=== PATIENT | female | born 1960 | race Hispanic/Latino ===

== ENCOUNTER 2018-05-29 09:21 | Emergency (ER) | payer SELFPAY ==
[2018-05-29] MEDS ORDERED: HYDROCODONE/APAP 7.5/325 MG TAB ONE (09:55)
--- NOTE | 2018-05-29 10:38 | ER ---
Nurse's Notes [facility] Name: Ellen Winston Age: 57 yrs Sex: Female : 1960 Arrival Date: 05/29/2018 Time: 09:22 Bed 16 Private MD: None, None Diagnosis: Sciatica, left side Presentation: 05/29 09:36 Presenting complaint: Patient states: Reports L lower back pain that radiates to L hip ph and L thigh and nausea, denies fever V/D, reports hx of sciatica. Transition of care: patient was not received from another setting of care. Onset of symptoms was May 29, 2018. Risk Assessment: Do you want to hurt yourself or someone else? Patient reports no desire to harm self or others. Initial Sepsis Screen: Does the patient meet any 2 criteria? No. Patient's initial sepsis screen is negative. Does the patient have a suspected source of infection? No. Patient's initial sepsis screen is negative. Care prior to arrival: None. 09:36 Method Of Arrival: Ambulatory ph 09:36 Acuity: TYRONE 4 ph Historical: - Allergies: 09:40 No Known Allergies; ph - Home Meds: 09:40 amlodipine oral once daily [Active]; lisinopril 20 mg Oral tab 1 tab once daily ph [Active]; metformin 1,000 mg Oral tab 1 tab 1 daily [Active]; - PMHx: 09:40 Diabetes - NIDDM; Hyperlipidemia; Hypertension; UTI; ph - PSHx: 09:40 Hysterectomy; Tonsillectomy; ph - Immunization history:: Adult Immunizations unknown. - Social history:: Smoking status: Patient uses tobacco products, smokes one-half pack cigarettes per day. - Ebola Screening: : No symptoms or risks identified at this time. Screenin:41 Abuse screen: Denies threats or abuse. Denies injuries from another. Nutritional ph screening: No deficits noted. Tuberculosis screening: No symptoms or risk factors identified. Fall Risk None identified. Assessment: 09:41 General: Appears in no apparent distress. uncomfortable, Behavior is calm, cooperative, ph appropriate for age, Denies fever, feeling ill. Pain: Complains of pain in left low back Pain radiates to left hip. Neuro: Level of Consciousness is awake, alert, obeys commands, Oriented to person, place, time, situation, Moves all extremities. Full function Gait is steady. Cardiovascular: Capillary refill < 3 seconds in bilateral fingers Patient's skin is warm and dry. Respiratory: Airway is patent Respiratory effort is even, unlabored. Derm: Skin is intact, is healthy with good turgor, Skin is pink, warm \T\ dry. Musculoskeletal: Circulation, motion, and sensation intact. Range of motion: intact in all extremities. Vital Signs: 09:38 BP 163 / 54; Pulse 68; Resp 16; Temp 97.6; Pulse Ox 97% on R/A; Weight 53.98 kg; Height ph 4 ft. 11 in. (149.86 cm); 09:38 Body Mass Index 24.03 (53.98 kg, 149.86 cm) ph ED Course: 09:22 Patient arrived in ED. sb2 09:22 None, None is Private Physician. sb2 09:23 Racheal Sanabria F[facility]-C is [facility]. kb 09:23 Daniel Rashid MD is Attending Physician. kb 09:36 Jeny Watson RN is Primary Nurse. ph 09:38 Triage completed. ph 09:40 Arm band placed on. ph 09:41 Patient has correct armband on for positive identification. Bed in low position. Call ph light in reach. Side rails up X 1. Warm blanket given. 09:52 Urine collected: clean catch specimen, abril colored. dh3 10:45 No provider procedures requiring assistance completed. Patient did not have IV access ph during this emergency room visit. Administered Medications: 09:54 Drug: [place] (7.5 mg-325 mg) 1 tabs Route: PO; ph 10:45 Follow up: Response: No adverse reaction; Pain is decreased ph Outcome: 10:38 Discharge ordered by . kb 10:53 Patient left the ED. ph 10:53 Discharged to home ambulatory, with significant other. ph 10:53 Condition: good 10:53 Discharge instructions given to patient, Instructed on discharge instructions, follow up and referral plans. medication usage, Demonstrated understanding of instructions, follow-up care, medications, Prescriptions given X 2. Signatures: Rachael Sanabria FNP-C FNP-Ckb Hall, Patricia, RN RN Eli Duran 3 Marcela Shukla sb2
--- NOTE | 2018-05-29 10:38 | EDPHYS ---
Physician Documentation [facility] Name: Ellen Winston Age: 57 yrs Sex: Female : 1960 Arrival Date: 05/29/2018 Time: 09:22 Bed 16 Private MD: None, None ED Physician Daniel Rashid HPI: 05/29 10:36 This 57 yrs old Female presents to ER via Ambulatory with complaints of Flank kb Pain. 10:36 The patient presents with pain that is acute, with no known mechanism of injury. The kb symptoms are located in the left low back. The pain radiates to the left leg. The problem was sustained from unknown cause. Onset: The symptoms/episode began/occurred yesterday. Modifying factors: The patient symptoms are alleviated by nothing, the patient symptoms are aggravated by supine position. Associated signs and symptoms: Pertinent positives: none. Severity of symptoms: At their worst the symptoms were moderate, in the emergency department the symptoms are unchanged. The patient has experienced a previous episode. The patient has not recently seen a physician. Historical: - Allergies: 09:40 No Known Allergies; ph - Home Meds: 09:40 amlodipine oral once daily [Active]; lisinopril 20 mg Oral tab 1 tab once daily ph [Active]; metformin 1,000 mg Oral tab 1 tab 1 daily [Active]; - PMHx: 09:40 Diabetes - NIDDM; Hyperlipidemia; Hypertension; UTI; ph - PSHx: 09:40 Hysterectomy; Tonsillectomy; ph - Immunization history:: Adult Immunizations unknown. - Social history:: Smoking status: Patient uses tobacco products, smokes one-half pack cigarettes per day. - Ebola Screening: : No symptoms or risks identified at this time. ROS: 10:36 Constitutional: Negative for fever, chills, and weight loss, Cardiovascular: Negative kb for chest pain, palpitations, and edema, Respiratory: Negative for shortness of breath, cough, wheezing, and pleuritic chest pain, Abdomen/GI: Negative for abdominal pain, nausea, vomiting, diarrhea, and constipation, : Negative for injury, bleeding, discharge, and swelling, MS/Extremity: Negative for injury and deformity, Skin: Negative for injury, rash, and discoloration, Neuro: Negative for headache, weakness, numbness, tingling, and seizure. 10:36 Back: Positive for pain at rest, radiated pain, of the left low back. Exam: 10:36 Constitutional: This is a well developed, well nourished patient who is awake, alert, kb and in no acute distress. Head/Face: Normocephalic, atraumatic. Chest/axilla: Normal chest wall appearance and motion. Nontender with no deformity. No lesions are appreciated. Cardiovascular: Regular rate and rhythm with a normal S1 and S2. No gallops, murmurs, or rubs. Normal PMI, no JVD. No pulse deficits. Respiratory: Lungs have equal breath sounds bilaterally, clear to auscultation and percussion. No rales, rhonchi or wheezes noted. No increased work of breathing, no retractions or nasal flaring. Abdomen/GI: Soft, non-tender, with normal bowel sounds. No distension or tympany. No guarding or rebound. No evidence of tenderness throughout. Back: No spinal tenderness. No costovertebral tenderness. Full range of motion. Skin: Warm, dry with normal turgor. Normal color with no rashes, no lesions, and no evidence of cellulitis. MS/ Extremity: Pulses equal, no cyanosis. Neurovascular intact. Full, normal range of motion. Neuro: Awake and alert, GCS 15, oriented to person, place, time, and situation. Cranial nerves II-XII grossly intact. Motor strength 5/5 in all extremities. Sensory grossly intact. Cerebellar exam normal. Normal gait. Vital Signs: 09:38 BP 163 / 54; Pulse 68; Resp 16; Temp 97.6; Pulse Ox 97% on R/A; Weight 53.98 kg; Height ph 4 ft. 11 in. (149.86 cm); 09:38 Body Mass Index 24.03 (53.98 kg, 149.86 cm) ph MDM: 09:29 Patient medically screened. kb 10:36 Data reviewed: vital signs, nurses notes. Data interpreted: Pulse oximetry: on room air kb is 97 %. Interpretation: normal. Counseling: I had a detailed discussion with the patient and/or guardian regarding: the historical points, exam findings, and any diagnostic results supporting the discharge/admit diagnosis, lab results, the need for outpatient follow up, a family practitioner, to return to the emergency department if symptoms worsen or persist or if there are any questions or concerns that arise at home. 05/29 10:43 Order name: Urine Dipstick--Ancillary (enter results) bd 05/29 10:43 Order name: Urine --Ancillary (enter results) bd 05/29 09:39 Order name: Urine Dipstick-Ancillary (obtain specimen); Complete Time: 09:43 kb 05/29 10:43 Order name: Urine Dipstick-Ancillary EDMS 05/29 10:43 Order name: Urine --Ancillary EDMS Administered Medications: 09:54 Drug: [place] (7.5 mg-325 mg) 1 tabs Route: PO; ph 10:45 Follow up: Response: No adverse reaction; Pain is decreased ph Disposition: 14:53 Co-signature as Attending Physician, Daniel Rashid MD I agree with the assessment and bigg plan of care. Disposition: 05/29/18 10:38 Discharged to Home. Impression: Sciatica, left side. - Condition is Stable. - Discharge Instructions: Sciatica, [id number]. - Prescriptions for Cyclobenzaprine 10 mg Oral Tablet - take 1 tablet by ORAL route every 8 hours As needed; 21 tablet. Diclofenac Sodium 75 mg Oral Tablet, Delayed Release (E.C.) - take 1 tablet by ORAL route 2 times per day As needed; 30 tablet. - Medication Reconciliation Form, Thank You Letter, Antibiotic Education, Prescription Opioid Use form. - Follow up: Emergency Department; When: As needed; Reason: Worsening of condition. Follow up: Private Physician; When: 2 - 3 days; Reason: Recheck today's complaints, Continuance of care, Re-evaluation by your physician. Signatures: Dispatcher [employer] EDIA Racheal Sanabria, Daniel Sim MD MD cha Hall, Patricia, RN RN ph Corrections: (The following items were deleted from the chart) 10:53 10:38 05/29/2018 10:38 Discharged to Home. Impression: Sciatica, left side. Condition ph is Stable. Forms are Medication Reconciliation Form, Thank You Letter, Antibiotic Education, Prescription Opioid Use. Follow up: Emergency Department; When: As needed; Reason: Worsening of condition. Follow up: Private Physician; When: 2 - 3 days; Reason: Recheck today's complaints, Continuance of care, Re-evaluation by your physician. kb
[2018-05-29 10:58] VITALS: BP 163/54; TEMP 97.6; O2SAT 97
[2018-05-29 11:55] LABS: Urine Blood NEGATIVE (NEG); Urine Glucose TRACE (NEG); Urine Protein TRACE (NEG); Urine Specific Gravity 1.025 (1.005-1.030); Urine pH 5.5 (5.0-7.0)
== END 2018-05-29 10:53 | disposition home or self-care (01) ==
LOC: ER 09:21
DX: M54.32 Sciatica, left side (principal); E11.9 Type 2 diabetes mellitus without complications; E78.5 Hyperlipidemia, unspecified; I10 Essential (primary) hypertension
CPT/HCPCS: 81003; 81025; 99283

== ENCOUNTER 2019-10-19 07:35 | Emergency (ER) | payer SELFPAY ==
--- OUTSIDE RECORDS SUMMARY | 2019-10-19 07:38 | XMS REPORT ---
:1960 [facility] [address] [place] [address] Care Team Providers Name Role Phone Unavailable Unavailable Unavailable Problems This patient has no known problems. Allergies, Adverse Reactions, Alerts This patient has no known allergies or adverse reactions. Medications This patient has no known medications. Results Test Description Test Time Test Comments Text Results Atomic Results Result Comments SCR MAMM BILATERAL NATHANIEL 2018-12-05 07:51:23 - SCR MAMM BILATERAL NATHANIEL CAD CAD DIGITAL DIGITALBILATERAL DIGITAL SCREENING MAMMOGRAM 3D/2D WITH CAD: 11/17/2018CLINICAL: Asymptomatic. Digital breast tomosynthesis was performed in addition to routine CC and MLO views. Current mammographic images were evaluated by either a RichRelevance M-Vu or a Touchbase ImageChecker CAD (computer aided detection system). Comparison is made to exam dated 03/05/2014 mammogram - [facility]-Radiology File Room. There are scattered fibroglandular tissues in both breasts. There are benign vascular calcifications in both breasts. There is a new high density mass in the right breast, posterior depth, superior region seen on the mediolateral oblique view only. No other significant masses, calcifications, or other findings are seen in either breast. IMPRESSION: INCOMPLETE ASSESSMENT: ADDITIONAL IMAGING EVALUATION RECOMMENDEDThe mass in the right axilla could represent a benign lymph node. Additional views with possible ultrasound are recommended for confirmation. Pramod Suero M.D. et/:12/05/2018 07:51:23 Attending Technologist: Mayra Neal MM, [facility] MammographyImaging Technologist: Taylor Naqvi MM, [facility] Mammographyletter sent: Additional Imaging Mammogram BI-RADS: 0 Indeterminate
[2019-10-19] MEDS ORDERED: MORPHINE 4 MG/ML SYR ONE (07:59)
[2019-10-19] MEDS ORDERED: ONDANSETRON 4 MG/2 ML VIAL ONE (07:59)
[2019-10-19] MEDS ORDERED: ACETAMINOPHEN 325 MG TABLET ONE (08:25)
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
[2019-10-19 10:48] VITALS: BP 160/51; O2SAT 99
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
== END 2019-10-19 10:40 | disposition home or self-care (01) ==
LOC: ER 07:35
DX: M79.604 Pain in right leg (principal); I10 Essential (primary) hypertension; E78.5 Hyperlipidemia, unspecified; E11.9 Type 2 diabetes mellitus without complications; V49.9XXA Car occupant (driver) (passenger) injured in unspecified traffic accident, initial encounter
CPT/HCPCS: 70450; 71250; 72125; 99285; J2405

== ENCOUNTER 2021-02-05 10:24 | Emergency (ER) | payer SELFPAY ==
--- OUTSIDE RECORDS SUMMARY | 2021-02-05 10:26 | XMS REPORT | Continuity of Care Document ---
:1960 Author Organization [facility] t Address [address] [place] [address] Care Team Providers Name Role Phone Doctor Unassigned, [place] Attending Clinician Unavailable Problems This patient has no known problems. Allergies, Adverse Reactions, Alerts This patient has no known allergies or adverse reactions. Medications This patient has no known medications. Procedures This patient has no known procedures. Encounters Start End Encounter Admission Attending Care Care Encounter Source Date/Time Date/Time Type Type Clinicians Facility Department ID 2021-01-01 2021-01-01 Orders Doctor DELVIS [id number] 00:00:00 00:00:00 Only Unassigned, JAMMIE [id number] [place] [facility] [id number] Results Test Description Test Time Test Comments Results Result [facility] e Comments SCR MAMM 2018-12-05 - SCR MAMM BILATERAL BILATERAL NATHANIEL 07:51:23 NATHANIEL CAD CAD DIGITAL DIGITALBILATERAL DIGITAL SCREENING MAMMOGRAM 3D/2D WITH CAD: 11/17/2018CLINICAL: Asymptomatic. Digital breast tomosynthesis was performed in addition to routine CC and MLO views. Current mammographic images were evaluated by either a [employer] M-Vu or a [employer] ImageChecker CAD (computer aided detection system). Comparison is made to exam dated 03/05/2014 mammogram - [facility]-Radiology File Room. There are scattered fibroglandular tissues [...] 07:51:23 Attending Technologist: Mayra Neal MM, [facility] MammographyImaging Technologist: Taylor Naqvi MM, [facility] Mammographyletter sent: Additional Imaging Mammogram BI-RADS: 0 Indeterminate
--- NOTE | 2021-02-05 11:00 | RAD REPORT ---
EXAM DESCRIPTION: CT - Head Brain Wo Cont - 02/05/2021 10:49 am CLINICAL HISTORY: blurry vision;Dizziness Headache, drowsiness COMPARISON: HEAD BRAIN W O CONTRAST dated 05/23/2014 TECHNIQUE: All CT scans are performed using dose optimization technique as appropriate and may inclu de automated exposure control or mA/KV adjustment according to patient size. FINDINGS: No intracranial hemorrhage, hydrocephalus or extra-axial fluid collection.No areas of brai n edema or evidence of midline shift. The paranasal sinuses and mastoids are clear. The calvarium is intact. IMPRESSION: No acute intracranial abnormality.
[2021-02-05 11:04] LABS: Absolute Lymphocytes (CBC) 2.1 K/uL (0.7-4.9); Basophils % 0.6 % (0-1.3); Hematocrit 38.4 % (36.0-45.0); Lymphocytes % 24.2 % (15.3-44.8); MPV 8.4 fL (7.6-11.3); RBC Red Blood Cell Count 4.44 M/uL (3.86-4.86)
[2021-02-05 11:19] LABS: Protime INR 0.97
[2021-02-05 11:20] LABS: Potassium 3.9 mmol/L (3.5-5.1)
[2021-02-05] MEDS ORDERED: ACETAMINOPHEN 325 MG TABLET ONE (11:30)
--- NOTE | 2021-02-05 11:48 | RAD REPORT ---
EXAM DESCRIPTION: RAD - Chest Single View - 02/05/2021 11:21 am CLINICAL HISTORY: dizziness Chest pain. COMPARISON: CHEST SINGLE VIEW dated 05/23/2014; CHEST SINGLE VIEW dated 02/28/2014 FINDINGS: Portable technique limits examination quality. The lungs are grossly clear. The heart is normal in size. No displaced fractures. IMPRESSION: No acute intrathoracic process suspected.
--- NOTE | 2021-02-05 16:39 | RAD REPORT ---
EXAM DESCRIPTION: MRI - MRA Head Wo Cont - 02/05/2021 4:15 pm CLINICAL HISTORY: Stroke-like symptoms, loss of balance, dizziness, left eye blurred vision COMPARISON: MRI brain same date, CT head same date TECHNIQUE: Axial and coronal 3D [id number] image acquisition was performed. 3D rotational images were generated with source and reconstruction images reviewed. Horizontal and vertical axis rotation al views generated using MIP protocol. FINDINGS: Major venous sinuses are patent. No aneurysm or vascular malformation. Distal vertebral arteries and basilar artery show no suspicious findings. Moderate to moderately kaleb re atherosclerotic changes are present in the bilateral posterior cerebral arteries. Patient has dense calcifications of the cavernous and supraclinoid portions of each internal carotid artery based on the CT study. There is significant luminal narrowing through these portions of each i nternal carotid artery on this MRA study. Left MCA atherosclerotic changes are mild. There is moderate severity atherosclerotic narrowing of th e distal portion right M1 MCA vessel. More peripheral MCA atherosclerotic changes are mild. No signif icant anterior cerebral artery disease. IMPRESSION: Patient has significant atherosclerotic change and luminal narrowing in each internal ca rotid artery with moderate severity narrowing of the right middle cerebral artery M1 branch.
[2021-02-05] MEDS ORDERED: ASPIRIN 81 MG CHEWABLE TABLET ONE (16:42)
--- NOTE | 2021-02-05 16:47 | RAD REPORT ---
EXAM DESCRIPTION: MRI - Brain W/Wo Cont - 02/05/2021 4:15 pm CLINICAL HISTORY: DIZZINESS COMPARISON: MRA Head Wo Cont dated 02/05/2021; MRA Neck W/Wo Cont dated 02/05/2021; Head Brain Wo Cont dated 02/05/2021 TECHNIQUE: Sagittal and axial T1-weighted images were obtained. Axial PD/heavily T2-weighted and T2- FLAIR images were obtained along with axial DWI/ADC mapping sequences. Coronal heavily T2 weighted s equence obtained. Axial and coronal post-contrast T1-weighted images were also obtained. A 12 ml Mul tihance contrast following utilized. FINDINGS: No intracranial hemorrhage, mass or acute infarction. There is no edema or shift of midli ne structures. No extra-axial fluid collections. Fisher-matter/white matter junction is preserved. Sig nal voids are seen as a normal finding in the major intracranial vessels. Patient has no measurable atrophy. Ventricles are normal. There is very little identifiable chronic ischemic change. This is le ss than would be expected given the amount of disease in the bilateral internal carotid arteries. No globe or orbital content acute finding. No sella or supra sella abnormality. Post-contrast images show normal enhancement. No dural thickening. Mastoid air cells and paranasal sinuses are clear. IMPRESSION: No acute infarction changes are present. No hemorrhage, mass or acute intracranial findi ng. No measurable atrophy. Ventricles are normal. Patient has very little identifiable chronic ischemic change. This is less than would be expected giv en the amount of distal internal carotid artery disease and the right middle cerebral artery disease seen on the separately reported MRA head study.
--- NOTE | 2021-02-05 16:48 | RAD REPORT ---
EXAM DESCRIPTION: MRI - MRA Neck W/Wo Cont - 02/05/2021 4:15 pm CLINICAL HISTORY: Stroke-like symptoms, blurred vision, extremity weakness COMPARISON: CT head same date, MRI brain same date, MRA head same date TECHNIQUE: MR angiography of the cervical vasculature performed. Coronal imaging plane acquisition u tilized. A 12 MultiHance contrast volume was utilized. Coronal reformatted images were generated and reviewed. Vertical axis 3D rotational projections obtained using maximum intensity projection protoco l. FINDINGS: Aortic arch is 3 vessel configuration with no origins stenosis. Codominant vertebral arter ies show no origins stenoses. No significant atherosclerotic changes are present. No dissection or ac wrangell vascular finding identifiable. There is mild tortuosity of the vertebral arteries. No aneurysm or vascular malformation. No vasculitis findings. IMPRESSION: MRA neck examination shows no significant or suspicious finding.
--- NOTE | 2021-02-05 17:45 | ER ---
Nurse's Notes [facility] Name: Ellen Winston Age: 60 yrs Sex: Female : 1960 Arrival Date: 02/05/2021 Time: 10:27 Bed 20 Private MD: Diagnosis: Sixth [abducent] nerve palsy, right eye;Third [oculomotor] nerve palsy, right eye Presentation: 02/05 10:36 Chief complaint: Patient states: went to sleep last night at 2200 with no symptoms, sv woke up this morning at 0700 with c/o dizziness, balance off, left eye blurry vision. Denies numbness/weakness. 10:39 Coronavirus screen: Client denies travel out of the [place] in the last 14 days. At this sv time, the client does not indicate any symptoms associated with coronavirus-19. Ebola Screen: No symptoms or risks identified at this time. Risk Assessment: Do you want to hurt yourself or someone else? Patient reports no desire to harm self or others. Onset of symptoms was February 05, 2021 at 07:00. 10:39 Method Of Arrival: Wheelchair sv 10:39 Acuity: TYRONE 2 sv 18:38 No acute neurological deficit is noted. Pre-hospital glucose is not applicable to this ld1 patient. 18:39 Initial Sepsis Screen: Does the patient meet any 2 criteria? No. Patient's initial ld1 sepsis screen is negative. Does the patient have a suspected source of infection? No. Patient's initial sepsis screen is negative. Triage Assessment: 10:36 General: Appears in no apparent distress. comfortable, slender, well developed, sv Behavior is calm, cooperative, appropriate for age. Pain: Denies pain. Neuro: Level of Consciousness is awake, alert, obeys commands, Oriented to person, place, time, situation, [place] are equal bilaterally Moves all extremities. Full function Gait is unsteady, Speech is normal, Facial symmetry appears normal, Facial symmetry: tongue is midline, Reports blurred vision in left eye dizziness. Respiratory: Respiratory effort is even, unlabored. 18:40 The onset of the patients symptoms was February 04, 2021 at 23:00. ld1 Historical: - Allergies: 10:39 No Known Allergies; sv - PMHx: 10:39 Diabetes - NIDDM; Hyperlipidemia; Hypertension; UTI; Abnormal EKG; sv - PSHx: 10:39 Hysterectomy; Tonsillectomy; sv - Immunization history:: Adult Immunizations up to date. - Social history:: Smoking status: Patient reports the use of cigarette tobacco products, smokes one-half pack cigarettes per day, Patient/guardian denies using alcohol. Screenin:14 Abuse screen: Denies threats or abuse. Denies injuries from another. Nutritional ld1 screening: No deficits noted. Tuberculosis screening: No symptoms or risk factors identified. Fall Risk IV access (20 points). Assessment: 10:36 VAN Scoring: Arm Drift: Patients demonstrates NO arm weakness. Patient is VAN Negative. sv T-PA (Activase) Screening: Contraindications: Patient reports onset of signs and symptoms of stroke greater than 6 hours ago: Yes. 11:07 The patient has not been NPO before screening. The patient is alert, and able to follow ld1 commands. The patient does not exhibit slurred or garbled speech. The patient is not exhibiting difficulty speaking. The patient does not exhibit difficulty understanding words. The patient is able to swallow own secretions with no drooling or need for suction. Patient tolerated one teaspoon of water. No drooling, immediate coughing, gurgling, or clearing of the throat was noted. The patient tolerated 90mL of water. No drooling, immediate coughing, gurgling, or clearing of the throat was noted. The patient passed the bedside swallow screening. Oral medications may be given as ordered. Contact Physician for further diet orders. Provider notified of bedside swallow screening results: Amos Young MD. 11:14 General: Appears in no apparent distress. comfortable, Behavior is calm, cooperative, ld1 appropriate for age. Pain: Denies pain. Neuro: Level of Consciousness is awake, alert, obeys commands, Oriented to person, place, time, situation, Appropriate for age. Neuro: Reports blurred vision in iris of left eye dizziness, headache. Cardiovascular: Capillary refill < 3 seconds Patient's skin is warm and dry. Cardiovascular: Denies chest pain, Rhythm is sinus rhythm. Respiratory: Airway is patent Respiratory effort is even, unlabored, Respiratory pattern is regular, symmetrical. GI: Abdomen is flat, non-distended. : No signs and/or symptoms were reported regarding the genitourinary system. EENT: Reports blurred vision since 0800 this morning. Derm: No signs and/or symptoms reported regarding the dermatologic system. Musculoskeletal: No signs and/or symptoms reported regarding the musculoskeletal system. 12:41 Reassessment: Patient appears in no apparent distress at this time. No changes from ld1 previously documented assessment. Patient and/or family updated on plan of care and expected duration. Pain level reassessed. Pt states she is seeing double, notified ERP. No new orders at this time. Denies all other concerns. Patient denies pain at this time. 14:05 Reassessment: No changes from previously documented assessment. Patient and/or family ld1 updated on plan of care and expected duration. Pain level reassessed. Laying in bed with daughter at bedside. Denies concerns at this time. Patient denies pain at this time. 15:50 Reassessment: Pt in MRI. ld1 16:42 Reassessment: Patient appears in no apparent distress at this time. No changes from ld1 previously documented assessment. Patient and/or family updated on plan of care and expected duration. Pain level reassessed. Patient denies pain at this time. 17:30 Reassessment: ERP at bedside discussing POC. ld1 Vital Signs: 10:39 BP 198 / 71; Pulse 74; Resp 20; Pulse Ox 98% ; Weight 50.8 kg; Height 4 ft. 8 in. sv (142.24 cm); Pain 0/10; 11:14 BP 145 / 58 Sitting (auto/reg); Pulse 65; Pulse Ox 98% on R/A; mb4 11:14 BP 145 / 58; Pulse 61; Resp 18; Temp 98.5(O); Pulse Ox 100% on R/A; Weight 50.8 kg; ld1 Height 5 ft. 3 in. (160.02 cm); Pain 0/10; 11:57 BP 145 / 58 Sitting (auto/reg); Pulse 59; Pulse Ox 97% on R/A; mb4 12:41 BP 150 / 60; Pulse 59; Resp 18; Pulse Ox 100% on R/A; ld1 13:54 BP 143 / 63; Pulse 52; Pulse Ox 97% on R/A; mb4 16:26 BP 148 / 66; Pulse 69; Pulse Ox 100% on R/A; mb4 17:30 BP 145 / 70; Pulse 70; Resp 18; Pulse Ox 100% on R/A; ld1 11:14 Body Mass Index 19.84 (50.80 kg, 160.02 cm) ld1 NIH Stroke Scale Scores: 11:07 NIHSS Score: 0 ld1 ED Course: 10:27 Patient arrived in ED. mr 10:30 Mayra Woods, RN is Primary Nurse. ld1 10:36 Galindo Mosquera PA is PHCP. m 10:37 Amos Young MD is Attending Physician. jmm 10:40 Triage completed. sv 10:40 Arm band placed on. sv 10:43 Amos Young MD is Attending Physician. kdr 10:49 CT Head Brain wo Cont In Process Unspecified. EDMS 10:[address] moved back from [address]. sv 11:00 Inserted saline lock: 22 gauge in right antecubital area, using aseptic technique. ld1 Blood collected. 11:14 Patient has correct armband on for positive identification. Placed in gown. Bed in low ld1 position. Call light in reach. Side rails up X2. traffic monitor specialist on. Pulse ox on. NIBP on. Door closed. Noise minimized. Warm blanket given. 11:21 Stroke CXR 1 View In Process Unspecified. EDMS 13:20 Warm blanket given. mb4 16:14 MRA Head Wo Cont In Process Unspecified. EDMS 16:15 MRA Neck W/Wo Cont In Process Unspecified. EDMS 16:15 Brain W/Wo Cont In Process Unspecified. EDMS 18:40 IV discontinued, intact, bleeding controlled, No redness/swelling at site. ld1 Administered Medications: 16:24 Drug: Aspirin Chewable Tablet 324 mg Route: PO; ld1 16:41 Follow up: Response: No adverse reaction ld1 17:55 Drug: PlaVIX (clopidogrel) 75 mg Route: PO; ld1 18:17 Follow up: Response: No adverse reaction ld1 17:55 Drug: Atorvastatin 20 mg Route: PO; ld1 18:17 Follow up: Response: No adverse reaction ld1 17:55 Drug: foLIC Acid 1 mg Route: PO; ld1 18:18 Follow up: Response: No adverse reaction ld1 Outcome: 17:44 Discharge ordered by . kdr 18:39 Discharged to home ambulatory. ld1 18:39 Condition: stable 18:39 Instructed on 18:39 Discharge instructions given to patient, family, friend, Instructed on discharge instructions, follow up and referral plans. medication usage, Demonstrated understanding of instructions, follow-up care, medications. 18:41 Patient left the ED. ld1 NIH Stroke Scale - NIH Stroke Score Date: 02/05/2021 Time: 11:07 Total Score = 0 1a. Level of Consciousness (LOC) - 0(Alert) 1b. Level of Consciousness (LOC) (Year \T\ Age) - 0(Both) 1c. LOC Commands (Open \T\ Closes Eyes/Supervisor Pile Driving) - 0(Both) 2. Best Gaze (Lateral Gaze Paresis) - 0(Normal) 3. Visual Field Loss - 0(No visual loss) 4. Facial Palsy - 0(Normal) 5a. Left Arm: Motor (10-second hold) - 0(No drift) 5b. Right Arm: Motor (10-second hold) - 0(No drift) 6a. Left Leg: Motor (5-second hold - always test supine) - 0(No drift) 6b. Right Leg: Motor (5-second hold - always test supine) - 0(No drift) 7. Limb Ataxia (finger/nose \T\ heel/velásquez - test with eyes open) - 0(Absent) 8. Sensory Loss (pinprick arms/legs/face) - 0(Normal) 9. Best Language: Aphasia (description/naming/reading) - 0(No aphasia) 10. Dysarthria (speech clarity - read or repeat words) - 0(Normal) 11. Extinction and Inattention (visual/tactile/auditory/spatial/personal) - 0(No abnormality) Initials: ld1 Signatures: Dispatcher [employer] Akiko Kwok, EJB RN Amos Miller MD MD kdr Mickail, Joel, PA PA jmm Rivera, Mary mr Kayleigh Erickson4 Mayra Woods RN RN ld1 Corrections: (The following items were deleted from the chart) 11:19 11:14 Inserted saline lock: 22 gauge in right antecubital area, using aseptic ld1 technique. Blood collected. ld1
--- NOTE | 2021-02-05 17:45 | EDPHYS ---
Physician Documentation [facility] Name: Ellen Winston Age: 60 yrs Sex: Female : 1960 Arrival Date: 02/05/2021 Time: : Bed 20 Private MD: ED Physician Amos Young HPI: 02/05 15:41 This 60 yrs old Female presents to ER via Wheelchair with complaints of kdr Dizziness, Blurred Vision. 15:41 The patient presents with dizziness, lightheadedness, feeling off balance. Onset: The kdr symptoms/episode began/occurred at an unknown time. Went to sleep at 2200 last night and awoke at 07:00 today feeling off balance and dizzy with blurry vision. Context: occurred at home. Modifying factors: The symptoms are alleviated by nothing, the symptoms are aggravated by changing position. Associated signs and symptoms: Pertinent positives: blurred vision, Vision is blurry when both eyes are open but not when either eye is covered. Severity of symptoms: At their worst the symptoms were mild moderate in the emergency department the symptoms are unchanged. Patient's baseline: Neuro: alert and fully oriented, Motor: no deficits, Ambulation: walks without assistance, Speech: normal. The patient has not experienced similar symptoms in the past. The patient has not recently seen a physician. Historical: - Allergies: 10:39 No Known Allergies; sv - PMHx: 10:39 Diabetes - NIDDM; Hyperlipidemia; Hypertension; UTI; Abnormal EKG; sv - PSHx: 10:39 Hysterectomy; Tonsillectomy; sv - Immunization history:: Adult Immunizations up to date. - Social history:: Smoking status: Patient reports the use of cigarette tobacco products, smokes one-half pack cigarettes per day, Patient/guardian denies using alcohol. ROS: 15:47 Constitutional: Negative for fever, chills, and weight loss, Eyes: Negative for injury, kdr pain, redness, and discharge, ENT: Negative for injury, pain, and discharge, Neck: Negative for injury, pain, and swelling, Cardiovascular: Negative for chest pain, palpitations, and edema, Respiratory: Negative for shortness of breath, cough, wheezing, and pleuritic chest pain, Abdomen/GI: Negative for abdominal pain, nausea, vomiting, diarrhea, and constipation, Back: Negative for injury and pain, : Negative for injury, bleeding, discharge, and swelling, MS/Extremity: Negative for injury and deformity, Skin: Negative for injury, rash, and discoloration, Psych: Negative for depression, anxiety, suicide ideation, homicidal ideation, and hallucinations, Allergy/Immunology: Negative for hives, rash, and allergies, Endocrine: Negative for neck swelling, polydipsia, polyuria, polyphagia, and marked weight changes, Hematologic/Lymphatic: Negative for swollen nodes, abnormal bleeding, and unusual bruising. 15:47 Neuro: Positive for visual changes. Exam: 11:37 ECG was reviewed by the Attending Physician. kdr 15:47 Constitutional: This is a well developed, well nourished patient who is awake, alert, kdr and in no acute distress. Head/Face: Normocephalic, atraumatic. Eyes: Pupils equal round and reactive to light, extra-ocular motions intact. Lids and lashes normal. Conjunctiva and sclera are non-icteric and not injected. Cornea within normal limits. Periorbital areas with no swelling, redness, or edema. Neck: Trachea midline, no thyromegaly or masses palpated, and no cervical lymphadenopathy. Supple, full range of motion without nuchal rigidity, or vertebral point tenderness. No Meningismus. Chest/axilla: Normal chest wall appearance and motion. Nontender with no deformity. No lesions are appreciated. Cardiovascular: Regular rate and rhythm with a normal S1 and S2. No gallops, murmurs, or rubs. Normal PMI, no JVD. No pulse deficits. Respiratory: Lungs have equal breath sounds bilaterally, clear to auscultation and percussion. No rales, rhonchi or wheezes noted. No increased work of breathing, no retractions or nasal flaring. Abdomen/GI: Soft, non-tender, with normal bowel sounds. No distension or tympany. No guarding or rebound. No evidence of tenderness throughout. Back: No spinal tenderness. No costovertebral tenderness. Full range of motion. Skin: Warm, dry with normal turgor. Normal color with no rashes, no lesions, and no evidence of cellulitis. MS/ Extremity: Pulses equal, no cyanosis. Neurovascular intact. Full, normal range of motion. Neuro: Awake and alert, GCS 15, oriented to person, place, time, and situation. Cranial nerves II-XII grossly intact. Motor strength 5/5 in all extremities. Sensory grossly intact. Cerebellar exam normal. Normal gait. Psych: Awake, alert, with orientation to person, place and time. Behavior, mood, and affect are within normal limits. Vital Signs: 10:39 BP 198 / 71; Pulse 74; Resp 20; Pulse Ox 98% ; Weight 50.8 kg; Height 4 ft. 8 in. sv (142.24 cm); Pain 0/10; 11:14 BP 145 / 58 Sitting (auto/reg); Pulse 65; Pulse Ox 98% on R/A; mb4 11:14 BP 145 / 58; Pulse 61; Resp 18; Temp 98.5(O); Pulse Ox 100% on R/A; Weight 50.8 kg; ld1 Height 5 ft. 3 in. (160.02 cm); Pain 0/10; 11:57 BP 145 / 58 Sitting (auto/reg); Pulse 59; Pulse Ox 97% on R/A; mb4 12:41 BP 150 / 60; Pulse 59; Resp 18; Pulse Ox 100% on R/A; ld1 13:54 BP 143 / 63; Pulse 52; Pulse Ox 97% on R/A; mb4 16:26 BP 148 / 66; Pulse 69; Pulse Ox 100% on R/A; mb4 17:30 BP 145 / 70; Pulse 70; Resp 18; Pulse Ox 100% on R/A; ld1 11:14 Body Mass Index 19.84 (50.80 kg, 160.02 cm) ld1 NIH Stroke Scale Scores: 11:07 NIHSS Score: 0 ld1 MDM: 15:47 Data reviewed: vital signs, nurses notes. Counseling: I had a detailed discussion with kdr the patient and/or guardian regarding: the historical points, exam findings, and any diagnostic results supporting the discharge/admit diagnosis, lab results, radiology results. 17:44 Patient medically screened. kdr 02/05 10:38 Order name: Basic Metabolic Panel; Complete Time: 11:36 sv 02/05 10:38 Order name: CBC with Diff; Complete Time: 11:36 sv 02/05 10:38 Order name: Protime (+inr); Complete Time: 16:42 sv 02/05 10:38 Order name: Ptt, Activated; Complete Time: 16:42 sv 02/05 10:38 Order name: Stroke CXR 1 View; Complete Time: 16:42 sv 02/05 10:56 Order name: Glucose, Ancillary Testing; Complete Time: 11:36 EDMS 02/05 10:38 Order name: CT Head Brain wo Cont; Complete Time: 11:36 sv 02/05 15:48 Order name: MRA Head Wo Cont; Complete Time: 16:42 EDMS 02/05 15:48 Order name: MRA Neck W/Wo Cont; Complete Time: 17:07 EDMS 02/05 15:48 Order name: Brain W/Wo Cont; Complete Time: 17:07 EDMS 02/05 10:38 Order name: EKG; Complete Time: 10:39 sv 02/05 10:38 Order name: Accucheck; Complete Time: 11:06 sv 02/05 10:38 Order name: Cardiac monitoring; Complete Time: 10:40 sv 02/05 10:38 Order name: EKG - Nurse/Tech; Complete Time: 11:06 sv 02/05 10:38 Order name: IV Saline Lock; Complete Time: 11:06 sv 02/05 10:38 Order name: Labs collected and sent; Complete Time: 11:06 sv 02/05 10:38 Order name: NPO; Complete Time: 11:06 sv 02/05 10:38 Order name: O2 Per Protocol; Complete Time: 10:39 sv 02/05 10:38 Order name: O2 Sat Monitoring; Complete Time: 10:39 sv 02/05 10:38 Order name: Stroke Swallow Screen; Complete Time: 11:06 sv EC:37 Rate is 55 beats/min. Rhythm is regular, Sinus bradycardia with No ectopy. QRS [place] is kdr Normal. [place] interval is normal. QRS interval is normal. Clinical impression: NSR w/ Non-specific ST/T Changes. Administered Medications: 16:24 Drug: Aspirin Chewable Tablet 324 mg Route: PO; ld1 16:41 Follow up: Response: No adverse reaction ld1 17:55 Drug: PlaVIX (clopidogrel) 75 mg Route: PO; ld1 18:17 Follow up: Response: No adverse reaction ld1 17:55 Drug: Atorvastatin 20 mg Route: PO; ld1 18:17 Follow up: Response: No adverse reaction ld1 17:55 Drug: foLIC Acid 1 mg Route: PO; ld1 18:18 Follow up: Response: No adverse reaction ld1 Disposition: 02/05/21 17:44 Discharged to Home. Impression: Sixth [abducent] nerve palsy, right eye, Third [oculomotor] nerve palsy, right eye. - Condition is Stable. - Discharge Instructions: Strabismus, Adult. - Prescriptions for aspirin 81 mg Oral tablet,chewable - chew 1 tablet by ORAL route once daily; 30 tablet. atorvastatin 40 mg Oral tablet - take 1 tablet by ORAL route once daily; 30 tablet. Plavix 75 mg Oral Tablet - take 1 tablet by ORAL route once daily; 20 tablet. Folic Acid 1 mg Oral Tablet - take 1 tablet by ORAL route once daily; 30 tablet. - Medication Reconciliation Form, Thank You Letter, Work release form form. - Follow up: Private Physician; When: 2 - 3 days; Reason: If symptoms return, Further diagnostic work-up, Recheck today's complaints, Continuance of care, Re-evaluation by your physician. - Problem is new. - Symptoms are unchanged. - Notes: You will need prompt follow-up with a neurologist for further evaluation and treatment. NIH Stroke Scale - NIH Stroke Score Date: 02/05/2021 Time: 11:07 Total Score = 0 1a. Level of Consciousness (LOC) - 0(Alert) 1b. Level of Consciousness (LOC) (Year \T\ Age) - 0(Both) 1c. LOC Commands (Open \T\ Closes Eyes/Sales Administration Manager) - 0(Both) 2. Best Gaze (Lateral Gaze Paresis) - 0(Normal) 3. Visual Field Loss - 0(No visual loss) 4. Facial Palsy - 0(Normal) 5a. Left Arm: Motor (10-second hold) - 0(No drift) 5b. Right Arm: Motor (10-second hold) - 0(No drift) 6a. Left Leg: Motor (5-second hold - always test supine) - 0(No drift) 6b. Right Leg: Motor (5-second hold - always test supine) - 0(No drift) 7. Limb Ataxia (finger/nose \T\ heel/velásquez - test with eyes open) - 0(Absent) 8. Sensory Loss (pinprick arms/legs/face) - 0(Normal) 9. Best Language: Aphasia (description/naming/reading) - 0(No aphasia) 10. Dysarthria (speech clarity - read or repeat words) - 0(Normal) 11. Extinction and Inattention (visual/tactile/auditory/spatial/personal) - 0(No abnormality) Initials: ld1 Signatures: Dispatcher [employer] Akiko Kwok, RN RN Amos Young MD MD kdr Mayra Woods RN RN ld1 Corrections: (The following items were deleted from the chart) 15:47 11:37 MR STROKE PROTOCOL+MRI.RAD.BRZ ordered. EDIN EDIN 18:41 17:44 02/05/2021 17:44 Discharged to Home. Impression: Sixth [abducent] nerve ld1 palsy, right eye; Third [oculomotor] nerve palsy, right eye. Condition is Stable. Forms are Medication Reconciliation Form, Thank You Letter, Antibiotic Education, Prescription Opioid Use. Follow up: Private Physician; When: 2 - 3 days; Reason: If symptoms return, Further diagnostic work-up, Recheck today's complaints, Continuance of care, Re-evaluation by your physician. Problem is new. Symptoms are unchanged. kdr
[2021-02-05] MEDS ORDERED: ATORVASTATIN 20 MG TAB ONE (18:19)
[2021-02-05] MEDS ORDERED: FOLIC ACID 1 MG TABLET ONE (18:19)
[2021-02-05] MEDS ORDERED: CLOPIDOGREL 75 MG TABLET ONE (18:19)
[2021-02-05 18:50] VITALS: TEMP 98.5
[2021-02-05 18:56] VITALS: O2SAT 100
[2021-02-05 18:57] VITALS: BP 145/70
--- NOTE | 2021-02-06 07:52 | EKG ---
Test Date: 2021-02-05 Test Time: 11:06:55 Sewing Machine Mechanic: FLORINA MEASUREMENT RESULTS: Intervals: Rate: 55 DE: 136 QRSD: 84 QT: 414 QTc: 396 [place]: P: 7 DE: 136 QRS: 32 T: 206 INTERPRETIVE STATEMENTS: Sinus bradycardia Anterior infarct, age undetermined ST & T wave abnormality, consider inferolateral ischemia Abnormal ECG Compared to ECG 08/06/2016 01:13:18 Myocardial infarct finding now present Left ventricular hypertrophy no longer present ST (T wave) deviation still present Possible ischemia still present Electronically Signed On 02-06-21 07:51:32 CDT by Uzair Marquez
== END 2021-02-05 18:41 | disposition home or self-care (01) ==
LOC: ER 10:24
DX: H49.21 Sixth [abducent] nerve palsy, right eye (principal); H49.01 Third [oculomotor] nerve palsy, right eye; I10 Essential (primary) hypertension; E11.9 Type 2 diabetes mellitus without complications; F17.210 Nicotine dependence, cigarettes, uncomplicated
CPT/HCPCS: 36415; 70450; 70544; 70549; 70553; 71045; 80048; 82947; 85025; 85610; 85730; 93005; 99285; A9577

== ENCOUNTER 2022-03-12 05:23 | Emergency (ER) | payer SELFPAY ==
[2022-03-12] MEDS ORDERED: ACETAMINOPHEN 325 MG TABLET ONE (05:50)
[2022-03-12] MEDS ORDERED: BENZONATATE 100 MG CAP PO ONE (05:51)
--- NOTE | 2022-03-12 07:01 | EDPHYS ---
Physician Documentation [facility] Name: Ellen Winston Age: 61 yrs Sex: Female : 1960 Arrival Date: 03/12/2022 Time: 05:26 Bed 5 Private MD: ED Physician Everardo Myles HPI: 03/12 06:28 This 61 yrs old Female presents to ER via Ambulatory with complaints of Cough, sp3 Headache, Arm Pain. 06:28 61-year-old female with a history of hypertension, hyperlipidemia, diabetes presents to [facility] the ED for cough, congestion, body aches, mild headache for the last 2 to 3 days. Patient also states that she has had left deltoid area pain for the last 2 months with decreased range of motion of her left arm. She states that the 2 are completely separate and since she is here she would like both checked out. She has had 2 doses of the original COVID-19 vaccine. She denies chest pain, shortness of breath, back pain, dull pain down her left extremity, jaw pain nausea, vomiting, diarrhea, fever, known sick contacts, travel history, any other symptoms on ROS at this time.. Historical: - Allergies: 05:47 No Known Allergies; vc1 - PMHx: 05:47 Diabetes - NIDDM; Hyperlipidemia; Hypertension; vc1 - PSHx: 05:47 None; vc1 - Immunization history:: Adult Immunizations up to date. - Social history:: Smoking status: Patient reports the use of cigarette tobacco products, smokes one-half pack cigarettes per day. ROS: 06:29 Constitutional: Negative for fever, chills, and weight loss, Eyes: Negative for injury, sp3 pain, redness, and discharge, ENT: Negative for injury, pain, and discharge, Neck: Negative for injury, pain, and swelling, Cardiovascular: Negative for chest pain, palpitations, and edema, Abdomen/GI: Negative for abdominal pain, nausea, vomiting, diarrhea, and constipation, Back: Negative for injury and pain, MS/Extremity: Negative for injury and deformity, Skin: Negative for injury, rash, and discoloration, Neuro: Negative for headache, weakness, numbness, tingling, and seizure, Psych: Negative for depression, anxiety, suicide ideation, homicidal ideation, and hallucinations, Allergy/Immunology: Negative for hives, rash, and allergies, Endocrine: Negative for neck swelling, polydipsia, polyuria, polyphagia, and marked weight changes, Hematologic/Lymphatic: Negative for swollen nodes, abnormal bleeding, and unusual bruising. 06:29 All other systems are negative. Exam: 06:30 Constitutional: This is a well developed, well nourished patient who is awake, alert, sp3 and in no acute distress. Head/Face: Normocephalic, atraumatic. Eyes: Pupils equal round and reactive to light, extra-ocular motions intact. Lids and lashes normal. Conjunctiva and sclera are non-icteric and not injected. Cornea within normal limits. Periorbital areas with no swelling, redness, or edema. ENT: Nares patent. No nasal discharge, no septal abnormalities noted. External auditory canals are clear. Oropharynx with no redness, swelling, or masses, exudates, or evidence of obstruction, uvula midline. Mucous membranes moist. Neck: Trachea midline, no thyromegaly or masses palpated, and no cervical lymphadenopathy. Supple, full range of motion without nuchal rigidity, or vertebral point tenderness. No Meningismus. Chest/axilla: Normal chest wall appearance and motion. Nontender with no deformity. No lesions are appreciated. Cardiovascular: Regular rate and rhythm with a normal S1 and S2. No gallops, murmurs, or rubs. Normal PMI, no JVD. No pulse deficits. Respiratory: Lungs have equal breath sounds bilaterally, clear to auscultation and percussion. No rales, rhonchi or wheezes noted. No increased work of breathing, no retractions or nasal flaring. Abdomen/GI: Soft, non-tender, with normal bowel sounds. No distension or tympany. No guarding or rebound. No evidence of tenderness throughout. Skin: Warm, dry with normal turgor. Normal color with no rashes, no lesions, and no evidence of cellulitis. MS/ Extremity: Pulses equal, no cyanosis. Neurovascular intact. Full, normal range of motion. Neuro: Awake and alert, GCS 15, oriented to person, place, time, and situation. Cranial nerves II-XII grossly intact. Motor strength 5/5 in all extremities. Sensory grossly intact. Cerebellar exam normal. Normal gait. Psych: Awake, alert, with orientation to person, place and time. Behavior, mood, and affect are within normal limits. 06:30 Respiratory: Mild cough.. Vital Signs: 05:40 BP 146 / 61; Pulse 82; Resp 18; Temp 99.2; Pulse Ox 95% on R/A; Weight 51.71 kg; Height vc1 4 ft. 8 in. (142.24 cm); Pain 10/10; 07:08 BP 138 / 62; Pulse 77; Resp 17; Temp 98.9; Pulse Ox 98% ; bp 05:40 Body Mass Index 25.56 (51.71 kg, 142.24 cm) vc1 MDM: 05:46 Patient medically screened. sp3 06:30 Data reviewed: vital signs, nurses notes. ED course: 61 yo female with likely viral sp3 syndrome. To consider influenza versus COVID-19 versus nonspecific viral illness versus strep versus bronchitis. Patient does not have pneumonia sepsis, septic shock, ACS, TAD, or any other critical findings. Left shoulder x-rays normal on my read. I recommended outpatient MRI and orthopedic follow-up for her left shoulder. Likely discharge home with treatment based on swabs to guide treatment.. 07 05:39 Order name: Flu as6 03/12 05:39 Order name: Strep; Complete Time: 06:32 as6 07 05:41 Order name: Influenza Screen (A ; Complete Time: 06:32 EDMN 03/12 06:17 Order name: Throat Culture EDMS 03/12 05:39 Order name: Shoulder Left (2 View) XRAY as6 Administered Medications: 05:50 Drug: Tylenol 650 mg Route: PO; as6 07:10 Follow up: Response: No adverse reaction bp 05:50 Drug: Tessalon Perle (benzonatate) 200 mg Route: PO; as6 07:09 Follow up: Response: No adverse reaction bp Disposition Summary: 03/12/22 07:01 Discharge Ordered Location: Home sp3 Condition: Stable sp3 Diagnosis - SARS-associated coronavirus as the cause of diseases classified elsewhere sp3 Discharge Instructions: - Discharge Summary Sheet sp3 - COVID-19 sp3 - 10 Things You Can Do to Manage Your COVID-19 Symptoms at Home - [facility] sp3 Forms: - Medication Reconciliation Form sp3 - Thank You Letter sp3 - Antibiotic Education sp3 - Prescription Opioid Use sp3 Signatures: Dispatcher [employer] EDMN Myles, Setul, MD MD sp3 Elvis Huynh, JEB RN as6 Alessandra Grimes RN RN vc1 Rinku Hernandez RN bp
--- NOTE | 2022-03-12 07:01 | ER ---
Nurse's Notes [facility] Name: Ellen Winston Age: 61 yrs Sex: Female : 1960 Arrival Date: 03/12/2022 Time: 05:26 Bed 5 Private MD: Diagnosis: SARS-associated coronavirus as the cause of diseases classified elsewhere Presentation: 03/12 05:40 Chief complaint: Patient states: "Yesterday I started coughing a lot and now my head vc1 hurts so bad, I took Robitussin a couple of times but it just isn't helping. Also, my left shoulder hurts when I lift it, I don't remember doing anything to it.". Coronavirus screen: Vaccine status: Patient reports receiving the 2nd dose of the covid vaccine. Moderna chills, cough unrelated to allergies, Client presents with at least one sign or symptom that may indicate coronavirus-19. Standard/surgical mask placed on the client. Provider contacted for isolation considerations. Ebola Screen: No symptoms or risks identified at this time. Initial Sepsis Screen: Does the patient meet any 2 criteria? No. Patient's initial sepsis screen is negative. Does the patient have a suspected source of infection? No. Patient's initial sepsis screen is negative. Risk Assessment: Do you want to hurt yourself or someone else? Patient reports no desire to harm self or others. Onset of symptoms was March 11, 2020. 05:40 Method Of Arrival: Ambulatory vc1 05:40 Acuity: TYRONE 4 vc1 Triage Assessment: 05:48 Headache History:. General: Appears in no apparent distress. uncomfortable, Behavior is vc1 calm, cooperative, appropriate for age. Pain: Complains of pain in throat and head Pain does not radiate. Pain currently is 10 out of 10 on a pain scale. Pain began gradually, Also complains of no other associated symptoms. EENT: Reports pain when swallowing. Neuro: Level of Consciousness is awake, alert, obeys commands, Oriented to person, place, time, situation, Appropriate for age. Cardiovascular: Capillary refill < 3 seconds Patient's skin is warm and dry. Respiratory: Airway is patent Respiratory effort is even, unlabored, Respiratory pattern is regular, symmetrical. GI: No signs and/or symptoms were reported involving the gastrointestinal system. : No deficits noted. Derm: No deficits noted. Musculoskeletal: No deficits noted. Historical: - Allergies: 05:47 No Known Allergies; vc1 - PMHx: 05:47 Diabetes - NIDDM; Hyperlipidemia; Hypertension; vc1 - PSHx: 05:47 None; vc1 - Immunization history:: Adult Immunizations up to date. - Social history:: Smoking status: Patient reports the use of cigarette tobacco products, smokes one-half pack cigarettes per day. Screenin:50 Abuse screen: Denies threats or abuse. Nutritional screening: No deficits noted. vc1 Tuberculosis screening: No symptoms or risk factors identified. Fall Risk None identified. Assessment: 05:51 General: see triage assessment . as6 07:00 Reassessment: RECD REPORT FROM ELVIS RUSS. 61YO HF P/W FLU-LIKE S/S. DISPO PENDING. bp 07:08 Reassessment: PT D/C HOME AMBULATORY, DX WITH COVID. bp Vital Signs: 05:40 BP 146 / 61; Pulse 82; Resp 18; Temp 99.2; Pulse Ox 95% on R/A; Weight 51.71 kg; Height vc1 4 ft. 8 in. (142.24 cm); Pain 10/10; 07:08 BP 138 / 62; Pulse 77; Resp 17; Temp 98.9; Pulse Ox 98% ; bp 05:40 Body Mass Index 25.56 (51.71 kg, 142.24 cm) vc1 ED Course: 05:26 Patient arrived in ED. bp1 05:34 Elvis Huynh, JEB is Primary Nurse. as6 05:40 Everardo Myles MD is Attending Physician. sp3 05:47 Triage completed. vc1 05:50 Arm band placed on right wrist. vc1 05:50 Patient has correct armband on for positive identification. Pulse ox on. NIBP on. vc1 05:50 Flu Sent. as6 05:50 Strep Sent. as6 05:50 Influenza Screen (A Sent. as6 05:55 Shoulder Left (2 View) XRAY In Process Unspecified. EDMS 07:08 No provider procedures requiring assistance completed. Patient did not have IV access bp during this emergency room visit. Administered Medications: 05:50 Drug: Tylenol 650 mg Route: PO; as6 07:10 Follow up: Response: No adverse reaction bp 05:50 Drug: Tessalon Perle (benzonatate) 200 mg Route: PO; as6 07:09 Follow up: Response: No adverse reaction bp Medication: 07:08 VIS not applicable for this client. bp Outcome: 07:01 Discharge ordered by . sp3 07:08 Discharged to home ambulatory. bp 07:08 Condition: stable 07:08 Discharge instructions given to patient, Instructed on discharge instructions, follow up and referral plans. Demonstrated understanding of instructions, follow-up care. 07:10 Patient left the ED. bp Signatures: Dispatcher [employer] EDMS Rinku Hernandez, RN RN bp Zandra Bronson Setul, MD MD sp3 Elvis Huynh RN RN as6 Alessandra Grimes RN RN vc1
[2022-03-12 07:21] VITALS: BP 138/62; TEMP 98.9; O2SAT 98
--- NOTE | 2022-03-12 13:56 | RAD REPORT ---
EXAM DESCRIPTION: RAD - Shoulder Left 2 View - 03/12/2022 5:53 am CLINICAL HISTORY: The patient is 61 years old and is Female; PAIN TECHNIQUE: Two views of the left shoulder. COMPARISON: No relevant prior studies available. FINDINGS: Bones/joints: Unremarkable. No acute fracture. No dislocation. Soft tissues: Unremarkable. IMPRESSION: No acute osseous findings. Electronically signed by: Akiko Ernst MD 03/12/2022 6:22 AM CDT Due to temporary technical issues with the PACS/Fluency reporting system, reports are being signed by the in house radiologists without review as a courtesy to insure prompt reporting. The interpreting radiologist is fully responsible for the content of the report.
== END 2022-03-12 07:10 | disposition home or self-care (01) ==
LOC: ER 05:23
DX: U07.1 COVID-19 (principal); E11.9 Type 2 diabetes mellitus without complications; I10 Essential (primary) hypertension; F17.210 Nicotine dependence, cigarettes, uncomplicated
CPT/HCPCS: 87070; 87081; 87804; 99284; U0003

== ENCOUNTER 2022-05-09 12:09 | Emergency (ER) | payer SELFPAY ==
--- OUTSIDE RECORDS SUMMARY | 2022-05-09 12:15 | XMS REPORT | Continuity of Care Document ---
:1960 Author Organization [facility] t Address [address] [place] [address] Care Team Providers Name Role Phone LINDA GU Sujey Primary Care Physician Unavailable KAELA FARRELL Attending Clinician Unavailable Doctor Unassigned, [place] Attending Clinician Unavailable OLAYINKA ARCE Attending Clinician Unavailable OLAYINKA ARCE Attending Clinician Unavailable Kaela Farrell MD Attending Clinician Problems Condition Condition Condition Status Onset Resolution Last Treating Co mments Source Name Details Category Date Date Treatment Clinician Date Overweight Overweight Disease Active U nivers 4-04 ity of 00:00: [address] BMI BMI Disease Active Univers 25.0-25.9, 25.0-25.9, 4-04 it y of adult adult 00:00: [address] Mammogram Mammogram Disease Active Uni vers abnormal abnormal 4-04 ity of 00:00: [address] Cervix Cervix Disease Active Univers abnormalit abnormalit 6-11 it y of y y 00:00: [place] 00 [facility] 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 ICD10 Diagnosis Term Medical Social Consultant Utility Essential Essential Disease Active Uni vers hypertensi hypertensi 02-07 [place] [facility] Allergies, Adverse Reactions, Alerts Allergy Allergy Status Severity Reaction(s) Onset Inactive Treating Comm ents Source Name Type Date Date Clinician Michael Stauffer Active Intraven ty to 7-05 ous adverse 00:00: reaction 00 to drug NO KNOWN Drug Active [facility] ALLERGIE Class ity of S [facility] Social History Social Habit Start Date Stop Date Quantity Comments Source History of tobacco Cigarette Smoker University of use [facility] Exposure to Not sure University SARS-CoV-2 (event) [facility] Alcohol intake 2021-03-09 2021-03-09 Current University of 00:00:00 00:00:00 non-drinker of [facility] alcohol Branch (finding) Cigarettes smoked 2014-02-07 2014-02-07 Univers ity of current (pack per 00:00:00 00:00:00 [facility] ) - Reported Branch Cigarette 2014-02-07 2014-02-07 University of pack-years 00:00:00 00:00:00 [facility] Tobacco use and 2014-02-07 2014-02-07 Never used Universit y of exposure 00:00:00 00:00:00 [facility] Tobacco Comment 2014-02-07 2014-02-07 smokes 6 x per Unive rsity of 00:00:00 00:00:00 day [facility] Sex Ass[birth year] Universit y of 00:00:00 00:00:00 [facility] Smoking Status Start Date Stop Date Source Current every day smoker 2014-02-07 00:00:00 Uni versity of [facility] Medications Ordered Filled Start Stop Current Ordering Indication Dosage Frequency Signature Comments Components Source Medication Medication Date Date Medication? Clinician (SIG) Name Name Dose No Unknown - 00:00: 00 Dose No Unknown 03-16 00:00: 00 Dose 2021-0 No Unknown - 00:00: 00 Dose 2021-0 No Unknown - 00:00: 00 glipizide 5 No 5mg mg tablet - 00:00: 00 Farxiga 10 2022-0 No 1mg mg tablet - 00:00: 00 metformin 2-0 No 1mg 1,000 mg 4-26 tablet 00:00: 00 lisinopril 2-0 No 1mg 20 mg 4-26 tablet 00:00: 00 lisinopril 2-0 No 1mg 20 4-26 mg-hydrochl 00:00: orothiazide 00 12.5 mg tablet atorvastati 2-0 No 1mg n 40 mg -26 tablet 00:00: 00 verapamil 2-0 No 1mg ER 120 mg -26 24 hr 00:00: capsule,ext 00 ended release Farxiga 5 2021-0 No 1mg mg tablet 12-31 00:00: 00 cholecalcif 2-0 No 1(50,00 levi 4-21 0 unit) (vitamin 00:00: D3) 1,250 00 mcg (50,000 unit) capsule Dose 2021-0 No Unknown 12-31 00:00: 00 Dose 2-0 No Unknown 12-31 00:00: 00 Farxiga 10 2-0 No 1mg mg tablet 3 00:00: 00 aspirin 81 2-0 No 1mg mg 3- tablet,kerri 00:00: yed release 00 lisinopril 2-0 No 1mg 20 mg 3-09 tablet 00:00: 00 lisinopril 2-0 No 1mg 20 3-09 mg-hydrochl 00:00: orothiazide 00 12.5 mg tablet verapamil 2-0 No 1mg ER 120 mg 3- 24 hr 00:00: capsule,ext 00 ended release Dose 2-0 No Unknown 3-09 00:00: 00 Dose 2022-0 No Unknown 3-09 00:00: 00 Dose 2022-0 No Unknown 3-09 00:00: 00 Dose 2022-0 No Unknown 3-09 00:00: 00 Dose 2022-0 No Unknown 3-09 00:00: 00 Dose 2022-0 No Unknown 3-09 00:00: 00 Dose 2022-0 No Unknown 3-09 00:00: 00 Dose 2022-0 No Unknown 3-09 00:00: 00 Dose 2022-0 No Unknown 3-09 00:00: 00 Dose 2022-0 No Unknown 3-09 00:00: 00 Dose 2022-0 No Unknown 3-09 00:00: 00 Dose 2022-0 No Unknown 3-09 00:00: 00 Dose 2022-0 No Unknown 3-09 00:00: 00 Dose 2022-0 No Unknown 3-09 00:00: 00 Dose 2022-0 No Unknown 3-09 00:00: 00 Dose 2022-0 No Unknown 3-09 00:00: 00 Dose 2022-0 No Unknown 3-09 00:00: 00 Dose 2022-0 No Unknown 3-09 00:00: 00 Dose 2022-0 No Unknown 3-09 00:00: 00 Dose 2022-0 No Unknown 3-09 00:00: 00 Dose 2022-0 No Unknown 3-09 00:00: 00 Dose 2022-0 No Unknown 3-09 00:00: 00 Dose 2022-0 No Unknown 3-09 00:00: 00 Dose 2022-0 No Unknown 3-09 00:00: 00 Dose 2022-0 No Unknown 3-09 00:00: 00 Dose 2022-0 No Unknown 3-09 00:00: 00 Dose 2022-0 No Unknown 3-09 00:00: 00 Dose 2022-0 No Unknown 3-09 00:00: 00 Dose 2022-0 No Unknown 3-09 00:00: 00 Dose 2022-0 No Unknown 3-09 00:00: 00 Dose 2022-0 No Unknown 3-09 00:00: 00 Dose 2022-0 No Unknown 3-09 00:00: 00 Dose 2022-0 No Unknown 3-09 00:00: 00 Dose 2022-0 No Unknown 3-09 00:00: 00 Dose 2022-0 No Unknown 3-09 00:00: 00 Dose 2022-0 No Unknown 3-09 00:00: 00 Dose 2022-0 No Unknown 3-09 00:00: 00 Dose 2022-0 No Unknown 3-09 00:00: 00 Dose 2022-0 No Unknown 3-09 00:00: 00 Dose 2022-0 No Unknown 3-09 00:00: 00 Dose 2022-0 No Unknown 3-09 00:00: 00 Dose 2022-0 No Unknown 3-09 00:00: 00 Dose 2022-0 No Unknown 3-09 00:00: 00 Dose 2022-0 No Unknown 3-09 00:00: 00 Dose 2022-0 No Unknown 3-09 00:00: 00 Dose 2022-0 No Unknown 3-09 00:00: 00 Dose 2022-0 No Unknown 3-09 00:00: 00 Dose 2022-0 No Unknown 3-09 00:00: 00 Dose 2022-0 No Unknown 3-09 00:00: 00 Dose 2022-0 No Unknown 3-09 00:00: 00 Dose 2022-0 No Unknown 3-09 00:00: 00 Dose 2022-0 No Unknown 3-09 00:00: 00 Dose 2022-0 No Unknown 3-09 00:00: 00 Dose 2022-0 No Unknown 3-09 00:00: 00 Dose 2022-0 No Unknown 3-09 00:00: 00 Dose 2022-0 No Unknown 3-09 00:00: 00 Dose 2022-0 No Unknown 3-09 00:00: 00 Dose 2022-0 No Unknown 3-09 00:00: 00 Dose 2022-0 No Unknown 3-09 00:00: 00 Dose 2022-0 No Unknown 3-09 00:00: 00 Dose 2022-0 No Unknown 3-09 00:00: 00 Dose 2022-0 No Unknown 3-09 00:00: 00 Dose 2022-0 No Unknown 3-09 00:00: 00 Dose 2022-0 No Unknown 3-09 00:00: 00 Dose 2022-0 No Unknown 3-09 00:00: 00 Dose 2022-0 No Unknown 3-09 00:00: 00 Dose 2022-0 No Unknown 3-09 00:00: 00 Dose 2022-0 No Unknown 3-09 00:00: 00 Dose 2022-0 No Unknown 3-09 00:00: 00 Dose 2022-0 No Unknown 3-09 00:00: 00 Dose 2022-0 No Unknown 3-09 00:00: 00 Dose 2022-0 No Unknown 3-09 00:00: 00 Dose 2022-0 No Unknown 3-09 00:00: 00 Dose 2022-0 No Unknown 3-09 00:00: 00 Dose 2022-0 No Unknown 3-08 00:00: 00 Dose 2022-0 No Unknown 3-08 00:00: 00 Dose 2022-0 No Unknown 3-08 00:00: 00 Dose 2022-0 No Unknown 3-08 00:00: 00 Dose 2022-0 No Unknown 3-08 00:00: 00 Dose 2022-0 No Unknown 3-08 00:00: 00 Dose 2022-0 No Unknown 3-08 00:00: 00 Dose 2022-0 No Unknown 3-08 00:00: 00 Dose 2022-0 No Unknown 3-08 00:00: 00 Dose 2022-0 No Unknown 3-08 00:00: 00 Dose 2022-0 No Unknown 3-08 00:00: 00 Dose 2022-0 No Unknown 3-08 00:00: 00 Dose 2022-0 No Unknown 3-08 00:00: 00 Dose 2022-0 No Unknown 3-08 00:00: 00 Dose 2022-0 No Unknown 3-08 00:00: 00 Dose 2022-0 No Unknown 3-08 00:00: 00 Dose 2022-0 No Unknown 3-08 00:00: 00 Dose 2022-0 No Unknown 3-08 00:00: 00 Dose 2022-0 No Unknown 3-08 00:00: 00 Dose 2022-0 No Unknown 3-08 00:00: 00 Dose 2022-0 No Unknown 3-08 00:00: 00 Dose 2022-0 No Unknown 3-08 00:00: 00 Dose 2022-0 No Unknown 3-08 00:00: 00 Dose 2022-0 No Unknown 3-08 00:00: 00 Dose 2022-0 No Unknown 3-08 00:00: 00 Januvia 25 2-0 No 1mg mg tablet 2-13 00:00: 00 ezetimibe 2-0 No 1mg 10 mg 2-13 tablet 00:00: 00 Vitamin D2 2-0 No 1(50,00 1,250 mcg 2-13 0 unit) (50,000 00:00: unit) 00 capsule Dose 2-0 No Unknown 2-10 00:00: 00 Dose 2-0 No Unknown 2-10 00:00: 00 Dose 2022-0 No Unknown 2-10 00:00: 00 metformin 2-0 No 1mg 1,000 mg 2-10 tablet 00:00: 00 Dose 2022-0 No Unknown 2-10 00:00: 00 melatonin 2022-0 No 1mg 10 mg 2-10 capsule 00:00: 00 Dose 2020-1 No Unknown 2-29 00:00: 00 Dose 2020-1 No Unknown 2-29 00:00: 00 Dose 2020-1 No Unknown 2-29 00:00: 00 Dose 2020-1 No Unknown 2-29 00:00: 00 Dose 2020-1 No Unknown 2-29 00:00: 00 Dose 2020-0 No Unknown 9-10 00:00: 00 Dose 2020-0 No Unknown 9-10 00:00: 00 Dose 2020-0 No Unknown 9-10 00:00: 00 Dose 2020-0 No Unknown 9-10 00:00: 00 Dose 2020-0 No Unknown 9-10 00:00: 00 lisinopril 2020-0 No 1mg 20 mg 9-07 tablet 00:00: 00 amlodipine 2020-0 No 1mg 10 mg 9-06 tablet 00:00: 00 amlodipine 2020-0 No 1mg 10 mg 7-31 tablet 00:00: 00 lisinopril 2020-0 No 1mg 20 mg 7-31 tablet 00:00: 00 glipiZIDE 5 Yes [id number] 5mg Take 5 mg Univers mg tablet 6-28 by mouth ity of 18:22: daily. [address] pioglitazon Yes [id number] 15mg Take 15 mg Univers e 15 mg 6-28 by mouth ity of tablet 18:22: daily. [address] atorvastati Yes [id number] 40mg Take 40 mg Univers n 40 mg 6-28 by mouth ity of tablet 18:22: [facility] [place] [address] [facility] glipiZIDE 5 Yes [id number] 5mg Take 5 mg Univers mg tablet 6-28 by mouth ity of 18:22: daily. [address] pioglitazon Yes [id number] 15mg Take 15 mg Univers e 15 mg 6-28 by mouth ity of tablet 18:22: daily. [address] atorvastati Yes [id number] 40mg Take 40 mg Univers n 40 mg 6-28 by mouth ity of tablet 18:22: at [place] [address] bedtime. Medical Branch lisinopril 0 Yes [id number] 20mg Take 20 mg Univers 20 mg 6-28 by mouth ity of tablet 18:20: daily. [address] lisinopril 0 Yes [id number] 20mg Take 20 mg Univers 20 mg 6-28 by mouth ity of tablet 18:20: daily. [address] glipiZIDE 5 0 Yes [id number] 5mg Take 5 mg Univers mg tablet 6-28 by mouth ity of 13:22: daily. [address] pioglitazon 0 Yes [id number] 15mg Take 15 mg Univers e 15 mg 6-28 by mouth ity of tablet 13:22: daily. [address] atorvastati 0 Yes [id number] 40mg Take 40 mg Univers n 40 mg 6-28 by mouth ity of tablet 13:22: at [place] [address] bedtime. [facility] Branch lisinopril 0 Yes [id number] 20mg Take 20 mg Univers 20 mg 6-28 by mouth ity of tablet 13:20: daily. [address] foLIC acid 0 Yes 1mg Take 1 mg Un chaitanya 1 mg tablet 5-28 by mouth ity of 00:00: daily. [address] clopidogreL 0 Yes 75mg Take 75 mg Univers 75 mg 5-28 by mouth ity of tablet 00:00: daily. [address] aspirin 81 0 Yes 81mg Take 81 mg U nivers mg chewable 5-28 by mouth ity of tablet 00:00: daily. [address] foLIC acid 0 Yes 1mg Take 1 mg Un chaitanya 1 mg tablet 5-28 by mouth ity of 00:00: daily. [address] clopidogreL 0 Yes 75mg Take 75 mg Univers 75 mg 5-28 by mouth ity of tablet 00:00: daily. [address] aspirin 81 0 Yes 81mg Take 81 mg U nivers mg chewable 5-28 by mouth ity of tablet 00:00: daily. [address] foLIC acid 0 Yes 1mg Take 1 mg Un chaitanya 1 mg tablet 5-28 by mouth ity of 00:00: daily. [address] clopidogreL 0 Yes 75mg Take 75 mg Univers 75 mg 5-28 by mouth ity of tablet 00:00: daily. [address] aspirin 81 1-0 Yes 81mg Take 81 mg U nivers mg chewable 5-28 by mouth ity of tablet 00:00: daily. [address] glipizide 5 2020-0 No 1mg mg tablet 01-02 00:00: 00 Vitamin D2 1-0 No 1(50,00 1,250 mcg 01-02 0 unit) (50,000 00:00: unit) 00 capsule Dose 2020-0 No Unknown 4-22 00:00: 00 amlodipine 2020-0 No 1mg 10 mg 4-22 tablet 00:00: 00 metformin 1-0 No mg 1,000 mg 4-22 tablet 00:00: 00 atorvastati 2020-0 No 1mg n 40 mg 4-22 tablet 00:00: 00 Dose 1-0 No Unknown 4-22 00:00: 00 lisinopril 1-0 No 1mg 20 mg 3-31 tablet 00:00: 00 amlodipine 2020-0 No 1mg 10 mg 3-31 tablet 00:00: 00 amlodipine 1-0 No 1mg 10 mg 1-20 tablet 00:00: 00 lisinopril 1-0 No 1mg 20 mg 1-20 tablet 00:00: 00 metformin 1-0 No mg 1,000 mg 1-20 tablet 00:00: 00 atorvastati 2020-0 No 1mg n 40 mg 1-20 tablet 00:00: 00 amlodipine 2019-1 No 1mg 10 mg 1-09 tablet 00:00: 00 lisinopril 2019-1 No 1mg 20 mg 0-27 tablet 00:00: 00 metformin 2020-1 No mg 1,000 mg 0-27 tablet 00:00: 00 atorvastati 2020-1 No 1mg n 40 mg 0-27 tablet 00:00: 00 pioglitazon 2020-0 No 1mg e 15 mg 9-25 tablet 00:00: 00 amlodipine 2020-0 No 1mg 10 mg 9-25 tablet 00:00: 00 lisinopril 2020-0 No 1mg 20 mg 9-25 tablet 00:00: 00 metformin 2020-0 No 1mg 1,000 mg 9-25 tablet 00:00: 00 atorvastati 2020-0 No 1mg n 40 mg 9-25 tablet 00:00: 00 gabapentin 2020-0 No 1mg 100 mg 9-25 capsule 00:00: 00 amlodipine 2020-0 No 1mg 10 mg 5-19 tablet 00:00: 00 lisinopril 2020-0 No 1mg 20 mg 5-19 tablet 00:00: 00 pioglitazon 2020-0 No 1mg e 15 mg 5-19 tablet 00:00: 00 metformin 2020-0 No 1mg 1,000 mg 5-19 tablet 00:00: 00 atorvastati 2020-0 No 1mg n 40 mg 5-19 tablet 00:00: 00 gabapentin 2020-0 No 1mg 100 mg 5-19 capsule 00:00: 00 amlodipine 2020-0 No 1mg 10 mg 5-12 tablet 00:00: 00 lisinopril 2020-0 No 1mg 20 mg 5-12 tablet 00:00: 00 metformin 2020-0 No 1mg 1,000 mg 4-01 tablet 00:00: 00 amlodipine 2020-0 No 1mg 10 mg 3-19 tablet 00:00: 00 lisinopril 2020-0 No 1mg 20 mg 3-19 tablet 00:00: 00 pioglitazon 2020-0 No 1mg e 15 mg 1-15 tablet 00:00: 00 amlodipine 2020-0 No 1mg 10 mg 1-15 tablet 00:00: 00 lisinopril 2020-0 No 1mg 20 mg 1-15 tablet 00:00: 00 metformin 2020-0 No 1mg 1,000 mg 1-15 tablet 00:00: 00 amlodipine 2019-1 No 1mg 10 mg 0-15 tablet 00:00: 00 lisinopril 2019-1 No 1mg 20 mg 0-15 tablet 00:00: 00 metformin 2019-1 No 1mg 1,000 mg 0-15 tablet 00:00: 00 atorvastati 2019-1 No 1mg n 40 mg 0-15 tablet 00:00: 00 gabapentin 2019-1 No 1mg 100 mg 0-15 capsule 00:00: 00 mupirocin 2 2019-0 No 1% % topical 6-25 ointment 00:00: 00 amlodipine 2019-0 No 1mg 10 mg 6-25 tablet 00:00: 00 lisinopril 2019-0 No 1mg 20 mg 6-25 tablet 00:00: 00 metformin 2018-0 No 1mg 1,000 mg 6-25 tablet 00:00: 00 amoxicillin 2019-0 No 1mg 500 mg 6-25 tablet 00:00: 00 lisinopril Yes [id number] 20mg Take 20 mg Univers 20 mg 4-04 by mouth ity of tablet 15:13: daily. [address] glipiZIDE 5 Yes [id number] 5mg Take 5 mg Univers mg tablet 4-04 by mouth ity of 15:13: daily. [address] pioglitazon Yes [id number] 15mg Take 15 mg Univers e 15 mg 4-04 by mouth ity of tablet 15:13: daily. [address] atorvastati Yes [id number] 40mg Take 40 mg Univers n 40 mg 4-04 by mouth ity of tablet 15:13: at [place] [address] bedtime. [facility] lisinopril Yes [id number] 20mg Take 20 mg Univers 20 mg 4-04 by mouth ity of tablet 15:13: daily. [address] glipiZIDE 5 Yes [id number] 5mg Take 5 mg Univers mg tablet 4-04 by mouth ity of 15:13: daily. [address] pioglitazon Yes [id number] 15mg Take 15 mg Univers e 15 mg 4-04 by mouth ity of tablet 15:13: daily. [address] atorvastati Yes [id number] 40mg Take 40 mg Univers n 40 mg 4-04 by mouth ity of tablet 15:13: at [place] [address] bedtime. [facility] lisinopril No 1mg 20 mg 2-28 tablet 00:00: 00 amlodipine 2018-0 No 1mg 10 mg 2-28 tablet 00:00: 00 metformin 2018-0 No 1mg 1,000 mg 2-28 tablet 00:00: 00 naproxen 2019-0 No 1mg 500 mg 2-28 tablet 00:00: 00 cyclobenzap 2018-0 No 12mg rine 5 mg 2-28 tablet 00:00: 00 lovastatin 2017- No 1mg 40 mg 2-26 tablet 00:00: 00 hydrochloro 2017- No 1mg thiazide 2-20 12.5 mg 00:00: tablet 00 amlodipine 2018-1 No 1mg 10 mg 1-08 tablet 00:00: 00 lisinopril 2018-1 No 1mg 20 mg 1-08 tablet 00:00: 00 hydrochloro 2018-1 No 1mg thiazide 1-08 12.5 mg 00:00: tablet 00 glipizide 5 2018-1 No 1mg mg tablet 1-08 00:00: 00 glipizide 5 2017-1 No 5mg mg tablet 1-08 00:00: 00 metformin 2018-1 No 1mg 1,000 mg 1-08 tablet 00:00: 00 hydroxyzine 2018-1 No 1mg HCl 50 mg 1-08 tablet 00:00: 00 lovastatin 2018-1 No 1mg 20 mg 1-08 tablet 00:00: 00 lovastatin 2018-1 No 2mg 20 mg 1-08 tablet 00:00: 00 amlodipine 2018-1 No 1mg 10 mg 0-30 tablet 00:00: 00 lisinopril 2018-1 No 1mg 20 mg 0-30 tablet 00:00: 00 amlodipine 2018-0 No 1mg 10 mg 8-01 tablet 00:00: 00 lisinopril 2018-0 No 1mg 20 mg 8-01 tablet 00:00: 00 metformin 2018-0 No 1mg 1,000 mg 8-01 tablet 00:00: 00 lovastatin 2018-0 No 1mg 20 mg 8-01 tablet 00:00: 00 lisinopril 2018-0 No 1mg 20 mg 6-28 tablet 00:00: 00 amlodipine 2018-0 No 1mg 10 mg 6-28 tablet 00:00: 00 metformin 2018-0 No 1mg 1,000 mg 6-28 tablet 00:00: 00 lisinopril 2018-0 No 1mg 20 mg 5-30 tablet 00:00: 00 amlodipine 2018-0 No 1mg 10 mg 5-30 tablet 00:00: 00 metformin 2018-0 No 1mg 1,000 mg 5-30 tablet 00:00: 00 lovastatin 2018-0 No 1mg 20 mg 5-30 tablet 00:00: 00 glipizide 5 2018-0 No 1mg mg tablet 2-15 00:00: 00 amlodipine 2018-0 No 1mg 10 mg 2-13 tablet 00:00: 00 lisinopril 2018-0 No 1mg 20 mg 2-13 tablet 00:00: 00 metformin 2018-0 No 1mg 1,000 mg 2-13 tablet 00:00: 00 glipizide 5 2016-0 No 1mg mg tablet 06-07 00:00: 00 lisinopril 2017-0 No 1mg 20 mg 9-26 tablet 00:00: 00 amlodipine 2016-0 No 1mg 10 mg 9-26 tablet 00:00: 00 metformin 2016-0 No 1mg 1,000 mg 9-26 tablet 00:00: 00 lisinopril 2016-0 No 1mg 20 mg 1-11 tablet 00:00: 00 amlodipine 2016-0 No 1mg 10 mg 1-11 tablet 00:00: 00 metformin 2016-0 No 1mg 1,000 mg 1-11 tablet 00:00: 00 lisinopril 2015-0 No 1mg 20 mg 5-23 tablet 00:00: 00 amlodipine 2015-0 No 1mg 10 mg 5-23 tablet 00:00: 00 metformin 2015-0 No 1mg 1,000 mg 5-23 tablet 00:00: 00 amlodipine 2014-1 No 1mg 10 mg 1-18 tablet 00:00: 00 lisinopril 1 No 1mg 20 mg 1-18 tablet 00:00: 00 metformin 2014-1 No 1mg 1,000 mg 1-18 tablet 00:00: 00 amlodipine 2014-1 No 1mg 10 mg 0-23 tablet 00:00: 00 lisinopril 2015-0 No 1mg 20 mg 8-12 tablet 00:00: 00 amlodipine 2015-0 No 1mg 10 mg 7-23 tablet 00:00: 00 metformin 2015-0 No 1mg 1,000 mg 7-23 tablet 00:00: 00 lisinopril 2015-0 No 1mg 20 mg 6-22 tablet 00:00: 00 lisinopril 2015-0 No 1mg 10 mg 5-22 tablet 00:00: 00 amlodipine 2014-0 No 1mg 10 mg 4-29 tablet 00:00: 00 metformin 2015-0 No 1mg 1,000 mg 4-29 tablet 00:00: 00 metoprolol 2014-0 No 1mg tartrate 50 4-22 mg tablet 00:00: 00 metFORMIN 2014-0 Yes TAKE 1 Univer s (GLUCOPHAGE 1-07 TABLET BY ity of ) 1,000 mg 00:00: MOUTH [place] tablet 00 TWICE Medical DAILY WITH Branch MEALS metFORMIN Yes TAKE 1 Univer s (GLUCOPHAGE 1-07 TABLET BY ity of ) 1,000 mg 00:00: MOUTH [place] tablet 00 TWICE Medical DAILY WITH Branch MEALS metFORMIN Yes TAKE 1 Univer s (GLUCOPHAGE 1-07 TABLET BY ity of ) 1,000 mg 00:00: MOUTH [place] tablet 00 TWICE Medical DAILY WITH Branch MEALS metFORMIN Yes TAKE 1 Univer s (GLUCOPHAGE 1-07 TABLET BY ity of ) 1,000 mg 00:00: MOUTH [place] tablet 00 TWICE Medical DAILY WITH Branch MEALS metFORMIN Yes TAKE 1 Univer s (GLUCOPHAGE 1-07 TABLET BY ity of ) 1,000 mg 00:00: MOUTH [place] tablet 00 TWICE Medical DAILY WITH Branch MEALS amLODIPine Yes 10mg Take 1 Tab U nivers (NORVASC) 9-19 by mouth ity of 10 mg 00:00: daily. [place] tablet 00 [facility] amLODIPine Yes 10mg Take 1 Tab U nivers (NORVASC) 9-19 by mouth ity of 10 mg 00:00: daily. [place] tablet 00 Medical Branch amLODIPine Yes 10mg Take 1 Tab U nivers (NORVASC) 9-19 by mouth ity of 10 mg 00:00: daily. [place] tablet 00 [facility] amLODIPine Yes 10mg Take 1 Tab U nivers (NORVASC) 9-19 by mouth ity of 10 mg 00:00: daily. [place] tablet 00 [facility] amLODIPine Yes 10mg Take 1 Tab U nivers (NORVASC) 9-19 by mouth ity of 10 mg 00:00: daily. [place] tablet 00 [facility] metformin 2012-09 No 1mg 1,000 mg 2-03 tablet 00:00: 00 amlodipine No 1mg 5 mg tablet 6- 00:00: 00 Immunizations Ordered Filled Immunization Date Status Comments Sour e Immunization Name Name Tdap 2019-03-06 Completed 00:00:00 Td 1979-09-12 Completed [facility] 00:00:00 [facility] Td 1979-09-12 Completed [facility] 00:00:00 [facility] Td 1979-09-12 Completed [facility] 00:00:00 [facility] Td 1979-09-12 Completed University of 00:00:00 [facility] Td 1979-09-12 Completed University 00:00:00 [facility] Vital Signs Vital Name Observation Time Observation Value Comments Source Systolic blood 2021-03-09 18:25:00 136 mm[Hg] Univer sity of pressure [facility] Diastolic blood 2021-03-09 18:25:00 68 mm[Hg] Unive rsity of pressure [facility] Heart rate 2021-03-09 18:25:00 65 /min [facility] Body height 2021-03-09 18:25:[address] [facility] Body weight 2021-03-09 18:25:[address] [facility] BMI 2021-03-09 18:25:00 25.56 kg/m2 [facility] Oxygen saturation in 2021-03-09 18:25:00 97 /min [facility] blood by [facility] Pulse oximetry Branch BP Systolic 2021-12-31 08:35:00 154 mm[Hg] BP Diastolic 2021-12-31 08:35:00 73 mm[Hg] Weight Measured 2021-12-31 08:35:00 113.80 pounds Height Measured 2021-12-31 08:35:00 56.00 inches Body Temperature 2021-12-31 08:35:00 98.10 degrees Heart Rate 2021-12-31 08:35:00 65.00 /min Respiratory Rate 2021-12-31 08:35:00 BP Systolic 2021-11-18 15:39:00 164 mm[Hg] BP Diastolic 2021-11-18 15:39:00 72 mm[Hg] Weight Measured 2021-11-18 15:39:00 117.00 pounds Height Measured 2021-11-18 15:39:00 56.00 inches Body Temperature 2021-11-18 15:39:00 Heart Rate 2021-11-18 15:39:00 70.00 /min Respiratory Rate 2021-11-18 15:39:00 BP Systolic 2021-10-22 09:11:00 157 mm[Hg] BP Diastolic 2021-10-22 09:11:00 74 mm[Hg] Weight Measured 2021-10-22 09:11:00 115.00 pounds Height Measured 2021-10-22 09:11:00 56.00 inches Body Temperature 2021-10-22 09:11:00 97.40 degrees Heart Rate 2021-10-22 09:11:00 74.00 /min Respiratory Rate 2021-10-22 09:11:00 21.00 /min BP Systolic 2021-10-22 09:02:00 157 mm[Hg] BP Diastolic 2021-10-22 09:02:00 74 mm[Hg] Weight Measured 2021-10-22 09:02:00 115.00 pounds Height Measured 2021-10-22 09:02:00 56.00 inches Body Temperature 2021-10-22 09:02:00 97.40 degrees Heart Rate 2021-10-22 09:02:00 74.00 /min Respiratory Rate 2021-10-22 09:02:00 21.00 /min BP Systolic 2021-05-22 08:49:00 147 mm[Hg] BP Diastolic 2021-05-22 08:49:00 56 mm[Hg] Weight Measured 2021-05-22 08:49:00 115.60 pounds Height Measured 2021-05-22 08:49:00 56.00 inches Body Temperature 2021-05-22 08:49:00 98.10 degrees Heart Rate 2021-05-22 08:49:00 66.00 /min Respiratory Rate 2021-05-22 08:49:00 BP Systolic 2021-01-01 10:12:00 164 mm[Hg] BP Diastolic 2021-01-01 10:12:00 65 mm[Hg] Weight Measured 2021-01-01 10:12:00 113.80 pounds Height Measured 2021-01-01 10:12:00 56.00 inches Body Temperature 2021-01-01 10:12:00 98.00 degrees Heart Rate 2021-01-01 10:12:00 72.00 /min Respiratory Rate 2021-01-01 10:12:00 17.00 /min BP Systolic 2020-07-08 08:55:00 181 mm[Hg] BP Diastolic 2020-07-08 08:55:00 75 mm[Hg] Weight Measured 2020-07-08 08:55:00 116.80 pounds Height Measured 2020-07-08 08:55:00 56.00 inches Body Temperature 2020-07-08 08:55:00 97.80 degrees Heart Rate 2020-07-08 08:55:00 63.00 /min Respiratory Rate 2020-07-08 08:55:00 16.00 /min BP Systolic 2020-01-23 08:26:00 145 mm[Hg] BP Diastolic 2020-01-23 08:26:00 71 mm[Hg] Weight Measured 2020-01-23 08:26:00 112.60 pounds Height Measured 2020-01-23 08:26:00 56.00 inches Body Temperature 2020-01-23 08:26:00 98.50 degrees Heart Rate 2020-01-23 08:26:00 71.00 /min Respiratory Rate 2020-01-23 08:26:00 16.00 /min BP Systolic 2019-09-26 11:52:00 154 mm[Hg] BP Diastolic 2019-09-26 11:52:00 64 mm[Hg] Weight Measured 2019-09-26 11:52:00 114.80 pounds Height Measured 2019-09-26 11:52:00 56.00 inches Body Temperature 2019-09-26 11:52:00 97.70 degrees Heart Rate 2019-09-26 11:52:00 70.00 /min Respiratory Rate 2019-09-26 11:52:00 16.00 /min BP Systolic 2019-06-26 09:24:00 145 mm[Hg] BP Diastolic 2019-06-26 09:24:00 73 mm[Hg] Weight Measured 2019-06-26 09:24:00 113.80 pounds Height Measured 2019-06-26 09:24:00 56.00 inches Body Temperature 2019-06-26 09:24:00 98.70 degrees Heart Rate 2019-06-26 09:24:00 70.00 /min Respiratory Rate 2019-06-26 09:24:00 16.00 /min Procedures Procedure Date / Time Performed Performing Clinician [facility] e REFERRAL- 2021-12-28 05:01:00 Doctor Unassigned, No [facility] REQUEST/RESPONSE Name Medical Branch CONSENT/REFUSAL FOR 2021-03-09 17:50:10 [facility] Branch TREATMENT REFERRAL- 2021-01-01 05:01:00 Doctor Unassigned, No [facility] REQUEST/RESPONSE Name Medical Branch Plan of Care Planned Activity Planned Date Details Comments Source Goal Plan of Care Note [code = 69117-8] Goal Plan of Care Note [code = 01753-8] Goal Plan of Care Note [code = 12364-9] Goal Plan of Care Note [code = 74080-6] Goal Plan of Care Note [code = 31086-6] Goal Plan of Care Note [code = 86253-3] Goal Plan of Care Note [code = 39815-9] Goal Plan of Care Note [code = 05787-7] Goal Plan of Care Note [code = 17846-9] Goal Plan of Care Note [code = 79772-1] Goal Plan of Care Note [code = 86149-8] Goal Plan of Care Note [code = 34660-1] Goal Plan of Care Note [code = 82385-4] Goal Plan of Care Note [code = 93997-5] Goal Plan of Care Note [code = 86893-5] Goal Plan of Care Note [code = 04648-6] Goal Plan of Care Note [code = 80587-6] Goal Plan of Care Note [code = 98058-5] Goal Plan of Care Note [code = 15566-3] Goal Plan of Care Note [code = 52898-2] Goal Plan of Care Note [code = 91328-9] Goal Plan of Care Note [code = 61182-4] Goal Plan of Care Note [code = 94549-4] Goal Plan of Care Note [code = 05033-2] Goal Plan of Care Note [code = 23661-9] Goal Plan of Care Note [code = 80479-4] Goal Plan of Care Note [code = 45669-0] Goal Plan of Care Note [code = 50178-4] Goal Plan of Care Note [code = 85236-0] Goal Plan of Care Note [code = 99792-0] Goal Plan of Care Note [code = 78981-4] Goal Plan of Care Note [code = 65591-4] Goal Plan of Care Note [code = 88679-7] Goal Plan of Care Note [code = 55080-9] Goal Plan of Care Note [code = 89067-6] Encounters Start End Encounter Admission Attending Care Care Encounter Source Date/Time Date/Time Type Type Clinicians Facility Department ID 2022-04-16 2022-04-16 Outpatient R BUD, [facility] [id number] Univers 10:00:00 10:00:00 KAELA [id number] gabi [facility] 2022-04-16 2022-04-16 Outpatient R BUD, [facility] [id number] Univers 10:00:00 10:00:00 RAMSEYALDAIR [facility] 2022-04-13 2022-04-13 Outpatient R BUD, [facility] [id number] Univers 11:00:00 11:00:00 KAELA [id number] [facility] 2022-03-16 2022-03-16 Outpatient [id number] 00:00:00 00:00:00 Visit [id number] 2022-03-12 2022-03-12 Outpatient R BUD, [facility] [id number] Univers 11:20:00 11:20:00 KAELA [id number] [facility] 2022-03-12 2022-03-12 Outpatient R BUD, [facility] [id number] Univers 11:20:00 11:20:00 [facility] 2022-02-11 2022-02-11 Outpatient R BUD, [facility] [id number] Univers 09:00:00 09:00:00 KAELA [id number] [facility] 2022-02-11 2022-02-11 Outpatient R BUD, [facility] [id number] Univers 09:00:00 09:00:00 [facility] 2021-12-28 2021-12-28 Orders Doctor EDMONDSON [id number] Univers 00:00:00 00:00:00 Only Unassigned, JAMMIE 350.1.13.10 ity of [place] [facility] 4.2.7.2.686 Kalin as [phone] [address] 2021-03-30 2021-03-30 Outpatient R BUD, [facility] [id number] Univers 11:00:00 11:00:00 RAMSEYALDAIR [id number] ity o [facility] 2021-03-30 2021-03-30 Outpatient R OLAYINKA ARCE [facility] [id number] Univers 10:00:00 10:00:00 CLAUDE OLAYINKA ity of [facility] 2021-03-20 2021-03-20 Outpatient R BUD, [facility] [id number] Univers 11:00:00 [facility]00[id number] 2021-03-20 2021-03-20 Outpatient R BUD, [facility] [id number] Univers 11:00:00 11:00:00 [facility] [place] [place] 2021-03-09 2021-03-09 Office Bud, [facility] [id number] Univers 12:51:21 13:39:53 Visit Kaela Cherry 350.1.13.10 ity of [id number] [place] [id number] [facility] 2021-03-09 2021-03-09 Outpatient R BUD, [facility] [id number] Univers 13:20:00 13:20:00 KAELA [id number] ity o [facility] 2021-03-09 2021-03-09 Outpatient R BUD, [facility] [id number] Univers 13:20:00 13:20:00 [facility] 2021-03-09 2021-03-09 Orders Doctor DELVIS [id number] Univers 00:00:00 00:00:00 Only Unassigned, JAMMIE 350.1.13.[address] [facility] 4.2.7.2.686 Kalin as [phone] [address] 2021-02-02 2021-02-02 Outpatient R BUD, [facility] [id number] Univers 15:20:00 15:20:00 KAELA [id number] ity o f [facility] 2021-01-01 2021-01-01 Orders Doctor DELVIS 1.2.840.114 [id number] 00:00:00 00:00:00 Only Unassigned, JAMMIE 350.1.13.10 [place] [facility] 4.2.7.2.686 [id number] 2021-01-01 2021-01-01 Orders Doctor DELVIS [id number] [facility] 00:00:00 00:00:00 Only Unassigned, JAMMIE 350.1.13.10 ity of [place] [facility] 4.2.7.2.686 Kalin as [phone] [address] Results Test Description Test Time Test Comments Results Result Comments Source HEMOGLOBIN A1c 2022-01-01 21:30:08 Test Item Value Reference Range Interpretation Comme nts HEMOGLOBIN A1c (test code = 8.5 % 4.2-5.6 H [employer] 97998) GUIDELINES FOR HGB A1C: PREDIABETES/INC REASED RISK . . . . . . . 5.7-6.4% DIAGNO SIS OF DIABETES . . . . . . . . . >=6.5% WITH CONFIRMATION OR APPROPRIATE SYM PTOMS NOTE: ASSAY MAY BE AFFECTED BY HEM OGLOBINOPATHIES (SICKLE CELL ANEMIA, S- C DISEASE, OTHERS) OR ARTIFICIALLY LO WERED BY DECREASED RED CELL SURVIVAL ( HEMOLYTIC ANEMIAS, BLOOD LOSS, ETC.). CO NSIDER ALTERNATE TESTING OR LABORATORY C ONSULTATION. UNLESS OTHERWISE INDIC ATED, ALL TESTING PERFORMED [facility], [address] DIRECTOR: Fatuma PATINOIA NUMBER [id number] [place]. [id number] HEMOGLOBIN A1c [ADDED]2022-01-01 00:00:00 Test Item Value Reference Range Interpretation Comments HEMOGLOBIN A1c (test code = 23208) 8.5 % HEMOGLOBIN A1c [ADDED]2022-01-01 00:00:00 Test Item Value Reference Range Interpretation Comments HEMOGLOBIN A1c (test code = 60912) 8.5 % HEMOGLOBIN [id number] 00:00:00 Test Item Value Reference Range Interpretation Comments HEMOGLOBIN A1c (test code = 49453) 10.4 % HEMOGLOBIN [id number] 00:00:00 Test Item Value Reference Range Interpretation Comments HEMOGLOBIN A1c (test code = 26485) 10.4 % LIPID [id number] 00:00:00 Test Item Value Reference Range Interpretation Comments CHOLESTEROL (test code = 2210) 230 MG/DL TRIGLYCERIDES (test code = 2232) 152 MG/DL HDL CHOLESTEROL (test code = 2220) 35 MG/DL CALC LDL CHOL (test code = 2237) 165 MG/DL RISK RATIO LDL/HDL (test code = 4.71 RATIO 2238) COMPREHENSIVE METABOLIC [id number] 00:00:00 Test Item Value Reference Range Interpretation Comments GLUCOSE (test code = 2217) 225 MG/DL BUN (test code = 2208) 17 MG/DL CREATININE (test code = 2214) 0.73 MG/DL eGFR (2020 CKD-EPI) (test code 92 ML/MIN/1.73 = 26402) CALC BUN/CREAT (test code = 23 RATIO 2235) SODIUM (test code = 2231) 143 MEQ/L POTASSIUM (test code = 2228) 5.0 MEQ/L CHLORIDE (test code = 2215) 104 MEQ/L CARBON DIOXIDE (test code = 25 MEQ/L 2205) CALCIUM (test code = 2209) 9.6 MG/DL PROTEIN, TOTAL (test code = 7.0 G/DL 2228) ALBUMIN (test code = 2201) 4.3 G/DL CALC GLOBULIN (test code = 2.7 G/DL 0) CALC A/G RATIO (test code = 1.6 RATIO 4) BILIRUBIN, TOTAL (test code = 0.3 MG/DL 2206) ALKALINE PHOSPHATASE (test 131 U/L code = 2204) AST (test code = 2218) 10 U/L ALT (test code = 2219) 13 U/L VITAMIN D, 25 [id number] 00:00:00 Test Item Value Reference Range Interpretation Comments VITAMIN D, 25 OH (test code = 4958) 9 NG/ML HEMOGLOBIN [id number] 00:00:00 Test Item Value Reference Range Interpretation Comments HEMOGLOBIN A1c (test code = 16186) 9.6 % HEMOGLOBIN [id number] 00:00:00 Test Item Value Reference Range Interpretation Comments HEMOGLOBIN A1c (test code = 40853) 9.6 % LIPID [id number] 00:00:00 Test Item Value Reference Range Interpretation Comments CHOLESTEROL (test code = 2210) 227 MG/DL TRIGLYCERIDES (test code = 2232) 198 MG/DL HDL CHOLESTEROL (test code = 2220) 35 MG/DL CALC LDL CHOL (test code = 2237) 156 MG/DL RISK RATIO LDL/HDL (test code = 4.46 RATIO 2238) COMPREHENSIVE METABOLIC [id number] 00:00:00 Test Item Value Reference Range Interpretation Comments GLUCOSE (test code = 2217) 196 MG/DL BUN (test code = 2208) 13 MG/DL CREATININE (test code = 2214) 0.68 MG/DL eGFR AMER. (test code 109 ML/MIN/1.73 = 35979) eGFR NON- AMER. (test 94 ML/MIN/1.73 code = 35169) CALC BUN/CREAT (test code = 19 RATIO 2235) SODIUM (test code = 2231) 139 MEQ/L POTASSIUM (test code = 2228) 4.6 MEQ/L CHLORIDE (test code = 2215) 102 MEQ/L CARBON DIOXIDE (test code = 25 MEQ/L 2205) CALCIUM (test code = 2209) 9.4 MG/DL PROTEIN, TOTAL (test code = 6.9 G/DL 2228) ALBUMIN (test code = 2201) 4.4 G/DL CALC GLOBULIN (test code = 2.5 G/DL 2240) CALC A/G RATIO (test code = 1.8 RATIO 2234) BILIRUBIN, TOTAL (test code = 0.4 MG/DL 2206) ALKALINE PHOSPHATASE (test 124 U/L code = 2204) AST (test code = 2218) 11 U/L ALT (test code = 2219) 14 U/L MICROALBUMIN/CREATININE, RANDOM AND [id number] 00:00:00 Test Item Value Reference Range Interpretation Comments CREATININE, URINE, CONC. (test 245.9 MG/DL code = 2072) ALBUMIN, URINE, RANDOM (test code 39.6 MG/DL = 45235) CALC ALBUMIN/CREAT, RND (test 161 MG/G code = 68845) VITAMIN D, 25 [id number] 00:00:00 Test Item Value Reference Range Interpretation Comments VITAMIN D, 25 OH (test code = 4958) 12 NG/ML [id number] 00:00:00 Test Item Value Reference Range Interpretation Comments TSH, THIRD GENERATION (test code 1.390 UIU/ML = 2821) [id number] 00:00:00 Test Item Value Reference Range Interpretation Comments TSH, THIRD GENERATION (test code 1.390 UIU/ML = 2821) CBC W/AUTO [id number] 00:00:00 Test Item Value Reference Range Interpretation Comments WBC (test code = 1001) 8.6 K/UL RBC (test code = 1002) 4.79 M/UL HEMOGLOBIN (test code = 1003) 14.3 G/DL HEMATOCRIT (test code = 1004) 40.7 % MCV (test code = 1005) 85.0 fL MCH (test code = 1006) 29.9 PG MCHC (test code = 1007) 35.1 G/DL RDW (test code = 1038) 13.1 % NEUTROPHILS (test code = 1008) 63.1 % LYMPHOCYTES (test code = 1010) 29.9 % MONOCYTES (test code = 1011) 4.9 % EOSINOPHILS (test code = 1012) 1.3 % BASOPHILS (test code = 1013) 0.6 % IMMATURE GRANULOCYTES (test 0.2 % code = 1036) NUCLEATED RBCS (test code = 0.0 /100WBC'S 1065) PLATELET COUNT (test code = 278 K/UL 1015) ABSOLUTE NEUTROPHILS (test code 5.40 K/UL = 1066) ABSOLUTE LYMPHOCYTES (test code 2.56 K/UL = 1067) ABSOLUTE MONOCYTES (test code = 0.42 K/UL 1068) ABSOLUTE EOSINOPHILS (test code 0.11 K/UL = 1040) ABSOLUTE BASOPHILS (test code = 0.05 K/UL 1069) ABS IMMATURE GRANULOCYTES (test 0.02 K/UL code = 1020) ABS NUCLEATED RBCS (test code = 0.00 K/UL 21924) CBC W/AUTO [id number] 00:00:00 Test Item Value Reference Range Interpretation Comments WBC (test code = 1001) 8.6 K/UL RBC (test code = 1002) 4.79 M/UL HEMOGLOBIN (test code = 1003) 14.3 G/DL HEMATOCRIT (test code = 1004) 40.7 % MCV (test code = 1005) 85.0 fL MCH (test code = 1006) 29.9 PG MCHC (test code = 1007) 35.1 G/DL RDW (test code = 1038) 13.1 % NEUTROPHILS (test code = 1008) 63.1 % LYMPHOCYTES (test code = 1010) 29.9 % MONOCYTES (test code = 1011) 4.9 % EOSINOPHILS (test code = 1012) 1.3 % BASOPHILS (test code = 1013) 0.6 % IMMATURE GRANULOCYTES (test 0.2 % code = 1036) NUCLEATED RBCS (test code = 0.0 /100WBC'S 1065) PLATELET COUNT (test code = 278 K/UL 1015) ABSOLUTE NEUTROPHILS (test code 5.40 K/UL = 1066) ABSOLUTE LYMPHOCYTES (test code 2.56 K/UL = 1067) ABSOLUTE MONOCYTES (test code = 0.42 K/UL 1068) ABSOLUTE EOSINOPHILS (test code 0.11 K/UL = 1040) ABSOLUTE BASOPHILS (test code = 0.05 K/UL 1069) ABS IMMATURE GRANULOCYTES (test 0.02 K/UL code = 1020) ABS NUCLEATED RBCS (test code = 0.00 K/UL 30173) HEMOGLOBIN [id number] 00:00:00 Test Item Value Reference Range Interpretation Comments HEMOGLOBIN A1c (test code = 01518) 11.6 % HEMOGLOBIN [id number] 00:00:00 Test Item Value Reference Range Interpretation Comments HEMOGLOBIN A1c (test code = 29678) 11.6 % COMPREHENSIVE METABOLIC [id number] 00:00:00 Test Item Value Reference Range Interpretation Comments GLUCOSE (test code = 2217) 301 MG/DL BUN (test code = 2208) 12 MG/DL CREATININE (test code = 2214) 0.70 MG/DL eGFR AMER. (test code 108 ML/MIN/1.73 = 05973) eGFR NON- AMER. (test 93 ML/MIN/1.73 code = 28452) CALC BUN/CREAT (test code = 17 RATIO 2235) SODIUM (test code = 2231) 136 MEQ/L POTASSIUM (test code = 2228) 3.9 MEQ/L CHLORIDE (test code = 2215) 99 MEQ/L CARBON DIOXIDE (test code = 25 MEQ/L 2205) CALCIUM (test code = 2209) 9.5 MG/DL PROTEIN, TOTAL (test code = 7.6 G/DL 2228) ALBUMIN (test code = 2201) 4.6 G/DL CALC GLOBULIN (test code = 3.0 G/DL 2240) CALC A/G RATIO (test code = 1.5 RATIO 2234) BILIRUBIN, TOTAL (test code = 0.5 MG/DL 2206) ALKALINE PHOSPHATASE (test 152 U/L code = 2204) AST (test code = 2218) 14 U/L ALT (test code = 2219) 16 U/L LIPID [id number] 00:00:00 Test Item Value Reference Range Interpretation Comments CHOLESTEROL (test code = 2210) 237 MG/DL TRIGLYCERIDES (test code = 2232) 208 MG/DL HDL CHOLESTEROL (test code = 2220) 39 MG/DL CALC LDL CHOL (test code = 2237) 161 MG/DL RISK RATIO LDL/HDL (test code = 4.13 RATIO 2238) MICROALBUMIN/CREATININE, RANDOM AND [id number] 00:00:00 Test Item Value Reference Range Interpretation Comments CREATININE, URINE, CONC. (test 43.9 MG/DL code = 2071) ALBUMIN, URINE, RANDOM (test code 8.6 MG/DL = 68827) CALC ALBUMIN/CREAT, RND (test code 196 MG/G = 21609) VITAMIN D, 25 [id number] 00:00:00 Test Item Value Reference Range Interpretation Comments VITAMIN D, 25 OH (test code = 4958) 8 NG/ML SARS-CoV-2 (COVID-19) by RT-PCR (HIGH RISK)2020-07-22 00:00:00 Test Item Value Reference Range Interpretation Comments SARS-CoV-2 INTERPRETATION Negative (test code = 77263) SOURCE (test code = 80970) Nasal_Swab_in_VTM__ UTM SARS-CoV-2 (COVID-19) by RT-PCR (HIGH RISK)2020-03-19 00:00:00 Test Item Value Reference Range Interpretation Comments SARS-CoV-2 INTERPRETATION (test NEGATIVE code = 42641) SOURCE (test code = 52235) NOT SPECIFIED COMPREHENSIVE METABOLIC [id number] 00:00:00 Test Item Value Reference Range Interpretation Comments GLUCOSE (test code = 2217) 184 MG/DL BUN (test code = 2208) 16 MG/DL CREATININE (test code = 2214) 0.65 MG/DL eGFR AMER. (test code 111 ML/MIN/1.73 = 12506) eGFR NON- AMER. (test 96 ML/MIN/1.73 code = 50931) CALC BUN/CREAT (test code = 25 RATIO 2235) SODIUM (test code = 2231) 142 MEQ/L POTASSIUM (test code = 2228) 4.1 MEQ/L CHLORIDE (test code = 2215) 104 MEQ/L CARBON DIOXIDE (test code = 24 MEQ/L 2205) CALCIUM (test code = 2209) 9.6 MG/DL PROTEIN, TOTAL (test code = 7.3 G/DL 2228) ALBUMIN (test code = 2201) 4.7 G/DL CALC GLOBULIN (test code = 2.6 G/DL 224) CALC A/G RATIO (test code = 1.8 RATIO 2234) BILIRUBIN, TOTAL (test code = 0.3 MG/DL 2206) ALKALINE PHOSPHATASE (test 108 U/L code = 2204) AST (test code = 2218) 13 U/L ALT (test code = 2219) 14 U/L LIPID [id number] 00:00:00 Test Item Value Reference Range Interpretation Comments CHOLESTEROL (test code = 2210) 235 MG/DL TRIGLYCERIDES (test code = 2232) 166 MG/DL HDL CHOLESTEROL (test code = 2220) 36 MG/DL CALC LDL CHOL (test code = 2237) 168 MG/DL RISK RATIO LDL/HDL (test code = 4.67 RATIO 2238) HEMOGLOBIN [id number] 00:00:00 Test Item Value Reference Range Interpretation Comments HEMOGLOBIN A1c (test code = 65711) 8.3 % HEMOGLOBIN [id number] 00:00:00 Test Item Value Reference Range Interpretation Comments HEMOGLOBIN A1c (test code = 52472) 8.3 % THYROID II PROFILE (T3U, T4, T7, TSH)2020-01-24 00:00:00 Test Item Value Reference Range Interpretation Comments T-UPTAKE (test code = 2817) 33.1 % THYROX. BIND. CAPAC. (test code 1.0 = 57604) T4 (THYROXINE) (test code = 8.8 UG/DL 2819) CORRECTED T4 (FTI) (test code = 8.8 UG/DL 2820) TSH, THIRD GENERATION (test code 1.810 UIU/ML = 2821) HEMOGLOBIN [id number] 00:00:00 Test Item Value Reference Range Interpretation Comments HEMOGLOBIN A1c (test code = 54224) 9.1 % HEMOGLOBIN [id number] 00:00:00 Test Item Value Reference Range Interpretation Comments HEMOGLOBIN A1c (test code = 89437) 9.1 % LIPID [id number] 00:00:00 Test Item Value Reference Range Interpretation Comments CHOLESTEROL (test code = 2210) 194 MG/DL TRIGLYCERIDES (test code = 2232) 192 MG/DL HDL CHOLESTEROL (test code = 2220) 33 MG/DL CALC LDL CHOL (test code = 2237) 123 MG/DL RISK RATIO LDL/HDL (test code = 3.72 RATIO 2238) COMPREHENSIVE METABOLIC [id number] 00:00:00 Test Item Value Reference Range Interpretation Comments GLUCOSE (test code = 2217) 183 MG/DL BUN (test code = 2208) 16 MG/DL CREATININE (test code = 2214) 0.68 MG/DL eGFR AMER. (test code 110 ML/MIN/1.73 = 00033) eGFR NON- AMER. (test 95 ML/MIN/1.73 code = 80980) CALC BUN/CREAT (test code = 24 RATIO 2235) SODIUM (test code = 2231) 142 MEQ/L POTASSIUM (test code = 2228) 4.3 MEQ/L CHLORIDE (test code = 2215) 101 MEQ/L CARBON DIOXIDE (test code = 26 MEQ/L 2205) CALCIUM (test code = 2209) 9.4 MG/DL PROTEIN, TOTAL (test code = 7.0 G/DL 2228) ALBUMIN (test code = 2201) 4.5 G/DL CALC GLOBULIN (test code = 2.5 G/DL 2240) CALC A/G RATIO (test code = 1.8 RATIO 223) BILIRUBIN, TOTAL (test code = 0.5 MG/DL 2206) ALKALINE PHOSPHATASE (test 127 U/L code = 2204) AST (test code = 2218) 12 U/L ALT (test code = 2219) 13 U/L LIPID [id number] 00:00:00 Test Item Value Reference Range Interpretation Comments CHOLESTEROL (test code = 2210) 216 MG/DL TRIGLYCERIDES (test code = 2232) 151 MG/DL HDL CHOLESTEROL (test code = 2220) 31 MG/DL CALC LDL CHOL (test code = 2237) 155 MG/DL RISK RATIO LDL/HDL (test code = 4.99 RATIO 2238) HEMOGLOBIN [id number] 00:00:00 Test Item Value Reference Range Interpretation Comments HEMOGLOBIN A1c (test code = 22884) 9.8 % HEMOGLOBIN [id number] 00:00:00 Test Item Value Reference Range Interpretation Comments HEMOGLOBIN A1c (test code = 44270) 9.8 % SCR MAMM BILATERAL NATHANIEL CAD [id number] 07:51:23 - SCR MAMM BILATERAL NATHANIEL CAD DIGITALBILATERAL DIGITAL SCREENING MAMMOGRAM 3D/2D WITH CAD: 11/17/2018 LINICAL: Asymptomatic. Digital breast tomosynthesis was performed in addition to routine CC and MLO views. Current mammographic images were evaluated by either a [employer] M-Vu or a [employer] ImageChecker CAD (computer aided detection system). Comparison is made to exam dated 03/05/2014 mammogram - [facility]-Radiology File Room. There are scattered fibroglandular [...] with possible ultrasound are recommended for confirmation. Prmaod Suero M.D. et/:12/05/201807:51:23 Attending Technologist: Mayra Neal MM, [facility] MammographyImaging Technologist: Taylor Naqvi MM, [facility] Mammographyletter sent: Additional Imaging Mammogram BI- RADS: 0 IndeterminateCULTURE, [id number] 00:00:00 Test Item Value Reference Range Interpretation Comments CULTURE, URINE (test SPECIMEN NUMBER: code = 86477) [id number] HEMOGLOBIN [id number] 00:00:00 Test Item Value Reference Range Interpretation Comments HEMOGLOBIN A1c (test code = 40464) 9.2 % HEMOGLOBIN [id number] 00:00:00 Test Item Value Reference Range Interpretation Comments HEMOGLOBIN A1c (test code = 57306) 9.2 % LIPID [id number] 00:00:00 Test Item Value Reference Range Interpretation Comments CHOLESTEROL (test code = 2210) 242 MG/DL TRIGLYCERIDES (test code = 2232) 194 MG/DL HDL CHOLESTEROL (test code = 2220) 37 MG/DL CALC LDL CHOL (test code = 2237) 166 MG/DL RISK RATIO LDL/HDL (test code = 4.49 RATIO 2238) COMPREHENSIVE METABOLIC [id number] 00:00:00 Test Item Value Reference Range Interpretation Comments GLUCOSE (test code = 2217) 204 MG/DL BUN (test code = 2208) 16 MG/DL CREATININE (test code = 2214) 0.78 MG/DL eGFR AMER. (test code 96 ML/MIN/1.73 = 02525) eGFR NON- AMER. (test 83 ML/MIN/1.73 code = 39110) CALC BUN/CREAT (test code = 21 RATIO 2235) SODIUM (test code = 2231) 139 MEQ/L POTASSIUM (test code = 2228) 4.5 MEQ/L CHLORIDE (test code = 2215) 99 MEQ/L CARBON DIOXIDE (test code = 26 MEQ/L 2205) CALCIUM (test code = 2209) 9.9 MG/DL PROTEIN, TOTAL (test code = 7.8 G/DL 2228) ALBUMIN (test code = 2201) 4.9 G/DL CALC GLOBULIN (test code = 2.9 G/DL 2240) CALC A/G RATIO (test code = 1.7 RATIO 2234) BILIRUBIN, TOTAL (test code = 0.4 MG/DL 2206) ALKALINE PHOSPHATASE (test 148 U/L code = 2204) AST (test code = 2218) 13 U/L ALT (test code = 2219) 21 U/L COMPREHENSIVE METABOLIC [id number] 00:00:00 Test Item Value Reference Range Interpretation Comments GLUCOSE (test code = 2217) 143 MG/DL BUN (test code = 2208) 11 MG/DL CREATININE (test code = 2214) 0.69 MG/DL eGFR AMER. (test code 110 ML/MIN/1.73 = 36618) eGFR NON- AMER. (test 95 ML/MIN/1.73 code = 32843) CALC BUN/CREAT (test code = 16 RATIO 2235) SODIUM (test code = 2231) 141 MEQ/L POTASSIUM (test code = 2228) 4.5 MEQ/L CHLORIDE (test code = 2215) 103 MEQ/L CARBON DIOXIDE (test code = 27 MEQ/L 2205) CALCIUM (test code = 2209) 9.7 MG/DL PROTEIN, TOTAL (test code = 6.9 G/DL 2228) ALBUMIN (test code = 2201) 4.7 G/DL CALC GLOBULIN (test code = 2.2 G/DL 2239) CALC A/G RATIO (test code = 2.1 RATIO 2234) BILIRUBIN, TOTAL (test code = 0.3 MG/DL 2206) ALKALINE PHOSPHATASE (test 117 U/L code = 2204) AST (test code = 2218) 16 U/L ALT (test code = 2219) 24 U/L LIPID [id number] 00:00:00 Test Item Value Reference Range Interpretation Comments CHOLESTEROL (test code = 2210) 223 MG/DL TRIGLYCERIDES (test code = 2232) 147 MG/DL HDL CHOLESTEROL (test code = 2220) 39 MG/DL CALC LDL CHOL (test code = 2237) 155 MG/DL RISK RATIO LDL/HDL (test code = 3.96 RATIO 2238) HEMOGLOBIN [id number] 00:00:00 Test Item Value Reference Range Interpretation Comments HEMOGLOBIN A1c (test code = 11565) 8.4 % HEMOGLOBIN [id number] 00:00:00 Test Item Value Reference Range Interpretation Comments HEMOGLOBIN A1c (test code = 81627) 8.4 % HEMOGLOBIN [id number] 00:00:00 Test Item Value Reference Range Interpretation Comments HEMOGLOBIN A1c (test code = 70254) 9.9 % HEMOGLOBIN [id number] 00:00:00 Test Item Value Reference Range Interpretation Comments HEMOGLOBIN A1c (test code = 20284) 9.9 % LIPID [id number] 00:00:00 Test Item Value Reference Range Interpretation Comments CHOLESTEROL (test code = 2210) 199 MG/DL TRIGLYCERIDES (test code = 2232) 167 MG/DL HDL CHOLESTEROL (test code = 2220) 32 MG/DL CALC LDL CHOL (test code = 2237) 134 MG/DL RISK RATIO LDL/HDL (test code = 4.18 RATIO 2238) COMPREHENSIVE METABOLIC [id number] 00:00:00 Test Item Value Reference Range Interpretation Comments GLUCOSE (test code = 2217) 266 MG/DL BUN (test code = 2208) 11 MG/DL CREATININE (test code = 2214) 0.67 MG/DL eGFR AMER. (test code 112 ML/MIN/1.73 = 64110) eGFR NON- AMER. (test 96 ML/MIN/1.73 code = 62232) CALC BUN/CREAT (test code = 16 RATIO 2235) SODIUM (test code = 2231) 140 MEQ/L POTASSIUM (test code = 2228) 4.3 MEQ/L CHLORIDE (test code = 2215) 102 MEQ/L CARBON DIOXIDE (test code = 24 MEQ/L 2205) CALCIUM (test code = 2209) 9.6 MG/DL PROTEIN, TOTAL (test code = 6.9 G/DL 2228) ALBUMIN (test code = 2201) 4.6 G/DL CALC GLOBULIN (test code = 2.3 G/DL 2240) CALC A/G RATIO (test code = 2.0 RATIO 2233) BILIRUBIN, TOTAL (test code = 0.3 MG/DL 2206) ALKALINE PHOSPHATASE (test 131 U/L code = 2204) AST (test code = 2218) 13 U/L ALT (test code = 2219) 17 U/L COMPREHENSIVE METABOLIC [id number] 00:00:00 Test Item Value Reference Range Interpretation Comments GLUCOSE (test code = 2217) 229 MG/DL BUN (test code = 2208) 11 MG/DL CREATININE (test code = 2214) 0.81 MG/DL eGFR AMER. (test code 92 ML/MIN/1.73 = 99971) eGFR NON- AMER. (test 79 ML/MIN/1.73 code = 35039) CALC BUN/CREAT (test code = 14 RATIO 2235) SODIUM (test code = 2231) 141 MEQ/L POTASSIUM (test code = 2228) 5.3 MEQ/L CHLORIDE (test code = 2215) 101 MEQ/L CARBON DIOXIDE (test code = 28 MEQ/L 2206) CALCIUM (test code = 2209) 10.0 MG/DL PROTEIN, TOTAL (test code = 7.3 G/DL 2228) ALBUMIN (test code = 2201) 4.6 G/DL CALC GLOBULIN (test code = 2.7 G/DL 2240) CALC A/G RATIO (test code = 1.7 RATIO 2234) BILIRUBIN, TOTAL (test code = 0.5 MG/DL 2207) ALKALINE PHOSPHATASE (test 132 U/L code = 2204) AST (test code = 2218) 14 U/L ALT (test code = 2219) 17 U/L CBC W/AUTO [id number] 00:00:00 Test Item Value Reference Range Interpretation Comments WBC (test code = 1001) 8.0 K/UL RBC (test code = 1002) 4.46 M/UL HEMOGLOBIN (test code = 1003) 12.9 G/DL HEMATOCRIT (test code = 1004) 37.5 % MCV (test code = 1005) 84.1 fL MCH (test code = 1006) 28.9 PG MCHC (test code = 1007) 34.4 G/DL RDW (test code = 1038) 12.5 % NEUTROPHILS (test code = 1008) 62.8 % LYMPHOCYTES (test code = 1010) 29.3 % MONOCYTES (test code = 1011) 5.5 % EOSINOPHILS (test code = 1012) 1.8 % BASOPHILS (test code = 1013) 0.6 % PLATELET COUNT (test code = 1015) 272 K/UL CBC W/AUTO [id number] 00:00:00 Test Item Value Reference Range Interpretation Comments WBC (test code = 1001) 8.0 K/UL RBC (test code = 1002) 4.46 M/UL HEMOGLOBIN (test code = 1003) 12.9 G/DL HEMATOCRIT (test code = 1004) 37.5 % MCV (test code = 1005) 84.1 fL MCH (test code = 1006) 28.9 PG MCHC (test code = 1007) 34.4 G/DL RDW (test code = 1038) 12.5 % NEUTROPHILS (test code = 1008) 62.8 % LYMPHOCYTES (test code = 1010) 29.3 % MONOCYTES (test code = 1011) 5.5 % EOSINOPHILS (test code = 1012) 1.8 % BASOPHILS (test code = 1013) 0.6 % PLATELET COUNT (test code = 1015) 272 K/UL HEMOGLOBIN [id number] 00:00:00 Test Item Value Reference Range Interpretation Comments HEMOGLOBIN A1c (test code = 46905) 10.1 % HEMOGLOBIN [id number] 00:00:00 Test Item Value Reference Range Interpretation Comments HEMOGLOBIN A1c (test code = 75354) 10.1 % LIPID [id number] 00:00:00 Test Item Value Reference Range Interpretation Comments CHOLESTEROL (test code = 2210) 221 MG/DL TRIGLYCERIDES (test code = 2232) 174 MG/DL HDL CHOLESTEROL (test code = 2220) 31 MG/DL CALC LDL CHOL (test code = 2237) 155 MG/DL RISK RATIO LDL/HDL (test code = 5.01 RATIO 2238) COMPREHENSIVE METABOLIC [id number] 00:00:00 Test Item Value Reference Range Interpretation Comments GLUCOSE (test code = 2217) 221 MG/DL BUN (test code = 2208) 14 MG/DL CREATININE (test code = 2214) 0.68 MG/DL eGFR AMER. (test code 111 ML/MIN/1.73 = 64687) eGFR NON- AMER. (test 96 ML/MIN/1.73 code = 81923) CALC BUN/CREAT (test code = 21 RATIO 2235) SODIUM (test code = 2231) 143 MEQ/L POTASSIUM (test code = 2228) 4.3 MEQ/L CHLORIDE (test code = 2215) 103 MEQ/L CARBON DIOXIDE (test code = 25 MEQ/L 2205) CALCIUM (test code = 2209) 9.8 MG/DL PROTEIN, TOTAL (test code = 6.9 G/DL 2228) ALBUMIN (test code = 2201) 4.3 G/DL CALC GLOBULIN (test code = 2.6 G/DL 2239) CALC A/G RATIO (test code = 1.7 RATIO 4) BILIRUBIN, TOTAL (test code = 0.3 MG/DL 2206) ALKALINE PHOSPHATASE (test 118 U/L code = 2204) AST (test code = 2218) 11 U/L ALT (test code = 2219) 14 U/L LIPID [id number] 00:00:00 Test Item Value Reference Range Interpretation Comments CHOLESTEROL (test code = 2210) 200 MG/DL TRIGLYCERIDES (test code = 2232) 155 MG/DL HDL CHOLESTEROL (test code = 2220) 36 MG/DL CALC LDL CHOL (test code = 2237) 133 MG/DL RISK RATIO LDL/HDL (test code = 3.69 RATIO 2238) HEMOGLOBIN [id number] 00:00:00 Test Item Value Reference Range Interpretation Comments HEMOGLOBIN A1c (test code = 89163) 11.2 % HEMOGLOBIN [id number] 00:00:00 Test Item Value Reference Range Interpretation Comments HEMOGLOBIN A1c (test code = 17248) 11.2 % MICROALBUMIN/CREATININE, RANDOM AND [id number] 00:00:00 Test Item Value Reference Range Interpretation Comments CREATININE, URINE, CONC. (test 101.8 MG/DL code = 2072) MICROALBUMIN, RANDOM (test code = 2.0 MG/DL 18245) CALC MICROALB/CREAT RND (test 20 MG/G code = 98478) COMPREHENSIVE METABOLIC [id number] 00:00:00 Test Item Value Reference Range Interpretation Comments GLUCOSE (test code = 2217) 303 MG/DL BUN (test code = 2208) 15 MG/DL CREATININE (test code = 2214) 0.75 MG/DL eGFR AMER. (test code 102 ML/MIN/1.73 = 18484) eGFR NON- AMER. (test 88 ML/MIN/1.73 code = 85279) CALC BUN/CREAT (test code = 20 RATIO 2235) SODIUM (test code = 2231) 141 MEQ/L POTASSIUM (test code = 2228) 4.2 MEQ/L CHLORIDE (test code = 2215) 101 MEQ/L CARBON DIOXIDE (test code = 26 MEQ/L 220) CALCIUM (test code = 2209) 9.5 MG/DL PROTEIN, TOTAL (test code = 6.7 G/DL 2228) ALBUMIN (test code = 2201) 4.4 G/DL CALC GLOBULIN (test code = 2.3 G/DL 2240) CALC A/G RATIO (test code = 1.9 RATIO 2234) BILIRUBIN, TOTAL (test code = 0.4 MG/DL 2206) ALKALINE PHOSPHATASE (test 135 U/L code = 2204) AST (test code = 2218) 13 U/L ALT (test code = 2219) 17 U/L LIPID [id number] 00:00:00 Test Item Value Reference Range Interpretation Comments CHOLESTEROL (test code = 2210) 196 MG/DL TRIGLYCERIDES (test code = 2232) 202 MG/DL HDL CHOLESTEROL (test code = 2220) 34 MG/DL CALC LDL CHOL (test code = 2237) 122 MG/DL RISK RATIO LDL/HDL (test code = 3.58 RATIO 2238) CBC W/AUTO [id number] 00:00:00 Test Item Value Reference Range Interpretation Comments WBC (test code = 1001) 6.9 K/UL RBC (test code = 1002) 4.59 M/UL HEMOGLOBIN (test code = 1003) 12.9 G/DL HEMATOCRIT (test code = 1004) 39.2 % MCV (test code = 1005) 85.4 fL MCH (test code = 1006) 28.1 PG MCHC (test code = 1007) 32.9 G/DL RDW (test code = 1038) 13.3 % NEUTROPHILS (test code = 1008) 66.5 % LYMPHOCYTES (test code = 1010) 25.4 % MONOCYTES (test code = 1011) 5.8 % EOSINOPHILS (test code = 1012) 1.6 % BASOPHILS (test code = 1013) 0.7 % PLATELET COUNT (test code = 1015) 229 K/UL CBC W/AUTO [id number] 00:00:00 Test Item Value Reference Range Interpretation Comments WBC (test code = 1001) 6.9 K/UL RBC (test code = 1002) 4.59 M/UL HEMOGLOBIN (test code = 1003) 12.9 G/DL HEMATOCRIT (test code = 1004) 39.2 % MCV (test code = 1005) 85.4 fL MCH (test code = 1006) 28.1 PG MCHC (test code = 1007) 32.9 G/DL RDW (test code = 1038) 13.3 % NEUTROPHILS (test code = 1008) 66.5 % LYMPHOCYTES (test code = 1010) 25.4 % MONOCYTES (test code = 1011) 5.8 % EOSINOPHILS (test code = 1012) 1.6 % BASOPHILS (test code = 1013) 0.7 % PLATELET COUNT (test code = 1015) 229 K/UL HEMOGLOBIN [id number] 00:00:00 Test Item Value Reference Range Interpretation Comments HEMOGLOBIN A1c (test code = 18270) 9.0 % HEMOGLOBIN [id number] 00:00:00 Test Item Value Reference Range Interpretation Comments HEMOGLOBIN A1c (test code = 15536) 9.0 % LIPID [id number] 00:00:00 Test Item Value Reference Range Interpretation Comments CHOLESTEROL (test code = 2210) 212 MG/DL TRIGLYCERIDES (test code = 2232) 178 MG/DL HDL CHOLESTEROL (test code = 2220) 33 MG/DL CALCULATED LDL CHOL (test code = 143 MG/DL 2236) RISK RATIO LDL/HDL (test code = 4.35 RATIO 2238) COMPREHENSIVE METABOLIC [id number] 00:00:00 Test Item Value Reference Range Interpretation Comments GLUCOSE (test code = 2217) 212 MG/DL BUN (test code = 2208) 15 MG/DL CREATININE (test code = 2214) 0.75 MG/DL eGFR AMER. (test code 103 ML/MIN/1.73 = 84390) eGFR NON- AMER. (test 88 ML/MIN/1.73 code = 27888) CALCULATED BUN/CREAT (test 20 RATIO code = 2235) SODIUM (test code = 2231) 143 MEQ/L POTASSIUM (test code = 2228) 4.2 MEQ/L CHLORIDE (test code = 2215) 105 MEQ/L CARBON DIOXIDE (test code = 25 MEQ/L 2205) CALCIUM (test code = 2209) 9.7 MG/DL PROTEIN, TOTAL (test code = 7.3 G/DL 2228) ALBUMIN (test code = 2201) 4.5 G/DL CALCULATED GLOBULIN (test 2.8 G/DL code = 2240) CALCULATED A/G RATIO (test 1.6 RATIO code = 2234) BILIRUBIN, TOTAL (test code = 0.4 MG/DL 2206) ALKALINE PHOSPHATASE (test 101 U/L code = 2204) SGOT (AST) (test code = 2218) 13 U/L SGPT (ALT) (test code = 2219) 15 U/L LIPID [id number] 00:00:00 Test Item Value Reference Range Interpretation Comments CHOLESTEROL (test code = 2210) 231 MG/DL TRIGLYCERIDES (test code = 2232) 295 MG/DL HDL CHOLESTEROL (test code = 2220) 39 MG/DL CALCULATED LDL CHOL (test code = 133 MG/DL 2236) RISK RATIO LDL/HDL (test code = 3.41 RATIO 2238) HEMOGLOBIN [id number] 00:00:00 Test Item Value Reference Range Interpretation Comments HEMOGLOBIN A1c (test code = 73312) 8.1 % HEMOGLOBIN [id number] 00:00:00 Test Item Value Reference Range Interpretation Comments HEMOGLOBIN A1c (test code = 14650) 8.1 % LIPID [id number] 00:00:00 Test Item Value Reference Range Interpretation Comments CHOLESTEROL (test code = 2210) 197 MG/DL TRIGLYCERIDES (test code = 2232) 136 MG/DL HDL CHOLESTEROL (test code = 2220) 31 MG/DL CALCULATED LDL CHOL (test code = 139 MG/DL 2237) RISK RATIO LDL/HDL (test code = 4.48 RATIO 2238) HEMOGLOBIN [id number] 00:00:00 Test Item Value Reference Range Interpretation Comments HEMOGLOBIN A1c (test code = 54083) 8.0 % HEMOGLOBIN [id number] 00:00:00 Test Item Value Reference Range Interpretation Comments HEMOGLOBIN A1c (test code = 39653) 8.0 % THYROID II PROFILE (T3U, T4, T7, [id number] 00:00:00 Test Item Value Reference Range Interpretation Comments T3 UPTAKE (test code = 2817) 29.9 % T4 (THYROXINE) (test code = 2819) 8.2 UG/DL CALCULATED T7 (FTI) (test code = 2.45 2820) TSH (test code = 2821) 1.1 UIU/ML LIPID [id number] 00:00:00 Test Item Value Reference Range Interpretation Comments CHOLESTEROL (test code = 2210) 203 MG/DL TRIGLYCERIDES (test code = 2232) 195 MG/DL HDL CHOLESTEROL (test code = 2220) 30 MG/DL CALCULATED LDL CHOL (test code = 134 MG/DL 7) RISK RATIO LDL/HDL (test code = 4.47 RATIO 2238) HEMOGLOBIN [id number] 00:00:00 Test Item Value Reference Range Interpretation Comments HEMOGLOBIN A1c (test code = 43797) 9.7 % HEMOGLOBIN [id number] 00:00:00 Test Item Value Reference Range Interpretation Comments HEMOGLOBIN A1c (test code = 90602) 9.7 % COMPREHENSIVE METABOLIC [id number] 00:00:00 Test Item Value Reference Range Interpretation Comments GLUCOSE (test code = 2217) 182 MG/DL BUN (test code = 2208) 18 MG/DL CREATININE (test code = 2214) 0.7 MG/DL eGFR AMER. (test code 105 ML/MIN/1.73 = 49013) eGFR NON- AMER. (test 87 ML/MIN/1.73 code = 61286) CALCULATED BUN/CREAT (test 26 RATIO code = 2235) SODIUM (test code = 2231) 138 MEQ/L POTASSIUM (test code = 2228) 4.3 MEQ/L CHLORIDE (test code = 2215) 103 MEQ/L CARBON DIOXIDE (test code = 24 MEQ/L 2205) CALCIUM (test code = 2209) 9.3 MG/DL PROTEIN, TOTAL (test code = 7.1 G/DL 2228) ALBUMIN (test code = 2201) 4.3 G/DL CALCULATED GLOBULIN (test 2.8 G/DL code = 2240) CALCULATED A/G RATIO (test 1.5 RATIO code = 2234) BILIRUBIN, TOTAL (test code = 0.4 MG/DL 2206) ALKALINE PHOSPHATASE (test 105 U/L code = 2204) SGOT (AST) (test code = 2218) 13 U/L SGPT (ALT) (test code = 2219) 10 U/L CBC W/AUTO [id number] 00:00:00 Test Item Value Reference Range Interpretation Comments WBC (test code = 1001) 6.3 K/UL RBC (test code = 1002) 4.59 M/UL HEMOGLOBIN (test code = 1003) 12.2 G/DL HEMATOCRIT (test code = 1004) 38.6 % MCV (test code = 1005) 84.1 fL MCH (test code = 1006) 26.6 PG MCHC (test code = 1007) 31.6 G/DL RDW (test code = 1038) 14.9 % NEUTROPHILS (test code = 1008) 60 % LYMPHOCYTES (test code = 1010) 33 % MONOCYTES (test code = 1011) 5 % EOSINOPHILS (test code = 1012) 2 % BASOPHILS (test code = 1013) 1 % PLATELET COUNT (test code = 1015) 197 K/UL CBC W/AUTO [id number] 00:00:00 Test Item Value Reference Range Interpretation Comments WBC (test code = 1001) 6.3 K/UL RBC (test code = 1002) 4.59 M/UL HEMOGLOBIN (test code = 1003) 12.2 G/DL HEMATOCRIT (test code = 1004) 38.6 % MCV (test code = 1005) 84.1 fL MCH (test code = 1006) 26.6 PG MCHC (test code = 1007) 31.6 G/DL RDW (test code = 1038) 14.9 % NEUTROPHILS (test code = 1008) 60 % LYMPHOCYTES (test code = 1010) 33 % MONOCYTES (test code = 1011) 5 % EOSINOPHILS (test code = 1012) 2 % BASOPHILS (test code = 1013) 1 % PLATELET COUNT (test code = 1015) 197 K/UL
[2022-05-09] MEDS ORDERED: HYDROCODONE/APAP 5/325 MG TAB ONE (12:35)
--- NOTE | 2022-05-09 13:13 | RAD REPORT ---
EXAM DESCRIPTION: RAD - Knee Right 3 View - 05/09/2022 1:05 pm CLINICAL HISTORY: fall COMPARISON: No comparisons FINDINGS/IMPRESSION: No acute fracture. No malalignment. Small enthesophyte along the proximal pole the patella. Mild peripheral vascular calcifications.
--- NOTE | 2022-05-09 13:14 | RAD REPORT ---
EXAM DESCRIPTION: RAD - Knee Left 3 View - 05/09/2022 1:05 pm CLINICAL HISTORY: fall, knee pain COMPARISON: No comparisons FINDINGS: No acute fracture. No malalignment. Small enthesophyte along the proximal pole of the [place]. IMPRESSION: No acute osseous abnormality involving the left knee.
--- NOTE | 2022-05-09 14:42 | ER ---
Nurse's Notes [facility] Name: Ellen Winsotn Age: 61 yrs Sex: Female : 1960 Arrival Date: 05/09/2022 Time: 12:12 Bed 11 Private MD: Diagnosis: Unspecified internal derangement of unspecified knee Presentation: 05/09 12:18 Chief complaint: Patient states: bilateral knee pain after tripping on floor mat and ss falling right onto knees. Coronavirus screen: Client denies travel out of the [place] in the last 14 days. Ebola Screen: Patient denies exposure to infectious person. Patient denies travel to an Ebola-affected area in the 21 days before illness onset. Initial Sepsis Screen: Does the patient meet any 2 criteria? No. Patient's initial sepsis screen is negative. Does the patient have a suspected source of infection? No. Patient's initial sepsis screen is negative. Risk Assessment: Do you want to hurt yourself or someone else? Patient reports no desire to harm self or others. Onset of symptoms was May 09, 2022. 12:18 Method Of Arrival: Ambulatory ss 12:18 Acuity: TYRONE 4 ss Historical: - Allergies: 12:19 No Known Allergies; ss - PMHx: 12:19 abnormal EKG; Diabetes - NIDDM; Hyperlipidemia; Hypertension; UTI; ss - Immunization history:: Client reports receiving the 2nd dose of the Covid vaccine. - Social history:: Smoking status: Patient reports the use of cigarette tobacco products, smokes one-half pack cigarettes per day. Screenin:20 Abuse screen: Denies threats or abuse. Denies injuries from another. Nutritional ss screening: No deficits noted. Tuberculosis screening: Never had TB. Fall Risk None identified. Assessment: 12:20 General: Appears uncomfortable, Behavior is cooperative, anxious. Pain: Complains of ss pain in bilateral knees Pain currently is 8 out of 10 on a pain scale. Quality of pain is described as tender, throbbing, Is continuous. Neuro: Level of Consciousness is awake, alert, obeys commands, Oriented to person, place, time, situation, Basketball Scout are equal bilaterally Speech is normal. Cardiovascular: Capillary refill < 3 seconds is brisk in bilateral fingers Patient's skin is warm and dry. Respiratory: Airway is patent Respiratory effort is even, unlabored, Respiratory pattern is regular, symmetrical. Derm: Skin is intact, is healthy with good turgor, Skin is pink, warm \T\ dry. normal. Musculoskeletal: Swelling mild swelling noted to bilateral knees. Injury Description: Abrasion sustained to 3 abrasions noted to R knee. 14:30 Reassessment: ELKIN bandages applied to bilateral knees. Awaiting for disposition. Neuro: ss Corbin Agitation-Sedation Scale (RASS): 0 - Alert and Calm Level of Consciousness is awake, alert, obeys commands, Speech is normal. Vital Signs: 12:18 BP 193 / 76; Pulse 73; Resp 18; Temp 97.9(TE); Pulse Ox 100% on R/A; Weight 53.52 kg; ss Height 4 ft. 11 in. (149.86 cm); Pain 8/10; 15:01 BP 162 / 74; ss 12:18 Body Mass Index 23.83 (53.52 kg, 149.86 cm) ED Course: 12:12 Patient arrived in ED. rg4 12:12 Galindo Mosquera PA is PHCP. [facility] 12:13 Modesto Torre MD is Attending Physician. [facility] 12:19 Triage completed. ss 12:19 Arm band placed on right wrist. ss 12:20 Patient has correct armband on for positive identification. 12:23 Edith Bolanos, JEB is Primary Nurse. ss 13:07 Knee Right 3 View XRAY In Process Unspecified. EDMS 13:07 Knee Left 3 View XRAY In Process Unspecified. EDMS 14:30 No provider procedures requiring assistance completed. Patient did not have IV access ss during this emergency room visit. Elkin wrap to left knee and right knee. 14:40 Apollo Agosto MD is Referral Physician. [facility] Administered Medications: 12:27 Drug: HYDROcodone-acetaminophen 5 mg-325 mg 1 tabs Route: PO; ss 14:45 Follow up: Response: No adverse reaction; Pain is decreased; RASS: Alert and Calm (0) Medication: 12:20 VIS not applicable for this client. Outcome: 14:41 Discharge ordered by . m 15:02 Patient left the ED. Signatures: Dispatcher [employer] EDMS Galindo Mosquera PA PA jmm Smirch, Shelby, RN RN Audra Ackerman rg4
--- NOTE | 2022-05-09 14:42 | EDPHYS ---
Physician Documentation [facility] Name: Ellen Winston Age: 61 yrs Sex: Female : 1960 Arrival Date: 05/09/2022 Time: 12:12 Bed 11 Private MD: ED Physician Modesto Torre HPI: 05/09 14:35 This 61 yrs old Female presents to ER via Ambulatory with complaints of Fall jmm Injury, Knee Pain. 14:35 Details of fall: The patient fell from an upright position. Onset: The symptoms/episode jmm began/occurred acutely, just prior to arrival. Associated injuries: The patient sustained right and left knee. This is a 61 year old female with a history of dm, htn that presents to the ED with complaints of right and left knee pain following a fall which occurred just prior to arrival Patient denies hitting her head. Denies other injury. Patient is UTD on tetanus immunization. . Historical: - Allergies: 12:19 No Known Allergies; ss - PMHx: 12:19 abnormal EKG; Diabetes - NIDDM; Hyperlipidemia; Hypertension; UTI; ss - Immunization history:: Client reports receiving the 2nd dose of the Covid vaccine. - Social history:: Smoking status: Patient reports the use of cigarette tobacco products, smokes one-half pack cigarettes per day. ROS: 14:35 Constitutional: Negative for fever, chills, and weight loss, Cardiovascular: Negative jmm for chest pain, palpitations, and edema, Respiratory: Negative for shortness of breath, cough, wheezing, and pleuritic chest pain. 14:35 MS/extremity: Positive for pain. 14:35 All other systems are negative. Exam: 14:35 Constitutional: This is a well developed, well nourished patient who is awake, alert, jmm and in no acute distress. Head/Face: atraumatic. Eyes: EOMI, no conjunctival erythema appreciated ENT: Moist Mucus Membranes Neck: Trachea midline, Supple Chest/axilla: Normal chest wall appearance and motion. Cardiovascular: Regular rate and rhythm. No edema appreciated Respiratory: Normal respirations, no respiratory distress appreciated Abdomen/GI: Non distended Back: Normal ROM 14:35 Musculoskeletal/extremity: FROM noted to the right and left knee, compartments are soft, NVI. 14:35 Skin: abrasion noted to the right and left knee. . 14:35 Neuro: Motor: is normal. 14:35 Psych: Behavior/mood is pleasant, cooperative. Vital Signs: 12:18 BP 193 / 76; Pulse 73; Resp 18; Temp 97.9(TE); Pulse Ox 100% on R/A; Weight 53.52 kg; ss Height 4 ft. 11 in. (149.86 cm); Pain 8/10; 15:01 BP 162 / 74; ss 12:18 Body Mass Index 23.83 (53.52 kg, 149.86 cm) ss MDM: 12:18 Patient medically screened. [facility] 14:39 Data reviewed: vital signs, nurses notes. Counseling: I had a detailed discussion with [facility] the patient and/or guardian regarding: the historical points, exam findings, and any diagnostic results supporting the discharge/admit diagnosis, radiology results, the need for outpatient follow up, to return to the emergency department if symptoms worsen or persist or if there are any questions or concerns that arise at home. 05/09 12:20 Order name: Knee Right 3 View XRAY; Complete Time: 13:15 [facility] 05/09 12:20 Order name: Knee Left 3 View XRAY; Complete Time: 13:16 [facility] 05/09 14:22 Order name: Elkin wrap-joint; Complete Time: 14:23 [facility] Administered Medications: 12:27 Drug: HYDROcodone-acetaminophen 5 mg-325 mg 1 tabs Route: PO; 14:45 Follow up: Response: No adverse reaction; Pain is decreased; RASS: Alert and Calm (0) Disposition: 17:27 Co-signature as Attending Physician, Modesto Torre MD. rn Disposition Summary: 05/09/22 14:41 Discharge Ordered Location: Home [facility] Condition: Stable [facility] Diagnosis - Unspecified internal derangement of unspecified knee [facility] Followup: [facility] - With: Apollo Agosto MD - When: 2 - 3 days - Reason: Recheck today's complaints, Continuance of care, Re-evaluation by your physician Discharge Instructions: - Discharge Summary Sheet [facility] - Abrasion jm - Acute Knee Pain, Adult [facility] Forms: - Medication Reconciliation Form [facility] - Thank You Letter [facility] - Antibiotic Education [facility] - Prescription Opioid Use [facility] - Work release form Prescriptions: - orphenadrine citrate 100 mg Oral Tablet Sustained Release - take 1 tablet by ORAL route 2 times per day As needed; 20 tablet; Refills: 0, jmm Product Selection Permitted Signatures: Dispatcher [employer] Galindo Morris PA PA jmm Nieto, Roman, MD MD rn Edith Bolanos RN RN ss
[2022-05-09 15:07] VITALS: TEMP 97.9; O2SAT 100
[2022-05-09 15:11] VITALS: BP 162/74
== END 2022-05-09 15:02 | disposition home or self-care (01) ==
LOC: ER 12:09
DX: M23.92 Unspecified internal derangement of left knee (principal); M23.91 Unspecified internal derangement of right knee; M25.562 Pain in left knee; M25.561 Pain in right knee; E11.9 Type 2 diabetes mellitus without complications; I10 Essential (primary) hypertension; F17.210 Nicotine dependence, cigarettes, uncomplicated
CPT/HCPCS: 99283

== ENCOUNTER 2022-07-25 04:58 | Inpatient (IN) | payer SELFPAY ==
--- OUTSIDE RECORDS SUMMARY | 2022-07-25 05:11 | XMS REPORT | Continuity of Care Document ---
:1960 Author Organization [facility] t Address [address] [place] [address] Care Team Providers Name Role Phone LINDA GU Primary Care Physician Unavailable KAELA FARRELL Attending Clinician Unavailable Doctor Unassigned, [place] Attending Clinician Unavailable OLAYINKA ARCE Attending Clinician Unavailable OLAYINKA ARCE Attending Clinician Unavailable Kaela Farrell MD Attending Clinician Problems Condition Condition Condition Status Onset Resolution Last Treating Co mments Source Name Details Category Date Date Treatment Clinician Date Overweight Overweight Disease Active U nivers 4-04 ity of 00:00: [address] BMI BMI Disease Active Univers 25.0-25.9, 25.0-25.9, 4-04 it y of adult adult 00:00: [address] Mammogram Mammogram Disease Active Uni vers abnormal abnormal 4-04 ity of 00:00: [address] Cervix Cervix Disease Active Univers abnormalit abnormalit 6-11 it y of y y 00:00: [address] HSIL (high HSIL (high Disease Active U [...] different from the original. ICD10 Diagnosis Term [employer] Utility Essential Essential Disease Active Uni vers hypertensi hypertensi 529 it y [place] [facility] Allergies, Adverse Reactions, Alerts Allergy Allergy Status Severity Reaction(s) Onset Inactive Treating Comm ents Source Name Type Date Date Clinician Michale Stauffer Active Intraven ty to 7-05 ous adverse 00:00: reaction 00 to drug NO KNOWN Drug Active [facility] ALLERGIE Class ity of S [facility] Social History Social Habit Start Date Stop Date Quantity Comments Source History of tobacco Cigarette Smoker University of use [facility] Exposure to Not sure [facility] SARS-CoV-2 (event) [facility] Alcohol intake 2021-03-09 2021-03-09 Current University 00:00:00 00:00:00 non-drinker of [facility] alcohol [place] (finding) Cigarettes smoked 2014-02-07 2014-02-07 Univers ity of current (pack per 00:00:00 00:00:00 ) - Reported Branch Cigarette 2014-02-07 2014-02-07 University of pack-years 00:00:00 00:00:00 [facility] Tobacco use and 2014-02-07 2014-02-07 Never used Universit y of exposure 00:00:00 00:00:00 [facility] Tobacco Comment 2014-02-07 2014-02-07 smokes 6 x per Unive rsity of 00:00:00 00:00:00 day [facility] Sex Ass[birth year] At [birth year] Universit y of 00:00:00 00:00:00 [facility] Smoking Status Start Date Stop Date Source Current every day smoker 2014-02-07 00:00:00 Uni versity of [facility] Medications Ordered Filled Start Stop Current Ordering Indication Dosage Frequency Signature Comments Components Source Medication Medication Date Date Medication? Clinician (SIG) Name Name TAKE 09/13 No TABLET BY 06-10 MOUTH DAILY 00:00: 00 Dose No Unknown 7-05 00:00: 00 Dose No Unknown 7-05 00:00: 00 Dose No Unknown 7-05 00:00: 00 Dose No Unknown 7-05 00:00: 00 Dose 2022-0 No Unknown 7-05 00:00: 00 Dose 2022-0 No Unknown 7-05 00:00: 00 Dose 2022-0 No Unknown 7-05 00:00: 00 Dose 2022-0 No Unknown 7-05 00:00: 00 glipizide 5 2-0 No 5mg mg tablet 01-05 00:00: 00 Farxiga 10 2-0 No 1mg mg tablet 4 00:00: 00 metformin 2022-0 No 1mg 1,000 mg 4-26 tablet 00:00: 00 lisinopril 2022-0 No 1mg 20 mg 4-26 tablet 00:00: 00 lisinopril 2-0 No 1mg 20 4-26 mg-hydrochl 00:00: orothiazide 00 12.5 mg tablet atorvastati 2-0 No 1mg n 40 mg -26 tablet 00:00: 00 verapamil 2-0 No 1mg ER 120 mg 01-05 24 hr 00:00: capsule,ext 00 ended release glipizide 5 2-0 No 5mg mg tablet 01-05 00:00: 00 Farxiga 10 2-0 No 1mg mg tablet 01-05 00:00: 00 metformin 2-0 No 1mg 1,000 mg -26 tablet 00:00: 00 lisinopril 2-0 No 1mg 20 mg 4-26 tablet 00:00: 00 lisinopril 2-0 No 1mg 20 4-26 mg-hydrochl 00:00: orothiazide 00 12.5 mg tablet Dose 2-0 No Unknown 4- 00:00: 00 Dose 2-0 No Unknown 4-26 00:00: 00 Farxiga 5 2-0 No 1mg mg tablet 12-31 00:00: 00 cholecalcif 2022-0 No 1(50,00 levi 4-21 0 unit) (vitamin 00:00: D3) 1,250 00 mcg (50,000 unit) capsule Dose 2-0 No Unknown 4-21 00:00: 00 Dose 2-0 No Unknown 4-21 00:00: 00 Farxiga 5 2-0 No 1mg mg tablet 4 00:00: 00 cholecalcif 2022-0 No 1(50,00 levi 4-21 0 unit) (vitamin 00:00: D3) 1,250 00 mcg (50,000 unit) capsule Dose 2021-0 No Unknown 4-21 00:00: 00 Dose 2-0 No Unknown 4-21 00:00: 00 Farxiga 10 2-0 No 1mg mg tablet 3-09 00:00: 00 aspirin 81 2021-0 No 1mg mg 3-09 tablet,kerri 00:00: yed release 00 lisinopril 2021-0 No 1mg 20 mg 3-09 tablet 00:00: 00 lisinopril 2021-0 No 1mg 20 3-09 mg-hydrochl 00:00: orothiazide 00 12.5 mg tablet verapamil 2021-0 No 1mg ER 120 mg 309 24 hr 00:00: capsule,ext 00 ended release Dose 2021-0 No Unknown 3-09 00:00: 00 Dose 2-0 No Unknown 3-09 00:00: 00 Dose 2-0 No Unknown 3-09 00:00: 00 Dose 2-0 No Unknown 3-09 00:00: 00 Dose 2-0 No Unknown 3-09 00:00: 00 Dose 2-0 No Unknown 3-09 00:00: 00 Dose 2-0 No Unknown 3-09 00:00: 00 Dose 2-0 No Unknown 3-09 00:00: 00 Dose 2-0 No Unknown 3-09 00:00: 00 Dose 2022-0 No Unknown 3-09 00:00: 00 Dose 2-0 No Unknown 3-09 00:00: 00 Dose 2022-0 No Unknown 3-09 00:00: 00 Dose 2022-0 No Unknown 3-09 00:00: 00 Dose 2-0 No Unknown 3-09 00:00: 00 Dose 2-0 No Unknown 3-09 00:00: 00 Dose 2-0 No Unknown 3-09 00:00: 00 Dose 2-0 No Unknown 3-09 00:00: 00 Dose 2-0 No Unknown 3-09 00:00: 00 Dose 2022-0 No Unknown 3-09 00:00: 00 Dose 2-0 No Unknown 3-09 00:00: 00 [...] Dose 2022-0 No Unknown 3-09 00:00: 00 Farxiga 10 2-0 No 1mg mg tablet 3-09 00:00: 00 aspirin 81 2022-0 No 1mg mg 3-09 tablet,kerri 00:00: yed release 00 lisinopril 2022-0 No 1mg 20 mg 3-09 tablet 00:00: 00 lisinopril 2022-0 No 1mg 20 3-09 mg-hydrochl 00:00: orothiazide 00 12.5 mg tablet Dose 2022-0 No Unknown 3-09 00:00: 00 [...] No Unknown 3-08 00:00: 00 Januvia 25 2022-0 No 1mg mg tablet 2-13 00:00: 00 ezetimibe 2022-0 No 1mg 10 mg 2-13 tablet 00:00: 00 Vitamin D2 2022-0 No 1(50,00 1,250 mcg 2-13 0 unit) (50,000 00:00: unit) 00 capsule Januvia 25 2022-0 No 1mg mg tablet 2-13 00:00: 00 ezetimibe 2022-0 No 1mg 10 mg 2-13 tablet 00:00: 00 Vitamin D2 2022-0 No 1(50,00 1,250 mcg 2-13 0 unit) (50,000 00:00: unit) 00 capsule Dose 2022-0 No Unknown 2-10 00:00: 00 Dose 2022-0 No Unknown 2-10 00:00: 00 Dose 2022-0 No Unknown 2-10 00:00: 00 metformin 2022-0 No 1mg 1,000 mg 2-10 tablet 00:00: 00 Dose 2022-0 No Unknown 2-10 00:00: 00 melatonin 2022-0 No 1mg 10 mg 2-10 capsule 00:00: 00 Dose 2022-0 No Unknown 2-10 00:00: 00 Dose 2022-0 No Unknown 2-10 00:00: 00 Dose 2022-0 No Unknown 2-10 00:00: 00 metformin 2022-0 No 1mg 1,000 mg 2-10 tablet 00:00: 00 Dose 2022-0 No Unknown 2-10 00:00: 00 melatonin 2022-0 No 1mg 10 mg 2-10 capsule 00:00: 00 Dose 2021-1 No Unknown 2-29 00:00: 00 Dose 1-1 No Unknown 2-29 00:00: 00 Dose 1-1 No Unknown 2-29 00:00: 00 Dose 1-1 No Unknown 2-29 00:00: 00 Dose 1-1 No Unknown 2-29 00:00: 00 Dose 2021-1 No Unknown 2-29 00:00: 00 Dose 1-1 No Unknown 2-29 00:00: 00 Dose 1-1 No Unknown 2-29 00:00: 00 Dose 1-1 No Unknown 2-29 00:00: 00 Dose 2021-1 No Unknown 2-29 00:00: 00 Dose 1-0 No Unknown 9-10 00:00: 00 Dose 1-0 No Unknown 9-10 00:00: 00 Dose 2021-0 No Unknown 9-10 00:00: 00 Dose 2021-0 No Unknown 9-10 00:00: 00 Dose 1-0 No Unknown 9-10 00:00: 00 Dose 2021-0 No Unknown 9-10 00:00: 00 Dose 2021-0 No Unknown 9-10 00:00: 00 Dose 2021-0 No Unknown 9-10 00:00: 00 Dose 2021-0 No Unknown 9-10 00:00: 00 Dose 1-0 No Unknown 9-10 00:00: 00 lisinopril 1-0 No 1mg 20 mg 9-07 tablet 00:00: 00 lisinopril 1-0 No 1mg 20 mg 9-07 tablet 00:00: 00 amlodipine 1-0 No 1mg 10 mg 9-06 tablet 00:00: 00 amlodipine 1-0 No 1mg 10 mg 9-06 tablet 00:00: 00 amlodipine 0 No 1mg 10 mg 7-31 tablet 00:00: 00 lisinopril 0 No 1mg 20 mg 7-31 tablet 00:00: 00 amlodipine 0 No 1mg 10 mg 7-31 tablet 00:00: 00 lisinopril 0 No 1mg 20 mg 7-31 tablet 00:00: 00 glipiZIDE 5 Yes [id number] 5mg Take 5 mg Univers mg tablet 6-28 by mouth ity of 18:22: daily. [address] pioglitazon Yes [id number] 15mg Take 15 mg Univers e 15 mg 6-28 by mouth ity of tablet 18:22: daily. [address] atorvastati Yes [id number] 40mg Take 40 mg Univers n 40 mg 6-28 by mouth ity of tablet 18:22: at [place] [address] bedtime. [facility] glipiZIDE 5 Yes [id number] 5mg Take 5 mg Univers mg tablet 6-28 by mouth ity of 18:22: daily. [address] pioglitazon Yes [id number] 15mg Take 15 mg Univers e 15 mg 6-28 by mouth ity of tablet 18:22: daily. [address] atorvastati Yes [id number] 40mg Take 40 mg Univers n 40 mg 6-28 by mouth ity of tablet 18:22: at [place] [address] bedtime. [facility] lisinopril Yes [id number] 20mg Take 20 mg Univers 20 mg 6-28 by mouth ity of tablet 18:20: daily. [address] lisinopril Yes [id number] 20mg Take 20 mg Univers 20 mg 6-28 by mouth ity of tablet 18:20: daily. [address] glipiZIDE 5 Yes [id number] 5mg Take 5 mg Univers mg tablet 6-28 by mouth ity of 13:22: daily. [address] pioglitazon Yes [id number] 15mg Take 15 mg Univers e 15 mg 6-28 by mouth ity of tablet 13:22: daily. [address] atorvastati 2020-0 Yes [id number] 40mg Take 40 mg Univers n 40 mg 6-28 by mouth ity of tablet 13:22: at [place] [address] bedtime. Medical Branch lisinopril 2020-0 Yes [id number] 20mg Take 20 mg Univers 20 mg 6-28 by mouth ity of tablet 13:20: daily. [address] clopidogreL 2020-0 Yes 75mg Take 75 mg Univers 75 mg 5-28 by mouth ity of tablet 00:00: daily. [address] aspirin 81 2020-0 Yes 81mg Take 81 mg U nivers mg chewable 5-28 by mouth ity of tablet 00:00: daily. [address] foLIC acid 2020-0 Yes 1mg Take 1 mg Un chaitanya 1 mg tablet 5-28 by mouth ity of 00:00: daily. [address] clopidogreL 2020-0 Yes 75mg Take 75 mg Univers 75 mg 5-28 by mouth ity of tablet 00:00: daily. [address] aspirin 81 2020-0 Yes 81mg Take 81 mg U nivers mg chewable 5-28 by mouth ity of tablet 00:00: daily. [address] foLIC acid 2020-0 Yes 1mg Take 1 mg Un chaitanya 1 mg tablet 5-28 by mouth ity of 00:00: daily. [address] clopidogreL 2020-0 Yes 75mg Take 75 mg Univers 75 mg 5-28 by mouth ity of tablet 00:00: daily. [address] aspirin 81 2020-0 Yes 81mg Take 81 mg U nivers mg chewable 5-28 by mouth ity of tablet 00:00: daily. [address] foLIC acid 2020-0 Yes 1mg Take 1 mg Un chaitanya 1 mg tablet 5-28 by mouth ity of 00:00: daily. [address] glipizide 5 2020-0 No 1mg mg tablet 4-23 00:00: 00 Vitamin D2 2020-0 No 1(50,00 1,250 mcg 4-23 0 unit) (50,000 00:00: unit) 00 capsule glipizide 5 2020-0 No 1mg mg tablet 4- 00:00: 00 Vitamin D2 2020-0 No 1(50,00 1,250 mcg 4-23 0 unit) (50,000 00:00: unit) 00 capsule Dose 1-0 No Unknown 4-22 00:00: 00 amlodipine 2021-0 No 1mg 10 mg 4-22 tablet 00:00: 00 metformin 2021-0 No mg 1,000 mg 4-22 tablet 00:00: 00 atorvastati 2021-0 No 1mg n 40 mg 4-22 tablet 00:00: 00 Dose 2021-0 No Unknown 4-22 00:00: 00 Dose 2021-0 No Unknown 4-22 00:00: 00 amlodipine 2021-0 No 1mg 10 mg 4-22 tablet 00:00: 00 metformin 2021-0 No mg 1,000 mg 4-22 tablet 00:00: 00 atorvastati 2021-0 No 1mg n 40 mg 4-22 tablet 00:00: 00 Dose 1-0 No Unknown 4-22 00:00: 00 lisinopril 2021-0 No 1mg 20 mg 3-31 tablet 00:00: 00 amlodipine 2021-0 No 1mg 10 mg 3-31 tablet 00:00: 00 lisinopril 2021-0 No 1mg 20 mg 3-31 tablet 00:00: 00 amlodipine 2021-0 No 1mg 10 mg 3-31 tablet 00:00: 00 amlodipine 2021-0 No 1mg 10 mg 1-20 tablet 00:00: 00 lisinopril 2021-0 No 1mg 20 mg 1-20 tablet 00:00: 00 metformin 2021-0 No mg 1,000 mg 1-20 tablet 00:00: 00 atorvastati 2021-0 No 1mg n 40 mg 1-20 tablet 00:00: 00 amlodipine 2021-0 No 1mg 10 mg 1-20 tablet 00:00: 00 lisinopril 2021-0 No 1mg 20 mg 1-20 tablet 00:00: 00 metformin 2021-0 No mg 1,000 mg 1-20 tablet 00:00: 00 atorvastati 2021-0 No 1mg n 40 mg 1-20 tablet 00:00: 00 amlodipine 2019-1 No 1mg 10 mg 1-09 tablet 00:00: 00 amlodipine 2019-1 No 1mg 10 mg 1-09 tablet 00:00: 00 lisinopril 2020-1 No 1mg 20 mg 0-27 tablet 00:00: 00 metformin 2020-1 No mg 1,000 mg 0-27 tablet 00:00: 00 atorvastati 2020-1 No 1mg n 40 mg 0-27 tablet 00:00: 00 lisinopril 2020-1 No 1mg 20 mg 0-27 tablet 00:00: [...] 1mg 100 mg 9-25 capsule 00:00: 00 pioglitazon 2020-0 No 1mg e [...] 1mg 20 mg 5-12 tablet 00:00: 00 amlodipine 2020-0 No 1mg 10 mg 5-12 tablet 00:00: 00 lisinopril 2020-0 No 1mg 20 mg 5-12 tablet 00:00: 00 metformin 2020-0 No 1mg 1,000 mg 4-01 tablet 00:00: 00 metformin 2020-0 No 1mg 1,000 mg 4-01 tablet 00:00: 00 amlodipine 2020-0 No 1mg 10 mg 3-19 tablet 00:00: 00 lisinopril 2020-0 No 1mg 20 mg 3-19 tablet 00:00: 00 amlodipine 2020-0 No 1mg [...] 1mg 1,000 mg 1-15 tablet 00:00: 00 pioglitazon 2020-0 No 1mg e 15 mg 1-15 tablet 00:00: 00 amlodipine 2020-0 No 1mg 10 mg 1-15 tablet 00:00: 00 lisinopril 2020-0 No 1mg 20 mg 1-15 tablet 00:00: 00 metformin 2020-0 No 1mg 1,000 mg 1-15 tablet 00:00: 00 amlodipine 2019-1 No 1mg 10 mg 0-15 tablet 00:00: 00 lisinopril 2018- No 1mg 20 mg 0-15 tablet 00:00: 00 metformin 2019-1 No 1mg 1,000 mg 0-15 tablet 00:00: 00 atorvastati 2018- No 1mg n 40 mg 0-15 tablet 00:00: 00 gabapentin 2019-1 No 1mg 100 mg 0-15 capsule 00:00: 00 amlodipine 2018-1 No 1mg 10 mg 0-15 tablet 00:00: 00 lisinopril 2018- No 1mg 20 mg 0-15 tablet 00:00: 00 metformin 2018-1 No 1mg 1,000 mg 0-15 tablet 00:00: 00 atorvastati 2018- No 1mg n 40 mg 0-15 tablet 00:00: 00 gabapentin 2018-1 No 1mg 100 mg 0-15 capsule 00:00: 00 mupirocin 2 2019-0 No 1% % topical 6-25 ointment 00:00: 00 amlodipine 2019-0 No 1mg 10 mg 6-25 tablet 00:00: 00 lisinopril 2019-0 No 1mg 20 mg 6-25 tablet 00:00: 00 metformin 2019-0 No 1mg 1,000 mg 6-25 tablet 00:00: 00 amoxicillin 2019-0 No 1mg 500 mg 6-25 tablet 00:00: 00 mupirocin 2 2019-0 No 1% % topical 6-25 ointment 00:00: 00 amlodipine 2019-0 No 1mg 10 mg 6-25 tablet 00:00: 00 lisinopril 2019-0 No 1mg 20 mg 6-25 tablet 00:00: 00 metformin 2019-0 No 1mg 1,000 mg 6-25 tablet 00:00: 00 amoxicillin 2019-0 No 1mg 500 mg 6-25 tablet 00:00: 00 lisinopril 2019-0 Yes [id number] 20mg Take 20 mg Univers 20 mg 4-04 by mouth ity of tablet 15:13: daily. [address] glipiZIDE 5 Yes [id number] 5mg Take 5 mg Univers mg tablet 4-04 by mouth ity of 15:13: daily. [address] pioglitazon Yes [id number] 15mg Take 15 mg Univers e 15 mg 4-04 by mouth ity of tablet 15:13: daily. [address] atorvastati Yes [id number] 40mg Take 40 mg Univers n 40 mg 4-04 by mouth ity of tablet 15:13: at [place] [address] bedtime. [facility] lisinopril 0 Yes [id number] 20mg Take 20 mg Univers 20 mg 4-04 by mouth ity of tablet 15:13: daily. [address] Branch glipiZIDE 5 Yes [id number] 5mg Take 5 mg Univers mg tablet 4-04 by mouth ity of 15:13: daily. [address] pioglitazon Yes [id number] 15mg Take 15 mg Univers e 15 mg 4-04 by mouth ity of tablet 15:13: daily. [address] atorvastati Yes [id number] 40mg Take 40 mg Univers n 40 mg 4-04 by mouth ity of tablet 15:13: at [place] [address] bedtime. [facility] Branch lisinopril 0 No 1mg 20 mg 2-28 tablet 00:00: 00 amlodipine 2019-0 No 1mg 10 mg 2-28 tablet 00:00: 00 metformin 2019-0 No 1mg 1,000 mg 2-28 tablet 00:00: 00 naproxen 2019-0 No 1mg 500 mg 2-28 tablet 00:00: 00 cyclobenzap 2019-0 No 12mg rine 5 mg 2-28 tablet 00:00: 00 lisinopril 2019-0 No 1mg 20 mg 2-28 tablet 00:00: 00 amlodipine 2019-0 No 1mg 10 mg 2-28 tablet 00:00: 00 metformin 2019-0 No 1mg 1,000 mg 2-28 tablet 00:00: 00 naproxen 2019-0 No 1mg 500 mg 2-28 tablet 00:00: 00 cyclobenzap 2019-0 No 12mg rine 5 mg 2-28 tablet 00:00: 00 lovastatin 2018-1 No 1mg 40 mg 2-26 tablet 00:00: 00 lovastatin 2018-1 No 1mg 40 mg 2-26 tablet 00:00: 00 hydrochloro 2018-1 No 1mg thiazide 2-20 12.5 mg 00:00: tablet 00 hydrochloro 2018-1 No 1mg thiazide 2-20 12.5 mg 00:00: tablet 00 amlodipine 2018-1 No 1mg 10 mg 1-08 tablet 00:00: 00 lisinopril 2017- No 1mg 20 mg 1-08 tablet 00:00: 00 hydrochloro 2018- No 1mg thiazide 1-08 12.5 mg 00:00: tablet 00 glipizide 5 2017- No 1mg mg tablet 1-08 00:00: 00 amlodipine 2017-1 No 1mg 10 mg 1-08 tablet 00:00: 00 lisinopril 2017- No 1mg 20 mg 1-08 tablet 00:00: 00 hydrochloro 2017- No 1mg thiazide 1-08 12.5 mg 00:00: tablet 00 glipizide 5 2017- No 1mg mg tablet 1-08 00:00: 00 glipizide 5 2017- No 5mg mg tablet 1-08 00:00: 00 metformin 2017- No 1mg 1,000 mg 1-08 tablet 00:00: 00 hydroxyzine 2017- No 1mg HCl 50 mg 1-08 tablet 00:00: 00 lovastatin 2017- No 1mg 20 mg 1-08 tablet 00:00: 00 glipizide 5 2017-09 No 5mg mg tablet 108 00:00: 00 lovastatin 2017-1 No 2mg 20 mg 1-08 tablet 00:00: 00 metformin 2017- No 1mg 1,000 mg 1-08 tablet 00:00: 00 hydroxyzine 2017- No 1mg HCl 50 mg 1-08 tablet 00:00: 00 lovastatin 2017-1 No 1mg 20 mg 1-08 tablet 00:00: 00 lovastatin 2018-1 No 2mg 20 mg 1-08 tablet 00:00: 00 amlodipine 2017-1 No 1mg 10 mg 0-30 tablet 00:00: 00 lisinopril 2017- No 1mg 20 mg 0-30 tablet 00:00: 00 amlodipine 2018-1 No 1mg 10 mg 0-30 tablet 00:00: 00 lisinopril 2018- No 1mg 20 mg 0-30 tablet 00:00: 00 amlodipine 2018-0 No 1mg 10 mg 8-01 tablet 00:00: 00 lisinopril 2018-0 No 1mg 20 mg 8-01 tablet 00:00: 00 metformin 2018-0 No 1mg 1,000 mg 8-01 tablet 00:00: 00 lovastatin 2018-0 No 1mg 20 mg 8-01 tablet 00:00: 00 amlodipine 2018-0 No 1mg [...] 1mg 20 mg 5-30 tablet 00:00: 00 lisinopril 2018-0 No 1mg 20 mg 5-30 tablet 00:00: 00 amlodipine 2018-0 No 1mg 10 mg 5-30 tablet 00:00: 00 metformin 2018-0 No 1mg 1,000 mg 5-30 tablet 00:00: 00 lovastatin 2018-0 No 1mg 20 mg 5-30 tablet 00:00: 00 glipizide 5 2018-0 No 1mg mg tablet 2-15 00:00: 00 glipizide 5 2018-0 No 1mg mg tablet 2-15 00:00: 00 amlodipine 2018-0 No 1mg 10 mg 2-13 tablet 00:00: 00 lisinopril 2018-0 No 1mg 20 mg 2-13 tablet 00:00: 00 metformin 2018-0 No 1mg 1,000 mg 2-13 tablet 00:00: 00 amlodipine 2018-0 No 1mg 10 mg 2-13 tablet 00:00: 00 lisinopril 2018-0 No 1mg 20 mg 2-13 tablet 00:00: 00 metformin 2018-0 No 1mg 1,000 mg 2-13 tablet 00:00: 00 glipizide 5 2017-0 No 1mg mg tablet 06-07 00:00: 00 lisinopril 2017-0 No 1mg 20 mg 9-26 tablet 00:00: 00 amlodipine 2017-0 No 1mg 10 mg 9-26 tablet 00:00: 00 metformin 2017-0 No 1mg 1,000 mg 9-26 tablet 00:00: 00 glipizide 5 2016-0 No 1mg mg tablet 06-07 00:00: 00 lisinopril 2017-0 No 1mg 20 mg 9-26 tablet 00:00: 00 amlodipine 2017-0 No 1mg 10 mg 9-26 tablet 00:00: 00 metformin 2017-0 No 1mg 1,000 mg 9-26 tablet 00:00: 00 lisinopril 2017-0 No 1mg 20 mg 1-11 tablet 00:00: 00 amlodipine 2016-0 No 1mg 10 mg 1-11 tablet 00:00: 00 metformin 2017-0 No 1mg 1,000 mg 1-11 tablet 00:00: 00 lisinopril 2017-0 No 1mg 20 mg 1-11 tablet 00:00: 00 amlodipine 2016-0 No 1mg 10 mg 1-11 tablet 00:00: 00 metformin 2017-0 No 1mg 1,000 mg 1-11 tablet 00:00: 00 lisinopril 2016-0 No 1mg 20 mg 5-23 tablet 00:00: 00 amlodipine 2016-0 No 1mg 10 mg 5-23 tablet 00:00: 00 metformin 2016-0 No 1mg 1,000 mg 5-23 tablet 00:00: 00 lisinopril 2016-0 No 1mg 20 mg 5-23 tablet 00:00: 00 amlodipine 2016-0 No 1mg 10 mg 5-23 tablet 00:00: 00 metformin 2015-0 No 1mg 1,000 mg 5-23 tablet 00:00: 00 amlodipine 2014-1 No 1mg 10 mg 1-18 tablet 00:00: 00 lisinopril 2014-1 No 1mg 20 mg 1-18 tablet 00:00: 00 metformin 2014-1 No 1mg 1,000 mg 1-18 tablet 00:00: 00 amlodipine 2015-1 No 1mg 10 mg 1-18 tablet 00:00: 00 lisinopril 2014-1 No 1mg 20 mg 1-18 tablet 00:00: 00 metformin 2014- No 1mg 1,000 mg 1-18 tablet 00:00: 00 amlodipine 2014-1 No 1mg 10 mg 0-23 tablet 00:00: 00 amlodipine 2014-1 No 1mg 10 mg 0-23 tablet 00:00: 00 lisinopril 2014-0 No 1mg 20 mg 8-12 tablet 00:00: 00 lisinopril 2014-0 No 1mg 20 mg 8-12 tablet 00:00: 00 amlodipine 2014-0 No 1mg 10 mg 7-23 tablet 00:00: 00 metformin 2014-0 No 1mg 1,000 mg 7-23 tablet 00:00: 00 amlodipine 2014-0 No 1mg 10 mg 7-23 tablet 00:00: 00 metformin 2014-0 No 1mg 1,000 mg 7-23 tablet 00:00: 00 lisinopril 2014-0 No 1mg 20 mg 6-22 tablet 00:00: 00 lisinopril 2014-0 No 1mg 20 mg 6-22 tablet 00:00: 00 lisinopril 2014-0 No 1mg 10 mg 5-22 tablet 00:00: 00 lisinopril 2014-0 No 1mg 10 mg 5-22 tablet 00:00: 00 amlodipine 2014-0 No 1mg 10 mg 4-29 tablet 00:00: 00 metformin 2014-0 No 1mg 1,000 mg 4-29 tablet 00:00: 00 amlodipine 2014-0 No 1mg 10 mg 4-29 tablet 00:00: 00 metformin 2014-0 No 1mg 1,000 mg 4-29 tablet 00:00: 00 metoprolol 2014-0 No 1mg tartrate 50 4-22 mg tablet 00:00: 00 metoprolol 2014-0 No 1mg tartrate 50 4-22 mg tablet 00:00: 00 metFORMIN 0 Yes TAKE 1 Univer s (GLUC[facility] 1-07 [facility] ) 1,000 mg 00:00: MOUTH [place] tablet [...] 10 mg 00:00: daily. [place] tablet 00 [facility] amLODIPine Yes 10mg Take 1 Tab U nivers (NORVASC) 9-19 by mouth ity of 10 mg 00:00: daily. [place] tablet 00 [facility] amLODIPine Yes 10mg Take 1 Tab U nivers (NORVASC) 9-19 by mouth ity of 10 mg 00:00: daily. [place] tablet 00 [facility] amLODIPine Yes 10mg Take 1 Tab U nivers (NORVASC) 9-19 by mouth ity of 10 mg 00:00: daily. [place] tablet 00 [facility] amLODIPine Yes 10mg Take 1 Tab U nivers (NORVASC) 9-19 by mouth ity of 10 mg 00:00: daily. [place] tablet 00 [facility] metformin 2012-09 No 1mg 1,000 mg 2-03 tablet 00:00: 00 metformin 2012-09 No 1mg 1,000 mg 2-03 tablet 00:00: 00 amlodipine No 1mg 5 mg tablet 02-12 00:00: 00 amlodipine No 1mg 5 mg tablet 02-12 00:00: 00 Immunizations Ordered Filled Immunization Date Status Comments Sour e Immunization Name Name Tdap 2019-03-06 Completed 00:00: Tdap 2019-03-06 Completed 00:00:00 Td 1979-09-12 Completed [facility] 00:00:00 [facility] Td 1979-09-12 Completed University 00:00:00 [facility] 1979-09-12 Completed [facility] 00:00:00 [facility] 1979-09-12 Completed University of 00:00:00 [facility] Td 1979-09-12 Completed University of 00:00:00 [facility] Vital Signs Vital Name Observation Time Observation Value Comments Source Systolic blood 2021-03-09 18:25:00 136 mm[Hg] Univer sity of pressure [facility] Diastolic blood 2021-03-09 18:25:00 68 mm[Hg] Unive rsity of pressure [facility] Heart rate 2021-03-09 18:25:00 65 /min [facility] Body height 2021-03-09 18:25:00 142.2 cm [facility] Body weight 2021-03-09 18:25:00 51.71 kg [facility] BMI 2021-03-09 18:25:00 25.56 kg/m2 [facility] Oxygen saturation in 2021-03-09 18:25:00 97 /min [facility] Arterial blood by [facility] Pulse oximetry Branch BP Systolic 2021-12-31 08:35:00 [...] Procedure Date / Time Performed Performing Clinician [facility] REFERRAL- 2021-12-28 05:01:00 Doctor Unassigned, No [facility] REQUEST/RESPONSE Name Medical Branch CONSENT/REFUSAL FOR 2021-03-09 17:50:10 [facility] TREATMENT REFERRAL- 2021-01-01 05:01:00 Doctor Unassigned, No Univer [facility] REQUEST/RESPONSE Name Medical Branch Plan of Care Planned Activity Planned Date Details Comments Source Goal Plan of Care Note [code = 78926-9] Goal Plan of Care Note [code = 08614-6] Goal Plan of Care Note [code = 87397-3] Goal Plan of Care Note [code = 13997-7] Goal Plan of Care Note [code = 51543-0] Goal Plan of Care Note [code = 63097-6] Goal Plan of Care Note [code = 39608-3] Goal Plan of Care Note [code = 29701-3] Goal Plan of Care Note [code = 28621-1] Goal Plan of Care Note [code = 82688-0] Goal Plan of Care Note [code = 70090-8] Goal Plan of Care Note [code = 35168-6] Goal Plan of Care Note [code = 22345-4] Goal Plan of Care Note [code = 16692-9] Goal Plan of Care Note [code = 90200-1] Goal Plan of Care Note [code = 59196-1] Goal Plan of Care Note [code = 90811-2] Goal Plan of Care Note [code = 46193-4] Goal Plan of Care Note [code = 97474-6] Goal Plan of Care Note [code = 26461-5] Goal Plan of Care Note [code = 99139-1] Goal Plan of Care Note [code = 85993-2] Goal Plan of Care Note [code = 94370-4] Goal Plan of Care Note [code = 33789-6] Goal Plan of Care Note [code = 81438-6] Goal Plan of Care Note [code = 78893-6] Goal Plan of Care Note [code = 27773-3] Goal Plan of Care Note [code = 10196-2] Goal Plan of Care Note [code = 71558-2] Goal Plan of Care Note [code = 15933-0] Goal Plan of Care Note [code = 92137-1] Goal Plan of Care Note [code = 06914-4] Goal Plan of Care Note [code = 37888-9] Goal Plan of Care Note [code = 06313-9] Goal Plan of Care Note [code = 72691-2] Goal Plan of Care Note [code = 52566-3] Goal Plan of Care Note [code = 00338-3] Goal Plan of Care Note [code = 23394-7] Goal Plan of Care Note [code = 10747-2] Goal Plan of Care Note [code = 40148-8] Goal Plan of Care Note [code = 02522-8] Goal Plan of Care Note [code = 96717-9] Goal Plan of Care Note [code = 23639-0] Goal Plan of Care Note [code = 73615-7] Goal Plan of Care Note [code = 43041-1] Goal Plan of Care Note [code = 38961-8] Goal Plan of Care Note [code = 15230-9] Goal Plan of Care Note [code = 94435-6] Goal Plan of Care Note [code = 65939-7] Goal Plan of Care Note [code = 29629-6] Goal Plan of Care Note [code = 68273-7] Goal Plan of Care Note [code = 53799-6] Goal Plan of Care Note [code = 18549-3] Goal Plan of Care Note [code = 68159-2] Goal Plan of Care Note [code = 07329-7] Goal Plan of Care Note [code = 96578-7] Goal Plan of Care Note [code = 84435-8] Goal Plan of Care Note [code = 98827-0] Goal Plan of Care Note [code = 89337-8] Goal Plan of Care Note [code = 89255-0] Goal Plan of Care Note [code = 14769-8] Goal Plan of Care Note [code = 55903-4] Goal Plan of Care Note [code = 76383-8] Goal Plan of Care Note [code = 87922-5] Goal Plan of Care Note [code = 19310-2] Goal Plan of Care Note [code = 15266-4] Goal Plan of Care Note [code = 55177-7] Goal Plan of Care Note [code = 14759-6] Goal Plan of Care Note [code = 41619-3] Encounters Start End Encounter Admission Attending Care Care Encounter Source Date/Time Date/Time Type Type Clinicians Facility Department ID 2022-06-17 2022-06-17 Outpatient [id number] 00:00:00 00:00:00 Visit [id number]-a -[id number] 2022-04-16 2022-04-16 Outpatient Sujey FARRELL [facility] [id number] [facility] 10:00:00 10:00:00 KAELA kim [facility] 2022-03-16 2022-03-16 Outpatient [id number] 00:00:00 00:00:00 Visit 6383-9084 [id number]-[id number] -bi36-[id number] [id number] 1b92cc 2022-03-12 2022-03-12 [facility] [id number] [facility] 11:20:00 11:20:00 KAELA kim [facility] 2022-02-11 2022-02-11 [facility] [id number] [facility] 09:00:00 09:00:00 KAELA juanitagabi kim [facility] 2021-12-28 2021-12-28 Orders Doctor DELVIS [id number] Univers 00:00:00 00:00:00 Only Unassigned, JAMMIE 350.1.13.10 ity of [facility] 4.2.7.2.686 Kalin as [phone] [address] 2021-03-30 2021-03-30 Outpatient OLAYINKA LARSON [facility] [id number] Univers 10:00:00 10:00:00 OLAYINKA ARCE [facility] 2021-03-20 2021-03-20 [facility] [id number] [facility] 11:00:00 11:00:00 RAMSEYIAN jhony julio [facility] 2021-03-09 2021-03-09 [facility] [id number] Univers 12:51:21 13:39:53 Visit Kaela Cherry 350.1.13.10 [place] [phone] [address] 2021-03-09 2021-03-09 Outpatient R BUD, [facility] [id number] Univers 13:20:00 13:20:00 KAELA booker o f [facility] 2021-03-09 2021-03-09 Orders Doctor DELVIS [id number] Univers 00:00:00 00:00:00 Only Unassigned, JAMMIE 350.1.13.10 ity of [facility] 4.2.7.2.686 Kalin as [id number] [address] 2021-01-01 2021-01-01 Orders Doctor DELVIS 1.2.840.114 [id number] 00:00:00 00:00:00 Only Unassigned, JAMMIE 350.1.13.10 [facility] 4.2.7.2.686 [id number] 2021-01-01 2021-01-01 Orders Doctor DELVIS Smith.[id number] [id number] Univers 00:00:00 00:00:00 Only Unassigned, JAMMIE 350.1.13.10 ity of [facility] 4.2.7.2.686 Kalin as [phone] [address] Results Test Description Test Time Test Comments Results Result Comments Source HEMOGLOBIN A1c 2022-01-01 21:30:08 Test Item Value Reference Range Interpretation Comme nts HEMOGLOBIN A1c (test code = 8.5 % 4.2-5.6 H [employer] 44271) GUIDELINES FOR HGB A1C: PREDIABETES/INC REASED RISK [...] UNLESS OTHERWISE INDIC ATED, ALL TESTING PERFORMED [facility], [facility]. [address] [place] [id number] [place] [address] DIRECTOR: ROD NGUYEN M.D. CLIA NUMBER [id number] [place] [id number] HEMOGLOBIN A1c [ADDED]2022-01-01 00:00:00 Test Item Value Reference Range Interpretation Comments HEMOGLOBIN A1c (test code = 35820) 8.5 % HEMOGLOBIN A1c [ADDED]2022-01-01 00:00:00 Test Item Value Reference Range Interpretation Comments HEMOGLOBIN A1c (test code = 95943) 8.5 % HEMOGLOBIN A1c [ADDED]2022-01-01 00:00:00 Test Item Value Reference Range Interpretation Comments HEMOGLOBIN A1c (test code = 66526) 8.5 % HEMOGLOBIN A1c [ADDED]2022-01-01 00:00:00 Test Item Value Reference Range Interpretation Comments HEMOGLOBIN A1c (test code = 43001) 8.5 % HEMOGLOBIN A1c [ADDED]2022-01-01 00:00:00 Test Item Value Reference Range Interpretation Comments HEMOGLOBIN A1c (test code = 65391) 8.5 % HEMOGLOBIN [id number] 00:00:00 Test Item Value Reference Range Interpretation Comments HEMOGLOBIN A1c (test code = 97677) 10.4 % HEMOGLOBIN [id number] 00:00:00 Test Item Value Reference Range Interpretation Comments HEMOGLOBIN A1c (test code = 32455) 10.4 % LIPID [id number] 00:00:00 Test Item Value Reference Range Interpretation Comments CHOLESTEROL (test code = 2210) 230 MG/DL TRIGLYCERIDES (test code = 2232) 152 MG/DL HDL CHOLESTEROL (test code = 2220) 35 MG/DL CALC LDL CHOL (test code = 2237) 165 MG/DL RISK RATIO LDL/HDL (test code = 4.71 RATIO 2238) COMPREHENSIVE METABOLIC [id number] 00:00:00 Test Item Value Reference Range Interpretation Comments GLUCOSE (test code = 2217) 225 MG/DL BUN (test code = 2208) 17 MG/DL CREATININE (test code = 2214) 0.73 MG/DL eGFR (2020 CKD-EPI) (test code 92 ML/MIN/1.73 = 22102) CALC BUN/CREAT (test code = 23 RATIO [...] CALC GLOBULIN (test code = 2.7 G/DL 2239) CALC A/G RATIO (test code = 1.6 RATIO 4) BILIRUBIN, TOTAL (test code = 0.3 MG/DL 2206) ALKALINE PHOSPHATASE (test 131 U/L code = 2204) AST (test code = 2218) 10 U/L ALT (test code = 2219) 13 U/L VITAMIN D, 25 [id number] 00:00:00 Test Item Value Reference Range Interpretation Comments VITAMIN D, 25 OH (test code = 4958) 9 NG/ML HEMOGLOBIN [id number] 00:00:00 Test Item Value Reference Range Interpretation Comments HEMOGLOBIN A1c (test code = 02972) 10.4 % HEMOGLOBIN [id number] 00:00:00 Test Item Value Reference Range Interpretation Comments HEMOGLOBIN A1c (test code = 41099) 10.4 % HEMOGLOBIN [id number] 00:00:00 Test Item Value Reference Range Interpretation Comments HEMOGLOBIN A1c (test code = 93729) 10.4 % LIPID [id number] 00:00:00 Test Item Value Reference Range Interpretation Comments CHOLESTEROL (test code = 2210) 230 MG/DL TRIGLYCERIDES (test code = 2232) 152 MG/DL HDL CHOLESTEROL (test code = 2220) 35 MG/DL CALC LDL CHOL (test code = 2237) 165 MG/DL RISK RATIO LDL/HDL (test code = 4.71 RATIO 2238) LIPID [id number] 00:00:00 Test Item Value Reference Range Interpretation Comments CHOLESTEROL (test code = 2210) 230 MG/DL TRIGLYCERIDES (test code = 2232) 152 MG/DL HDL CHOLESTEROL (test code = 2220) 35 MG/DL CALC LDL CHOL (test code = 2237) 165 MG/DL RISK RATIO LDL/HDL (test code = 4.71 RATIO 2238) COMPREHENSIVE METABOLIC [id number] 00:00:00 Test Item Value Reference Range Interpretation Comments GLUCOSE (test code = 2217) 225 MG/DL BUN (test code = 2208) 17 MG/DL CREATININE (test code = 2214) 0.73 MG/DL eGFR (2020 CKD-EPI) (test code 92 ML/MIN/1.73 = 84126) CALC BUN/CREAT (test code = 23 RATIO 2235) SODIUM (test code = 2231) 143 MEQ/L POTASSIUM (test code = 2228) 5.0 MEQ/L CHLORIDE (test code = 2215) 104 MEQ/L CARBON DIOXIDE (test code = 25 MEQ/L 2206) CALCIUM (test code = 2209) 9.6 MG/DL PROTEIN, TOTAL (test code = 7.0 G/DL 2228) ALBUMIN (test code = 2201) 4.3 G/DL CALC GLOBULIN (test code = 2.7 G/DL 2240) CALC A/G RATIO (test code = 1.6 RATIO 2234) BILIRUBIN, TOTAL (test code = 0.3 MG/DL 2206) ALKALINE PHOSPHATASE (test 131 U/L code = 2204) AST (test code = 2218) 10 U/L ALT (test code = 2219) 13 U/L COMPREHENSIVE METABOLIC [id number] 00:00:00 Test Item Value Reference Range Interpretation Comments GLUCOSE (test code = 2217) 225 MG/DL BUN (test code = 2208) 17 MG/DL CREATININE (test code = 2214) 0.73 MG/DL eGFR (2020 CKD-EPI) (test code 92 ML/MIN/1.73 = 61315) CALC BUN/CREAT (test code = 23 RATIO [...] 2240) CALC A/G RATIO (test code = 1.6 RATIO 2234) BILIRUBIN, TOTAL (test code = 0.3 MG/DL 2206) ALKALINE PHOSPHATASE (test 131 U/L code = 2204) AST (test code = 2218) 10 U/L ALT (test code = 2219) 13 U/L VITAMIN D, 25 [id number] 00:00:00 Test Item Value Reference Range Interpretation Comments VITAMIN D, 25 OH (test code = 4958) 9 NG/ML VITAMIN D, 25 [id number] 00:00:00 Test Item Value Reference Range Interpretation Comments VITAMIN D, 25 OH (test code = 4958) 9 NG/ML HEMOGLOBIN [id number] 00:00:00 Test Item Value Reference Range Interpretation Comments HEMOGLOBIN A1c (test code = 52630) 9.6 % HEMOGLOBIN [id number] 00:00:00 Test Item Value Reference Range Interpretation Comments HEMOGLOBIN A1c (test code = 81747) 9.6 % LIPID [id number] 00:00:00 Test Item Value Reference Range Interpretation Comments CHOLESTEROL (test code = 2210) 227 MG/DL TRIGLYCERIDES (test code = 2232) 198 MG/DL HDL CHOLESTEROL (test code = 2220) 35 MG/DL CALC LDL CHOL (test code = 2237) 156 MG/DL RISK RATIO LDL/HDL (test code = 4.46 RATIO 2238) COMPREHENSIVE METABOLIC [id number] 00:00:00 Test Item Value Reference Range Interpretation Comments GLUCOSE (test code = 2217) 196 MG/DL BUN (test code = 2208) 13 MG/DL CREATININE (test code = 2214) 0.68 MG/DL eGFR AMER. (test code 109 ML/MIN/1.73 = 12229) eGFR NON- AMER. (test 94 ML/MIN/1.73 code = 72741) CALC BUN/CREAT (test code = 19 RATIO [...] CALC GLOBULIN (test code = 2.5 G/DL 2239) CALC A/G RATIO (test code = 1.8 RATIO 2234) BILIRUBIN, TOTAL (test code = 0.4 MG/DL 2206) ALKALINE PHOSPHATASE (test 124 U/L code = 2204) AST (test code = 2218) 11 U/L ALT (test code = 2219) 14 U/L MICROALBUMIN/CREATININE, RANDOM AND [id number] 00:00:00 Test Item Value Reference Range Interpretation Comments CREATININE, URINE, CONC. (test 245.9 MG/DL code = 2072) ALBUMIN, URINE, RANDOM (test code 39.6 MG/DL = 49949) CALC ALBUMIN/CREAT, RND (test 161 MG/G code = 75460) VITAMIN D, 25 [id number] 00:00:00 Test Item Value Reference Range Interpretation Comments VITAMIN D, 25 OH (test code = 4958) 12 NG/ML HEMOGLOBIN [id number] 00:00:00 Test Item Value Reference Range Interpretation Comments HEMOGLOBIN A1c (test code = 29904) 9.6 % HEMOGLOBIN [id number] 00:00:00 Test Item Value Reference Range Interpretation Comments HEMOGLOBIN A1c (test code = 63642) 9.6 % HEMOGLOBIN [id number] 00:00:00 Test Item Value Reference Range Interpretation Comments HEMOGLOBIN A1c (test code = 58349) 9.6 % LIPID [id number] 00:00:00 Test Item Value Reference Range Interpretation Comments CHOLESTEROL (test code = 2210) 227 MG/DL TRIGLYCERIDES (test code = 2232) 198 MG/DL HDL CHOLESTEROL (test code = 2220) 35 MG/DL CALC LDL CHOL (test code = 2237) 156 MG/DL RISK RATIO LDL/HDL (test code = 4.46 RATIO 2238) LIPID [id number] 00:00:00 Test Item Value Reference Range Interpretation Comments CHOLESTEROL (test code = 2210) 227 MG/DL TRIGLYCERIDES (test code = 2232) 198 MG/DL HDL CHOLESTEROL (test code = 2220) 35 MG/DL CALC LDL CHOL (test code = 2237) 156 MG/DL RISK RATIO LDL/HDL (test code = 4.46 RATIO 2238) COMPREHENSIVE METABOLIC [id number] 00:00:00 Test Item Value Reference Range Interpretation Comments GLUCOSE (test code = 2217) 196 MG/DL BUN (test code = 2208) 13 MG/DL CREATININE (test code = 2214) 0.68 MG/DL eGFR AMER. (test code 109 ML/MIN/1.73 = 08141) eGFR NON- AMER. (test 94 ML/MIN/1.73 code = 56388) CALC BUN/CREAT (test code = 19 RATIO 2235) SODIUM (test code = 2231) 139 MEQ/L POTASSIUM (test code = 2228) 4.6 MEQ/L CHLORIDE (test code = 2215) 102 MEQ/L CARBON DIOXIDE (test code = 25 MEQ/L 220) CALCIUM (test code = 2209) 9.4 MG/DL PROTEIN, TOTAL (test code = 6.9 G/DL 222) ALBUMIN (test code = 2201) 4.4 G/DL CALC GLOBULIN (test code = 2.5 G/DL 2240) CALC A/G RATIO (test code = 1.8 RATIO 2234) BILIRUBIN, TOTAL (test code = 0.4 MG/DL 2206) ALKALINE PHOSPHATASE (test 124 U/L code = 2204) AST (test code = 2218) 11 U/L ALT (test code = 2219) 14 U/L COMPREHENSIVE METABOLIC [id number] 00:00:00 Test Item Value Reference Range Interpretation Comments GLUCOSE (test code = 2217) 196 MG/DL BUN (test code = 2208) 13 MG/DL CREATININE (test code = 2214) 0.68 MG/DL eGFR AMER. (test code 109 ML/MIN/1.73 = 85338) eGFR NON- AMER. (test 94 ML/MIN/1.73 code = 87368) CALC BUN/CREAT (test code = 19 RATIO [...] = 2219) 14 U/L MICROALBUMIN/CREATININE, RANDOM AND [id number] 00:00:00 Test Item Value Reference Range Interpretation Comments CREATININE, URINE, CONC. (test 245.9 MG/DL code = 2072) ALBUMIN, URINE, RANDOM (test code 39.6 MG/DL = 28135) CALC ALBUMIN/CREAT, RND (test 161 MG/G code = 32253) MICROALBUMIN/CREATININE, RANDOM AND [id number] 00:00:00 Test Item Value Reference Range Interpretation Comments CREATININE, URINE, CONC. (test 245.9 MG/DL code = 2072) ALBUMIN, URINE, RANDOM (test code 39.6 MG/DL = 50798) CALC ALBUMIN/CREAT, RND (test 161 MG/G code = 86033) VITAMIN D, 25 [id number] 00:00:00 Test Item Value Reference Range Interpretation Comments VITAMIN D, 25 OH (test code = 4958) 12 NG/ML VITAMIN D, 25 [id number] 00:00:00 Test Item Value Reference Range Interpretation Comments VITAMIN D, 25 OH (test code = 4958) 12 NG/ML [id number] 00:00:00 Test Item Value Reference Range Interpretation Comments TSH, THIRD GENERATION (test code 1.390 UIU/ML = 2821) [id number] 00:00:00 Test Item Value Reference Range Interpretation Comments TSH, THIRD GENERATION (test code 1.390 UIU/ML = 2821) CBC W/AUTO [id number] 00:00:00 Test Item Value Reference Range Interpretation [...] NUCLEATED RBCS (test code = 0.00 K/UL 05586) CBC W/AUTO [id number] 00:00:00 Test Item Value Reference Range Interpretation [...] NUCLEATED RBCS (test code = 0.00 K/UL 00150) HEMOGLOBIN [id number] 00:00:00 Test Item Value Reference Range Interpretation Comments HEMOGLOBIN A1c (test code = 63203) 11.6 % HEMOGLOBIN [id number] 00:00:00 Test Item Value Reference Range Interpretation Comments HEMOGLOBIN A1c (test code = 23183) 11.6 % COMPREHENSIVE METABOLIC [id number] 00:00:00 Test Item Value Reference Range Interpretation Comments GLUCOSE (test code = 2217) 301 MG/DL BUN (test code = 2208) 12 MG/DL CREATININE (test code = 2214) 0.70 MG/DL eGFR AMER. (test code 108 ML/MIN/1.73 = 44558) eGFR NON- AMER. (test 93 ML/MIN/1.73 code = 59389) CALC BUN/CREAT (test code = 17 RATIO [...] CALC GLOBULIN (test code = 3.0 G/DL 0) CALC A/G RATIO (test code = 1.5 RATIO 2233) BILIRUBIN, TOTAL (test code = 0.5 MG/DL 2206) ALKALINE PHOSPHATASE (test 152 U/L code = 2204) AST (test code = 2218) 14 U/L ALT (test code = 2219) 16 U/L LIPID [id number] 00:00:00 Test Item Value Reference Range Interpretation Comments CHOLESTEROL (test code = 2210) 237 MG/DL TRIGLYCERIDES (test code = 2232) 208 MG/DL HDL CHOLESTEROL (test code = 2220) 39 MG/DL CALC LDL CHOL (test code = 2237) 161 MG/DL RISK RATIO LDL/HDL (test code = 4.13 RATIO 2238) MICROALBUMIN/CREATININE, RANDOM AND [id number] 00:00:00 Test Item Value Reference Range Interpretation Comments CREATININE, URINE, CONC. (test 43.9 MG/DL code = 2072) ALBUMIN, URINE, RANDOM (test code 8.6 MG/DL = 06311) CALC ALBUMIN/CREAT, RND (test code 196 MG/G = 89244) VITAMIN D, 25 [id number] 00:00:00 Test Item Value Reference Range Interpretation Comments VITAMIN D, 25 OH (test code = 4958) 8 NG/ML [id number] 00:00:00 Test Item Value Reference Range Interpretation Comments TSH, THIRD GENERATION (test code 1.390 UIU/ML = 2821) [id number] 00:00:00 Test Item Value Reference Range Interpretation Comments TSH, THIRD GENERATION (test code 1.390 UIU/ML = 2821) [id number] 00:00:00 Test Item Value Reference Range Interpretation Comments TSH, THIRD GENERATION (test code 1.390 UIU/ML = 2821) CBC W/AUTO [id number] 00:00:00 Test Item Value Reference Range Interpretation [...] NUCLEATED RBCS (test code = 0.00 K/UL 52013) CBC W/AUTO [id number] 00:00:00 Test Item Value Reference Range Interpretation [...] NUCLEATED RBCS (test code = 0.00 K/UL 11708) CBC W/AUTO [id number] 00:00:00 Test Item Value Reference Range Interpretation [...] NUCLEATED RBCS (test code = 0.00 K/UL 33861) HEMOGLOBIN [id number] 00:00:00 Test Item Value Reference Range Interpretation Comments HEMOGLOBIN A1c (test code = 31010) 11.6 % HEMOGLOBIN [id number] 00:00:00 Test Item Value Reference Range Interpretation Comments HEMOGLOBIN A1c (test code = 50486) 11.6 % HEMOGLOBIN [id number] 00:00:00 Test Item Value Reference Range Interpretation Comments HEMOGLOBIN A1c (test code = 59037) 11.6 % COMPREHENSIVE METABOLIC [id number] 00:00:00 Test Item Value Reference Range Interpretation Comments GLUCOSE (test code = 2217) 301 MG/DL BUN (test code = 2208) 12 MG/DL CREATININE (test code = 2214) 0.70 MG/DL eGFR AMER. (test code 108 ML/MIN/1.73 = 83365) eGFR NON- AMER. (test 93 ML/MIN/1.73 code = 96801) CALC BUN/CREAT (test code = 17 RATIO [...] = 0.5 MG/DL 2207) ALKALINE PHOSPHATASE (test 152 U/L code = 2204) AST (test code = 2218) 14 U/L ALT (test code = 2219) 16 U/L COMPREHENSIVE METABOLIC [id number] 00:00:00 Test Item Value Reference Range Interpretation Comments GLUCOSE (test code = 2217) 301 MG/DL BUN (test code = 2208) 12 MG/DL CREATININE (test code = 2214) 0.70 MG/DL eGFR AMER. (test code 108 ML/MIN/1.73 = 67060) eGFR NON- AMER. (test 93 ML/MIN/1.73 code = 38921) CALC BUN/CREAT (test code = 17 RATIO 2235) SODIUM (test code = 2231) 136 MEQ/L POTASSIUM (test code = 2228) 3.9 MEQ/L CHLORIDE (test code = 2215) 99 MEQ/L CARBON DIOXIDE (test code = 25 MEQ/L 2206) CALCIUM (test code = 2209) 9.5 MG/DL PROTEIN, TOTAL (test code = 7.6 G/DL 222) ALBUMIN (test code = 2201) 4.6 G/DL CALC GLOBULIN (test code = 3.0 G/DL 2240) CALC A/G RATIO (test code = 1.5 RATIO 2234) BILIRUBIN, TOTAL (test code = 0.5 MG/DL 2207) ALKALINE PHOSPHATASE (test 152 U/L code = 2204) AST (test code = 2218) 14 U/L ALT (test code = 2219) 16 U/L LIPID [id number] 00:00:00 Test Item Value Reference Range Interpretation Comments CHOLESTEROL (test code = 2210) 237 MG/DL TRIGLYCERIDES (test code = 2232) 208 MG/DL HDL CHOLESTEROL (test code = 2220) 39 MG/DL CALC LDL CHOL (test code = 2237) 161 MG/DL RISK RATIO LDL/HDL (test code = 4.13 RATIO 2238) LIPID [id number] 00:00:00 Test Item Value Reference Range Interpretation Comments CHOLESTEROL (test code = 2210) 237 MG/DL TRIGLYCERIDES (test code = 2232) 208 MG/DL HDL CHOLESTEROL (test code = 2220) 39 MG/DL CALC LDL CHOL (test code = 2237) 161 MG/DL RISK RATIO LDL/HDL (test code = 4.13 RATIO 2238) MICROALBUMIN/CREATININE, RANDOM AND [id number] 00:00:00 Test Item Value Reference Range Interpretation Comments CREATININE, URINE, CONC. (test 43.9 MG/DL code = 2072) ALBUMIN, URINE, RANDOM (test code 8.6 MG/DL = 28184) CALC ALBUMIN/CREAT, RND (test code 196 MG/G = 15256) MICROALBUMIN/CREATININE, RANDOM AND [id number] 00:00:00 Test Item Value Reference Range Interpretation Comments CREATININE, URINE, CONC. (test 43.9 MG/DL code = 2072) ALBUMIN, URINE, RANDOM (test code 8.6 MG/DL = 53583) CALC ALBUMIN/CREAT, RND (test code 196 MG/G = 21102) VITAMIN D, 25 [id number] 00:00:00 Test Item Value Reference Range Interpretation Comments VITAMIN D, 25 OH (test code = 4958) 8 NG/ML VITAMIN D, 25 [id number] 00:00:00 Test Item Value Reference Range Interpretation Comments VITAMIN D, 25 OH (test code = 4958) 8 NG/ML SARS-CoV-2 (COVID-19) by RT-PCR (HIGH RISK)2020-07-22 00:00:00 Test Item Value Reference Range Interpretation Comments SARS-CoV-2 INTERPRETATION Negative (test code = 84302) SOURCE (test code = 09608) Nasal_Swab_in_VTM__ UTM SARS-CoV-2 (COVID-19) by RT-PCR (HIGH RISK)2020-07-22 00:00:00 Test Item Value Reference Range Interpretation Comments SARS-CoV-2 INTERPRETATION Negative (test code = 67981) SOURCE (test code = 32222) Nasal_Swab_in_VTM__ UTM SARS-CoV-2 (COVID-19) by RT-PCR (HIGH RISK)2020-03-19 00:00:00 Test Item Value Reference Range Interpretation Comments SARS-CoV-2 INTERPRETATION (test NEGATIVE code = 40059) SOURCE (test code = 35037) NOT SPECIFIED SARS-CoV-2 (COVID-19) by RT-PCR (HIGH RISK)2020-03-19 00:00:00 Test Item Value Reference Range Interpretation Comments SARS-CoV-2 INTERPRETATION (test NEGATIVE code = 31617) SOURCE (test code = 20166) NOT SPECIFIED SARS-CoV-2 (COVID-19) by RT-PCR (HIGH RISK)2020-03-19 00:00:00 Test Item Value Reference Range Interpretation Comments SARS-CoV-2 INTERPRETATION (test NEGATIVE code = 48655) SOURCE (test code = 30380) NOT SPECIFIED COMPREHENSIVE METABOLIC [id number] 00:00:00 Test Item Value Reference Range Interpretation Comments GLUCOSE (test code = 2217) 184 MG/DL BUN (test code = 2208) 16 MG/DL CREATININE (test code = 2214) 0.65 MG/DL eGFR AMER. (test code 111 ML/MIN/1.73 = 71926) eGFR NON- AMER. (test 96 ML/MIN/1.73 code = 99885) CALC BUN/CREAT (test code = 25 RATIO 2235) SODIUM (test code = 2231) 142 MEQ/L POTASSIUM (test code = 2228) 4.1 MEQ/L CHLORIDE (test code = 2215) 104 MEQ/L CARBON DIOXIDE (test code = 24 MEQ/L 220) CALCIUM (test code = 2209) 9.6 MG/DL PROTEIN, TOTAL (test code = 7.3 G/DL 2228) ALBUMIN (test code = 2201) 4.7 G/DL CALC GLOBULIN (test code = 2.6 G/DL 2240) CALC A/G RATIO (test code = 1.8 RATIO 2234) BILIRUBIN, TOTAL (test code = 0.3 MG/DL 2206) ALKALINE PHOSPHATASE (test 108 U/L code = 2204) AST (test code = 2218) 13 U/L ALT (test code = 2219) 14 U/L LIPID [id number] 00:00:00 Test Item Value Reference Range Interpretation Comments CHOLESTEROL (test code = 2210) 235 MG/DL TRIGLYCERIDES (test code = 2232) 166 MG/DL HDL CHOLESTEROL (test code = 2220) 36 MG/DL CALC LDL CHOL (test code = 2237) 168 MG/DL RISK RATIO LDL/HDL (test code = 4.67 RATIO 2238) HEMOGLOBIN [id number] 00:00:00 Test Item Value Reference Range Interpretation Comments HEMOGLOBIN A1c (test code = 60706) 8.3 % HEMOGLOBIN [id number] 00:00:00 Test Item Value Reference Range Interpretation Comments HEMOGLOBIN A1c (test code = 40237) 8.3 % THYROID II PROFILE (T3U, T4, T7, TSH)[id number] 00:00:00 Test Item Value Reference Range Interpretation Comments T-UPTAKE (test code = 2817) 33.1 % THYROX. BIND. CAPAC. (test code 1.0 = 71294) T4 (THYROXINE) (test code = 8.8 UG/DL 2819) CORRECTED T4 (FTI) (test code = 8.8 UG/DL 2820) TSH, THIRD GENERATION (test code 1.810 UIU/ML = 2821) COMPREHENSIVE METABOLIC [id number] 00:00:00 Test Item Value Reference Range Interpretation Comments GLUCOSE (test code = 2217) 184 MG/DL BUN (test code = 2208) 16 MG/DL CREATININE (test code = 2214) 0.65 MG/DL eGFR AMER. (test code 111 ML/MIN/1.73 = 92339) eGFR NON- AMER. (test 96 ML/MIN/1.73 code = 96108) CALC BUN/CREAT (test code = 25 RATIO [...] CALC GLOBULIN (test code = 2.6 G/DL 0) CALC A/G RATIO (test code = 1.8 RATIO 2234) BILIRUBIN, TOTAL (test code = 0.3 MG/DL 2206) ALKALINE PHOSPHATASE (test 108 U/L code = 2204) AST (test code = 2218) 13 U/L ALT (test code = 2219) 14 U/L COMPREHENSIVE METABOLIC [id number] 00:00:00 Test Item Value Reference Range Interpretation Comments GLUCOSE (test code = 2217) 184 MG/DL BUN (test code = 2208) 16 MG/DL CREATININE (test code = 2214) 0.65 MG/DL eGFR AMER. (test code 111 ML/MIN/1.73 = 06444) eGFR NON- AMER. (test 96 ML/MIN/1.73 code = 14700) CALC BUN/CREAT (test code = 25 RATIO 2235) SODIUM (test code = 2231) 142 MEQ/L POTASSIUM (test code = 2228) 4.1 MEQ/L CHLORIDE (test code = 2215) 104 MEQ/L CARBON DIOXIDE (test code = 24 MEQ/L 2205) CALCIUM (test code = 2209) 9.6 MG/DL PROTEIN, TOTAL (test code = 7.3 G/DL 2228) ALBUMIN (test code = 220) 4.7 G/DL CALC GLOBULIN (test code = 2.6 G/DL 2239) CALC A/G RATIO (test code = 1.8 RATIO 2234) BILIRUBIN, TOTAL (test code = 0.3 MG/DL 2206) ALKALINE PHOSPHATASE (test 108 U/L code = 2204) AST (test code = 2218) 13 U/L ALT (test code = 2219) 14 U/L LIPID [id number] 00:00:00 Test Item Value Reference Range Interpretation Comments CHOLESTEROL (test code = 2210) 235 MG/DL TRIGLYCERIDES (test code = 2232) 166 MG/DL HDL CHOLESTEROL (test code = 2220) 36 MG/DL CALC LDL CHOL (test code = 2237) 168 MG/DL RISK RATIO LDL/HDL (test code = 4.67 RATIO 2238) LIPID [id number] 00:00:00 Test Item Value Reference Range Interpretation Comments CHOLESTEROL (test code = 2210) 235 MG/DL TRIGLYCERIDES (test code = 2232) 166 MG/DL HDL CHOLESTEROL (test code = 2220) 36 MG/DL CALC LDL CHOL (test code = 2237) 168 MG/DL RISK RATIO LDL/HDL (test code = 4.67 RATIO 2238) HEMOGLOBIN [id number] 00:00:00 Test Item Value Reference Range Interpretation Comments HEMOGLOBIN A1c (test code = 66164) 8.3 % HEMOGLOBIN [id number] 00:00:00 Test Item Value Reference Range Interpretation Comments HEMOGLOBIN A1c (test code = 88110) 8.3 % HEMOGLOBIN [id number] 00:00:00 Test Item Value Reference Range Interpretation Comments HEMOGLOBIN A1c (test code = 72668) 8.3 % THYROID II PROFILE (T3U, T4, T7, TSH)[id number] 00:00:00 Test Item Value Reference Range Interpretation Comments T-UPTAKE (test code = 2817) 33.1 % THYROX. BIND. CAPAC. (test code 1.0 = 83398) T4 (THYROXINE) (test code = 8.8 UG/DL 2819) CORRECTED T4 (FTI) (test code = 8.8 UG/DL 2820) TSH, THIRD GENERATION (test code 1.810 UIU/ML = 2821) THYROID II PROFILE (T3U, T4, T7, TSH)2020-01-24 00:00:00 Test Item Value Reference Range Interpretation Comments T-UPTAKE (test code = 2817) 33.1 % THYROX. BIND. CAPAC. (test code 1.0 = 74376) T4 (THYROXINE) (test code = 8.8 UG/DL 2819) CORRECTED T4 (FTI) (test code = 8.8 UG/DL 2820) TSH, THIRD GENERATION (test code 1.810 UIU/ML = 2821) HEMOGLOBIN [id number] 00:00:00 Test Item Value Reference Range Interpretation Comments HEMOGLOBIN A1c (test code = 95041) 9.1 % HEMOGLOBIN [id number] 00:00:00 Test Item Value Reference Range Interpretation Comments HEMOGLOBIN A1c (test code = 90653) 9.1 % LIPID [id number] 00:00:00 Test Item Value Reference Range Interpretation Comments CHOLESTEROL (test code = 2210) 194 MG/DL TRIGLYCERIDES (test code = 2232) 192 MG/DL HDL CHOLESTEROL (test code = 2220) 33 MG/DL CALC LDL CHOL (test code = 2237) 123 MG/DL RISK RATIO LDL/HDL (test code = 3.72 RATIO 2238) HEMOGLOBIN [id number] 00:00:00 Test Item Value Reference Range Interpretation Comments HEMOGLOBIN A1c (test code = 48641) 9.1 % HEMOGLOBIN [id number] 00:00:00 Test Item Value Reference Range Interpretation Comments HEMOGLOBIN A1c (test code = 27300) 9.1 % HEMOGLOBIN [id number] 00:00:00 Test Item Value Reference Range Interpretation Comments HEMOGLOBIN A1c (test code = 22421) 9.1 % LIPID [id number] 00:00:00 Test Item Value Reference Range Interpretation Comments CHOLESTEROL (test code = 2210) 194 MG/DL TRIGLYCERIDES (test code = 2232) 192 MG/DL HDL CHOLESTEROL (test code = 2220) 33 MG/DL CALC LDL CHOL (test code = 2237) 123 MG/DL RISK RATIO LDL/HDL (test code = 3.72 RATIO 2238) LIPID [id number] 00:00:00 Test Item Value Reference Range Interpretation Comments CHOLESTEROL (test code = 2210) 194 MG/DL TRIGLYCERIDES (test code = 2232) 192 MG/DL HDL CHOLESTEROL (test code = 2220) 33 MG/DL CALC LDL CHOL (test code = 2237) 123 MG/DL RISK RATIO LDL/HDL (test code = 3.72 RATIO 2238) COMPREHENSIVE METABOLIC [id number] 00:00:00 Test Item Value Reference Range Interpretation Comments GLUCOSE (test code = 2217) 183 MG/DL BUN (test code = 2208) 16 MG/DL CREATININE (test code = 2214) 0.68 MG/DL eGFR AMER. (test code 110 ML/MIN/1.73 = 36653) eGFR NON- AMER. (test 95 ML/MIN/1.73 code = 83081) CALC BUN/CREAT (test code = 24 RATIO [...] CALC GLOBULIN (test code = 2.5 G/DL 0) CALC A/G RATIO (test code = 1.8 RATIO 223) BILIRUBIN, TOTAL (test code = 0.5 MG/DL 2206) ALKALINE PHOSPHATASE (test 127 U/L code = 2204) AST (test code = 2218) 12 U/L ALT (test code = 2219) 13 U/L LIPID [id number] 00:00:00 Test Item Value Reference Range Interpretation Comments CHOLESTEROL (test code = 2210) 216 MG/DL TRIGLYCERIDES (test code = 2232) 151 MG/DL HDL CHOLESTEROL (test code = 2220) 31 MG/DL CALC LDL CHOL (test code = 2237) 155 MG/DL RISK RATIO LDL/HDL (test code = 4.99 RATIO 2238) HEMOGLOBIN [id number] 00:00:00 Test Item Value Reference Range Interpretation Comments HEMOGLOBIN A1c (test code = 98440) 9.8 % HEMOGLOBIN [id number] 00:00:00 Test Item Value Reference Range Interpretation Comments HEMOGLOBIN A1c (test code = 66751) 9.8 % COMPREHENSIVE METABOLIC [id number] 00:00:00 Test Item Value Reference Range Interpretation Comments GLUCOSE (test code = 2217) 183 MG/DL BUN (test code = 2208) 16 MG/DL CREATININE (test code = 2214) 0.68 MG/DL eGFR AMER. (test code 110 ML/MIN/1.73 = 53412) eGFR NON- AMER. (test 95 ML/MIN/1.73 code = 75944) CALC BUN/CREAT (test code = 24 RATIO [...] CALC GLOBULIN (test code = 2.5 G/DL 224) CALC A/G RATIO (test code = 1.8 RATIO 2234) BILIRUBIN, TOTAL (test code = 0.5 MG/DL 2206) ALKALINE PHOSPHATASE (test 127 U/L code = 2204) AST (test code = 2218) 12 U/L ALT (test code = 2219) 13 U/L COMPREHENSIVE METABOLIC [id number] 00:00:00 Test Item Value Reference Range Interpretation Comments GLUCOSE (test code = 2217) 183 MG/DL BUN (test code = 2208) 16 MG/DL CREATININE (test code = 2214) 0.68 MG/DL eGFR AMER. (test code 110 ML/MIN/1.73 = 22319) eGFR NON- AMER. (test 95 ML/MIN/1.73 code = 60072) CALC BUN/CREAT (test code = 24 RATIO [...] CALC GLOBULIN (test code = 2.5 G/DL 2239) CALC A/G RATIO (test code = 1.8 RATIO 2234) BILIRUBIN, TOTAL (test code = 0.5 MG/DL 2206) ALKALINE PHOSPHATASE (test 127 U/L code = 2204) AST (test code = 2218) 12 U/L ALT (test code = 2219) 13 U/L LIPID [id number] 00:00:00 Test Item Value Reference Range Interpretation Comments CHOLESTEROL (test code = 2210) 216 MG/DL TRIGLYCERIDES (test code = 2232) 151 MG/DL HDL CHOLESTEROL (test code = 2220) 31 MG/DL CALC LDL CHOL (test code = 2237) 155 MG/DL RISK RATIO LDL/HDL (test code = 4.99 RATIO 2238) LIPID [id number] 00:00:00 Test Item Value Reference Range Interpretation Comments CHOLESTEROL (test code = 2210) 216 MG/DL TRIGLYCERIDES (test code = 2232) 151 MG/DL HDL CHOLESTEROL (test code = 2220) 31 MG/DL CALC LDL CHOL (test code = 2237) 155 MG/DL RISK RATIO LDL/HDL (test code = 4.99 RATIO 2238) HEMOGLOBIN [id number] 00:00:00 Test Item Value Reference Range Interpretation Comments HEMOGLOBIN A1c (test code = 66419) 9.8 % HEMOGLOBIN [id number] 00:00:00 Test Item Value Reference Range Interpretation Comments HEMOGLOBIN A1c (test code = 46864) 9.8 % HEMOGLOBIN [id number] 00:00:00 Test Item Value Reference Range Interpretation Comments HEMOGLOBIN A1c (test code = 70669) 9.8 % SCR MAMM BILATERAL NATHANIEL CAD [id number] 07:51:23 - SCR MAMM BILATERAL NATHANIEL CAD DIGITALBILATERAL DIGITAL SCREENING MAMMOGRAM 3D/2D WITH CAD: 11/17/2018 LINICAL: Asymptomatic. Digital breast tomosynthesis was performed in addition to routine CC and MLO views. Current mammographic images were evaluated by either a [employer]IM M-Vu or a [employer] ImageChecker CAD (computer aided detection system). Comparison is made to exam dated 03/05/2014 mammogram - [facility]-Radiology File Room. There are scattered [...] are recommended for confirmation. Pramod Suero M.D. et/:12/05/201807:51:23 Attending Technologist: Mayra Neal MM, [facility] MammographyImaging Technologist: Taylor Naqvi MM, [facility] [place] [facility] Mammographyletter sent: Additional Imaging Mammogram BI- RADS: 0 IndeterminateCULTURE, [id number] 00:00:00 Test Item Value Reference Range Interpretation Comments CULTURE, URINE (test SPECIMEN NUMBER: code = 18074) [id number] CULTURE, [id number] 00:00:00 Test Item Value Reference Range Interpretation Comments CULTURE, URINE (test SPECIMEN NUMBER: code = 60578) [id number] CULTURE, [id number] 00:00:00 Test Item Value Reference Range Interpretation Comments CULTURE, URINE (test SPECIMEN NUMBER: code = 91785) [id number] HEMOGLOBIN [id number] 00:00:00 Test Item Value Reference Range Interpretation Comments HEMOGLOBIN A1c (test code = 01279) 9.2 % HEMOGLOBIN [id number] 00:00:00 Test Item Value Reference Range Interpretation Comments HEMOGLOBIN A1c (test code = 30310) 9.2 % LIPID [id number] 00:00:00 Test Item Value Reference Range Interpretation Comments CHOLESTEROL (test code = 2210) 242 MG/DL TRIGLYCERIDES (test code = 2232) 194 MG/DL HDL CHOLESTEROL (test code = 2220) 37 MG/DL CALC LDL CHOL (test code = 2237) 166 MG/DL RISK RATIO LDL/HDL (test code = 4.49 RATIO 2238) COMPREHENSIVE METABOLIC [id number] 00:00:00 Test Item Value Reference Range Interpretation Comments GLUCOSE (test code = 2217) 204 MG/DL BUN (test code = 2208) 16 MG/DL CREATININE (test code = 2214) 0.78 MG/DL eGFR AMER. (test code 96 ML/MIN/1.73 = 06785) eGFR NON- AMER. (test 83 ML/MIN/1.73 code = 65591) CALC BUN/CREAT (test code = 21 RATIO 5) SODIUM (test code = 2231) 139 MEQ/L POTASSIUM (test code = 2228) 4.5 MEQ/L CHLORIDE (test code = 2215) 99 MEQ/L CARBON DIOXIDE (test code = 26 MEQ/L 2205) CALCIUM (test code = 2209) 9.9 MG/DL PROTEIN, TOTAL (test code = 7.8 G/DL 2228) ALBUMIN (test code = 2201) 4.9 G/DL CALC GLOBULIN (test code = 2.9 G/DL 2239) CALC A/G RATIO (test code = 1.7 RATIO 2233) BILIRUBIN, TOTAL (test code = 0.4 MG/DL 2206) ALKALINE PHOSPHATASE (test 148 U/L code = 2204) AST (test code = 2218) 13 U/L ALT (test code = 2219) 21 U/L HEMOGLOBIN [id number] 00:00:00 Test Item Value Reference Range Interpretation Comments HEMOGLOBIN A1c (test code = 03131) 9.2 % HEMOGLOBIN [id number] 00:00:00 Test Item Value Reference Range Interpretation Comments HEMOGLOBIN A1c (test code = 32421) 9.2 % HEMOGLOBIN [id number] 00:00:00 Test Item Value Reference Range Interpretation Comments HEMOGLOBIN A1c (test code = 57054) 9.2 % LIPID [id number] 00:00:00 Test Item Value Reference Range Interpretation Comments CHOLESTEROL (test code = 2210) 242 MG/DL TRIGLYCERIDES (test code = 2232) 194 MG/DL HDL CHOLESTEROL (test code = 2220) 37 MG/DL CALC LDL CHOL (test code = 2237) 166 MG/DL RISK RATIO LDL/HDL (test code = 4.49 RATIO 2238) LIPID [id number] 00:00:00 Test Item Value Reference Range Interpretation Comments CHOLESTEROL (test code = 2210) 242 MG/DL TRIGLYCERIDES (test code = 2232) 194 MG/DL HDL CHOLESTEROL (test code = 2220) 37 MG/DL CALC LDL CHOL (test code = 2237) 166 MG/DL RISK RATIO LDL/HDL (test code = 4.49 RATIO 2238) COMPREHENSIVE METABOLIC [id number] 00:00:00 Test Item Value Reference Range Interpretation Comments GLUCOSE (test code = 2217) 204 MG/DL BUN (test code = 2208) 16 MG/DL CREATININE (test code = 2214) 0.78 MG/DL eGFR AMER. (test code 96 ML/MIN/1.73 = 70378) eGFR NON- AMER. (test 83 ML/MIN/1.73 code = 89661) CALC BUN/CREAT (test code = 21 RATIO [...] code = 2219) 21 U/L COMPREHENSIVE METABOLIC [id number] 00:00:00 Test Item Value Reference Range Interpretation Comments GLUCOSE (test code = 2217) 204 MG/DL BUN (test code = 2208) 16 MG/DL CREATININE (test code = 2214) 0.78 MG/DL eGFR AMER. (test code 96 ML/MIN/1.73 = 25201) eGFR NON- AMER. (test 83 ML/MIN/1.73 code = 26010) CALC BUN/CREAT (test code = 21 RATIO 2235) SODIUM (test code = 2231) 139 MEQ/L POTASSIUM (test code = 2228) 4.5 MEQ/L CHLORIDE (test code = 2215) 99 MEQ/L CARBON DIOXIDE (test code = 26 MEQ/L 2206) CALCIUM (test code = 2209) 9.9 MG/DL [...] code = 2219) 21 U/L COMPREHENSIVE METABOLIC [id number] 00:00:00 Test Item Value Reference Range Interpretation Comments GLUCOSE (test code = 2217) 143 MG/DL BUN (test code = 2208) 11 MG/DL CREATININE (test code = 2214) 0.69 MG/DL eGFR AMER. (test code 110 ML/MIN/1.73 = 13663) eGFR NON- AMER. (test 95 ML/MIN/1.73 code = 58886) CALC BUN/CREAT (test code = 16 RATIO 2235) SODIUM (test code = 2231) 141 MEQ/L POTASSIUM (test code = 2228) 4.5 MEQ/L CHLORIDE (test code = 2215) 103 MEQ/L CARBON DIOXIDE (test code = 27 MEQ/L 220) CALCIUM (test code = 2209) 9.7 MG/DL PROTEIN, TOTAL (test code = 6.9 G/DL 2228) ALBUMIN (test code = 2201) 4.7 G/DL CALC GLOBULIN (test code = 2.2 G/DL 2240) CALC A/G RATIO (test code = 2.1 RATIO 2234) BILIRUBIN, TOTAL (test code = 0.3 MG/DL 2206) ALKALINE PHOSPHATASE (test 117 U/L code = 2204) AST (test code = 2218) 16 U/L ALT (test code = 2219) 24 U/L LIPID [id number] 00:00:00 Test Item Value Reference Range Interpretation Comments CHOLESTEROL (test code = 2210) 223 MG/DL TRIGLYCERIDES (test code = 2232) 147 MG/DL HDL CHOLESTEROL (test code = 2220) 39 MG/DL CALC LDL CHOL (test code = 2237) 155 MG/DL RISK RATIO LDL/HDL (test code = 3.96 RATIO 2238) HEMOGLOBIN [id number] 00:00:00 Test Item Value Reference Range Interpretation Comments HEMOGLOBIN A1c (test code = 44097) 8.4 % HEMOGLOBIN [id number] 00:00:00 Test Item Value Reference Range Interpretation Comments HEMOGLOBIN A1c (test code = 15358) 8.4 % COMPREHENSIVE METABOLIC [id number] 00:00:00 Test Item Value Reference Range Interpretation Comments GLUCOSE (test code = 2217) 143 MG/DL BUN (test code = 2208) 11 MG/DL CREATININE (test code = 2214) 0.69 MG/DL eGFR AMER. (test code 110 ML/MIN/1.73 = 04739) eGFR NON- AMER. (test 95 ML/MIN/1.73 code = 04877) CALC BUN/CREAT (test code = 16 RATIO [...] ALT (test code = 2219) 24 U/L COMPREHENSIVE METABOLIC [id number] 00:00:00 Test Item Value Reference Range Interpretation Comments GLUCOSE (test code = 2217) 143 MG/DL BUN (test code = 2208) 11 MG/DL CREATININE (test code = 2214) 0.69 MG/DL eGFR AMER. (test code 110 ML/MIN/1.73 = 85623) eGFR NON- AMER. (test 95 ML/MIN/1.73 code = 99230) CALC BUN/CREAT (test code = 16 RATIO [...] A/G RATIO (test code = 2.1 RATIO 2233) BILIRUBIN, TOTAL (test code = 0.3 MG/DL 2206) ALKALINE PHOSPHATASE (test 117 U/L code = 2204) AST (test code = 2218) 16 U/L ALT (test code = 2219) 24 U/L LIPID [id number] 00:00:00 Test Item Value Reference Range Interpretation Comments CHOLESTEROL (test code = 2210) 223 MG/DL TRIGLYCERIDES (test code = 2232) 147 MG/DL HDL CHOLESTEROL (test code = 2220) 39 MG/DL CALC LDL CHOL (test code = 2237) 155 MG/DL RISK RATIO LDL/HDL (test code = 3.96 RATIO 2238) LIPID [id number] 00:00:00 Test Item Value Reference Range Interpretation Comments CHOLESTEROL (test code = 2210) 223 MG/DL TRIGLYCERIDES (test code = 2232) 147 MG/DL HDL CHOLESTEROL (test code = 2220) 39 MG/DL CALC LDL CHOL (test code = 2237) 155 MG/DL RISK RATIO LDL/HDL (test code = 3.96 RATIO 2238) HEMOGLOBIN [id number] 00:00:00 Test Item Value Reference Range Interpretation Comments HEMOGLOBIN A1c (test code = 37849) 8.4 % HEMOGLOBIN [id number] 00:00:00 Test Item Value Reference Range Interpretation Comments HEMOGLOBIN A1c (test code = 09472) 8.4 % HEMOGLOBIN [id number] 00:00:00 Test Item Value Reference Range Interpretation Comments HEMOGLOBIN A1c (test code = 20585) 8.4 % HEMOGLOBIN [id number] 00:00:00 Test Item Value Reference Range Interpretation Comments HEMOGLOBIN A1c (test code = 43935) 9.9 % HEMOGLOBIN [id number] 00:00:00 Test Item Value Reference Range Interpretation Comments HEMOGLOBIN A1c (test code = 72726) 9.9 % LIPID [id number] 00:00:00 Test Item Value Reference Range Interpretation Comments CHOLESTEROL (test code = 2210) 199 MG/DL TRIGLYCERIDES (test code = 2232) 167 MG/DL HDL CHOLESTEROL (test code = 2220) 32 MG/DL CALC LDL CHOL (test code = 2237) 134 MG/DL RISK RATIO LDL/HDL (test code = 4.18 RATIO 2238) COMPREHENSIVE METABOLIC [id number] 00:00:00 Test Item Value Reference Range Interpretation Comments GLUCOSE (test code = 2217) 266 MG/DL BUN (test code = 2208) 11 MG/DL CREATININE (test code = 2214) 0.67 MG/DL eGFR AMER. (test code 112 ML/MIN/1.73 = 63173) eGFR NON- AMER. (test 96 ML/MIN/1.73 code = 36383) CALC BUN/CREAT (test code = 16 RATIO 2235) SODIUM (test code = 2231) 140 MEQ/L POTASSIUM (test code = 2228) 4.3 MEQ/L CHLORIDE (test code = 2215) 102 MEQ/L CARBON DIOXIDE (test code = 24 MEQ/L 220) CALCIUM (test code = 2209) 9.6 MG/DL PROTEIN, TOTAL (test code = 6.9 G/DL 2228) ALBUMIN (test code = 2201) 4.6 G/DL CALC GLOBULIN (test code = 2.3 G/DL 2240) CALC A/G RATIO (test code = 2.0 RATIO 2234) BILIRUBIN, TOTAL (test code = 0.3 MG/DL 2206) ALKALINE PHOSPHATASE (test 131 U/L code = 2204) AST (test code = 2218) 13 U/L ALT (test code = 2219) 17 U/L HEMOGLOBIN [id number] 00:00:00 Test Item Value Reference Range Interpretation Comments HEMOGLOBIN A1c (test code = 77794) 9.9 % HEMOGLOBIN [id number] 00:00:00 Test Item Value Reference Range Interpretation Comments HEMOGLOBIN A1c (test code = 06437) 9.9 % HEMOGLOBIN [id number] 00:00:00 Test Item Value Reference Range Interpretation Comments HEMOGLOBIN A1c (test code = 85025) 9.9 % LIPID [id number] 00:00:00 Test Item Value Reference Range Interpretation Comments CHOLESTEROL (test code = 2210) 199 MG/DL TRIGLYCERIDES (test code = 2232) 167 MG/DL HDL CHOLESTEROL (test code = 2220) 32 MG/DL CALC LDL CHOL (test code = 2237) 134 MG/DL RISK RATIO LDL/HDL (test code = 4.18 RATIO 2238) LIPID [id number] 00:00:00 Test Item Value Reference Range Interpretation Comments CHOLESTEROL (test code = 2210) 199 MG/DL TRIGLYCERIDES (test code = 2232) 167 MG/DL HDL CHOLESTEROL (test code = 2220) 32 MG/DL CALC LDL CHOL (test code = 2237) 134 MG/DL RISK RATIO LDL/HDL (test code = 4.18 RATIO 2238) COMPREHENSIVE METABOLIC [id number] 00:00:00 Test Item Value Reference Range Interpretation Comments GLUCOSE (test code = 2217) 266 MG/DL BUN (test code = 2208) 11 MG/DL CREATININE (test code = 2214) 0.67 MG/DL eGFR AMER. (test code 112 ML/MIN/1.73 = 73801) eGFR NON- AMER. (test 96 ML/MIN/1.73 code = 87106) CALC BUN/CREAT (test code = 16 RATIO [...] CALC GLOBULIN (test code = 2.3 G/DL 2239) CALC A/G RATIO (test code = 2.0 RATIO 2234) BILIRUBIN, TOTAL (test code = 0.3 MG/DL 2206) ALKALINE PHOSPHATASE (test 131 U/L code = 2204) AST (test code = 2218) 13 U/L ALT (test code = 2219) 17 U/L COMPREHENSIVE METABOLIC [id number] 00:00:00 Test Item Value Reference Range Interpretation Comments GLUCOSE (test code = 2217) 266 MG/DL BUN (test code = 2208) 11 MG/DL CREATININE (test code = 2214) 0.67 MG/DL eGFR AMER. (test code 112 ML/MIN/1.73 = 16590) eGFR NON- AMER. (test 96 ML/MIN/1.73 code = 98540) CALC BUN/CREAT (test code = 16 RATIO 2235) SODIUM (test code = 2231) 140 MEQ/L POTASSIUM (test code = 2228) 4.3 MEQ/L CHLORIDE (test code = 2215) 102 MEQ/L CARBON DIOXIDE (test code = 24 MEQ/L 2206) CALCIUM (test code = 2209) 9.6 MG/DL PROTEIN, TOTAL (test code = 6.9 G/DL 2228) ALBUMIN (test code = 2201) 4.6 G/DL CALC GLOBULIN (test code = 2.3 G/DL 2240) CALC A/G RATIO (test code = 2.0 RATIO 2234) BILIRUBIN, TOTAL (test code = 0.3 MG/DL 2206) ALKALINE PHOSPHATASE (test 131 U/L code = 2204) AST (test code = 2218) 13 U/L ALT (test code = 2219) 17 U/L COMPREHENSIVE METABOLIC [id number] 00:00:00 Test Item Value Reference Range Interpretation Comments GLUCOSE (test code = 2217) 229 MG/DL BUN (test code = 2208) 11 MG/DL CREATININE (test code = 2214) 0.81 MG/DL eGFR AMER. (test code 92 ML/MIN/1.73 = 59309) eGFR NON- AMER. (test 79 ML/MIN/1.73 code = 86704) CALC BUN/CREAT (test code = 14 RATIO 2235) SODIUM (test code = 2231) 141 MEQ/L POTASSIUM (test code = 2228) 5.3 MEQ/L CHLORIDE (test code = 2215) 101 MEQ/L CARBON DIOXIDE (test code = 28 MEQ/L 2206) CALCIUM (test code = 2209) 10.0 MG/DL PROTEIN, TOTAL (test code = 7.3 G/DL 2229) ALBUMIN (test code = 2201) 4.6 G/DL CALC GLOBULIN (test code = 2.7 G/DL 2240) CALC A/G RATIO (test code = 1.7 RATIO 2234) BILIRUBIN, TOTAL (test code = 0.5 MG/DL 2207) ALKALINE PHOSPHATASE (test 132 U/L code = 2204) AST (test code = 2218) 14 U/L ALT (test code = 2219) 17 U/L CBC W/AUTO [id number] 00:00:00 Test Item Value Reference Range Interpretation [...] code = 1015) 272 K/UL CBC W/AUTO [id number] 00:00:00 Test Item Value Reference Range Interpretation [...] (test code = 1015) 272 K/UL HEMOGLOBIN [id number] 00:00:00 Test Item Value Reference Range Interpretation Comments HEMOGLOBIN A1c (test code = 26769) 10.1 % HEMOGLOBIN [id number] 00:00:00 Test Item Value Reference Range Interpretation Comments HEMOGLOBIN A1c (test code = 09473) 10.1 % LIPID [id number] 00:00:00 Test Item Value Reference Range Interpretation Comments CHOLESTEROL (test code = 2210) 221 MG/DL TRIGLYCERIDES (test code = 2232) 174 MG/DL HDL CHOLESTEROL (test code = 2220) 31 MG/DL CALC LDL CHOL (test code = 2237) 155 MG/DL RISK RATIO LDL/HDL (test code = 5.01 RATIO 2238) COMPREHENSIVE METABOLIC [id number] 00:00:00 Test Item Value Reference Range Interpretation Comments GLUCOSE (test code = 2217) 229 MG/DL BUN (test code = 2208) 11 MG/DL CREATININE (test code = 2214) 0.81 MG/DL eGFR AMER. (test code 92 ML/MIN/1.73 = 84491) eGFR NON- AMER. (test 79 ML/MIN/1.73 code = 10628) CALC BUN/CREAT (test code = 14 RATIO 2235) SODIUM (test code = 2231) 141 MEQ/L POTASSIUM (test code = 2228) 5.3 MEQ/L CHLORIDE (test code = 2215) 101 MEQ/L CARBON DIOXIDE (test code = 28 MEQ/L 220) CALCIUM (test code = 2209) 10.0 MG/DL PROTEIN, TOTAL (test code = 7.3 G/DL 2228) ALBUMIN (test code = 2201) 4.6 G/DL CALC GLOBULIN (test code = 2.7 G/DL 2240) CALC A/G RATIO (test code = 1.7 RATIO 2234) BILIRUBIN, TOTAL (test code = 0.5 MG/DL 2206) ALKALINE PHOSPHATASE (test 132 U/L code = 2204) AST (test code = 2218) 14 U/L ALT (test code = 2219) 17 U/L COMPREHENSIVE METABOLIC [id number] 00:00:00 Test Item Value Reference Range Interpretation Comments GLUCOSE (test code = 2217) 229 MG/DL BUN (test code = 2208) 11 MG/DL CREATININE (test code = 2214) 0.81 MG/DL eGFR AMER. (test code 92 ML/MIN/1.73 = 61099) eGFR NON- AMER. (test 79 ML/MIN/1.73 code = 55679) CALC BUN/CREAT (test code = 14 RATIO 2235) SODIUM (test code = 2231) 141 MEQ/L POTASSIUM (test code = 2228) 5.3 MEQ/L CHLORIDE (test code = 2215) 101 MEQ/L CARBON DIOXIDE (test code = 28 MEQ/L 220) CALCIUM (test code = 2209) 10.0 MG/DL PROTEIN, TOTAL (test code = 7.3 G/DL 2228) ALBUMIN (test code = 2201) 4.6 G/DL CALC GLOBULIN (test code = 2.7 G/DL 2239) CALC A/G RATIO (test code = 1.7 RATIO 2234) BILIRUBIN, TOTAL (test code = 0.5 MG/DL 2206) ALKALINE PHOSPHATASE (test 132 U/L code = 2204) AST (test code = 2218) 14 U/L ALT (test code = 2219) 17 U/L CBC W/AUTO [id number] 00:00:00 Test Item Value Reference Range Interpretation [...] code = 1015) 272 K/UL CBC W/AUTO [id number] 00:00:00 Test Item Value Reference Range Interpretation [...] code = 1015) 272 K/UL CBC W/AUTO [id number] 00:00:00 Test Item Value Reference Range Interpretation [...] (test code = 1015) 272 K/UL HEMOGLOBIN [id number] 00:00:00 Test Item Value Reference Range Interpretation Comments HEMOGLOBIN A1c (test code = 45311) 10.1 % HEMOGLOBIN [id number] 00:00:00 Test Item Value Reference Range Interpretation Comments HEMOGLOBIN A1c (test code = 16876) 10.1 % HEMOGLOBIN [id number] 00:00:00 Test Item Value Reference Range Interpretation Comments HEMOGLOBIN A1c (test code = 86421) 10.1 % LIPID [id number] 00:00:00 Test Item Value Reference Range Interpretation Comments CHOLESTEROL (test code = 2210) 221 MG/DL TRIGLYCERIDES (test code = 2232) 174 MG/DL HDL CHOLESTEROL (test code = 2220) 31 MG/DL CALC LDL CHOL (test code = 2237) 155 MG/DL RISK RATIO LDL/HDL (test code = 5.01 RATIO 2238) LIPID [id number] 00:00:00 Test Item Value Reference Range Interpretation Comments CHOLESTEROL (test code = 2210) 221 MG/DL TRIGLYCERIDES (test code = 2232) 174 MG/DL HDL CHOLESTEROL (test code = 2220) 31 MG/DL CALC LDL CHOL (test code = 2237) 155 MG/DL RISK RATIO LDL/HDL (test code = 5.01 RATIO 2238) COMPREHENSIVE METABOLIC [id number] 00:00:00 Test Item Value Reference Range Interpretation Comments GLUCOSE (test code = 2217) 221 MG/DL BUN (test code = 2208) 14 MG/DL CREATININE (test code = 2214) 0.68 MG/DL eGFR AMER. (test code 111 ML/MIN/1.73 = 57390) eGFR NON- AMER. (test 96 ML/MIN/1.73 code = 04264) CALC BUN/CREAT (test code = 21 RATIO [...] CALC GLOBULIN (test code = 2.6 G/DL 2240) CALC A/G RATIO (test code = 1.7 RATIO 2234) BILIRUBIN, TOTAL (test code = 0.3 MG/DL 2206) ALKALINE PHOSPHATASE (test 118 U/L code = 2204) AST (test code = 2218) 11 U/L ALT (test code = 2219) 14 U/L LIPID [id number] 00:00:00 Test Item Value Reference Range Interpretation Comments CHOLESTEROL (test code = 2210) 200 MG/DL TRIGLYCERIDES (test code = 2232) 155 MG/DL HDL CHOLESTEROL (test code = 2220) 36 MG/DL CALC LDL CHOL (test code = 2237) 133 MG/DL RISK RATIO LDL/HDL (test code = 3.69 RATIO 2238) HEMOGLOBIN [id number] 00:00:00 Test Item Value Reference Range Interpretation Comments HEMOGLOBIN A1c (test code = 99546) 11.2 % HEMOGLOBIN [id number] 00:00:00 Test Item Value Reference Range Interpretation Comments HEMOGLOBIN A1c (test code = 64027) 11.2 % MICROALBUMIN/CREATININE, RANDOM AND [id number] 00:00:00 Test Item Value Reference Range Interpretation Comments CREATININE, URINE, CONC. (test 101.8 MG/DL code = 207) MICROALBUMIN, RANDOM (test code = 2.0 MG/DL 73752) CALC MICROALB/CREAT RND (test 20 MG/G code = 95549) COMPREHENSIVE METABOLIC [id number] 00:00:00 Test Item Value Reference Range Interpretation Comments GLUCOSE (test code = 2217) 221 MG/DL BUN (test code = 2208) 14 MG/DL CREATININE (test code = 2214) 0.68 MG/DL eGFR AMER. (test code 111 ML/MIN/1.73 = 89759) eGFR NON- AMER. (test 96 ML/MIN/1.73 code = 57477) CALC BUN/CREAT (test code = 21 RATIO 2235) SODIUM (test code = 2231) 143 MEQ/L POTASSIUM (test code = 2228) 4.3 MEQ/L CHLORIDE (test code = 2215) 103 MEQ/L CARBON DIOXIDE (test code = 25 MEQ/L 2206) CALCIUM (test code = 2209) 9.8 MG/DL PROTEIN, TOTAL (test code = 6.9 G/DL 2228) ALBUMIN (test code = 2201) 4.3 G/DL CALC GLOBULIN (test code = 2.6 G/DL 2240) CALC A/G RATIO (test code = 1.7 RATIO 2234) BILIRUBIN, TOTAL (test code = 0.3 MG/DL 2206) ALKALINE PHOSPHATASE (test 118 U/L code = 2204) AST (test code = 2218) 11 U/L ALT (test code = 2219) 14 U/L COMPREHENSIVE METABOLIC [id number] 00:00:00 Test Item Value Reference Range Interpretation Comments GLUCOSE (test code = 2217) 221 MG/DL BUN (test code = 2208) 14 MG/DL CREATININE (test code = 2214) 0.68 MG/DL eGFR AMER. (test code 111 ML/MIN/1.73 = 39338) eGFR NON- AMER. (test 96 ML/MIN/1.73 code = 07051) CALC BUN/CREAT (test code = 21 RATIO 2235) SODIUM (test code = 2231) 143 MEQ/L POTASSIUM (test code = 2228) 4.3 MEQ/L CHLORIDE (test code = 2215) 103 MEQ/L CARBON DIOXIDE (test code = 25 MEQ/L 220) CALCIUM (test code = 2209) 9.8 MG/DL PROTEIN, TOTAL (test code = 6.9 G/DL 2228) ALBUMIN (test code = 2201) 4.3 G/DL CALC GLOBULIN (test code = 2.6 G/DL 224) CALC A/G RATIO (test code = 1.7 RATIO 2234) BILIRUBIN, TOTAL (test code = 0.3 MG/DL 2206) ALKALINE PHOSPHATASE (test 118 U/L code = 2204) AST (test code = 2218) 11 U/L ALT (test code = 2219) 14 U/L LIPID [id number] 00:00:00 Test Item Value Reference Range Interpretation Comments CHOLESTEROL (test code = 2210) 200 MG/DL TRIGLYCERIDES (test code = 2232) 155 MG/DL HDL CHOLESTEROL (test code = 2220) 36 MG/DL CALC LDL CHOL (test code = 2237) 133 MG/DL RISK RATIO LDL/HDL (test code = 3.69 RATIO 2238) LIPID [id number] 00:00:00 Test Item Value Reference Range Interpretation Comments CHOLESTEROL (test code = 2210) 200 MG/DL TRIGLYCERIDES (test code = 2232) 155 MG/DL HDL CHOLESTEROL (test code = 2220) 36 MG/DL CALC LDL CHOL (test code = 2237) 133 MG/DL RISK RATIO LDL/HDL (test code = 3.69 RATIO 2238) HEMOGLOBIN [id number] 00:00:00 Test Item Value Reference Range Interpretation Comments HEMOGLOBIN A1c (test code = 05144) 11.2 % HEMOGLOBIN [id number] 00:00:00 Test Item Value Reference Range Interpretation Comments HEMOGLOBIN A1c (test code = 62229) 11.2 % HEMOGLOBIN [id number] 00:00:00 Test Item Value Reference Range Interpretation Comments HEMOGLOBIN A1c (test code = 16106) 11.2 % MICROALBUMIN/CREATININE, RANDOM AND [id number] 00:00:00 Test Item Value Reference Range Interpretation Comments CREATININE, URINE, CONC. (test 101.8 MG/DL code = 2072) MICROALBUMIN, RANDOM (test code = 2.0 MG/DL 41725) CALC MICROALB/CREAT RND (test 20 MG/G code = 44847) MICROALBUMIN/CREATININE, RANDOM AND [id number] 00:00:00 Test Item Value Reference Range Interpretation Comments CREATININE, URINE, CONC. (test 101.8 MG/DL code = 2072) MICROALBUMIN, RANDOM (test code = 2.0 MG/DL 49811) CALC MICROALB/CREAT RND (test 20 MG/G code = 23593) COMPREHENSIVE METABOLIC [id number] 00:00:00 Test Item Value Reference Range Interpretation Comments GLUCOSE (test code = 2217) 303 MG/DL BUN (test code = 2208) 15 MG/DL CREATININE (test code = 2214) 0.75 MG/DL eGFR AMER. (test code 102 ML/MIN/1.73 = 58924) eGFR NON- AMER. (test 88 ML/MIN/1.73 code = 49451) CALC BUN/CREAT (test code = 20 RATIO [...] (test code = 2219) 17 U/L LIPID [id number] 00:00:00 Test Item Value Reference Range Interpretation Comments CHOLESTEROL (test code = 2210) 196 MG/DL TRIGLYCERIDES (test code = 2232) 202 MG/DL HDL CHOLESTEROL (test code = 2220) 34 MG/DL CALC LDL CHOL (test code = 2237) 122 MG/DL RISK RATIO LDL/HDL (test code = 3.58 RATIO 2238) CBC W/AUTO [id number] 00:00:00 Test Item Value Reference Range Interpretation [...] code = 1015) 229 K/UL CBC W/AUTO [id number] 00:00:00 Test Item Value Reference Range Interpretation [...] (test code = 1015) 229 K/UL HEMOGLOBIN [id number] 00:00:00 Test Item Value Reference Range Interpretation Comments HEMOGLOBIN A1c (test code = 76849) 9.0 % HEMOGLOBIN [id number] 00:00:00 Test Item Value Reference Range Interpretation Comments HEMOGLOBIN A1c (test code = 87224) 9.0 % COMPREHENSIVE METABOLIC [id number] 00:00:00 Test Item Value Reference Range Interpretation Comments GLUCOSE (test code = 2217) 303 MG/DL BUN (test code = 2208) 15 MG/DL CREATININE (test code = 2214) 0.75 MG/DL eGFR AMER. (test code 102 ML/MIN/1.73 = 85262) eGFR NON- AMER. (test 88 ML/MIN/1.73 code = 38361) CALC BUN/CREAT (test code = 20 RATIO [...] CALC GLOBULIN (test code = 2.3 G/DL 2239) CALC A/G RATIO (test code = 1.9 RATIO 2233) BILIRUBIN, TOTAL (test code = 0.4 MG/DL 2206) ALKALINE PHOSPHATASE (test 135 U/L code = 2204) AST (test code = 2218) 13 U/L ALT (test code = 2219) 17 U/L COMPREHENSIVE METABOLIC [id number] 00:00:00 Test Item Value Reference Range Interpretation Comments GLUCOSE (test code = 2217) 303 MG/DL BUN (test code = 2208) 15 MG/DL CREATININE (test code = 2214) 0.75 MG/DL eGFR AMER. (test code 102 ML/MIN/1.73 = 04011) eGFR NON- AMER. (test 88 ML/MIN/1.73 code = 63630) CALC BUN/CREAT (test code = 20 RATIO 2235) SODIUM (test code = 2231) 141 MEQ/L POTASSIUM (test code = 2228) 4.2 MEQ/L CHLORIDE (test code = 2215) 101 MEQ/L CARBON DIOXIDE (test code = 26 MEQ/L 2206) CALCIUM (test code = 2209) 9.5 MG/DL [...] (test code = 2219) 17 U/L LIPID [id number] 00:00:00 Test Item Value Reference Range Interpretation Comments CHOLESTEROL (test code = 2210) 196 MG/DL TRIGLYCERIDES (test code = 2232) 202 MG/DL HDL CHOLESTEROL (test code = 2220) 34 MG/DL CALC LDL CHOL (test code = 2237) 122 MG/DL RISK RATIO LDL/HDL (test code = 3.58 RATIO 2238) LIPID [id number] 00:00:00 Test Item Value Reference Range Interpretation Comments CHOLESTEROL (test code = 2210) 196 MG/DL TRIGLYCERIDES (test code = 2232) 202 MG/DL HDL CHOLESTEROL (test code = 2220) 34 MG/DL CALC LDL CHOL (test code = 2237) 122 MG/DL RISK RATIO LDL/HDL (test code = 3.58 RATIO 2238) CBC W/AUTO [id number] 00:00:00 Test Item Value Reference Range Interpretation [...] code = 1015) 229 K/UL CBC W/AUTO [id number] 00:00:00 Test Item Value Reference Range Interpretation [...] code = 1015) 229 K/UL CBC W/AUTO [id number] 00:00:00 Test Item Value Reference Range Interpretation [...] (test code = 1015) 229 K/UL HEMOGLOBIN [id number] 00:00:00 Test Item Value Reference Range Interpretation Comments HEMOGLOBIN A1c (test code = 08548) 9.0 % HEMOGLOBIN [id number] 00:00:00 Test Item Value Reference Range Interpretation Comments HEMOGLOBIN A1c (test code = 19982) 9.0 % HEMOGLOBIN [id number] 00:00:00 Test Item Value Reference Range Interpretation Comments HEMOGLOBIN A1c (test code = 78054) 9.0 % LIPID [id number] 00:00:00 Test Item Value Reference Range Interpretation Comments CHOLESTEROL (test code = 2210) 212 MG/DL TRIGLYCERIDES (test code = 2232) 178 MG/DL HDL CHOLESTEROL (test code = 2220) 33 MG/DL CALCULATED LDL CHOL (test code = 143 MG/DL 2237) RISK RATIO LDL/HDL (test code = 4.35 RATIO 2238) LIPID [id number] 00:00:00 Test Item Value Reference Range Interpretation Comments CHOLESTEROL (test code = 2210) 212 MG/DL TRIGLYCERIDES (test code = 2232) 178 MG/DL HDL CHOLESTEROL (test code = 2220) 33 MG/DL CALCULATED LDL CHOL (test code = 143 MG/DL 2237) RISK RATIO LDL/HDL (test code = 4.35 RATIO 2238) LIPID [id number] 00:00:00 Test Item Value Reference Range Interpretation Comments CHOLESTEROL (test code = 2210) 212 MG/DL TRIGLYCERIDES (test code = 2232) 178 MG/DL HDL CHOLESTEROL (test code = 2220) 33 MG/DL CALCULATED LDL CHOL (test code = 143 MG/DL 2237) RISK RATIO LDL/HDL (test code = 4.35 RATIO 2238) COMPREHENSIVE METABOLIC [id number] 00:00:00 Test Item Value Reference Range Interpretation Comments GLUCOSE (test code = 2217) 212 MG/DL BUN (test code = 2208) 15 MG/DL CREATININE (test code = 2214) 0.75 MG/DL eGFR AMER. (test code 103 ML/MIN/1.73 = 25626) eGFR NON- AMER. (test 88 ML/MIN/1.73 code = 56903) CALCULATED BUN/CREAT (test 20 RATIO code = [...] (test code = 2219) 15 U/L LIPID [id number] 00:00:00 Test Item Value Reference Range Interpretation Comments CHOLESTEROL (test code = 2210) 231 MG/DL TRIGLYCERIDES (test code = 2232) 295 MG/DL HDL CHOLESTEROL (test code = 2220) 39 MG/DL CALCULATED LDL CHOL (test code = 133 MG/DL 2236) RISK RATIO LDL/HDL (test code = 3.41 RATIO 2237) HEMOGLOBIN [id number] 00:00:00 Test Item Value Reference Range Interpretation Comments HEMOGLOBIN A1c (test code = 48551) 8.1 % HEMOGLOBIN [id number] 00:00:00 Test Item Value Reference Range Interpretation Comments HEMOGLOBIN A1c (test code = 32499) 8.1 % COMPREHENSIVE METABOLIC [id number] 00:00:00 Test Item Value Reference Range Interpretation Comments GLUCOSE (test code = 7) 212 MG/DL BUN (test code = 8) 15 MG/DL CREATININE (test code = 2214) 0.75 MG/DL eGFR AMER. (test code 103 ML/MIN/1.73 = 81106) eGFR NON- AMER. (test 88 ML/MIN/1.73 code = 08460) CALCULATED BUN/CREAT (test 20 RATIO code = [...] (ALT) (test code = 2219) 15 U/L COMPREHENSIVE METABOLIC [id number] 00:00:00 Test Item Value Reference Range Interpretation Comments GLUCOSE (test code = 2217) 212 MG/DL BUN (test code = 2208) 15 MG/DL CREATININE (test code = 2214) 0.75 MG/DL eGFR AMER. (test code 103 ML/MIN/1.73 = 83339) eGFR NON- AMER. (test 88 ML/MIN/1.73 code = 36071) CALCULATED BUN/CREAT (test 20 RATIO code = [...] (test code = 2219) 15 U/L LIPID [id number] 00:00:00 Test Item Value Reference Range Interpretation Comments CHOLESTEROL (test code = 2210) 231 MG/DL TRIGLYCERIDES (test code = 2232) 295 MG/DL HDL CHOLESTEROL (test code = 2220) 39 MG/DL CALCULATED LDL CHOL (test code = 133 MG/DL 2236) RISK RATIO LDL/HDL (test code = 3.41 RATIO 2238) LIPID [id number] 00:00:00 Test Item Value Reference Range Interpretation Comments CHOLESTEROL (test code = 2210) 231 MG/DL TRIGLYCERIDES (test code = 2232) 295 MG/DL HDL CHOLESTEROL (test code = 2220) 39 MG/DL CALCULATED LDL CHOL (test code = 133 MG/DL 7) RISK RATIO LDL/HDL (test code = 3.41 RATIO 2238) HEMOGLOBIN [id number] 00:00:00 Test Item Value Reference Range Interpretation Comments HEMOGLOBIN A1c (test code = 63085) 8.1 % HEMOGLOBIN [id number] 00:00:00 Test Item Value Reference Range Interpretation Comments HEMOGLOBIN A1c (test code = 59050) 8.1 % HEMOGLOBIN [id number] 00:00:00 Test Item Value Reference Range Interpretation Comments HEMOGLOBIN A1c (test code = 98101) 8.1 % LIPID [id number] 00:00:00 Test Item Value Reference Range Interpretation Comments CHOLESTEROL (test code = 2210) 197 MG/DL TRIGLYCERIDES (test code = 2232) 136 MG/DL HDL CHOLESTEROL (test code = 2220) 31 MG/DL CALCULATED LDL CHOL (test code = 139 MG/DL 2237) RISK RATIO LDL/HDL (test code = 4.48 RATIO 2238) HEMOGLOBIN [id number] 00:00:00 Test Item Value Reference Range Interpretation Comments HEMOGLOBIN A1c (test code = 64749) 8.0 % HEMOGLOBIN [id number] 00:00:00 Test Item Value Reference Range Interpretation Comments HEMOGLOBIN A1c (test code = 68846) 8.0 % LIPID [id number] 00:00:00 Test Item Value Reference Range Interpretation Comments CHOLESTEROL (test code = 2210) 197 MG/DL TRIGLYCERIDES (test code = 2232) 136 MG/DL HDL CHOLESTEROL (test code = 2220) 31 MG/DL CALCULATED LDL CHOL (test code = 139 MG/DL 2237) RISK RATIO LDL/HDL (test code = 4.48 RATIO 2238) LIPID [id number] 00:00:00 Test Item Value Reference Range Interpretation Comments CHOLESTEROL (test code = 2210) 197 MG/DL TRIGLYCERIDES (test code = 2232) 136 MG/DL HDL CHOLESTEROL (test code = 2220) 31 MG/DL CALCULATED LDL CHOL (test code = 139 MG/DL 2237) RISK RATIO LDL/HDL (test code = 4.48 RATIO 2238) HEMOGLOBIN [id number] 00:00:00 Test Item Value Reference Range Interpretation Comments HEMOGLOBIN A1c (test code = 34070) 8.0 % HEMOGLOBIN [id number] 00:00:00 Test Item Value Reference Range Interpretation Comments HEMOGLOBIN A1c (test code = 95530) 8.0 % HEMOGLOBIN [id number] 00:00:00 Test Item Value Reference Range Interpretation Comments HEMOGLOBIN A1c (test code = 14779) 8.0 % THYROID II PROFILE (T3U, T4, T7, TSH)[id number] 00:00:00 Test Item Value Reference Range Interpretation Comments T3 UPTAKE (test code = 2817) 29.9 % T4 (THYROXINE) (test code = 2819) 8.2 UG/DL CALCULATED T7 (FTI) (test code = 2.45 2820) TSH (test code = 2821) 1.1 UIU/ML LIPID [id number] 00:00:00 Test Item Value Reference Range Interpretation Comments CHOLESTEROL (test code = 2210) 203 MG/DL TRIGLYCERIDES (test code = 2232) 195 MG/DL HDL CHOLESTEROL (test code = 2220) 30 MG/DL CALCULATED LDL CHOL (test code = 134 MG/DL 2236) RISK RATIO LDL/HDL (test code = 4.47 RATIO 2237) HEMOGLOBIN [id number] 00:00:00 Test Item Value Reference Range Interpretation Comments HEMOGLOBIN A1c (test code = 84689) 9.7 % HEMOGLOBIN [id number] 00:00:00 Test Item Value Reference Range Interpretation Comments HEMOGLOBIN A1c (test code = 73039) 9.7 % COMPREHENSIVE METABOLIC [id number] 00:00:00 Test Item Value Reference Range Interpretation Comments GLUCOSE (test code = 2217) 182 MG/DL BUN (test code = 2208) 18 MG/DL CREATININE (test code = 2214) 0.7 MG/DL eGFR AMER. (test code 105 ML/MIN/1.73 = 20664) eGFR NON- AMER. (test 87 ML/MIN/1.73 code = 48355) CALCULATED BUN/CREAT (test 26 RATIO code = [...] BILIRUBIN, TOTAL (test code = 0.4 MG/DL 7) ALKALINE PHOSPHATASE (test 105 U/L code = 2204) SGOT (AST) (test code = 2218) 13 U/L SGPT (ALT) (test code = 2219) 10 U/L CBC W/AUTO [id number] 00:00:00 Test Item Value Reference Range Interpretation [...] code = 1015) 197 K/UL CBC W/AUTO [id number] 00:00:00 Test Item Value Reference Range Interpretation [...] COUNT (test code = 1015) 197 K/UL THYROID II PROFILE (T3U, T4, T7, TSH)[id number] 00:00:00 Test Item Value Reference Range Interpretation Comments T3 UPTAKE (test code = 2817) 29.9 % T4 (THYROXINE) (test code = 2819) 8.2 UG/DL CALCULATED T7 (FTI) (test code = 2.45 2820) TSH (test code = 2821) 1.1 UIU/ML THYROID II PROFILE (T3U, T4, T7, TSH)[id number] 00:00:00 Test Item Value Reference Range Interpretation Comments T3 UPTAKE (test code = 2817) 29.9 % T4 (THYROXINE) (test code = 2819) 8.2 UG/DL CALCULATED T7 (FTI) (test code = 2.45 2820) TSH (test code = 2821) 1.1 UIU/ML LIPID [id number] 00:00:00 Test Item Value Reference Range Interpretation Comments CHOLESTEROL (test code = 2210) 203 MG/DL TRIGLYCERIDES (test code = 2232) 195 MG/DL HDL CHOLESTEROL (test code = 2220) 30 MG/DL CALCULATED LDL CHOL (test code = 134 MG/DL 2237) RISK RATIO LDL/HDL (test code = 4.47 RATIO 2238) LIPID [id number] 00:00:00 Test Item Value Reference Range Interpretation Comments CHOLESTEROL (test code = 2210) 203 MG/DL TRIGLYCERIDES (test code = 2232) 195 MG/DL HDL CHOLESTEROL (test code = 2220) 30 MG/DL CALCULATED LDL CHOL (test code = 134 MG/DL 2237) RISK RATIO LDL/HDL (test code = 4.47 RATIO 2238) HEMOGLOBIN [id number] 00:00:00 Test Item Value Reference Range Interpretation Comments HEMOGLOBIN A1c (test code = 79853) 9.7 % HEMOGLOBIN [id number] 00:00:00 Test Item Value Reference Range Interpretation Comments HEMOGLOBIN A1c (test code = 50223) 9.7 % HEMOGLOBIN [id number] 00:00:00 Test Item Value Reference Range Interpretation Comments HEMOGLOBIN A1c (test code = 07217) 9.7 % COMPREHENSIVE METABOLIC [id number] 00:00:00 Test Item Value Reference Range Interpretation Comments GLUCOSE (test code = 2217) 182 MG/DL BUN (test code = 2208) 18 MG/DL CREATININE (test code = 2214) 0.7 MG/DL eGFR AMER. (test code 105 ML/MIN/1.73 = 25922) eGFR NON- AMER. (test 87 ML/MIN/1.73 code = 77848) CALCULATED BUN/CREAT (test 26 RATIO code = [...] (ALT) (test code = 2219) 10 U/L COMPREHENSIVE METABOLIC [id number] 00:00:00 Test Item Value Reference Range Interpretation Comments GLUCOSE (test code = 2217) 182 MG/DL BUN (test code = 2208) 18 MG/DL CREATININE (test code = 2214) 0.7 MG/DL eGFR AMER. (test code 105 ML/MIN/1.73 = 46655) eGFR NON- AMER. (test 87 ML/MIN/1.73 code = 32697) CALCULATED BUN/CREAT (test 26 RATIO code = [...] code = 2219) 10 U/L CBC W/AUTO [id number] 00:00:00 Test Item Value Reference Range Interpretation [...] code = 1015) 197 K/UL CBC W/AUTO [id number] 00:00:00 Test Item Value Reference Range Interpretation [...] code = 1015) 197 K/UL CBC W/AUTO [id number] 00:00:00 Test Item Value Reference Range Interpretation [...]
[2022-07-25] MEDS ORDERED: ASPIRIN 81 MG CHEWABLE TABLET ONE (05:34)
[2022-07-25 05:37] LABS: Absolute Lymphocytes (CBC) 0.5 K/uL (0.7-4.9); Hematocrit 43.9 % (36.0-45.0); Lymphocytes % 6.7 % (15.3-44.8); MCV 86.3 fL (80-100); MPV 8.3 fL (7.6-11.3); RBC Red Blood Cell Count 5.09 M/uL (3.86-4.86)
[2022-07-25] MEDS ORDERED: LABETALOL 20 MG/4ML SYRINGE IV ONE ×3 (05:55→13:47)
[2022-07-25 06:01] LABS: Magnesium 1.8 mg/dL (1.8-2.4); Potassium 3.7 mmol/L (3.5-5.1); Troponin High Sensitivity 16.2 pg/mL (<58.9)
[2022-07-25 06:49] LABS: SARS-COV-2 RT PCR NEGATIVE (NEGATIVE)
--- NOTE | 2022-07-25 06:56 | ER ---
Nurse's Notes [facility] Name: Ellen Winston Age: 61 yrs Sex: Female : 1960 Arrival Date: 07/25/2022 Time: 05:01 Bed 24 Private MD: Diagnosis: Chest pain, unspecified;Hypertensive urgency;Elevated BNP Presentation: 07/25 05:22 Chief complaint: Patient states: she has been having light headaches for several weeks bb but last night her headache got significantly worse she felt some pressure on her chest and into her neck when she took her blood pressure this morning it was 222/90. Coronavirus screen: At this time, the client does not indicate any symptoms associated with coronavirus-19. Ebola Screen: No symptoms or risks identified at this time. Initial Sepsis Screen: Does the patient meet any 2 criteria? No. Patient's initial sepsis screen is negative. Does the patient have a suspected source of infection? No. Patient's initial sepsis screen is negative. Risk Assessment: Do you want to hurt yourself or someone else? Patient reports no desire to harm self or others. Onset of symptoms was July 24, 2022. 05:22 Method Of Arrival: Ambulatory bb 05:22 Acuity: TYRONE 2 bb Historical: - Allergies: 05:25 No Known Allergies; bb - PMHx: 05:25 abnormal EKG; Diabetes - NIDDM; Hyperlipidemia; Hypertension; UTI; bb - Immunization history:: Moderna x 2. - Social history:: Smoking status: Patient reports the use of cigarette tobacco products. Screenin:27 Abuse screen: Denies threats or abuse. Nutritional screening: No deficits noted. kl Tuberculosis screening: No symptoms or risk factors identified. Fall Risk None identified. Assessment: 05:26 General: Appears distressed, uncomfortable, Behavior is calm, cooperative. Pain: Complains of pain in top of head and forehead. Neuro: Level of Consciousness is awake, alert, obeys commands, Oriented to person, place, time, situation, Blister Packing Machine Tender are equal bilaterally Moves all extremities. Full function Gait is steady, Speech is normal, Facial droop on right. Cardiovascular: Rhythm is sinus rhythm. Respiratory: No deficits noted. GI: No deficits noted. : No deficits noted. EENT: No deficits noted. No signs and/or symptoms were reported regarding the EENT system. 06:43 Reassessment: Patient appears in no apparent distress at this time. Patient and/or kl family updated on plan of care and expected duration. Pain level reassessed. Patient is alert, oriented x 3, equal unlabored respirations, skin warm/dry/pink. Patient states symptoms have improved. Vital Signs: 05:22 BP 213 / 79; Pulse 107; Resp 18 S; Pulse Ox 97% on R/A; Weight 52.16 kg (R); Height 4 bb ft. 8 in. (142.24 cm) (R); Pain 9/10; 05:27 BP 208 / 79; Pulse 91; Resp 18; Temp 99.7(O); Pulse Ox 98% on R/A; kl 06:27 BP 164 / 66; Pulse 72; Resp 16; Pulse Ox 98% on R/A; kl 05:22 Body Mass Index 25.78 (52.16 kg, 142.24 cm) bb ED Course: 05:01 Patient arrived in ED. bp1 05:02 José Miguel Ying DO is Attending Physician. ms3 05:25 Triage completed. bb 05:25 Inserted saline lock: 20 gauge in right forearm, using aseptic technique. Blood kl collected. 05:25 Arm band placed on Patient placed in an exam room, on monitoring tech, on pulse bb oximetry. EKG completed in triage. Results shown to MD. 06:23 CT Head Brain wo Cont In Process Unspecified. EDMS 06:26 XRAY Chest (1 view) In Process Unspecified. EDMS 06:54 Jesus Huang MD is Hospitalizing Provider. ms3 08:26 Virginie Suarez RN is Primary Nurse. jl7 Administered Medications: 05:35 Drug: Aspirin Chewable Tablet 324 mg Route: PO; 3 09:09 Follow up: Response: No adverse reaction jl7 06:00 Drug: Labetalol 10 mg Route: IV; Rate: calculated rate; Site: right antecubital; 3 06:28 Follow up: Response: No adverse reaction; Marked relief of symptoms 07:00 Follow up: Response: No adverse reaction; IV Status: Completed infusion jl7 09:09 Drug: Tussionex Pennkinetic ER (chlorpheniramine-hydrocodone) Suspension 5 ml Route: PO;jl7 Outcome: 06:55 Decision to Hospitalize by Provider. ms3 07/26 05:15 Patient left the ED. bb Signatures: Dispatcher [employer] EDMS Tiffanie Chen, RN RN Pascale Lai RN RN Virginie Anna RN RN jl7 José Miguel Ying DO DO ms3 Zandra Bronson [place], RN RN ll3
--- NOTE | 2022-07-25 06:56 | EDPHYS ---
Physician Documentation [facility] Name: Ellen Winston Age: 61 yrs Sex: Female : 1960 Arrival Date: 07/25/2022 Time: 05:01 Bed 24 Private MD: ED Physician José Miguel Ying HPI: 07/25 05:47 This 61 yrs old Female presents to ER via Ambulatory with complaints of High ms3 Blood Pressure, Headache. 05:49 61-year-old female with past medical history of previous abnormal EKG, diabetes, ms3 hyperlipidemia, hypertension presents for cough, headache, chest pressure that has been ongoing for 2 weeks. Patient denies alleviating or inciting factors. Patient states currently she has a 9/10 frontal headache that is throbbing. Patient denies alleviating or inciting factors. Historical: - Allergies: 05:25 No Known Allergies; bb - PMHx: 05:25 abnormal EKG; Diabetes - NIDDM; Hyperlipidemia; Hypertension; UTI; bb - Immunization history:: Moderna x 2. - Social history:: Smoking status: Patient reports the use of cigarette tobacco products. ROS: 05:49 Constitutional: Negative for fever, and chills. Neck: Negative for injury, pain, and ms3 swelling. 05:49 Respiratory: Negative for shortness of breath, cough, wheezing, and pleuritic chest pain, Skin: Negative for injury, rash, and discoloration, Psych: Negative for depression, anxiety, suicide ideation, homicidal ideation, and hallucinations. 05:49 Cardiovascular: Positive for chest pain. 05:49 Respiratory: Positive for cough. 05:49 All other systems are negative. Exam: 05:17 ECG was reviewed by the Attending Physician. ms3 05:49 Constitutional: This is a well developed, well nourished patient who is awake, alert, ms3 and in no acute distress. Head/Face: Normocephalic, atraumatic. Neck: Trachea midline, no cervical lymphadenopathy. Supple, full range of motion without nuchal rigidity, or vertebral point tenderness. No Meningismus. Chest/axilla: Normal chest wall appearance and motion. Nontender with no deformity. Cardiovascular: Regular rate and rhythm with a normal S1 and S2. No gallops, murmurs, or rubs. Normal PMI, no JVD. No pulse deficits. Respiratory: Lungs have equal breath sounds bilaterally, clear to auscultation and percussion. No rales, rhonchi or wheezes noted. No increased work of breathing, no retractions or nasal flaring. Skin: Warm, dry with normal turgor. Normal color with no rashes, no lesions, and no evidence of cellulitis. MS/ Extremity: Pulses equal, no cyanosis. Neurovascular intact. Full, normal range of motion. Psych: Awake, alert, with orientation to person, place and time. Behavior, mood, and affect are within normal limits. Vital Signs: 05:22 BP 213 / 79; Pulse 107; Resp 18 S; Pulse Ox 97% on R/A; Weight 52.16 kg (R); Height 4 bb ft. 8 in. (142.24 cm) (R); Pain 9/10; 05:27 BP 208 / 79; Pulse 91; Resp 18; Temp 99.7(O); Pulse Ox 98% on R/A; kl 06:27 BP 164 / 66; Pulse 72; Resp 16; Pulse Ox 98% on R/A; kl 05:22 Body Mass Index 25.78 (52.16 kg, 142.24 cm) bb MDM: 05:24 Patient medically screened. ms3 05:49 Differential Diagnosis ACS vs Abnormal EKG vs HTN urgency. ms3 07:09 Data reviewed: vital signs, nurses notes, lab test result(s), EKG, radiologic studies, ms3 and as a result, I will admit patient. Counseling: I had a detailed discussion with the patient and/or guardian regarding: the historical points, exam findings, and any diagnostic results supporting the discharge/admit diagnosis, lab results, radiology results, the need for further work-up and treatment in the hospital. ED course: Discussed case with Dr Huang and he accepts patient. All questions answered.. 07/25 05:26 Order name: Basic Metabolic Panel; Complete Time: 06:51 ms3 07/25 05:26 Order name: CBC with Diff; Complete Time: 06:51 ms3 07/25 05:26 Order name: Magnesium; Complete Time: 06:51 ms3 07/25 05:26 Order name: NT PRO-BNP; Complete Time: 06:51 ms3 07/25 05:26 Order name: Troponin HS; Complete Time: 06:51 ms3 07/25 05:52 Order name: COVID-19/FLU A+B (Document "Date of Onset" if Symptomatic); Complete Time: mw2 06:51 07/25 08:47 Order name: CBC with Automated Diff; Complete Time: 03:57 EDMS 07/25 08:47 Order name: Comprehensive Metabolic Panel; Complete Time: 03:57 EDMS 07/25 08:47 Order name: Magnesium; Complete Time: 03:57 EDMS 07/25 08:47 Order name: Phosphorus; Complete Time: 03:57 EDMS 07/25 08:47 Order name: Protime (+INR); Complete Time: 03:57 EDMS 07/25 08:47 Order name: PTT, Activated Partial Thromb; Complete Time: 03:57 EDMS 07/25 08:47 Order name: Thyroid Stimulating Hormone; Complete Time: 03:57 EDMS 07/25 05:26 Order name: XRAY Chest (1 view) ms3 07/25 08:47 Order name: Urinalysis EDMS 07/25 08:47 Order name: CKMB Creatine Kinase MB EDMS 07/25 08:47 Order name: CKMB Creatine Kinase MB; Complete Time: 13:44 EDMS 07/25 08:47 Order name: CKMB Creatine Kinase MB EDMS 07/25 08:47 Order name: CKMB Creatine Kinase MB EDMS 07/25 08:47 Order name: Troponin High Sensitivity EDMS 07/25 08:47 Order name: Troponin High Sensitivity; Complete Time: 13:44 EDMS 07/25 08:47 Order name: Troponin High Sensitivity; Complete Time: 20:33 EDMS 07/25 11:08 Order name: Lipase; Complete Time: 13:44 EDMS 07/25 12:00 Order name: Glucose, Ancillary Testing; Complete Time: 13:44 EDMS 07/25 16:45 Order name: Glucose, Ancillary Testing; Complete Time: 20:33 EDMS 07/25 20:13 Order name: Glucose, Ancillary Testing; Complete Time: 20:33 EDMS 07/26 03:35 Order name: Lipid Profile; Complete Time: 03:57 EDMS 07/26 04:51 Order name: Urine Microscopic Only bb 07/25 05:26 Order name: EKG; Complete Time: 05:28 ms3 07/25 05:26 Order name: Cardiac monitoring; Complete Time: 05:28 ms3 07/25 05:26 Order name: EKG - Nurse/Tech; Complete Time: 05:28 ms3 07/25 05:26 Order name: IV Saline Lock; Complete Time: 05:28 ms3 07/25 05:26 Order name: Labs collected and sent; Complete Time: 05:28 ms3 07/25 05:26 Order name: O2 Per Protocol; Complete Time: 05:28 ms3 07/25 05:26 Order name: O2 Sat Monitoring; Complete Time: 05:28 ms3 07/25 06:01 Order name: CT Head Brain wo Cont ms3 07/25 08:47 Order name: Heart Healthy EDMS 07/25 08:47 Order name: EKG Electrocardiogram EDMS 07/25 08:47 Order name: EKG Electrocardiogram EDMS 07/25 08:47 Order name: EKG Electrocardiogram EDMS 07/25 10:54 Order name: US; Complete Time: 13:44 EDMS EC:17 Rate is 96 beats/min. Rhythm is regular. Left axis deviation noted. ND interval is ms3 normal. QRS interval is normal. T waves are Inverted in lead I. Clinical impression: NSR w/ Non-specific ST/T Changes. Interpreted by me. Reviewed by me. Administered Medications: 05:35 Drug: Aspirin Chewable Tablet 324 mg Route: PO; [facility] 09:09 Follow up: Response: No adverse reaction [facility] 06:00 Drug: Labetalol 10 mg Route: IV; Rate: calculated rate; Site: right antecubital; [facility] 06:28 Follow up: Response: No adverse reaction; Marked relief of symptoms 07:00 Follow up: Response: No adverse reaction; IV Status: Completed infusion 7 09:09 Drug: Tussionex Pennkinetic ER (chlorpheniramine-hydrocodone) Suspension 5 ml Route: PO;jl7 Disposition Summary: 07/25/22 06:55 Hospitalization Ordered Hospitalization Status: Observation ms3 Provider: Jesus Huang ms3 Condition: Stable ms3 Problem: new ms3 Symptoms: are unchanged ms3 Bed/Room Type: Standard ms3 Location: Telemetry/MedSurg (observation)(07/26/22 03:06) cg Room Assignment: [facility](07/26/22 03:06) cg Diagnosis - Chest pain, unspecified ms3 - Hypertensive urgency ms3 - Elevated BNP ms3 Forms: - Medication Reconciliation Form ms3 - SBAR form ms3 Signatures: Dispatcher [employer] EDMS Florecita Burgos, TEXTILE SLITTING MACHINE OPERATOR-C TEXTILE SLITTING MACHINE OPERATOR-Csnw Pascale Marsh, RN RN bb Jordon Maza, TEXTILE SLITTING MACHINE OPERATOR-C TEXTILE SLITTING MACHINE OPERATOR-Cla1 Sheba Ackerman RN RN cg Virginie Suarez RN RN jl7 José Miguel Ying, DO ms3 Charbel Nguyen RN RN 3 Tiffanie Chen RN kl Corrections: (The following items were deleted from the chart) 06:23 05:59 Head Brain W/ Wo Con+CT.RAD.BRZ ordered. EDMS EDMS 15:12 06:55 Telemetry/MedSurg (observation) ms3 jl7 15:12 06:55 ms3 jl7 07/26 03:06 07/25 15:12 [facility] ER HOLD jl7 cg 07/26 03:06 07/25 15:12 ERHOLD- jl7 cg
--- NOTE | 2022-07-25 08:56 | P.HP ---
Patient History Date of Service: 07/25/22 Allergies No Known Allergies Allergy (Verified 08/06/16 02:11) Home Medications: Amlodipine [Norvasc*] 10 mg PO DAILY #30 tab 08/07/16 Ciprofloxacin HCl [Cipro 500 MG Tablet] 500 mg PO BID #10 tab 08/07/16 Metformin HCl [Glucophage] 500 mg PO BIDWM 08/07/16 lisinopriL [Prinivil*] 20 mg PO DAILY #30 tab 08/07/16 - Past Medical/Surgical History Diabetic: Yes -: HTN -: hypercholesterol -: hysterectomy -: tonsillectomy - Social History Alcohol use: No CD- Drugs: No Caffeine use: Yes Physical Examination - Studies Laboratory Data (last 24 hrs) 07/25/22 05:20: WBC 6.90, Hgb 14.6, Hct 43.9, Plt Count 183 07/25/22 05:20: Sodium 136, Potassium 3.7, BUN 18, Creatinine 0.83, Glucose 238 H, Magnesium 1.8 Assessment and Plan - Advance Directives Does patient have a Living Will: No Does patient have a Durable POA for Healthcare: No
[2022-07-25] MEDS ORDERED: HYDROCODONE/CHLORPHEN 5 ML/OSYR ONE (09:07)
--- NOTE | 2022-07-25 09:08 | P.HP ---
Certification for Inpatient With expected LOS: <2 Midnights Patient will require the following post-hospital care: None Practitioner: I am a practitioner with admitting privileges, knowledge of patient current condition, hospital course, and medical plan of care. Services: Services provided to patient in accordance with Admission requirements found in Title 42 Section 412.3 of the Code of Federal Regulations <Florecita Burgos - Last Filed: 07/25/22 14:05> Patient History Date of Service: 07/25/22 (162/55, 72, 16, 99.2. 98%RA, 52kg) Primary Care Provider: [facility], Dr. Perez Reason for admission: Chest pain, headache History of Present Illness: Ms. Winston is a 61yo female with a PMH of HTN, hypercholesterolemia, NIDDM, and low vitamin D who presented to [facility] ED with chest pressure, severe headache, "indigestion". Pt was evaluated in the ED and noted to have a SBP over 200mm/Hg. She rec'd Labetolol 10mg IV in the ED and her current BP is 162/55. She will be admitted for observation. Home medications list reviewed: Yes - Past Medical/Surgical History Has patient received pneumonia vaccine in the past: No Diabetic: Yes -: HTN -: hypercholesterol -: hysterectomy -: tonsillectomy - Family History Family History: Reviewed- Non-Contributory - Social History Smoking Status: Light Tobacco smoker (1-9 cigarettes/day) Counseled patient to stop smoking for: less than 10 minutes Alcohol use: No CD- Drugs: No Caffeine use: Yes Place of Residence: Home (Pt lives at home alone, has children that "know what to do") <Florecita Burgos - Last Filed: 07/25/22 14:05> Date of Service: 07/25/22 <Jesus Huang - Last Filed: 07/25/22 17:28> Allergies No Known Allergies Allergy (Verified 08/06/16 02:11) Home Medications: Metformin HCl [Glucophage] 500 mg PO BIDWM 08/07/16 Aspirin [Aspirin EC 81 MG] 81 mg PO DAILY 07/25/22 Atorvastatin Calcium [Lipitor] 20 mg PO BEDTIME 07/25/22 Dapagliflozin Propanediol [Farxiga] 5 mg PO DAILY 07/25/22 lisinopriL [Prinivil*] 30 mg PO DAILY 07/25/22 Review of Systems General: Malaise Eyes: Unremarkable ENT: Unremarkable Respiratory: Cough, Dry Cardiovascular: Chest Pain, Other (pressure up chest into neck) Gastrointestinal: Other (indigestion) Genitourinary: Unremarkable Musculoskeletal: Unremarkable Integumentary: Unremarkable Neurological: Other (headache x 7 days) Lymphatics: Unremarkable <LorettaFlorecita - Last Filed: 07/25/22 14:05> Physical Examination - Vital Signs Temperature: 99.2 F Blood Pressure: 162/55 Pulse: 72 Respirations: 19 Pulse Ox (%): 98 - Physical Exam General: Alert, In no apparent distress HEENT: Atraumatic Neck: 2+ carotid pulse no bruit, Bruit Respiratory: Clear to auscultation bilaterally Cardiovascular: No edema, Normal pulses, Regular rate/rhythm Capillary refill: <2 Seconds Gastrointestinal: Normal bowel sounds, Tenderness (mild mid abd tenderness) Musculoskeletal: No clubbing, No swelling Integumentary: No rashes Neurological: Normal speech, Normal strength at 5/5 x4 extr, Normal tone - Studies Laboratory Data (last 24 hrs) 07/25/22 05:20: WBC 6.90, Hgb 14.6, Hct 43.9, Plt Count 183 07/25/22 05:20: Sodium 136, Potassium 3.7, BUN 18, Creatinine 0.83, Glucose 238 H, Magnesium 1.8 <LorettaFlorecita - Last Filed: 07/25/22 14:05> - Studies Laboratory Data (last 24 hrs) 07/25/22 05:20: WBC 6.90, Hgb 14.6, Hct 43.9, Plt Count 183 07/25/22 05:20: Sodium 136, Potassium 3.7, BUN 18, Creatinine 0.83, Glucose 238 H, Magnesium 1.8 <Jesus Huang - Last Filed: 07/25/22 17:28> Assessment and Plan - Problems (Diagnosis) (1) Chest pain Current Visit: Yes Status: Acute Plan: Will obtain serial cardiac enzymes, EKG tracings, observe on telemetry. Continue daily ASA, Atorvastatin, and Lisinopril. Obtain ECHO and consult Cardiology Qualifiers: Chest pain type: precordial pain Qualified Code(s): R07.2 - Precordial pain (2) Diabetes Current Visit: Yes Status: Acute Plan: FSBS AC&HS, mild sliding scale insulin coverage Qualifiers: Diabetes mellitus type: type 2 Diabetes mellitus complication status: without complication (3) Hypertensive urgency Current Visit: Yes Status: Acute Plan: Reduce blood pressure about 20% within 24h, goal systolic about 170 in first 24h Discharge Plan: Home Plan to discharge in: 24 Hours - Advance Directives Does patient have a Living Will: No Does patient have a Durable POA for Healthcare: No - Code Status/Comfort Care Code Status Assessed: Yes Code Status: Full Code Time Spent Managing Pts Care (In Minutes): 70 <Florecita Burgos - Last Filed: 07/25/22 14:05> Physician Review: Patient Assessed, Agree with Above Assessment and Plan <Jseus Huang - Last Filed: 07/25/22 17:28>
--- NOTE | 2022-07-25 10:54 | RAD REPORT ---
EXAM DESCRIPTION: US - CP - 07/25/2022 10:12 am CLINICAL HISTORY: dizziness COMPARISON: MRA Neck W/Wo Cont dated 02/05/2021 TECHNIQUE: Real-time sonographic evaluation of both carotid systems was performed. Doppler interroga tion was performed with waveform tracing bilaterally. FINDINGS: Normal high resistance waveforms are noted in both external carotid arteries. The common c arotid arteries and internal carotid arteries show normal low resistance waveforms. Mild hard and soft plaque at the right and left carotid bifurcation mid common carotid arteries. Peak systolic and end diastolic velocity values and the ICA/CCA ratios are in the non-hemodynamically sig nificant range. Antegrade flow seen in both vertebral arteries. IMPRESSION: Mild atherosclerotic disease.No evidence of a hemodynamically significant stenosis.
[2022-07-25 11:07] LABS: Lipase 203 U/L (73-393); Troponin High Sensitivity 17.4 pg/mL (<58.9)
[2022-07-25 11:08] LABS: CKMB Creatine Kinase MB < 1.0 ng/mL (1.0-3.6)
[2022-07-25] MEDS: INSULIN -REGULAR HUMAN 50 UNIT/0.5 ML ML SQ SCH ×3 (11:30→21:00)
[2022-07-25] MEDS: ENOXAPARIN 40 MG/0.4 ML SQ SCH (12:09)
[2022-07-25] MEDS ORDERED: ACETAMINOPHEN 500 MG TAB ONE (13:41)
[2022-07-25] MEDS ORDERED: ACETAMINOPHEN 500 MG TAB PO ONE (13:53)
[2022-07-25 15:05] VITALS: BMI 23.2
[2022-07-25] MEDS ORDERED: MORPHINE 2 MG/ML SYR IV ONE (18:03)
[2022-07-25] MEDS ORDERED: MORPHINE 2 MG/ML SYR ONE ×2 (18:28→19:53)
[2022-07-25] MEDS ORDERED: lisinopriL 10 MG TAB ONE (19:53)
[2022-07-25] MEDS ORDERED: ATORVASTATIN 20 MG TAB ONE (19:53)
[2022-07-25] MEDS: ATORVASTATIN 20 MG TAB PO SCH (20:08)
[2022-07-25] MEDS: lisinopriL 10 MG TAB PO SCH (20:08)
[2022-07-25] MEDS ORDERED: lisinopriL 20 MG TAB PO SCH (21:00)
[2022-07-25] MEDS ORDERED: INSULIN -REGULAR HUMAN 50 UNIT/0.5 ML ML ONE (21:39)
[2022-07-25] MEDS ORDERED: BENZONATATE 100 MG CAP PO ONE (21:56)
[2022-07-25] MEDS ORDERED: HYDRALAZINE HCL 20 MG/ML VIAL ONE (22:33)
[2022-07-25] MEDS: HYDRALAZINE HCL 20 MG/ML VIAL IV PRN (22:34)
[2022-07-25] MEDS: METOPROLOL TAR 25 MG TAB PO SCH (23:38)
[2022-07-26] MEDS ORDERED: METOPROLOL TAR 50 MG TAB ONE (00:02)
[2022-07-26] MEDS ORDERED: BENZONATATE 100 MG CAP PO ONE (02:23)
[2022-07-26] MEDS: BENZONATATE 100 MG CAP PO PRN ×2 (02:25→13:41)
[2022-07-26 02:57] LABS: Absolute Lymphocytes (CBC) 0.4 K/uL (0.7-4.9); Hematocrit 42.7 % (36.0-45.0); Lymphocytes % 6.8 % (15.3-44.8); MPV 8.6 fL (7.6-11.3); RBC Red Blood Cell Count 4.96 M/uL (3.86-4.86)
[2022-07-26 03:03] LABS: Protime INR 1.04
[2022-07-26 03:43] LABS: Albumin 3.5 g/dL (3.4-5.0); Bilirubin Total 0.4 mg/dL (0.2-1.0); Magnesium 2.1 mg/dL (1.8-2.4); Phosphorus 2.3 mg/dL (2.5-4.9); Potassium 3.4 mmol/L (3.5-5.1); Protein, Total 7.4 g/dL (6.4-8.2); Thyroid Stimulating Hormone 0.624 uIU/mL (0.360-3.740)
[2022-07-26] MEDS ORDERED: ACETAMINOPHEN 325 MG TABLET PO PRN (04:00)
[2022-07-26] MEDS ORDERED: ACETAMINOPHEN 325 MG TABLET ONE (04:14)
[2022-07-26 05:16] LABS: Urine Bacteria <20 /HPF (<20); Urine Mucus 1+ /HPF (None Seen); Urine RBC <5 /HPF (None Seen)
[2022-07-26] MEDS: METOPROLOL TAR 25 MG TAB PO SCH ×2 (06:00→17:18)
[2022-07-26] MEDS: INSULIN -REGULAR HUMAN 50 UNIT/0.5 ML ML SQ SCH ×4 (07:30→21:18)
[2022-07-26] MEDS: ASPIRIN EC 81 MG TAB PO SCH (08:27)
[2022-07-26] MEDS: ENOXAPARIN 40 MG/0.4 ML SQ SCH (08:27)
[2022-07-26] MEDS ORDERED: POTASSIUM CL SA 10 MEQ TAB PO ONE (09:00)
[2022-07-26] MEDS ORDERED: CEFTRIAXONE 1,000 MG in NA CHLORIDE 0.9% 50 ML IVPB ONE (11:00)
[2022-07-26] MEDS: HYDRALAZINE HCL 20 MG/ML VIAL IV PRN (11:44)
--- NOTE | 2022-07-26 13:00 | RAD REPORT ---
EXAM DESCRIPTION: CT - Head Brain Wo Cont - 07/25/2022 11:25 pm CLINICAL HISTORY: 61 years Female Headache, new or worsening TECHNIQUE: Axial noncontrast CT head with coronal and sagittal reformats. All CT scans at this [facility] use dose modulation, iterative reconstruction, and/or weight based dosing when appropriate to red uce radiation dose to as low as reasonably achievable. COMPARISON: 02/05/2021. FINDINGS: Brain: No intracranial hemorrhage, midline shift, mass or mass effect. No obvious large ac [place] infarction. Ventricles: No hydrocephalus. Orbits: Unremarkable. Sinuses: Visualized portions are clear. Mastoid: Clear. Osseous: Unremarkable. Soft tissues: Unremarkable. IMPRESSION: No acute findings. Electronically signed by: Con Medina MD 07/25/2022 6:47 AM LIGHTER CAPTAIN Due to temporary technical issues with the PACS/Fluency reporting system, reports are being signed by the in house radiologists without review as a courtesy to insure prompt reporting. The interpreting radiologist is fully responsible for the content of the report.
--- NOTE | 2022-07-26 13:02 | RAD REPORT ---
EXAM DESCRIPTION: RAD - Chest Single View - 07/25/2022 6:24 am CLINICAL HISTORY: CHEST PAIN COMPARISON: Chest Single View dated 02/05/2021; CHEST SINGLE VIEW dated 05/23/2014; CHEST SINGLE VIEW dated 02/28/2014 FINDINGS: Lines: None. Lungs: No evidence of edema or pneumonia. Pleural: No significant pleural effusions or pneumothorax. Cardiac: Similar size and configuration Mediastinum: Within normal limits. Bones: No acute fractures. Other: None IMPRESSION: No acute cardiopulmonary disease.
--- NOTE | 2022-07-26 14:11 | P.PN ---
Subjective Date of Service: 07/26/22 Subjective: No new changes, No C/O voiced Patient had a fever of 102. Patient denies any shortness of breath but she is having a persisting cough. Patient with no complaints of diarrhea or nausea and vomiting. No dysuria. Review of Systems 10-point ROS is otherwise unremarkable Physical Examination - Vital Signs Temperature: 99.1 F Blood Pressure: 182/74 Pulse: 80 Respirations: 18 Pulse Ox (%): 95 - Physical Exam General: Alert, In no apparent distress HEENT: Atraumatic, PERRLA, EOMI Neck: Supple, JVD not distended Respiratory: Clear to auscultation bilaterally, Normal air movement Cardiovascular: Regular rate/rhythm, Normal S1 S2 Gastrointestinal: Normal bowel sounds, No tenderness Musculoskeletal: No tenderness Integumentary: No rashes Neurological: Normal speech, Normal tone, Normal affect Lymphatics: No axilla or inguinal lymphadenopathy - Studies Medications List Reviewed: Yes Assessment & Plan - Problems (Diagnosis) (1) Fever Current Visit: Yes Status: Acute (2) Chest pain Current Visit: Yes Status: Acute Qualifiers: Chest pain type: precordial pain Qualified Code(s): R07.2 - Precordial pain (3) Diabetes Current Visit: Yes Status: Acute Qualifiers: Diabetes mellitus type: type 2 Diabetes mellitus complication status: without complication (4) Hypertensive urgency Current Visit: Yes Status: Acute (5) UTI (urinary tract infection) Onset Date: 08/09/16 Current Visit: No Status: Acute Qualifiers: Urinary tract infection type: acute cystitis Hematuria presence: without hematuria Qualified Code(s): N30.00 - Acute cystitis without hematuria - Plan Plan: 1. Continue with cardiac meds 2. Fever etiology unknown. Continue with antibiotics 3. Stress test pending. 4. Possible discharge in a.m. if afebrile and cardiac work-up unremarkable 5. GI and DVT prophylaxis Discharge Plan: Home Plan to discharge in: 24 Hours - Advance Directives Does patient have a Living Will: No Does patient have a Durable POA for Healthcare: No - Code Status/Comfort Care Code Status: Full Code Physician Review: Patient Assessed, Agree with Above Assessment and Plan Critical Care: No Time Spent Managing PTS Care (In Minutes): 35
--- NOTE | 2022-07-26 14:37 | ECHO ---
HEIGHT: 4 ft 11 in WEIGHT: 115 lb 0 oz DATE OF STUDY: 07/26/[address]: Florecita Coker ANIMAL THERAPIST-BC 2-DIMENSIONAL: YES M.MODE: YES DOPPLER: YES COLOR FLOW: YES TDS: PORTABLE: YES DEFINITY: BUBBLE STUDY: DIAGNOSIS: CHEST PAIN CARDIAC HISTORY: CATHERIZATION: NO SURGERY: NO PROSTHETIC VALVE: NO PACEMAKER: NO MEASUREMENTS (cm) DIASTOLIC (NORMALS) SYSTOLIC (NORMALS) IVSd 1.3 (0.6-1.2) LA Diam 2.6 (1.9-4.0) LVEF 65% LVIDd 3.6 (3.5-5.7) LVIDs 2.3 (2.0-3.5) %FS 35% LVPWd 1.3 (0.6-1.2) Ao Diam 2.2 (2.0-3.7) 2 DIMENSIONAL ASSESSMENT: RIGHT ATRIUM: NORMAL LEFT ATRIUM: NORMAL RIGHT VENTRICLE: NORMAL LEFT VENTRICLE: NORMAL TRICUSPID VALVE: NORMAL MITRAL VALVE: MILD MITRAL REGURGITATION PULMONIC VALVE: NORMAL AORTIC VALVE: NORMAL PERICARDIAL EFFUSION: NONE AORTIC ROOT: NORMAL LEFT VENTRICULAR WALL MOTION: NORMAL DOPPLER/COLOR FLOW: MILD MITRAL REGURGITATION COMMENTS: 1. NORMAL LEFT VENTRICULAR EJECTION FRACTION 60-65%. 2. NORMAL WALL MOTION 3. MILD MITRAL REGURGITATION. TECHNOLOGIST: ALEXANDER HAMMONDS
--- NOTE | 2022-07-26 14:42 | CON ---
Date of Consultation: 07/25/2022 Reason For Consultation: Chest pain. History Of Present Illness: A 61-year-old female with history of hypertension, malignant, uncontroll ed. Has dyslipidemia, diabetes, presented due to chest pressure, severe headaches. Chest pain has i mproved after arrival to the emergency room, but the headache was severe. Her systolic blood pressur e was above 200 and has been running high. Past Medical History: As outlined above in the HPI. Medications: Refer to reconciliation sheet for detailed list. Allergies: NO KNOWN DRUG ALLERGIES. Family History: No premature coronary artery disease or cancer. Social History: She does not smoke or drink. Does not use any drugs. Review of Systems: All systems reviewed and they were negative except what mentioned in HPI. Physical Examination: Vital Signs: Reviewed. Head and Neck: Pupils are equal, reactive to light. Intact eye movements. No JVD. No cervical lym phadenopathy. Neck is supple. Thyroid is not enlarged. Lungs: Clear to auscultation bilaterally. No rhonchi, wheezing, or crackles. No accessory muscle u se. Heart: Regular rate and rhythm. No extra sounds. Abdomen: Soft, nontender. Bowel sounds positive. No organomegaly. No masses or hernia. No rigidi ty or rebound. Extremities: No edema, clubbing, or cyanosis. Intact pulses. Skin: No rash. Neurologic: Alert, awake, oriented x3. No acute focal deficits appreciated. Investigations: Labs were reviewed. Troponins were negative. BUN is 18, creatinine 0.8. Assessment And Recommendations: 1.Chest pain. No acute EKG changes; however, she has LVH changes due to significant hypertension. Cardiac enzymes are negative. Recommend exercise nuclear stress test and an echocardiogram to furthe r evaluate. 2.Hypertensive crisis. Blood pressure has improved with medications and we will monitor just for sy stolic blood pressure to be less than 140. SR/MODL Voice ID: [id number] Report ID: [id number]
--- NOTE | 2022-07-26 15:09 | EKG ---
Test Date: 2022-07-25 Test Time: 05:17:51 Sawmill Manager: [place] MEASUREMENT RESULTS: Intervals: Rate: 96 ID: [id number] QRSD: 72 QT: 356 QTc: 449 [place]: P: -16 ID: [id number] QRS: -13 T: 153 INTERPRETIVE STATEMENTS: Normal sinus rhythm Left ventricular hypertrophy with repolarization abnormality Abnormal ECG Compared to ECG 02/05/2021 11:06:55 Left ventricular hypertrophy now present Early repolarization now present Sinus bradycardia no longer present Myocardial infarct finding no longer present ST (T wave) deviation no longer present Possible ischemia no longer present Electronically Signed On 07-26-22 15:08:03 PAVING BED MAKER by Kalen Olivera
[2022-07-26] MEDS ORDERED: GUAIFENESIN/CODEINE 5ML UCUP PO ONE (19:00)
[2022-07-26] MEDS: lisinopriL 10 MG TAB PO SCH (21:12)
[2022-07-26] MEDS: ATORVASTATIN 20 MG TAB PO SCH (21:14)
[2022-07-27 02:05] VITALS: O2SAT 95
[2022-07-27] MEDS: BENZONATATE 100 MG CAP PO PRN (04:39)
[2022-07-27] MEDS: METOPROLOL TAR 25 MG TAB PO SCH (06:02)
[2022-07-27] MEDS: INSULIN -REGULAR HUMAN 50 UNIT/0.5 ML ML SQ SCH (08:30)
[2022-07-27] MEDS: ASPIRIN EC 81 MG TAB PO SCH (08:31)
[2022-07-27] MEDS: ENOXAPARIN 40 MG/0.4 ML SQ SCH (08:31)
[2022-07-27] MEDS ORDERED: POTASSIUM 25 MEQ EFFERV TAB PO ONE (09:00)
[2022-07-27 09:20] VITALS: BP 181/89; TEMP 98
== END 2022-07-27 10:40 | disposition home or self-care (01) | DRG 305 ==
LOC: ER 04:58 → ERHOLD 08:32 → 4TH 07-26 04:30 → OBSVTOIN 07-26 14:04
PROVIDERS: ADMIT Internal Medicine; ATTEND Hospitalist
DX: I16.0 Hypertensive urgency (principal); R07.2 Precordial pain; E11.9 Type 2 diabetes mellitus without complications; R50.9 Fever, unspecified; R05.3 Chronic cough; E78.5 Hyperlipidemia, unspecified; E78.00 Pure hypercholesterolemia, unspecified; E55.9 Vitamin D deficiency, unspecified; F17.210 Nicotine dependence, cigarettes, uncomplicated; Z71.6 Tobacco abuse counseling; Z79.84 Long term (current) use of oral hypoglycemic drugs; Z79.82 Long term (current) use of aspirin; Z79.899 Other long term (current) drug therapy; Z90.710 Acquired absence of both cervix and uterus
CPT/HCPCS: 0240U; 36415; 70450; 71045; 80048; 80053; 80061; 81015; 82553; 82947; 83690; 83735; 83880; 84100; 84132; 84443; 84484; 85025; 85610; 85730; 93005; 93306; 93880; 96365; 99284; G0378; J0360; J1650; J1815; J2270

== ENCOUNTER 2022-11-13 20:25 | Emergency (ER) | payer SELFPAY ==
--- OUTSIDE RECORDS SUMMARY | 2022-11-13 20:33 | XMS REPORT | Continuity of Care Document ---
:1960 Author Organization [facility] t Address [address] [facility] [address] [place] [address] Care Team Providers Name Role Phone LINDA GU Primary Care Physician Unavailable KAELA FARRELL Attending Clinician Unavailable Doctor Unassigned, [place] Attending Clinician Unavailable OLAYINKA ARCE Attending Clinician Unavailable OLAYINKA ARCE Attending Clinician Unavailable Kaela Farrell MD Attending Clinician Problems Condition Condition Condition Status Onset Resolution Last Treating Co mments Source Name Details Category Date Date Treatment Clinician Date Overweight Overweight Disease Active U nivers 4-04 ity of 00:00: [address] BMI BMI Disease Active Univers 25.0-25.9, 25.0-25.9, 4-04 it y of adult adult 00:00: [address] Mammogram Mammogram Disease Active Uni vers abnormal abnormal 4-04 ity of 00:00: [address] Cervix Cervix Disease Active Univers abnormalit abnormalit 6-11 it y of y y 00:00: [address] HSIL (high HSIL (high Disease Active [...] different from the original. 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 Utility Essential Essential Disease Active Uni vers hypertensi hypertensi 529 it y [place] [facility] Allergies, Adverse Reactions, Alerts Allergy Allergy Status Severity Reaction(s) Onset Inactive Treating Comm ents Source Name Type Date Date Clinician Michael Stauffer Active Intraven ty to 7-05 ous adverse 00:00: reaction 00 to drug NO KNOWN Drug Active [facility] ALLERGIE Class ity of S [facility] Social History Social Habit Start Date Stop Date Quantity Comments Source History of tobacco Cigarette Smoker University of use [facility] Exposure to Not sure [facility] SARS-CoV-2 (event) [facility] Alcohol intake 2021-03-09 2021-03-09 Current University 00:00:00 00:00:00 non-drinker of [facility] alcohol [place] (finding) Cigarettes smoked 2014-02-07 2014-02-07 Univers ity of current (pack per 00:00:00 00:00:00 ) - Reported Branch Cigarette 2014-02-07 2014-02-07 University of pack-years 00:00:00 00:00:00 [facility] Tobacco use and 2014-02-07 2014-02-07 Never used Universit y of exposure 00:00:00 00:00:00 [facility] Tobacco Comment 2014-02-07 2014-02-07 smokes 6 x per Unive rsity of 00:00:00 00:00:00 day [facility] Sex Ass[birth year] At [birth year] Universit y of 00:00:00 00:00:00 [facility] Smoking Status Start Date Stop Date Source Current every day smoker 2014-02-07 00:00:00 Uni versity of [facility] Medications Ordered Filled Start Stop Current Ordering [...] 7-31 tablet 00:00: 00 glipiZIDE 5 Yes [id number] 5mg Take 5 mg Univers mg tablet 6-28 by mouth ity of 18:22: daily. [address] pioglitazon Yes [id number] 15mg Take 15 mg Univers e 15 mg 6-28 by mouth ity of tablet 18:22: daily. [address] atorvastati Yes [id number] 40mg Take 40 mg Univers n 40 mg 6-28 by mouth ity of tablet 18:22: at [place] [address] bedtime. [facility] glipiZIDE 5 Yes [id number] 5mg Take 5 mg Univers mg tablet 6-28 by mouth ity of 18:22: daily. [address] pioglitazon Yes [id number] 15mg Take 15 mg Univers e 15 mg 6-28 by mouth ity of tablet 18:22: daily. [address] atorvastati Yes [id number] 40mg Take 40 mg Univers n 40 mg 6-28 by mouth ity of tablet 18:22: at [place] [address] bedtime. [facility] lisinopril Yes [id number] 20mg Take 20 mg Univers 20 mg 6-28 by mouth ity of tablet 18:20: daily. [address] lisinopril Yes [id number] 20mg Take 20 mg Univers 20 mg 6-28 by mouth ity of tablet 18:20: daily. [address] glipiZIDE 5 Yes [id number] 5mg Take 5 mg Univers mg tablet 6-28 by mouth ity of 13:22: daily. [address] pioglitazon Yes [id number] 15mg Take 15 mg Univers e 15 mg 6-28 by mouth ity of tablet 13:22: daily. [address] atorvastati 2020-0 Yes [id number] 40mg Take 40 mg Univers n 40 mg 6-28 by mouth ity of tablet 13:22: at [place] [address] bedtime. Medical Branch lisinopril 2020-0 Yes [id number] 20mg Take 20 mg Univers 20 mg 6-28 by mouth ity of tablet 13:20: daily. [address] clopidogreL 2020-0 Yes 75mg Take 75 mg Univers 75 mg 5-28 by mouth ity of tablet 00:00: daily. [address] aspirin 81 2020-0 Yes 81mg Take 81 mg U nivers mg chewable 5-28 by mouth ity of tablet 00:00: daily. [address] foLIC acid 2020-0 Yes 1mg Take 1 mg Un chaitanya 1 mg tablet 5-28 by mouth ity of 00:00: daily. [address] clopidogreL 2020-0 Yes 75mg Take 75 mg Univers 75 mg 5-28 by mouth ity of tablet 00:00: daily. [address] aspirin 81 2020-0 Yes 81mg Take 81 mg U nivers mg chewable 5-28 by mouth ity of tablet 00:00: daily. [address] foLIC acid 2020-0 Yes 1mg Take 1 mg Un chaitanya 1 mg tablet 5-28 by mouth ity of 00:00: daily. [address] clopidogreL 2020-0 Yes 75mg Take 75 mg Univers 75 mg 5-28 by mouth ity of tablet 00:00: daily. [address] aspirin 81 2020-0 Yes 81mg Take 81 mg U nivers mg chewable 5-28 by mouth ity of tablet 00:00: daily. [address] foLIC acid 2020-0 Yes 1mg Take 1 mg Un chaitanya 1 mg tablet 5-28 by mouth ity of 00:00: daily. [address] glipizide 5 2020-0 No 1mg mg [...] 6-25 tablet 00:00: 00 lisinopril 2019-0 Yes [id number] 20mg Take 20 mg Univers 20 mg 4-04 by mouth ity of tablet 15:13: daily. [address] glipiZIDE 5 Yes [id number] 5mg Take 5 mg Univers mg tablet 4-04 by mouth ity of 15:13: daily. [address] pioglitazon Yes [id number] 15mg Take 15 mg Univers e 15 mg 4-04 by mouth ity of tablet 15:13: daily. [address] atorvastati Yes [id number] 40mg Take 40 mg Univers n 40 mg 4-04 by mouth ity of tablet 15:13: at [place] [address] bedtime. Medical Branch lisinopril 0 Yes [id number] 20mg Take 20 mg Univers 20 mg 4-04 by mouth ity of tablet 15:13: daily. [address] Branch glipiZIDE 5 Yes [id number] 5mg Take 5 mg Univers mg tablet 4-04 by mouth ity of 15:13: daily. [address] pioglitazon Yes [id number] 15mg Take 15 mg Univers e 15 mg 4-04 by mouth ity of tablet 15:13: daily. [address] atorvastati Yes [id number] 40mg Take 40 mg Univers n 40 mg 4-04 by mouth ity of tablet 15:13: at [place] [address] bedtime. [facility] Branch lisinopril 0 No 1mg 20 mg [...] 1 Univer s ([facility] 1-[address] [facility] 1,000 mg 00:00: MOUTH [place] [...] 10 mg 00:00: daily. [place] tablet 00 [facility] amLODIPine Yes 10mg Take 1 Tab U nivers (NORVASC) 9-19 by mouth ity of 10 mg 00:00: daily. [place] tablet 00 [facility] amLODIPine Yes 10mg Take 1 Tab U nivers (NORVASC) 9-19 by mouth ity of 10 mg 00:00: daily. [place] tablet 00 [facility] amLODIPine Yes 10mg Take 1 Tab U nivers (NORVASC) 9-19 by mouth ity of 10 mg 00:00: daily. [place] tablet 00 [facility] amLODIPine Yes 10mg Take 1 Tab U nivers (NORVASC) 9-19 by mouth ity of 10 mg 00:00: daily. [place] tablet 00 [facility] metformin 2012-09 No 1mg 1,000 mg [...] Completed 00:00:00 Td 1979-09-12 Completed University 00:00:00 [facility] Td 1979-09-12 Completed University 00:00:00 [facility] 1979-09-12 Completed [facility] 00:00:00 [facility] 1979-09-12 Completed University of 00:00:00 [facility] Td 1979-09-12 Completed University of 00:00:00 [facility] Vital Signs Vital Name Observation Time Observation Value Comments Source Systolic blood 2021-03-09 18:25:00 136 mm[Hg] Univer sity of pressure [facility] Diastolic blood 2021-03-09 18:25:00 68 mm[Hg] Unive rsity of pressure [facility] Heart rate 2021-03-09 18:25:00 65 /min Universi ty [facility] Body height 2021-03-09 18:25:00 142.2 cm Universi ty [facility] Body weight 2021-03-09 18:25:00 51.71 [address]i [address] [facility] BMI 2021-03-09 18:25:00 25.56 kg/m2 [facility] Oxygen saturation in 2021-03-09 18:25:00 97 /min [facility] Arterial blood by [facility] Pulse oximetry Branch BP Systolic 2021-12-31 08:35:00 [...] Procedure Date / Time Performed Performing Clinician [facility] e REFERRAL- 2021-12-28 05:01:00 Doctor Unassigned, No [facility] REQUEST/RESPONSE Name Medical Branch CONSENT/REFUSAL FOR 2021-03-09 17:50:10 [facility] Branch TREATMENT REFERRAL- 2021-01-01 05:01:00 Doctor Unassigned, No Univer [facility] REQUEST/RESPONSE Name Medical Branch Plan of Care Planned Activity Planned Date Details Comments Source Goal Plan of Care Note [code = 28762-8] Goal Plan of Care Note [code = 34482-7] Goal Plan of Care Note [code = 27502-4] Goal Plan of Care Note [code = 18992-1] Goal Plan of Care Note [code = 19096-9] Goal Plan of Care Note [code = 05364-0] Goal Plan of Care Note [code = 21823-6] Goal Plan of Care Note [code = 66641-7] Goal Plan of Care Note [code = 98823-6] Goal Plan of Care Note [code = 50412-4] Goal Plan of Care Note [code = 63546-2] Goal Plan of Care Note [code = 43645-7] Goal Plan of Care Note [code = 45973-8] Goal Plan of Care Note [code = 51213-7] Goal Plan of Care Note [code = 55037-0] Goal Plan of Care Note [code = 18149-2] Goal Plan of Care Note [code = 73803-1] Goal Plan of Care Note [code = 88249-3] Goal Plan of Care Note [code = 24186-2] Goal Plan of Care Note [code = 35731-9] Goal Plan of Care Note [code = 16423-6] Goal Plan of Care Note [code = 98685-2] Goal Plan of Care Note [code = 26126-3] Goal Plan of Care Note [code = 94272-1] Goal Plan of Care Note [code = 59260-1] Goal Plan of Care Note [code = 52689-6] Goal Plan of Care Note [code = 13251-2] Goal Plan of Care Note [code = 45872-8] Goal Plan of Care Note [code = 98130-5] Goal Plan of Care Note [code = 84184-7] Goal Plan of Care Note [code = 56137-7] Goal Plan of Care Note [code = 52863-0] Goal Plan of Care Note [code = 93667-8] Goal Plan of Care Note [code = 35952-2] Goal Plan of Care Note [code = 39337-2] Goal Plan of Care Note [code = 10305-6] Goal Plan of Care Note [code = 47357-1] Goal Plan of Care Note [code = 44168-2] Goal Plan of Care Note [code = 53929-3] Goal Plan of Care Note [code = 49712-5] Goal Plan of Care Note [code = 06386-3] Goal Plan of Care Note [code = 69619-0] Goal Plan of Care Note [code = 95013-7] Goal Plan of Care Note [code = 11016-9] Goal Plan of Care Note [code = 83051-4] Goal Plan of Care Note [code = 06200-7] Goal Plan of Care Note [code = 26317-6] Goal Plan of Care Note [code = 45722-6] Goal Plan of Care Note [code = 47081-3] Goal Plan of Care Note [code = 89511-1] Goal Plan of Care Note [code = 89564-4] Goal Plan of Care Note [code = 36277-6] Goal Plan of Care Note [code = 98981-0] Goal Plan of Care Note [code = 78620-0] Goal Plan of Care Note [code = 54663-8] Goal Plan of Care Note [code = 83734-2] Goal Plan of Care Note [code = 33836-2] Goal Plan of Care Note [code = 37929-9] Goal Plan of Care Note [code = 00988-5] Goal Plan of Care Note [code = 66522-0] Goal Plan of Care Note [code = 74600-7] Goal Plan of Care Note [code = 11266-3] Goal Plan of Care Note [code = 69831-5] Goal Plan of Care Note [code = 03946-8] Goal Plan of Care Note [code = 19504-2] Goal Plan of Care Note [code = 77427-2] Goal Plan of Care Note [code = 58820-3] Goal Plan of Care Note [code = 84157-4] Goal Plan of Care Note [code = 31645-0] Encounters Start End Encounter Admission Attending Care Care Encounter Source Date/Time Date/Time Type Type Clinicians Facility Department ID 2022-06-17 2022-06-17 Outpatient [id number] 00:00:00 00:00:00 Visit [id number] 2022-04-16 2022-04-16 Outpatient Sujey FARRELL [facility] [id number] Univers 10:00:00 10:00:00 KAELA kim [facility] 2022-03-16 2022-03-16 Outpatient [id number] 00:00:00 00:00:00 Visit [id number] 2022-03-12 2022-03-12 [facility] [id number] Univers 11:20:00 11:20:00 KAELA kim [facility] 2022-02-11 2022-02-11 [facility] [id number] Univers 09:00:00 09:00:00 KAELA juanitagabi kim [facility] 2021-12-28 2021-12-28 Orders Doctor DELVIS [id number] Univers 00:00:00 00:00:00 Only Unassigned, JAMMIE 350.1.13.10 ity of [facility] 4.2.7.2.686 Kalin as [id number] [address] 2021-03-30 2021-03-30 Outpatient OLAYINKA LARSON [facility] [id number] Univers 10:00:00 10:00:[address] [facility] 2021-03-20 2021-03-20 [facility] [id number] Univers 11:00:00 11:00:00 RAMSEYIAN jhony julio [facility] 2021-03-09 2021-03-09 [facility] [id number] Univers 12:51:21 13:39:53 Visit Kaela Cherry 350.1.13.10 it[phone] [address] 2021-03-09 2021-03-09 Outpatient R BUD, [facility] [id number] Univers 13:20:00 13:20:00 KAELA booker o f [facility] 2021-03-09 2021-03-09 Orders Doctor DELVIS [id number] Univers 00:00:00 00:00:00 Only Unassigned, JAMMIE 350.1.13.10 ity of [place] [facility] 4.2.7.2.686 Kalin as [id number] [address] 2021-01-01 2021-01-01 Orders Doctor DELVIS 1.2.840.114 [id number] 00:00:00 00:00:00 Only Unassigned, JAMMIE 350.1.13.10 [place] [facility] 4.2.7.2.686 [id number] 2021-01-01 2021-01-01 Orders Doctor DELVIS Smith.[id number] Univers 00:00:00 00:00:00 Only Unassigned, JAMMIE 350.1.13.10 ity of [place] [facility] 4.2.7.2.686 [place] as [id number] [address] Results Test Description Test Time Test Comments Results Result Comments Source HEMOGLOBIN A1c 2022-01-01 21:30:08 Test Item Value Reference Range Interpretation Comme nts HEMOGLOBIN A1c (test code = 8.5 % 4.2-5.6 H [employer] 35030) GUIDELINES FOR HGB A1C: PREDIABETES/INC REASED RISK [...] OTHERWISE INDIC ATED, ALL TESTING PERFORMED [facility], [facility]. [address] [place] [id number] [place] [address] DIRECTOR: ROD NGUYEN M.D. CLIA NUMBER [id number] [place] [id number] HEMOGLOBIN A1c [ADDED]2022-01-01 00:00:00 Test Item Value Reference Range Interpretation Comments HEMOGLOBIN A1c (test code = 21274) 8.5 % HEMOGLOBIN A1c [ADDED]2022-01-01 00:00:00 Test Item Value Reference Range Interpretation Comments HEMOGLOBIN A1c (test code = 52603) 8.5 % HEMOGLOBIN A1c [ADDED]2022-01-01 00:00:00 Test Item Value Reference Range Interpretation Comments HEMOGLOBIN A1c (test code = 79865) 8.5 % HEMOGLOBIN A1c [ADDED]2022-01-01 00:00:00 Test Item Value Reference Range Interpretation Comments HEMOGLOBIN A1c (test code = 56341) 8.5 % HEMOGLOBIN A1c [ADDED]2022-01-01 00:00:00 Test Item Value Reference Range Interpretation Comments HEMOGLOBIN A1c (test code = 97948) 8.5 % HEMOGLOBIN [id number] 00:00:00 Test Item Value Reference Range Interpretation Comments HEMOGLOBIN A1c (test code = 89653) 10.4 % HEMOGLOBIN [id number] 00:00:00 Test Item Value Reference Range Interpretation Comments HEMOGLOBIN A1c (test code = 39810) 10.4 % LIPID [id number] 00:00:00 Test Item Value Reference Range Interpretation Comments CHOLESTEROL (test code = 2210) 230 MG/DL TRIGLYCERIDES (test code = 2232) 152 MG/DL HDL CHOLESTEROL (test code = 2220) 35 MG/DL CALC LDL CHOL (test code = 2237) 165 MG/DL RISK RATIO LDL/HDL (test code = 4.71 RATIO 2238) COMPREHENSIVE METABOLIC [id number] 00:00:00 Test Item Value Reference Range Interpretation Comments GLUCOSE (test code = 2217) 225 MG/DL BUN (test code = 2208) 17 MG/DL CREATININE (test code = 2214) 0.73 MG/DL eGFR (2020 CKD-EPI) (test code 92 ML/MIN/1.73 = 14292) CALC BUN/CREAT (test code = 23 RATIO [...] = 2219) 13 U/L VITAMIN D, 25 [id number] 00:00:00 Test Item Value Reference Range Interpretation Comments VITAMIN D, 25 [place] (test code = 4958) 9 NG/ML HEMOGLOBIN [id number] 00:00:00 Test Item Value Reference Range Interpretation Comments HEMOGLOBIN A1c (test code = 16553) 10.4 % HEMOGLOBIN [id number] 00:00:00 Test Item Value Reference Range Interpretation Comments HEMOGLOBIN A1c (test code = 87230) 10.4 % HEMOGLOBIN [id number] 00:00:00 Test Item Value Reference Range Interpretation Comments HEMOGLOBIN A1c (test code = 23346) 10.4 % LIPID [id number] 00:00:00 Test Item Value Reference Range Interpretation Comments CHOLESTEROL (test code = 2210) 230 MG/DL TRIGLYCERIDES (test code = 2232) 152 MG/DL HDL CHOLESTEROL (test code = 2220) 35 MG/DL CALC LDL CHOL (test code = 2237) 165 MG/DL RISK RATIO LDL/HDL (test code = 4.71 RATIO 2238) LIPID [id number] 00:00:00 Test Item Value Reference Range Interpretation Comments CHOLESTEROL (test code = 2210) 230 MG/DL TRIGLYCERIDES (test code = 2232) 152 MG/DL HDL CHOLESTEROL (test code = 2220) 35 MG/DL CALC LDL CHOL (test code = 2237) 165 MG/DL RISK RATIO LDL/HDL (test code = 4.71 RATIO 2238) COMPREHENSIVE METABOLIC [id number] 00:00:00 Test Item Value Reference Range Interpretation Comments GLUCOSE (test code = 2217) 225 MG/DL BUN (test code = 2208) 17 MG/DL CREATININE (test code = 2214) 0.73 MG/DL eGFR (2020 CKD-EPI) (test code 92 ML/MIN/1.73 = 65765) CALC BUN/CREAT (test code = 23 RATIO [...] code = 2219) 13 U/L COMPREHENSIVE METABOLIC [id number] 00:00:00 Test Item Value Reference Range Interpretation Comments GLUCOSE (test code = 2217) 225 MG/DL BUN (test code = 2208) 17 MG/DL CREATININE (test code = 2214) 0.73 MG/DL eGFR (2020 CKD-EPI) (test code 92 ML/MIN/1.73 = 16949) CALC BUN/CREAT (test code = 23 RATIO [...] = 2219) 13 U/L VITAMIN D, 25 [id number] 00:00:00 Test Item Value Reference Range Interpretation Comments VITAMIN D, 25 OH (test code = 4958) 9 NG/ML VITAMIN D, 25 [id number] 00:00:00 Test Item Value Reference Range Interpretation Comments VITAMIN D, 25 [place] (test code = 4958) 9 NG/ML HEMOGLOBIN [id number] 00:00:00 Test Item Value Reference Range Interpretation Comments HEMOGLOBIN A1c (test code = 13877) 9.6 % HEMOGLOBIN [id number] 00:00:00 Test Item Value Reference Range Interpretation Comments HEMOGLOBIN A1c (test code = 68868) 9.6 % LIPID [id number] 00:00:00 Test Item Value Reference Range Interpretation Comments CHOLESTEROL (test code = 2210) 227 MG/DL TRIGLYCERIDES (test code = 2232) 198 MG/DL HDL CHOLESTEROL (test code = 2220) 35 MG/DL CALC LDL CHOL (test code = 2237) 156 MG/DL RISK RATIO LDL/HDL (test code = 4.46 RATIO 2238) COMPREHENSIVE METABOLIC [id number] 00:00:00 Test Item Value Reference Range Interpretation Comments GLUCOSE (test code = 2217) 196 MG/DL BUN (test code = 2208) 13 MG/DL CREATININE (test code = 2214) 0.68 MG/DL eGFR AMER. (test code 109 ML/MIN/1.73 = 37913) eGFR NON- AMER. (test 94 ML/MIN/1.73 code = 62426) CALC BUN/CREAT (test code = 19 RATIO [...] = 2219) 14 U/L MICROALBUMIN/CREATININE, RANDOM AND [id number] 00:00:00 Test Item Value Reference Range Interpretation Comments CREATININE, URINE, CONC. (test 245.9 MG/DL code = 2072) ALBUMIN, URINE, RANDOM (test code 39.6 MG/DL = 70402) CALC ALBUMIN/CREAT, RND (test 161 MG/G code = 91987) VITAMIN D, 25 [id number] 00:00:00 Test Item Value Reference Range Interpretation Comments VITAMIN D, 25 OH (test code = 4958) 12 NG/ML HEMOGLOBIN [id number] 00:00:00 Test Item Value Reference Range Interpretation Comments HEMOGLOBIN A1c (test code = 32717) 9.6 % HEMOGLOBIN [id number] 00:00:00 Test Item Value Reference Range Interpretation Comments HEMOGLOBIN A1c (test code = 84320) 9.6 % HEMOGLOBIN [id number] 00:00:00 Test Item Value Reference Range Interpretation Comments HEMOGLOBIN A1c (test code = 49436) 9.6 % LIPID [id number] 00:00:00 Test Item Value Reference Range Interpretation Comments CHOLESTEROL (test code = 2210) 227 MG/DL TRIGLYCERIDES (test code = 2232) 198 MG/DL HDL CHOLESTEROL (test code = 2220) 35 MG/DL CALC LDL CHOL (test code = 2237) 156 MG/DL RISK RATIO LDL/HDL (test code = 4.46 RATIO 2238) LIPID [id number] 00:00:00 Test Item Value Reference Range Interpretation Comments CHOLESTEROL (test code = 2210) 227 MG/DL TRIGLYCERIDES (test code = 2232) 198 MG/DL HDL CHOLESTEROL (test code = 2220) 35 MG/DL CALC LDL CHOL (test code = 2237) 156 MG/DL RISK RATIO LDL/HDL (test code = 4.46 RATIO 2238) COMPREHENSIVE METABOLIC [id number] 00:00:00 Test Item Value Reference Range Interpretation Comments GLUCOSE (test code = 2217) 196 MG/DL BUN (test code = 2208) 13 MG/DL CREATININE (test code = 2214) 0.68 MG/DL eGFR AMER. (test code 109 ML/MIN/1.73 = 98951) eGFR NON- AMER. (test 94 ML/MIN/1.73 code = 53681) CALC BUN/CREAT (test code = 19 RATIO [...] code = 2219) 14 U/L COMPREHENSIVE METABOLIC [id number] 00:00:00 Test Item Value Reference Range Interpretation Comments GLUCOSE (test code = 2217) 196 MG/DL BUN (test code = 2208) 13 MG/DL CREATININE (test code = 2214) 0.68 MG/DL eGFR AMER. (test code 109 ML/MIN/1.73 = 04836) eGFR NON- AMER. (test 94 ML/MIN/1.73 code = 40663) CALC BUN/CREAT (test code = 19 RATIO [...] = 2219) 14 U/L MICROALBUMIN/CREATININE, RANDOM AND [id number] 00:00:00 Test Item Value Reference Range Interpretation Comments CREATININE, URINE, CONC. (test 245.9 MG/DL code = 2072) ALBUMIN, URINE, RANDOM (test code 39.6 MG/DL = 39668) CALC ALBUMIN/CREAT, RND (test 161 MG/G code = 94613) MICROALBUMIN/CREATININE, RANDOM AND [id number] 00:00:00 Test Item Value Reference Range Interpretation Comments CREATININE, URINE, CONC. (test 245.9 MG/DL code = 2072) ALBUMIN, URINE, RANDOM (test code 39.6 MG/DL = 94121) CALC ALBUMIN/CREAT, RND (test 161 MG/G code = 50084) VITAMIN D, 25 [id number] 00:00:00 Test Item Value Reference Range Interpretation Comments VITAMIN D, 25 OH (test code = 4958) 12 NG/ML VITAMIN D, 25 [id number] 00:00:00 Test Item Value Reference Range Interpretation Comments VITAMIN D, 25 OH (test code = 4958) 12 NG/ML [id number] 00:00:00 Test Item Value Reference Range Interpretation Comments TSH, THIRD GENERATION (test code 1.390 UIU/ML = 2821) [id number] 00:00:00 Test Item Value Reference Range Interpretation Comments TSH, THIRD GENERATION (test code 1.390 UIU/ML = 2821) CBC W/AUTO [id number] 00:00:00 Test Item Value Reference Range Interpretation [...] NUCLEATED RBCS (test code = 0.00 K/UL 46911) CBC W/AUTO [id number] 00:00:00 Test Item Value Reference Range Interpretation [...] NUCLEATED RBCS (test code = 0.00 K/UL 25058) HEMOGLOBIN [id number] 00:00:00 Test Item Value Reference Range Interpretation Comments HEMOGLOBIN A1c (test code = 60010) 11.6 % HEMOGLOBIN [id number] 00:00:00 Test Item Value Reference Range Interpretation Comments HEMOGLOBIN A1c (test code = 06361) 11.6 % COMPREHENSIVE METABOLIC [id number] 00:00:00 Test Item Value Reference Range Interpretation Comments GLUCOSE (test code = 2217) 301 MG/DL BUN (test code = 2208) 12 MG/DL CREATININE (test code = 2214) 0.70 MG/DL eGFR AMER. (test code 108 ML/MIN/1.73 = 14112) eGFR NON- AMER. (test 93 ML/MIN/1.73 code = 30331) CALC BUN/CREAT (test code = 17 RATIO [...] (test code = 2219) 16 U/L LIPID [id number] 00:00:00 Test Item Value Reference Range Interpretation Comments CHOLESTEROL (test code = 2210) 237 MG/DL TRIGLYCERIDES (test code = 2232) 208 MG/DL HDL CHOLESTEROL (test code = 2220) 39 MG/DL CALC LDL CHOL (test code = 2237) 161 MG/DL RISK RATIO LDL/HDL (test code = 4.13 RATIO 2238) MICROALBUMIN/CREATININE, RANDOM AND [id number] 00:00:00 Test Item Value Reference Range Interpretation Comments CREATININE, URINE, CONC. (test 43.9 MG/DL code = 2072) ALBUMIN, URINE, RANDOM (test code 8.6 MG/DL = 08653) CALC ALBUMIN/CREAT, RND (test code 196 MG/G = 09578) VITAMIN D, 25 [id number] 00:00:00 Test Item Value Reference Range Interpretation Comments VITAMIN D, 25 OH (test code = 4958) 8 NG/ML [id number] 00:00:00 Test Item Value Reference Range Interpretation Comments TSH, THIRD GENERATION (test code 1.390 UIU/ML = 2821) [id number] 00:00:00 Test Item Value Reference Range Interpretation Comments TSH, THIRD GENERATION (test code 1.390 UIU/ML = 2821) [id number] 00:00:00 Test Item Value Reference Range Interpretation Comments TSH, THIRD GENERATION (test code 1.390 UIU/ML = 2821) CBC W/AUTO [id number] 00:00:00 Test Item Value Reference Range Interpretation [...] NUCLEATED RBCS (test code = 0.00 K/UL 58100) CBC W/AUTO [id number] 00:00:00 Test Item Value Reference Range Interpretation [...] NUCLEATED RBCS (test code = 0.00 K/UL 15785) CBC W/AUTO [id number] 00:00:00 Test Item Value Reference Range Interpretation [...] NUCLEATED RBCS (test code = 0.00 K/UL 19832) HEMOGLOBIN [id number] 00:00:00 Test Item Value Reference Range Interpretation Comments HEMOGLOBIN A1c (test code = 88992) 11.6 % HEMOGLOBIN [id number] 00:00:00 Test Item Value Reference Range Interpretation Comments HEMOGLOBIN A1c (test code = 37574) 11.6 % HEMOGLOBIN [id number] 00:00:00 Test Item Value Reference Range Interpretation Comments HEMOGLOBIN A1c (test code = 25867) 11.6 % COMPREHENSIVE METABOLIC [id number] 00:00:00 Test Item Value Reference Range Interpretation Comments GLUCOSE (test code = 2217) 301 MG/DL BUN (test code = 2208) 12 MG/DL CREATININE (test code = 2214) 0.70 MG/DL eGFR AMER. (test code 108 ML/MIN/1.73 = 33413) eGFR NON- AMER. (test 93 ML/MIN/1.73 code = 23000) CALC BUN/CREAT (test code = 17 RATIO [...] code = 2219) 16 U/L COMPREHENSIVE METABOLIC [id number] 00:00:00 Test Item Value Reference Range Interpretation Comments GLUCOSE (test code = 2217) 301 MG/DL BUN (test code = 2208) 12 MG/DL CREATININE (test code = 2214) 0.70 MG/DL eGFR AMER. (test code 108 ML/MIN/1.73 = 14260) eGFR NON- AMER. (test 93 ML/MIN/1.73 code = 65935) CALC BUN/CREAT (test code = 17 RATIO [...] (test code = 2219) 16 U/L LIPID [id number] 00:00:00 Test Item Value Reference Range Interpretation Comments CHOLESTEROL (test code = 2210) 237 MG/DL TRIGLYCERIDES (test code = 2232) 208 MG/DL HDL CHOLESTEROL (test code = 2220) 39 MG/DL CALC LDL CHOL (test code = 2237) 161 MG/DL RISK RATIO LDL/HDL (test code = 4.13 RATIO 2238) LIPID [id number] 00:00:00 Test Item Value Reference Range Interpretation Comments CHOLESTEROL (test code = 2210) 237 MG/DL TRIGLYCERIDES (test code = 2232) 208 MG/DL HDL CHOLESTEROL (test code = 2220) 39 MG/DL CALC LDL CHOL (test code = 2237) 161 MG/DL RISK RATIO LDL/HDL (test code = 4.13 RATIO 2238) MICROALBUMIN/CREATININE, RANDOM AND [id number] 00:00:00 Test Item Value Reference Range Interpretation Comments CREATININE, URINE, CONC. (test 43.9 MG/DL code = 2072) ALBUMIN, URINE, RANDOM (test code 8.6 MG/DL = 00180) CALC ALBUMIN/CREAT, RND (test code 196 MG/G = 28808) MICROALBUMIN/CREATININE, RANDOM AND [id number] 00:00:00 Test Item Value Reference Range Interpretation Comments CREATININE, URINE, CONC. (test 43.9 MG/DL code = 2072) ALBUMIN, URINE, RANDOM (test code 8.6 MG/DL = 70303) CALC ALBUMIN/CREAT, RND (test code 196 MG/G = 83534) VITAMIN D, 25 [id number] 00:00:00 Test Item Value Reference Range Interpretation Comments VITAMIN D, 25 OH (test code = 4958) 8 NG/ML VITAMIN D, 25 [id number] 00:00:00 Test Item Value Reference Range Interpretation Comments VITAMIN D, 25 OH (test code = 4958) 8 NG/ML SARS-CoV-2 (COVID-19) by RT-PCR (HIGH RISK)2020-07-22 00:00:00 Test Item Value Reference Range Interpretation Comments SARS-CoV-2 INTERPRETATION Negative (test code = 70084) SOURCE (test code = 90107) Nasal_Swab_in_VTM__ UTM SARS-CoV-2 (COVID-19) by RT-PCR (HIGH RISK)2020-07-22 00:00:00 Test Item Value Reference Range Interpretation Comments SARS-CoV-2 INTERPRETATION Negative (test code = 63299) SOURCE (test code = 72969) Nasal_Swab_in_VTM__ UTM SARS-CoV-2 (COVID-19) by RT-PCR (HIGH RISK)2020-03-19 00:00:00 Test Item Value Reference Range Interpretation Comments SARS-CoV-2 INTERPRETATION (test NEGATIVE code = 78112) SOURCE (test code = 54527) NOT SPECIFIED SARS-CoV-2 (COVID-19) by RT-PCR (HIGH RISK)2020-03-19 00:00:00 Test Item Value Reference Range Interpretation Comments SARS-CoV-2 INTERPRETATION (test NEGATIVE code = 46837) SOURCE (test code = 83095) NOT SPECIFIED SARS-CoV-2 (COVID-19) by RT-PCR (HIGH RISK)2020-03-19 00:00:00 Test Item Value Reference Range Interpretation Comments SARS-CoV-2 INTERPRETATION (test NEGATIVE code = 89350) SOURCE (test code = 40007) NOT SPECIFIED COMPREHENSIVE METABOLIC [id number] 00:00:00 Test Item Value Reference Range Interpretation Comments GLUCOSE (test code = 2217) 184 MG/DL BUN (test code = 2208) 16 MG/DL CREATININE (test code = 2214) 0.65 MG/DL eGFR AMER. (test code 111 ML/MIN/1.73 = 53901) eGFR NON- AMER. (test 96 ML/MIN/1.73 code = 66759) CALC BUN/CREAT (test code = 25 RATIO [...] (test code = 2219) 14 U/L LIPID [id number] 00:00:00 Test Item Value Reference Range Interpretation Comments CHOLESTEROL (test code = 2210) 235 MG/DL TRIGLYCERIDES (test code = 2232) 166 MG/DL HDL CHOLESTEROL (test code = 2220) 36 MG/DL CALC LDL CHOL (test code = 2237) 168 MG/DL RISK RATIO LDL/HDL (test code = 4.67 RATIO 2238) HEMOGLOBIN [id number] 00:00:00 Test Item Value Reference Range Interpretation Comments HEMOGLOBIN A1c (test code = 35156) 8.3 % HEMOGLOBIN [id number] 00:00:00 Test Item Value Reference Range Interpretation Comments HEMOGLOBIN A1c (test code = 45024) 8.3 % THYROID II PROFILE (T3U, T4, T7, TSH)2020-01-24 00:00:00 Test Item Value Reference Range Interpretation Comments T-UPTAKE (test code = 2817) 33.1 % THYROX. BIND. CAPAC. (test code 1.0 = 96141) T4 (THYROXINE) (test code = 8.8 UG/DL 2819) CORRECTED T4 (FTI) (test code = 8.8 UG/DL 2820) TSH, THIRD GENERATION (test code 1.810 UIU/ML = 2821) COMPREHENSIVE METABOLIC [id number] 00:00:00 Test Item Value Reference Range Interpretation Comments GLUCOSE (test code = 2217) 184 MG/DL BUN (test code = 2208) 16 MG/DL CREATININE (test code = 2214) 0.65 MG/DL eGFR AMER. (test code 111 ML/MIN/1.73 = 09952) eGFR NON- AMER. (test 96 ML/MIN/1.73 code = 10885) CALC BUN/CREAT (test code = 25 RATIO [...] code = 2219) 14 U/L COMPREHENSIVE METABOLIC [id number] 00:00:00 Test Item Value Reference Range Interpretation Comments GLUCOSE (test code = 2217) 184 MG/DL BUN (test code = 2208) 16 MG/DL CREATININE (test code = 2214) 0.65 MG/DL eGFR AMER. (test code 111 ML/MIN/1.73 = 49140) eGFR NON- AMER. (test 96 ML/MIN/1.73 code = 33557) CALC BUN/CREAT (test code = 25 RATIO [...] (test code = 2219) 14 U/L LIPID [id number] 00:00:00 Test Item Value Reference Range Interpretation Comments CHOLESTEROL (test code = 2210) 235 MG/DL TRIGLYCERIDES (test code = 2232) 166 MG/DL HDL CHOLESTEROL (test code = 2220) 36 MG/DL CALC LDL CHOL (test code = 2237) 168 MG/DL RISK RATIO LDL/HDL (test code = 4.67 RATIO 2238) LIPID [id number] 00:00:00 Test Item Value Reference Range Interpretation Comments CHOLESTEROL (test code = 2210) 235 MG/DL TRIGLYCERIDES (test code = 2232) 166 MG/DL HDL CHOLESTEROL (test code = 2220) 36 MG/DL CALC LDL CHOL (test code = 2237) 168 MG/DL RISK RATIO LDL/HDL (test code = 4.67 RATIO 2238) HEMOGLOBIN [id number] 00:00:00 Test Item Value Reference Range Interpretation Comments HEMOGLOBIN A1c (test code = 82762) 8.3 % HEMOGLOBIN [id number] 00:00:00 Test Item Value Reference Range Interpretation Comments HEMOGLOBIN A1c (test code = 12119) 8.3 % HEMOGLOBIN [id number] 00:00:00 Test Item Value Reference Range Interpretation Comments HEMOGLOBIN A1c (test code = 18513) 8.3 % THYROID II PROFILE (T3U, T4, T7, TSH)2020-01-24 00:00:00 Test Item Value Reference Range Interpretation Comments T-UPTAKE (test code = 2817) 33.1 % THYROX. BIND. CAPAC. (test code 1.0 = 01312) T4 (THYROXINE) (test code = 8.8 UG/DL 2819) CORRECTED T4 (FTI) (test code = 8.8 UG/DL 2820) TSH, THIRD GENERATION (test code 1.810 UIU/ML = 2821) THYROID II PROFILE (T3U, T4, T7, TSH)2020-01-24 00:00:00 Test Item Value Reference Range Interpretation Comments T-UPTAKE (test code = 2817) 33.1 % THYROX. BIND. CAPAC. (test code 1.0 = 71117) T4 (THYROXINE) (test code = 8.8 UG/DL 2819) CORRECTED T4 (FTI) (test code = 8.8 UG/DL 2820) TSH, THIRD GENERATION (test code 1.810 UIU/ML = 2821) HEMOGLOBIN [id number] 00:00:00 Test Item Value Reference Range Interpretation Comments HEMOGLOBIN A1c (test code = 37134) 9.1 % HEMOGLOBIN [id number] 00:00:00 Test Item Value Reference Range Interpretation Comments HEMOGLOBIN A1c (test code = 84092) 9.1 % LIPID [id number] 00:00:00 Test Item Value Reference Range Interpretation Comments CHOLESTEROL (test code = 2210) 194 MG/DL TRIGLYCERIDES (test code = 2232) 192 MG/DL HDL CHOLESTEROL (test code = 2220) 33 MG/DL CALC LDL CHOL (test code = 2237) 123 MG/DL RISK RATIO LDL/HDL (test code = 3.72 RATIO 2238) HEMOGLOBIN [id number] 00:00:00 Test Item Value Reference Range Interpretation Comments HEMOGLOBIN A1c (test code = 08109) 9.1 % HEMOGLOBIN [id number] 00:00:00 Test Item Value Reference Range Interpretation Comments HEMOGLOBIN A1c (test code = 21988) 9.1 % HEMOGLOBIN [id number] 00:00:00 Test Item Value Reference Range Interpretation Comments HEMOGLOBIN A1c (test code = 92001) 9.1 % LIPID [id number] 00:00:00 Test Item Value Reference Range Interpretation Comments CHOLESTEROL (test code = 2210) 194 MG/DL TRIGLYCERIDES (test code = 2232) 192 MG/DL HDL CHOLESTEROL (test code = 2220) 33 MG/DL CALC LDL CHOL (test code = 2237) 123 MG/DL RISK RATIO LDL/HDL (test code = 3.72 RATIO 2238) LIPID [id number] 00:00:00 Test Item Value Reference Range Interpretation Comments CHOLESTEROL (test code = 2210) 194 MG/DL TRIGLYCERIDES (test code = 2232) 192 MG/DL HDL CHOLESTEROL (test code = 2220) 33 MG/DL CALC LDL CHOL (test code = 2237) 123 MG/DL RISK RATIO LDL/HDL (test code = 3.72 RATIO 2238) COMPREHENSIVE METABOLIC [id number] 00:00:00 Test Item Value Reference Range Interpretation Comments GLUCOSE (test code = 2217) 183 MG/DL BUN (test code = 2208) 16 MG/DL CREATININE (test code = 2214) 0.68 MG/DL eGFR AMER. (test code 110 ML/MIN/1.73 = 68893) eGFR NON- AMER. (test 95 ML/MIN/1.73 code = 71726) CALC BUN/CREAT (test code = 24 RATIO [...] (test code = 2219) 13 U/L LIPID [id number] 00:00:00 Test Item Value Reference Range Interpretation Comments CHOLESTEROL (test code = 2210) 216 MG/DL TRIGLYCERIDES (test code = 2232) 151 MG/DL HDL CHOLESTEROL (test code = 2220) 31 MG/DL CALC LDL CHOL (test code = 2237) 155 MG/DL RISK RATIO LDL/HDL (test code = 4.99 RATIO 2238) HEMOGLOBIN [id number] 00:00:00 Test Item Value Reference Range Interpretation Comments HEMOGLOBIN A1c (test code = 81581) 9.8 % HEMOGLOBIN [id number] 00:00:00 Test Item Value Reference Range Interpretation Comments HEMOGLOBIN A1c (test code = 17155) 9.8 % COMPREHENSIVE METABOLIC [id number] 00:00:00 Test Item Value Reference Range Interpretation Comments GLUCOSE (test code = 2217) 183 MG/DL BUN (test code = 2208) 16 MG/DL CREATININE (test code = 2214) 0.68 MG/DL eGFR AMER. (test code 110 ML/MIN/1.73 = 91594) eGFR NON- AMER. (test 95 ML/MIN/1.73 code = 05994) CALC BUN/CREAT (test code = 24 RATIO [...] code = 2219) 13 U/L COMPREHENSIVE METABOLIC [id number] 00:00:00 Test Item Value Reference Range Interpretation Comments GLUCOSE (test code = 2217) 183 MG/DL BUN (test code = 2208) 16 MG/DL CREATININE (test code = 2214) 0.68 MG/DL eGFR AMER. (test code 110 ML/MIN/1.73 = 82024) eGFR NON- AMER. (test 95 ML/MIN/1.73 code = 12365) CALC BUN/CREAT (test code = 24 RATIO [...] (test code = 2219) 13 U/L LIPID [id number] 00:00:00 Test Item Value Reference Range Interpretation Comments CHOLESTEROL (test code = 2210) 216 MG/DL TRIGLYCERIDES (test code = 2232) 151 MG/DL HDL CHOLESTEROL (test code = 2220) 31 MG/DL CALC LDL CHOL (test code = 2237) 155 MG/DL RISK RATIO LDL/HDL (test code = 4.99 RATIO 2238) LIPID [id number] 00:00:00 Test Item Value Reference Range Interpretation Comments CHOLESTEROL (test code = 2210) 216 MG/DL TRIGLYCERIDES (test code = 2232) 151 MG/DL HDL CHOLESTEROL (test code = 2220) 31 MG/DL CALC LDL CHOL (test code = 2237) 155 MG/DL RISK RATIO LDL/HDL (test code = 4.99 RATIO 2238) HEMOGLOBIN [id number] 00:00:00 Test Item Value Reference Range Interpretation Comments HEMOGLOBIN A1c (test code = 86033) 9.8 % HEMOGLOBIN [id number] 00:00:00 Test Item Value Reference Range Interpretation Comments HEMOGLOBIN A1c (test code = 54974) 9.8 % HEMOGLOBIN [id number] 00:00:00 Test Item Value Reference Range Interpretation Comments HEMOGLOBIN A1c (test code = 90809) 9.8 % SCR MAMM BILATERAL NATHANIEL CAD [id number] 07:51:23 - SCR MAMM BILATERAL NATHANIEL CAD DIGITALBILATERAL DIGITAL SCREENING MAMMOGRAM 3D/2D WITH CAD: 11/17/2018C LINICAL: Asymptomatic. Digital breast tomosynthesis was performed in addition to routine CC and MLO views. Current mammographic images were evaluated by either a [employer] M-Vu or a [employer] ImageChecker CAD (computer aided detection system). Comparison is made to exam dated 03/05/2014 mammogram - [facility]-Radiology File Room. There are scattered fibroglandular [...] Suero M.D. et/:12/05/2018 07:51:23 Attending Technologist: Mayra Nael MM, [facility] MammographyImaging Technologist: Taylor Naqvi MM, [facility] [place] [facility] Mammography[facility] sent: Additional Imaging Mammogram BI- RADS: 0 IndeterminateCULTURE, [id number] 00:00:00 Test Item Value Reference Range Interpretation Comments CULTURE, URINE (test SPECIMEN NUMBER: code = 84650) [id number] CULTURE, [id number] 00:00:00 Test Item Value Reference Range Interpretation Comments CULTURE, URINE (test SPECIMEN NUMBER: code = 36694) [id number] CULTURE, [id number] 00:00:00 Test Item Value Reference Range Interpretation Comments CULTURE, URINE (test SPECIMEN NUMBER: code = 26905) [id number] HEMOGLOBIN [id number] 00:00:00 Test Item Value Reference Range Interpretation Comments HEMOGLOBIN A1c (test code = 43959) 9.2 % HEMOGLOBIN [id number] 00:00:00 Test Item Value Reference Range Interpretation Comments HEMOGLOBIN A1c (test code = 58136) 9.2 % LIPID [id number] 00:00:00 Test Item Value Reference Range Interpretation Comments CHOLESTEROL (test code = 2210) 242 MG/DL TRIGLYCERIDES (test code = 2232) 194 MG/DL HDL CHOLESTEROL (test code = 2220) 37 MG/DL CALC LDL CHOL (test code = 2237) 166 MG/DL RISK RATIO LDL/HDL (test code = 4.49 RATIO 2238) COMPREHENSIVE METABOLIC [id number] 00:00:00 Test Item Value Reference Range Interpretation Comments GLUCOSE (test code = 2217) 204 MG/DL BUN (test code = 2208) 16 MG/DL CREATININE (test code = 2214) 0.78 MG/DL eGFR AMER. (test code 96 ML/MIN/1.73 = 67438) eGFR NON- AMER. (test 83 ML/MIN/1.73 code = 39800) CALC BUN/CREAT (test code = 21 RATIO [...] (test code = 2219) 21 U/L HEMOGLOBIN [id number] 00:00:00 Test Item Value Reference Range Interpretation Comments HEMOGLOBIN A1c (test code = 38374) 9.2 % HEMOGLOBIN [id number] 00:00:00 Test Item Value Reference Range Interpretation Comments HEMOGLOBIN A1c (test code = 45964) 9.2 % HEMOGLOBIN [id number] 00:00:00 Test Item Value Reference Range Interpretation Comments HEMOGLOBIN A1c (test code = 48770) 9.2 % LIPID [id number] 00:00:00 Test Item Value Reference Range Interpretation Comments CHOLESTEROL (test code = 2210) 242 MG/DL TRIGLYCERIDES (test code = 2232) 194 MG/DL HDL CHOLESTEROL (test code = 2220) 37 MG/DL CALC LDL CHOL (test code = 2237) 166 MG/DL RISK RATIO LDL/HDL (test code = 4.49 RATIO 2238) LIPID [id number] 00:00:00 Test Item Value Reference Range Interpretation Comments CHOLESTEROL (test code = 2210) 242 MG/DL TRIGLYCERIDES (test code = 2232) 194 MG/DL HDL CHOLESTEROL (test code = 2220) 37 MG/DL CALC LDL CHOL (test code = 2237) 166 MG/DL RISK RATIO LDL/HDL (test code = 4.49 RATIO 2238) COMPREHENSIVE METABOLIC [id number] 00:00:00 Test Item Value Reference Range Interpretation Comments GLUCOSE (test code = 2217) 204 MG/DL BUN (test code = 2208) 16 MG/DL CREATININE (test code = 2214) 0.78 MG/DL eGFR AMER. (test code 96 ML/MIN/1.73 = 36032) eGFR NON- AMER. (test 83 ML/MIN/1.73 code = 18374) CALC BUN/CREAT (test code = 21 RATIO [...] code = 2219) 21 U/L COMPREHENSIVE METABOLIC [id number] 00:00:00 Test Item Value Reference Range Interpretation Comments GLUCOSE (test code = 2217) 204 MG/DL BUN (test code = 2208) 16 MG/DL CREATININE (test code = 2214) 0.78 MG/DL eGFR AMER. (test code 96 ML/MIN/1.73 = 69272) eGFR NON- AMER. (test 83 ML/MIN/1.73 code = 74496) CALC BUN/CREAT (test code = 21 RATIO [...] code = 2219) 21 U/L COMPREHENSIVE METABOLIC [id number] 00:00:00 Test Item Value Reference Range Interpretation Comments GLUCOSE (test code = 2217) 143 MG/DL BUN (test code = 2208) 11 MG/DL CREATININE (test code = 2214) 0.69 MG/DL eGFR AMER. (test code 110 ML/MIN/1.73 = 57012) eGFR NON- AMER. (test 95 ML/MIN/1.73 code = 46062) CALC BUN/CREAT (test code = 16 RATIO [...] (test code = 2219) 24 U/L LIPID [id number] 00:00:00 Test Item Value Reference Range Interpretation Comments CHOLESTEROL (test code = 2210) 223 MG/DL TRIGLYCERIDES (test code = 2232) 147 MG/DL HDL CHOLESTEROL (test code = 2220) 39 MG/DL CALC LDL CHOL (test code = 2237) 155 MG/DL RISK RATIO LDL/HDL (test code = 3.96 RATIO 2238) HEMOGLOBIN [id number] 00:00:00 Test Item Value Reference Range Interpretation Comments HEMOGLOBIN A1c (test code = 82380) 8.4 % HEMOGLOBIN [id number] 00:00:00 Test Item Value Reference Range Interpretation Comments HEMOGLOBIN A1c (test code = 16781) 8.4 % COMPREHENSIVE METABOLIC [id number] 00:00:00 Test Item Value Reference Range Interpretation Comments GLUCOSE (test code = 2217) 143 MG/DL BUN (test code = 2208) 11 MG/DL CREATININE (test code = 2214) 0.69 MG/DL eGFR AMER. (test code 110 ML/MIN/1.73 = 60944) eGFR NON- AMER. (test 95 ML/MIN/1.73 code = 85513) CALC BUN/CREAT (test code = 16 RATIO [...] code = 2219) 24 U/L COMPREHENSIVE METABOLIC [id number] 00:00:00 Test Item Value Reference Range Interpretation Comments GLUCOSE (test code = 2217) 143 MG/DL BUN (test code = 2208) 11 MG/DL CREATININE (test code = 2214) 0.69 MG/DL eGFR AMER. (test code 110 ML/MIN/1.73 = 64313) eGFR NON- AMER. (test 95 ML/MIN/1.73 code = 94130) CALC BUN/CREAT (test code = 16 RATIO [...] (test code = 2219) 24 U/L LIPID [id number] 00:00:00 Test Item Value Reference Range Interpretation Comments CHOLESTEROL (test code = 2210) 223 MG/DL TRIGLYCERIDES (test code = 2232) 147 MG/DL HDL CHOLESTEROL (test code = 2220) 39 MG/DL CALC LDL CHOL (test code = 2237) 155 MG/DL RISK RATIO LDL/HDL (test code = 3.96 RATIO 2238) LIPID [id number] 00:00:00 Test Item Value Reference Range Interpretation Comments CHOLESTEROL (test code = 2210) 223 MG/DL TRIGLYCERIDES (test code = 2232) 147 MG/DL HDL CHOLESTEROL (test code = 2220) 39 MG/DL CALC LDL CHOL (test code = 2237) 155 MG/DL RISK RATIO LDL/HDL (test code = 3.96 RATIO 2238) HEMOGLOBIN [id number] 00:00:00 Test Item Value Reference Range Interpretation Comments HEMOGLOBIN A1c (test code = 30876) 8.4 % HEMOGLOBIN [id number] 00:00:00 Test Item Value Reference Range Interpretation Comments HEMOGLOBIN A1c (test code = 02929) 8.4 % HEMOGLOBIN [id number] 00:00:00 Test Item Value Reference Range Interpretation Comments HEMOGLOBIN A1c (test code = 06716) 8.4 % HEMOGLOBIN [id number] 00:00:00 Test Item Value Reference Range Interpretation Comments HEMOGLOBIN A1c (test code = 06858) 9.9 % HEMOGLOBIN [id number] 00:00:00 Test Item Value Reference Range Interpretation Comments HEMOGLOBIN A1c (test code = 71017) 9.9 % LIPID [id number] 00:00:00 Test Item Value Reference Range Interpretation Comments CHOLESTEROL (test code = 2210) 199 MG/DL TRIGLYCERIDES (test code = 2232) 167 MG/DL HDL CHOLESTEROL (test code = 2220) 32 MG/DL CALC LDL CHOL (test code = 2237) 134 MG/DL RISK RATIO LDL/HDL (test code = 4.18 RATIO 2238) COMPREHENSIVE METABOLIC [id number] 00:00:00 Test Item Value Reference Range Interpretation Comments GLUCOSE (test code = 2217) 266 MG/DL BUN (test code = 2208) 11 MG/DL CREATININE (test code = 2214) 0.67 MG/DL eGFR AMER. (test code 112 ML/MIN/1.73 = 32832) eGFR NON- AMER. (test 96 ML/MIN/1.73 code = 45646) CALC BUN/CREAT (test code = 16 RATIO [...] (test code = 2219) 17 U/L HEMOGLOBIN [id number] 00:00:00 Test Item Value Reference Range Interpretation Comments HEMOGLOBIN A1c (test code = 48589) 9.9 % HEMOGLOBIN [id number] 00:00:00 Test Item Value Reference Range Interpretation Comments HEMOGLOBIN A1c (test code = 45166) 9.9 % HEMOGLOBIN [id number] 00:00:00 Test Item Value Reference Range Interpretation Comments HEMOGLOBIN A1c (test code = 68357) 9.9 % LIPID [id number] 00:00:00 Test Item Value Reference Range Interpretation Comments CHOLESTEROL (test code = 2210) 199 MG/DL TRIGLYCERIDES (test code = 2232) 167 MG/DL HDL CHOLESTEROL (test code = 2220) 32 MG/DL CALC LDL CHOL (test code = 2237) 134 MG/DL RISK RATIO LDL/HDL (test code = 4.18 RATIO 2238) LIPID [id number] 00:00:00 Test Item Value Reference Range Interpretation Comments CHOLESTEROL (test code = 2210) 199 MG/DL TRIGLYCERIDES (test code = 2232) 167 MG/DL HDL CHOLESTEROL (test code = 2220) 32 MG/DL CALC LDL CHOL (test code = 2237) 134 MG/DL RISK RATIO LDL/HDL (test code = 4.18 RATIO 2238) COMPREHENSIVE METABOLIC [id number] 00:00:00 Test Item Value Reference Range Interpretation Comments GLUCOSE (test code = 2217) 266 MG/DL BUN (test code = 2208) 11 MG/DL CREATININE (test code = 2214) 0.67 MG/DL eGFR AMER. (test code 112 ML/MIN/1.73 = 20610) eGFR NON- AMER. (test 96 ML/MIN/1.73 code = 45538) CALC BUN/CREAT (test code = 16 RATIO [...] code = 2219) 17 U/L COMPREHENSIVE METABOLIC [id number] 00:00:00 Test Item Value Reference Range Interpretation Comments GLUCOSE (test code = 2217) 266 MG/DL BUN (test code = 2208) 11 MG/DL CREATININE (test code = 2214) 0.67 MG/DL eGFR AMER. (test code 112 ML/MIN/1.73 = 33537) eGFR NON- AMER. (test 96 ML/MIN/1.73 code = 98766) CALC BUN/CREAT (test code = 16 RATIO [...] code = 2219) 17 U/L COMPREHENSIVE METABOLIC [id number] 00:00:00 Test Item Value Reference Range Interpretation Comments GLUCOSE (test code = 2217) 229 MG/DL BUN (test code = 2208) 11 MG/DL CREATININE (test code = 2214) 0.81 MG/DL eGFR AMER. (test code 92 ML/MIN/1.73 = 16641) eGFR NON- AMER. (test 79 ML/MIN/1.73 code = 29579) CALC BUN/CREAT (test code = 14 RATIO [...] code = 2219) 17 U/L CBC W/AUTO [id number] 00:00:00 Test Item Value Reference Range Interpretation [...] code = 1015) 272 K/UL CBC W/AUTO [id number] 00:00:00 Test Item Value Reference Range Interpretation [...] (test code = 1015) 272 K/UL HEMOGLOBIN [id number] 00:00:00 Test Item Value Reference Range Interpretation Comments HEMOGLOBIN A1c (test code = 39583) 10.1 % HEMOGLOBIN [id number] 00:00:00 Test Item Value Reference Range Interpretation Comments HEMOGLOBIN A1c (test code = 09336) 10.1 % LIPID [id number] 00:00:00 Test Item Value Reference Range Interpretation Comments CHOLESTEROL (test code = 2210) 221 MG/DL TRIGLYCERIDES (test code = 2232) 174 MG/DL HDL CHOLESTEROL (test code = 2220) 31 MG/DL CALC LDL CHOL (test code = 2237) 155 MG/DL RISK RATIO LDL/HDL (test code = 5.01 RATIO 2238) COMPREHENSIVE METABOLIC [id number] 00:00:00 Test Item Value Reference Range Interpretation Comments GLUCOSE (test code = 2217) 229 MG/DL BUN (test code = 2208) 11 MG/DL CREATININE (test code = 2214) 0.81 MG/DL eGFR AMER. (test code 92 ML/MIN/1.73 = 83505) eGFR NON- AMER. (test 79 ML/MIN/1.73 code = 30175) CALC BUN/CREAT (test code = 14 RATIO [...] code = 2219) 17 U/L COMPREHENSIVE METABOLIC [id number] 00:00:00 Test Item Value Reference Range Interpretation Comments GLUCOSE (test code = 2217) 229 MG/DL BUN (test code = 2208) 11 MG/DL CREATININE (test code = 2214) 0.81 MG/DL eGFR AMER. (test code 92 ML/MIN/1.73 = 17159) eGFR NON- AMER. (test 79 ML/MIN/1.73 code = 35137) CALC BUN/CREAT (test code = 14 RATIO [...] code = 2219) 17 U/L CBC W/AUTO [id number] 00:00:00 Test Item Value Reference Range Interpretation [...] code = 1015) 272 K/UL CBC W/AUTO [id number] 00:00:00 Test Item Value Reference Range Interpretation [...] code = 1015) 272 K/UL CBC W/AUTO [id number] 00:00:00 Test Item Value Reference Range Interpretation [...] (test code = 1015) 272 K/UL HEMOGLOBIN [id number] 00:00:00 Test Item Value Reference Range Interpretation Comments HEMOGLOBIN A1c (test code = 55554) 10.1 % HEMOGLOBIN [id number] 00:00:00 Test Item Value Reference Range Interpretation Comments HEMOGLOBIN A1c (test code = 85838) 10.1 % HEMOGLOBIN [id number] 00:00:00 Test Item Value Reference Range Interpretation Comments HEMOGLOBIN A1c (test code = 35727) 10.1 % LIPID [id number] 00:00:00 Test Item Value Reference Range Interpretation Comments CHOLESTEROL (test code = 2210) 221 MG/DL TRIGLYCERIDES (test code = 2232) 174 MG/DL HDL CHOLESTEROL (test code = 2220) 31 MG/DL CALC LDL CHOL (test code = 2237) 155 MG/DL RISK RATIO LDL/HDL (test code = 5.01 RATIO 2238) LIPID [id number] 00:00:00 Test Item Value Reference Range Interpretation Comments CHOLESTEROL (test code = 2210) 221 MG/DL TRIGLYCERIDES (test code = 2232) 174 MG/DL HDL CHOLESTEROL (test code = 2220) 31 MG/DL CALC LDL CHOL (test code = 2237) 155 MG/DL RISK RATIO LDL/HDL (test code = 5.01 RATIO 2238) COMPREHENSIVE METABOLIC [id number] 00:00:00 Test Item Value Reference Range Interpretation Comments GLUCOSE (test code = 2217) 221 MG/DL BUN (test code = 2208) 14 MG/DL CREATININE (test code = 2214) 0.68 MG/DL eGFR AMER. (test code 111 ML/MIN/1.73 = 03149) eGFR NON- AMER. (test 96 ML/MIN/1.73 code = 36490) CALC BUN/CREAT (test code = 21 RATIO [...] (test code = 2219) 14 U/L LIPID [id number] 00:00:00 Test Item Value Reference Range Interpretation Comments CHOLESTEROL (test code = 2210) 200 MG/DL TRIGLYCERIDES (test code = 2232) 155 MG/DL HDL CHOLESTEROL (test code = 2220) 36 MG/DL CALC LDL CHOL (test code = 2237) 133 MG/DL RISK RATIO LDL/HDL (test code = 3.69 RATIO 2238) HEMOGLOBIN [id number] 00:00:00 Test Item Value Reference Range Interpretation Comments HEMOGLOBIN A1c (test code = 49843) 11.2 % HEMOGLOBIN [id number] 00:00:00 Test Item Value Reference Range Interpretation Comments HEMOGLOBIN A1c (test code = 87340) 11.2 % MICROALBUMIN/CREATININE, RANDOM AND [id number] 00:00:00 Test Item Value Reference Range Interpretation Comments CREATININE, URINE, CONC. (test 101.8 MG/DL code = 207) MICROALBUMIN, RANDOM (test code = 2.0 MG/DL 56623) CALC MICROALB/CREAT RND (test 20 MG/G code = 73055) COMPREHENSIVE METABOLIC [id number] 00:00:00 Test Item Value Reference Range Interpretation Comments GLUCOSE (test code = 2217) 221 MG/DL BUN (test code = 2208) 14 MG/DL CREATININE (test code = 2214) 0.68 MG/DL eGFR AMER. (test code 111 ML/MIN/1.73 = 35589) eGFR NON- AMER. (test 96 ML/MIN/1.73 code = 50991) CALC BUN/CREAT (test code = 21 RATIO [...] code = 2219) 14 U/L COMPREHENSIVE METABOLIC [id number] 00:00:00 Test Item Value Reference Range Interpretation Comments GLUCOSE (test code = 2217) 221 MG/DL BUN (test code = 2208) 14 MG/DL CREATININE (test code = 2214) 0.68 MG/DL eGFR AMER. (test code 111 ML/MIN/1.73 = 79011) eGFR NON- AMER. (test 96 ML/MIN/1.73 code = 62344) CALC BUN/CREAT (test code = 21 RATIO [...] (test code = 2219) 14 U/L LIPID [id number] 00:00:00 Test Item Value Reference Range Interpretation Comments CHOLESTEROL (test code = 2210) 200 MG/DL TRIGLYCERIDES (test code = 2232) 155 MG/DL HDL CHOLESTEROL (test code = 2220) 36 MG/DL CALC LDL CHOL (test code = 2237) 133 MG/DL RISK RATIO LDL/HDL (test code = 3.69 RATIO 2238) LIPID [id number] 00:00:00 Test Item Value Reference Range Interpretation Comments CHOLESTEROL (test code = 2210) 200 MG/DL TRIGLYCERIDES (test code = 2232) 155 MG/DL HDL CHOLESTEROL (test code = 2220) 36 MG/DL CALC LDL CHOL (test code = 2237) 133 MG/DL RISK RATIO LDL/HDL (test code = 3.69 RATIO 2238) HEMOGLOBIN [id number] 00:00:00 Test Item Value Reference Range Interpretation Comments HEMOGLOBIN A1c (test code = 32962) 11.2 % HEMOGLOBIN [id number] 00:00:00 Test Item Value Reference Range Interpretation Comments HEMOGLOBIN A1c (test code = 44218) 11.2 % HEMOGLOBIN [id number] 00:00:00 Test Item Value Reference Range Interpretation Comments HEMOGLOBIN A1c (test code = 66753) 11.2 % MICROALBUMIN/CREATININE, RANDOM AND [id number] 00:00:00 Test Item Value Reference Range Interpretation Comments CREATININE, URINE, CONC. (test 101.8 MG/DL code = 2072) MICROALBUMIN, RANDOM (test code = 2.0 MG/DL 62984) CALC MICROALB/CREAT RND (test 20 MG/G code = 80019) MICROALBUMIN/CREATININE, RANDOM AND [id number] 00:00:00 Test Item Value Reference Range Interpretation Comments CREATININE, URINE, CONC. (test 101.8 MG/DL code = 2072) MICROALBUMIN, RANDOM (test code = 2.0 MG/DL 89976) CALC MICROALB/CREAT RND (test 20 MG/G code = 56580) COMPREHENSIVE METABOLIC [id number] 00:00:00 Test Item Value Reference Range Interpretation Comments GLUCOSE (test code = 2217) 303 MG/DL BUN (test code = 2208) 15 MG/DL CREATININE (test code = 2214) 0.75 MG/DL eGFR AMER. (test code 102 ML/MIN/1.73 = 66293) eGFR NON- AMER. (test 88 ML/MIN/1.73 code = 40237) CALC BUN/CREAT (test code = 20 RATIO [...] (test code = 2219) 17 U/L LIPID [id number] 00:00:00 Test Item Value Reference Range Interpretation Comments CHOLESTEROL (test code = 2210) 196 MG/DL TRIGLYCERIDES (test code = 2232) 202 MG/DL HDL CHOLESTEROL (test code = 2220) 34 MG/DL CALC LDL CHOL (test code = 2237) 122 MG/DL RISK RATIO LDL/HDL (test code = 3.58 RATIO 2238) CBC W/AUTO [id number] 00:00:00 Test Item Value Reference Range Interpretation [...] code = 1015) 229 K/UL CBC W/AUTO [id number] 00:00:00 Test Item Value Reference Range Interpretation [...] (test code = 1015) 229 K/UL HEMOGLOBIN [id number] 00:00:00 Test Item Value Reference Range Interpretation Comments HEMOGLOBIN A1c (test code = 70318) 9.0 % HEMOGLOBIN [id number] 00:00:00 Test Item Value Reference Range Interpretation Comments HEMOGLOBIN A1c (test code = 77653) 9.0 % COMPREHENSIVE METABOLIC [id number] 00:00:00 Test Item Value Reference Range Interpretation Comments GLUCOSE (test code = 2217) 303 MG/DL BUN (test code = 2208) 15 MG/DL CREATININE (test code = 2214) 0.75 MG/DL eGFR AMER. (test code 102 ML/MIN/1.73 = 92862) eGFR NON- AMER. (test 88 ML/MIN/1.73 code = 98882) CALC BUN/CREAT (test code = 20 RATIO [...] code = 2219) 17 U/L COMPREHENSIVE METABOLIC [id number] 00:00:00 Test Item Value Reference Range Interpretation Comments GLUCOSE (test code = 2217) 303 MG/DL BUN (test code = 2208) 15 MG/DL CREATININE (test code = 2214) 0.75 MG/DL eGFR AMER. (test code 102 ML/MIN/1.73 = 92993) eGFR NON- AMER. (test 88 ML/MIN/1.73 code = 20855) CALC BUN/CREAT (test code = 20 RATIO [...] (test code = 2219) 17 U/L LIPID [id number] 00:00:00 Test Item Value Reference Range Interpretation Comments CHOLESTEROL (test code = 2210) 196 MG/DL TRIGLYCERIDES (test code = 2232) 202 MG/DL HDL CHOLESTEROL (test code = 2220) 34 MG/DL CALC LDL CHOL (test code = 2237) 122 MG/DL RISK RATIO LDL/HDL (test code = 3.58 RATIO 2238) LIPID [id number] 00:00:00 Test Item Value Reference Range Interpretation Comments CHOLESTEROL (test code = 2210) 196 MG/DL TRIGLYCERIDES (test code = 2232) 202 MG/DL HDL CHOLESTEROL (test code = 2220) 34 MG/DL CALC LDL CHOL (test code = 2237) 122 MG/DL RISK RATIO LDL/HDL (test code = 3.58 RATIO 2238) CBC W/AUTO [id number] 00:00:00 Test Item Value Reference Range Interpretation [...] code = 1015) 229 K/UL CBC W/AUTO [id number] 00:00:00 Test Item Value Reference Range Interpretation [...] code = 1015) 229 K/UL CBC W/AUTO [id number] 00:00:00 Test Item Value Reference Range Interpretation [...] (test code = 1015) 229 K/UL HEMOGLOBIN [id number] 00:00:00 Test Item Value Reference Range Interpretation Comments HEMOGLOBIN A1c (test code = 62327) 9.0 % HEMOGLOBIN [id number] 00:00:00 Test Item Value Reference Range Interpretation Comments HEMOGLOBIN A1c (test code = 62364) 9.0 % HEMOGLOBIN [id number] 00:00:00 Test Item Value Reference Range Interpretation Comments HEMOGLOBIN A1c (test code = 97064) 9.0 % LIPID [id number] 00:00:00 Test Item Value Reference Range Interpretation Comments CHOLESTEROL (test code = 2210) 212 MG/DL TRIGLYCERIDES (test code = 2232) 178 MG/DL HDL CHOLESTEROL (test code = 2220) 33 MG/DL CALCULATED LDL CHOL (test code = 143 MG/DL 2237) RISK RATIO LDL/HDL (test code = 4.35 RATIO 2238) LIPID [id number] 00:00:00 Test Item Value Reference Range Interpretation Comments CHOLESTEROL (test code = 2210) 212 MG/DL TRIGLYCERIDES (test code = 2232) 178 MG/DL HDL CHOLESTEROL (test code = 2220) 33 MG/DL CALCULATED LDL CHOL (test code = 143 MG/DL 2237) RISK RATIO LDL/HDL (test code = 4.35 RATIO 2238) LIPID [id number] 00:00:00 Test Item Value Reference Range Interpretation Comments CHOLESTEROL (test code = 2210) 212 MG/DL TRIGLYCERIDES (test code = 2232) 178 MG/DL HDL CHOLESTEROL (test code = 2220) 33 MG/DL CALCULATED LDL CHOL (test code = 143 MG/DL 2237) RISK RATIO LDL/HDL (test code = 4.35 RATIO 2238) COMPREHENSIVE METABOLIC [id number] 00:00:00 Test Item Value Reference Range Interpretation Comments GLUCOSE (test code = 2217) 212 MG/DL BUN (test code = 2208) 15 MG/DL CREATININE (test code = 2214) 0.75 MG/DL eGFR AMER. (test code 103 ML/MIN/1.73 = 84642) eGFR NON- AMER. (test 88 ML/MIN/1.73 code = 62414) CALCULATED BUN/CREAT (test 20 RATIO code = [...] (test code = 2219) 15 U/L LIPID [id number] 00:00:00 Test Item Value Reference Range Interpretation Comments CHOLESTEROL (test code = 2210) 231 MG/DL TRIGLYCERIDES (test code = 2232) 295 MG/DL HDL CHOLESTEROL (test code = 2220) 39 MG/DL CALCULATED LDL CHOL (test code = 133 MG/DL 2236) RISK RATIO LDL/HDL (test code = 3.41 RATIO 2237) HEMOGLOBIN [id number] 00:00:00 Test Item Value Reference Range Interpretation Comments HEMOGLOBIN A1c (test code = 90639) 8.1 % HEMOGLOBIN [id number] 00:00:00 Test Item Value Reference Range Interpretation Comments HEMOGLOBIN A1c (test code = 39016) 8.1 % COMPREHENSIVE METABOLIC [id number] 00:00:00 Test Item Value Reference Range Interpretation Comments GLUCOSE (test code = 7) 212 MG/DL BUN (test code = 8) 15 MG/DL CREATININE (test code = 2214) 0.75 MG/DL eGFR AMER. (test code 103 ML/MIN/1.73 = 79468) eGFR NON- AMER. (test 88 ML/MIN/1.73 code = 49324) CALCULATED BUN/CREAT (test 20 RATIO code = [...] code = 2219) 15 U/L COMPREHENSIVE METABOLIC [id number] 00:00:00 Test Item Value Reference Range Interpretation Comments GLUCOSE (test code = 2217) 212 MG/DL BUN (test code = 2208) 15 MG/DL CREATININE (test code = 2214) 0.75 MG/DL eGFR AMER. (test code 103 ML/MIN/1.73 = 69168) eGFR NON- AMER. (test 88 ML/MIN/1.73 code = 25747) CALCULATED BUN/CREAT (test 20 RATIO code = [...] (test code = 2219) 15 U/L LIPID [id number] 00:00:00 Test Item Value Reference Range Interpretation Comments CHOLESTEROL (test code = 2210) 231 MG/DL TRIGLYCERIDES (test code = 2232) 295 MG/DL HDL CHOLESTEROL (test code = 2220) 39 MG/DL CALCULATED LDL CHOL (test code = 133 MG/DL 2236) RISK RATIO LDL/HDL (test code = 3.41 RATIO 2238) LIPID [id number] 00:00:00 Test Item Value Reference Range Interpretation Comments CHOLESTEROL (test code = 2210) 231 MG/DL TRIGLYCERIDES (test code = 2232) 295 MG/DL HDL CHOLESTEROL (test code = 2220) 39 MG/DL CALCULATED LDL CHOL (test code = 133 MG/DL 7) RISK RATIO LDL/HDL (test code = 3.41 RATIO 2238) HEMOGLOBIN [id number] 00:00:00 Test Item Value Reference Range Interpretation Comments HEMOGLOBIN A1c (test code = 47751) 8.1 % HEMOGLOBIN [id number] 00:00:00 Test Item Value Reference Range Interpretation Comments HEMOGLOBIN A1c (test code = 80015) 8.1 % HEMOGLOBIN [id number] 00:00:00 Test Item Value Reference Range Interpretation Comments HEMOGLOBIN A1c (test code = 05039) 8.1 % LIPID [id number] 00:00:00 Test Item Value Reference Range Interpretation Comments CHOLESTEROL (test code = 2210) 197 MG/DL TRIGLYCERIDES (test code = 2232) 136 MG/DL HDL CHOLESTEROL (test code = 2220) 31 MG/DL CALCULATED LDL CHOL (test code = 139 MG/DL 2237) RISK RATIO LDL/HDL (test code = 4.48 RATIO 2238) HEMOGLOBIN [id number] 00:00:00 Test Item Value Reference Range Interpretation Comments HEMOGLOBIN A1c (test code = 00327) 8.0 % HEMOGLOBIN [id number] 00:00:00 Test Item Value Reference Range Interpretation Comments HEMOGLOBIN A1c (test code = 74341) 8.0 % LIPID [id number] 00:00:00 Test Item Value Reference Range Interpretation Comments CHOLESTEROL (test code = 2210) 197 MG/DL TRIGLYCERIDES (test code = 2232) 136 MG/DL HDL CHOLESTEROL (test code = 2220) 31 MG/DL CALCULATED LDL CHOL (test code = 139 MG/DL 2237) RISK RATIO LDL/HDL (test code = 4.48 RATIO 2238) LIPID [id number] 00:00:00 Test Item Value Reference Range Interpretation Comments CHOLESTEROL (test code = 2210) 197 MG/DL TRIGLYCERIDES (test code = 2232) 136 MG/DL HDL CHOLESTEROL (test code = 2220) 31 MG/DL CALCULATED LDL CHOL (test code = 139 MG/DL 2237) RISK RATIO LDL/HDL (test code = 4.48 RATIO 2238) HEMOGLOBIN [id number] 00:00:00 Test Item Value Reference Range Interpretation Comments HEMOGLOBIN A1c (test code = 48795) 8.0 % HEMOGLOBIN [id number] 00:00:00 Test Item Value Reference Range Interpretation Comments HEMOGLOBIN A1c (test code = 23207) 8.0 % HEMOGLOBIN [id number] 00:00:00 Test Item Value Reference Range Interpretation Comments HEMOGLOBIN A1c (test code = 47491) 8.0 % THYROID II PROFILE (T3U, T4, T7, [id number] 00:00:00 Test Item Value Reference Range Interpretation Comments T3 UPTAKE (test code = 2817) 29.9 % T4 (THYROXINE) (test code = 2819) 8.2 UG/DL CALCULATED T7 (FTI) (test code = 2.45 2820) TSH (test code = 2821) 1.1 UIU/ML LIPID [id number] 00:00:00 Test Item Value Reference Range Interpretation Comments CHOLESTEROL (test code = 2210) 203 MG/DL TRIGLYCERIDES (test code = 2232) 195 MG/DL HDL CHOLESTEROL (test code = 2220) 30 MG/DL CALCULATED LDL CHOL (test code = 134 MG/DL 2236) RISK RATIO LDL/HDL (test code = 4.47 RATIO 2237) HEMOGLOBIN [id number] 00:00:00 Test Item Value Reference Range Interpretation Comments HEMOGLOBIN A1c (test code = 51946) 9.7 % HEMOGLOBIN [id number] 00:00:00 Test Item Value Reference Range Interpretation Comments HEMOGLOBIN A1c (test code = 60095) 9.7 % COMPREHENSIVE METABOLIC [id number] 00:00:00 Test Item Value Reference Range Interpretation Comments GLUCOSE (test code = 2217) 182 MG/DL BUN (test code = 2208) 18 MG/DL CREATININE (test code = 2214) 0.7 MG/DL eGFR AMER. (test code 105 ML/MIN/1.73 = 75617) eGFR NON- AMER. (test 87 ML/MIN/1.73 code = 05998) CALCULATED BUN/CREAT (test 26 RATIO code = [...] code = 2219) 10 U/L CBC W/AUTO [id number] 00:00:00 Test Item Value Reference Range Interpretation [...] code = 1015) 197 K/UL CBC W/AUTO [id number] 00:00:00 Test Item Value Reference Range Interpretation [...] (test code = 2821) 1.1 UIU/ML LIPID [id number] 00:00:00 Test Item Value Reference Range Interpretation Comments CHOLESTEROL (test code = 2210) 203 MG/DL TRIGLYCERIDES (test code = 2232) 195 MG/DL HDL CHOLESTEROL (test code = 2220) 30 MG/DL CALCULATED LDL CHOL (test code = 134 MG/DL 2237) RISK RATIO LDL/HDL (test code = 4.47 RATIO 2238) LIPID [id number] 00:00:00 Test Item Value Reference Range Interpretation Comments CHOLESTEROL (test code = 2210) 203 MG/DL TRIGLYCERIDES (test code = 2232) 195 MG/DL HDL CHOLESTEROL (test code = 2220) 30 MG/DL CALCULATED LDL CHOL (test code = 134 MG/DL 2237) RISK RATIO LDL/HDL (test code = 4.47 RATIO 2238) HEMOGLOBIN [id number] 00:00:00 Test Item Value Reference Range Interpretation Comments HEMOGLOBIN A1c (test code = 74329) 9.7 % HEMOGLOBIN [id number] 00:00:00 Test Item Value Reference Range Interpretation Comments HEMOGLOBIN A1c (test code = 88212) 9.7 % HEMOGLOBIN [id number] 00:00:00 Test Item Value Reference Range Interpretation Comments HEMOGLOBIN A1c (test code = 23048) 9.7 % COMPREHENSIVE METABOLIC [id number] 00:00:00 Test Item Value Reference Range Interpretation Comments GLUCOSE (test code = 2217) 182 MG/DL BUN (test code = 2208) 18 MG/DL CREATININE (test code = 2214) 0.7 MG/DL eGFR AMER. (test code 105 ML/MIN/1.73 = 66451) eGFR NON- AMER. (test 87 ML/MIN/1.73 code = 78351) CALCULATED BUN/CREAT (test 26 RATIO code = [...] code = 2219) 10 U/L COMPREHENSIVE METABOLIC [id number] 00:00:00 Test Item Value Reference Range Interpretation Comments GLUCOSE (test code = 2217) 182 MG/DL BUN (test code = 2208) 18 MG/DL CREATININE (test code = 2214) 0.7 MG/DL eGFR AMER. (test code 105 ML/MIN/1.73 = 22810) eGFR NON- AMER. (test 87 ML/MIN/1.73 code = 13131) CALCULATED BUN/CREAT (test 26 RATIO code = [...] code = 2219) 10 U/L CBC W/AUTO [id number] 00:00:00 Test Item Value Reference Range Interpretation [...] code = 1015) 197 K/UL CBC W/AUTO [id number] 00:00:00 Test Item Value Reference Range Interpretation [...] code = 1015) 197 K/UL CBC W/AUTO [id number] 00:00:00 Test Item Value Reference Range Interpretation [...]
[2022-11-13 21:15] LABS: Absolute Lymphocytes (CBC) 2.4 K/uL (0.7-4.9); Hematocrit 42.3 % (36.0-45.0); MCV 88.5 fL (80-100); MPV 8.4 fL (7.6-11.3); RBC Red Blood Cell Count 4.78 M/uL (3.86-4.86)
[2022-11-13] MEDS ORDERED: HYDRALAZINE HCL 20 MG/ML VIAL ONE ×2 (21:19→23:29)
[2022-11-13 21:29] LABS: Magnesium 2.3 mg/dL (1.6-2.4); Potassium 3.9 mmol/L (3.5-5.1)
--- NOTE | 2022-11-13 21:35 | RAD REPORT ---
[facility] CLINICAL HISTORY: Hypertension COMPARISON: <Comparisons> TECHNIQUE: Portable AP view of the chest. FINDINGS: The lungs are clear. No pneumothorax or effusion. The mediastinal contours are unremarkabl e. Heart is mildly enlarged. . IMPRESSION: No acute pulmonary process. Mild cardiomegaly.
--- NOTE | 2022-11-13 21:57 | RAD REPORT ---
EXAM DESCRIPTION: CT - Head Brain Wo Cont - 11/13/2022 9:38 pm CLINICAL HISTORY: HEADACHE COMPARISON: Head Brain Wo Cont dated 07/25/2022; Head Brain Wo Cont dated 02/05/2021 TECHNIQUE: Noncontrast head CT images ad were obtained without IV contrast. Multiplanar reformats we re generated and reviewed. All CT scans are performed using dose optimization technique as appropriate and may include automated exposure control or mA/KV adjustment according to patient size. FINDINGS: No intracranial hemorrhage, mass, or edema. Midline structures are unremarkable. Normal ventricular caliber for age. Fisher-white matter differentiation is preserved, without evidence of acute infarct. No abnormal extra- axial fluid collections. Mastoid air cells and visualized portions of the paranasal sinuses are clear. No acute bony findings. IMPRESSION: No evidence of an acute intracranial process.
[2022-11-13] MEDS ORDERED: lisinopriL 20 MG TAB ONE (23:29)
[2022-11-13 23:37] LABS: Urine Blood Trace-intact (Negative); Urine Glucose 2+ (Negative); Urine Protein 2+ (Negative)
[2022-11-13 23:49] LABS: Urine Bacteria <20 /HPF (<20); Urine RBC <5 /HPF (None Seen)
[2022-11-14] MEDS ORDERED: METOCLOPRAMIDE 10 MG/2mL INJ ONE (00:32)
[2022-11-14] MEDS ORDERED: ACETAMINOPHEN 325 MG TABLET ONE (00:32)
[2022-11-14] MEDS ORDERED: NA CHLORIDE 0.9% 500 ML ONE (00:32)
[2022-11-14] MEDS ORDERED: DIPHENHYDRAMINE 50 MG/ML VIAL ONE (00:32)
[2022-11-14] MEDS ORDERED: cloNIDine HCL 0.1 MG TAB ONE (01:28)
--- NOTE | 2022-11-14 02:05 | ER ---
Nurse's Notes [facility] Name: Ellen Winston Age: 62 yrs Sex: Female : 1960 Arrival Date: 11/13/2022 Time: 20:29 Bed 16 Private MD: Diagnosis: Headache;Hypoglycemia, unspecified;Hypertensive heart disease without heart failure Presentation: 11/13 20:30 Chief complaint: EMS states: Pt initially called for Low BGL. Per pt's device, it was jb4 25, she ate and drank some juice and it went to 117, upon EMS arrival it was 115. ACOUSTIC ENGINEER to ER it was 197. Initial B/p was 230/71. Initially reported feeling like she had ants all over her and cold sweats, symptoms have subsided. Denies chest pain, SOB, or headache. Coronavirus screen: At this time, the client does not indicate any symptoms associated with coronavirus-19. Ebola Screen: No symptoms or risks identified at this time. Initial Sepsis Screen: Does the patient meet any 2 criteria? No. Patient's initial sepsis screen is negative. Does the patient have a suspected source of infection? No. Patient's initial sepsis screen is negative. Risk Assessment: Do you want to hurt yourself or someone else? Patient reports no desire to harm self or others. Onset of symptoms was November 13, 2022. Transition of care: patient was not received from another setting of care. 20:30 Method Of Arrival: EMS: [facility] jb4 20:30 Acuity: TYRONE 3 jb4 Historical: - Allergies: 20:32 NKDA; jb4 - PMHx: 20:32 abnormal EKG; Diabetes - NIDDM; Hyperlipidemia; Hypertension; UTI; jb4 - PSHx: 20:32 hysterectomy; Tonsillectomy; jb4 - Immunization history:: Adult Immunizations up to date. - Social history:: Smoking status: Patient reports the use of cigarette tobacco products, smokes one-half pack cigarettes per day, Patient/guardian denies using alcohol, street drugs. Screenin:00 [facility] ED Fall Risk Assessment (Adult) History of falling in the last 3 months, jb4 including since admission No falls in past 3 months (0 pts) Confusion or Disorientation No (0 pts) Score/Fall Risk Level 0 - 2 = Low Risk Oriented to surroundings, Maintained a safe environment. Abuse screen: Denies threats or abuse. Nutritional screening: No deficits noted. Tuberculosis screening: No symptoms or risk factors identified. Assessment: 20:32 General: Appears in no apparent distress. comfortable, Behavior is calm, cooperative, jb4 appropriate for age. Pain: Denies pain. Neuro: Level of Consciousness is awake, alert, obeys commands, Oriented to person, place, time, situation. Cardiovascular: Patient's skin is warm and dry. Respiratory: Airway is patent Respiratory effort is even, unlabored, Respiratory pattern is regular, symmetrical. GI: No signs and/or symptoms were reported involving the gastrointestinal system. : No signs and/or symptoms were reported regarding the genitourinary system. EENT: No signs and/or symptoms were reported regarding the EENT system. Derm: Skin is intact, Skin is pink, warm \T\ dry. Musculoskeletal: Circulation, motion, and sensation intact. Range of motion: intact in all extremities. 21:30 Reassessment: Patient appears in no apparent distress at this time. Patient and/or jb4 family updated on plan of care and expected duration. Pain level reassessed. Patient is alert, oriented x 3, equal unlabored respirations, skin warm/dry/pink. 22:30 Reassessment: Patient appears in no apparent distress at this time. Patient and/or jb4 family updated on plan of care and expected duration. Pain level reassessed. Patient is alert, oriented x 3, equal unlabored respirations, skin warm/dry/pink. 03/05 00:00 Reassessment: Patient appears in no apparent distress at this time. Patient and/or jb4 family updated on plan of care and expected duration. Pain level reassessed. Patient is alert, oriented x 3, equal unlabored respirations, skin warm/dry/pink. 01:00 Reassessment: Patient appears in no apparent distress at this time. Patient and/or jb4 family updated on plan of care and expected duration. Pain level reassessed. Patient is alert, oriented x 3, equal unlabored respirations, skin warm/dry/pink. 02:17 Reassessment: Patient appears in no apparent distress at this time. Patient and/or jb4 family updated on plan of care and expected duration. Pain level reassessed. Patient is alert, oriented x 3, equal unlabored respirations, skin warm/dry/pink. Vital Signs: 11/13 20:30 BP 157 / 75; Pulse 55; Resp 16; Temp 97.8(O); Pulse Ox 100% on R/A; Weight 52.16 kg jb4 (R); Height 4 ft. 8 in. (142.24 cm) (R); Pain 0/10; 21:33 BP 193 / 60; Pulse 50; Resp 16; Pulse Ox 99% on R/A; jb4 22:45 BP 203 / 55; Pulse 60; Resp 16; Pulse Ox 100% on R/A; jb4 11/14 00:00 BP 199 / 57; Pulse 72; Resp 12; Pulse Ox 100% on R/A; jb4 01:21 BP 188 / 61; Pulse 78; Resp 15; Pulse Ox 99% ; jb4 02:17 BP 166 / 46; Pulse 67; Resp 16; Pulse Ox 98% on R/A; jb4 11/13 20:30 Body Mass Index 25.78 (52.16 kg, 142.24 cm) 4 ED Course: 11/13 19:00 Patient has correct armband on for positive identification. Bed in low position. Call jb4 light in reach. Side rails up X 1. Client placed on continuous cardiac and pulse oximetry monitoring. NIBP monitoring applied. monitor tech on. 20:29 Patient arrived in ED. jb4 20:31 Daniel Dunlap PA is PHCP. cp 20:31 Chas Medley MD is Attending Physician. cp 20:32 Triage completed. jb4 20:32 Arm band placed on right wrist. jb4 21:00 Initial lab(s) drawn, by me, sent to lab. Inserted saline lock: 20 gauge in left jb4 antecubital area, using aseptic technique. Blood collected. 21:34 Tom Segura, JEB is Primary Nurse. jb4 11/14 02:18 No provider procedures requiring assistance completed. IV discontinued, intact, jb4 bleeding controlled, No redness/swelling at site. Pressure dressing applied. Administered Medications: 11/13 21:32 Drug: hydrALAZINE 10 mg Route: IVP; Site: left antecubital; jb4 23:30 Drug: Lisinopril 20 mg Route: PO; jb4 23:30 Drug: hydrALAZINE 10 mg Route: IVP; Site: left antecubital; jb4 11/14 00:37 Drug: Reglan (metoCLOPramide) 10 mg Route: IVP; Site: left antecubital; jb4 00:37 Drug: Tylenol 650 mg Route: PO; jb4 00:37 Drug: NS 0.9% 500 ml Route: IV; Rate: bolus; Site: left antecubital; jb4 00:37 Drug: Benadryl (diphenhydrAMINE) 12.5 mg Route: IVP; Site: left antecubital; jb4 01:23 Not Given (Physician Discretion): cloNIDine 0.2 mg PO once cp 01:31 Drug: cloNIDine 0.1 mg Route: PO; jb4 Medication: 02:17 VIS not applicable for this client. jb4 Outcome: 02:04 Discharge ordered by . cp 02:18 Discharged to home ambulatory. jb4 02:18 Condition: stable 02:18 Discharge instructions given to patient, Instructed on discharge instructions, follow up and referral plans. medication usage, Demonstrated understanding of instructions, follow-up care, medications, Prescriptions given X 1. 02:19 Patient left the ED. jb4 Signatures: Daniel Dunlap PA PA cp Bryson, James, RN RN jb4
--- NOTE | 2022-11-14 02:05 | EDPHYS ---
Physician Documentation [facility] Name: Ellen Winston Age: 62 yrs Sex: Female : 1960 Arrival Date: 11/13/2022 Time: 20:29 Bed 16 Private MD: ED Physician Chas Medley HPI: 11/13 20:55 This 62 yrs old Female presents to ER via EMS with complaints of High Blood cp Pressure. 20:55 The patient has elevated blood pressure and discovered this EMS. cp 20:55 Onset: The symptoms/episode began/occurred today. cp 20:55 Patient is a 62-year-old female with a known history of diabetes mellitus, cp hypertension, and hyperlipidemia. Patient presents to the emergency department via EMS after EMS was called due to low blood sugar. Patient reports she is prescribed metformin and an oral hypoglycemic for diabetes and takes her metformin regularly but her oral hypoglycemic only as needed when blood sugars are elevated. Patient reports taking her oral hypoglycemic med today. Patient also reports that she takes lisinopril/hydrochlorothiazide for hypertension. Patient reports she checked her blood sugar today and noticed that it was 25 so she drank some juice and called EMS to come to the emergency room. Upon EMS arrival her blood sugar was recorded to be 115. Patient complains of slight headache and denies any chest pain. Upon EMS arrival blood pressure was measured to be elevated. Historical: - Allergies: 20:32 NKDA; jb4 - PMHx: 20:32 abnormal EKG; Diabetes - NIDDM; Hyperlipidemia; Hypertension; UTI; jb4 - PSHx: 20:32 hysterectomy; Tonsillectomy; jb4 - Immunization history:: Adult Immunizations up to date. - Social history:: Smoking status: Patient reports the use of cigarette tobacco products, smokes one-half pack cigarettes per day, Patient/guardian denies using alcohol, street drugs. ROS: 21:00 Constitutional: Negative for body aches, chills, fever, poor PO intake. cp 21:00 Cardiovascular: Negative for chest pain, edema, palpitations. cp 21:00 Abdomen/GI: Negative for abdominal pain, vomiting, diarrhea, constipation. 21:00 Neuro: Positive for headache, Negative for altered mental status, syncope. 21:00 Eyes: Negative for injury, pain, redness, and discharge. cp 21:00 ENT: Negative for drainage from ear(s), ear pain, sore throat, difficulty swallowing, difficulty handling secretions. 21:00 Respiratory: Negative for cough, shortness of breath, wheezing. 21:00 Back: Negative for pain at rest, pain with movement. 21:00 : Negative for urinary symptoms. cp 21:00 All other systems are negative. Exam: 21:05 Constitutional: The patient appears in no acute distress, alert, awake, cp non-diaphoretic, non-toxic, well developed, well nourished. 21:05 Head/Face: Normocephalic, atraumatic. cp 21:05 Eyes: Periorbital structures: appear normal, Pupils: equal, round, and reactive to light and accomodation, Conjunctiva: normal, no exudate, no injection, Sclera: no appreciated abnormality, Lids and lashes: appear normal, bilaterally. 21:05 ENT: External ear(s): are unremarkable, Ear canal(s): are normal, clear, TM's: dullness, bilaterally, Nose: is normal, Mouth: Lips: moist, Oral mucosa: moist, Posterior pharynx: is normal, airway is patent, no erythema, no exudate. 21:05 Neck: ROM/movement: is normal, is supple, without pain, no range of motions limitations. 21:05 Chest/axilla: Inspection: normal, Palpation: is normal, no crepitus, no tenderness. 21:05 Cardiovascular: Rate: bradycardic, Rhythm: regular, Edema: is not appreciated, JVD: is not appreciated. 21:05 Respiratory: the patient does not display signs of respiratory distress, Respirations: normal, no use of accessory muscles, no retractions, labored breathing, is not present, Breath sounds: are clear throughout, no decreased breath sounds, no stridor, no wheezing. 21:05 Abdomen/GI: Inspection: abdomen appears normal, Palpation: abdomen is soft and non-tender, in all quadrants. 21:05 Back: pain, is absent, ROM is normal. 21:05 Neuro: Orientation: to person, place \T\ time. Mentation: is normal, Cerebellar function: is grossly normal, Motor: moves all fours, strength is normal, Sensation: is normal. 21:35 ECG was reviewed by the Attending Physician. cp Vital Signs: 20:30 BP 157 / 75; Pulse 55; Resp 16; Temp 97.8(O); Pulse Ox 100% on R/A; Weight 52.16 kg jb4 (R); Height 4 ft. 8 in. (142.24 cm) (R); Pain 0/10; 21:33 BP 193 / 60; Pulse 50; Resp 16; Pulse Ox 99% on R/A; jb4 22:45 BP 203 / 55; Pulse 60; Resp 16; Pulse Ox 100% on R/A; jb4 11/14 00:00 BP 199 / 57; Pulse 72; Resp 12; Pulse Ox 100% on R/A; jb4 01:21 BP 188 / 61; Pulse 78; Resp 15; Pulse Ox 99% ; jb4 02:17 BP 166 / 46; Pulse 67; Resp 16; Pulse Ox 98% on R/A; jb4 11/13 20:30 Body Mass Index 25.78 (52.16 kg, 142.24 cm) 4 MDM: 11/13 20:48 Patient medically screened. 11/14 02:02 Data reviewed: vital signs, nurses notes, lab test result(s), EKG, radiologic studies, cp CT scan, plain films. 02:02 Differential diagnosis: hypertensive crisis, Malignant HTN, CVA, intracerebral cp hemorrhage, acute MD. Consideration of Admission/Observation Escalation of care including admission/observation considered. I considered the following discharge prescriptions or medication management in the emergency department Medications were administered in the Emergency Department. See MAR. Care significantly affected by the following chronic conditions: Diabetes, Hypertension. Counseling: I had a detailed discussion with the patient and/or guardian regarding: the historical points, exam findings, and any diagnostic results supporting the discharge/admit diagnosis, lab results, radiology results, the need for outpatient follow up, a family practitioner, to return to the emergency department if symptoms worsen or persist or if there are any questions or concerns that arise at home. Response to treatment: HTN and hypoglycemia improved. Will discharge to home for continued monitoring. 03 20:49 Order name: Basic Metabolic Panel 11/13 20:49 Order name: CBC with Diff cp 11/13 20:49 Order name: Magnesium cp 11/13 20:49 Order name: Troponin HS cp 11/13 20:49 Order name: XRAY Chest (1 view) cp 11/13 20:49 Order name: EKG; Complete Time: 20:50 cp 11/13 20:49 Order name: Cardiac monitoring; Complete Time: 21:33 cp 11/13 20:49 Order name: EKG - Nurse/Tech; Complete Time: 21:33 cp 11/13 20:49 Order name: IV Saline Lock; Complete Time: 21:10 cp 11/13 20:49 Order name: Labs collected and sent; Complete Time: 21:10 cp 11/13 20:49 Order name: O2 Per Protocol; Complete Time: 21:10 cp 11/13 20:49 Order name: O2 Sat Monitoring; Complete Time: 21:10 cp 11/13 20:49 Order name: Accucheck Blood Glucose; Complete Time: 21:10 cp 11/13 20:49 Order name: CT Head Brain wo Cont cp 11/13 21:17 Order name: CBC with Automated Diff; Complete Time: 23:12 EDMS 11/13 21:21 Order name: Glucose, Ancillary Testing; Complete Time: 23:12 EDMS 11/13 21:30 Order name: Basic Metabolic Panel; Complete Time: 23:12 EDMS 11/13 23:12 Interpretation: Normal except: CL 108; GLUC 198; BUN 20; GFR 80. cp 11/13 21:30 Order name: Troponin High Sensitivity; Complete Time: 23:12 EDMS 11/13 21:30 Order name: Magnesium; Complete Time: 23:12 EDMS 11/13 21:36 Order name: RAD; Complete Time: 23:12 EDMS 11/13 21:58 Order name: CT; Complete Time: 23:12 EDMS 11/13 23:12 Interpretation: Report reviewed. cp 11/13 23:13 Order name: Urine Dipstick-Ancillary (obtain specimen); Complete Time: 23:37 cp 11/13 23:13 Order name: Urine Microscopic Only cp 11/13 23:37 Order name: Urine Dipstick-Ancillary; Complete Time: 00:12 EDMS 11/14 00:12 Interpretation: Normal except: UGLUC 2+; UBLD Trace-intact; UPROT 2+. cp 11/13 23:49 Order name: Urine Microscopic Only; Complete Time: 00:12 EDMS 11/14 00:13 Interpretation: Reviewed. cp 11/14 00:14 Order name: Accucheck Blood Glucose; Complete Time: 00:21 cp 11/14 00:22 Order name: Diet Regular; Complete Time: 00:22 cp 11/14 00:33 Order name: Glucose, Ancillary Testing; Complete Time: 00:49 EDMS 03 00:49 Interpretation: Abnormal: GLUC,ANCIL 140. cp EC/04 21:35 Rate is 48 beats/min. Rhythm is regular. PA interval is normal. QRS interval is normal. cp T waves are Inverted in leads I, II, aVL, V5, V6. Interpreted by me. Reviewed by me. Administered Medications: 21:32 Drug: hydrALAZINE 10 mg Route: IVP; Site: left antecubital; jb4 23:30 Drug: Lisinopril 20 mg Route: PO; jb4 23:30 Drug: hydrALAZINE 10 mg Route: IVP; Site: left antecubital; jb4 11/14 00:37 Drug: Reglan (metoCLOPramide) 10 mg Route: IVP; Site: left antecubital; jb4 00:37 Drug: Tylenol 650 mg Route: PO; jb4 00:37 Drug: NS 0.9% 500 ml Route: IV; Rate: bolus; Site: left antecubital; jb4 00:37 Drug: Benadryl (diphenhydrAMINE) 12.5 mg Route: IVP; Site: left antecubital; jb4 01:23 Not Given (Physician Discretion): cloNIDine 0.2 mg PO once cp 01:31 Drug: cloNIDine 0.1 mg Route: PO; jb4 Disposition Summary: 11/14/22 02:04 Discharge Ordered Location: Home cp Problem: new cp Symptoms: have improved cp Condition: Stable cp Diagnosis - Headache cp - Hypoglycemia, unspecified cp - Hypertensive heart disease without heart failure cp Followup: cp - With: Private Physician - When: 2 - 3 days - Reason: Recheck today's complaints Discharge Instructions: - Discharge Summary Sheet cp - General Headache Without Cause cp - Hypertension, Adult cp - Hypoglycemia cp - Blood Glucose Monitoring, Adult cp - Aspirin and Your Heart cp - Form - Blood Pressure Record Sheet cp - How to Take Your Blood Pressure cp Forms: - Medication Reconciliation Form cp - Thank You Letter cp - Antibiotic Education cp - Prescription Opioid Use cp Prescriptions: - lisinopril 20 mg Oral tablet - take 1 tablet by ORAL route once daily; 20 tablet; Refills: 0, Product cp Selection Permitted Addendum: 11/15/2022 02:32 Co-signature as Attending Physician, Chas Medley MD I reviewed the patient's care s p4 provided by the Advanced Practice Provider and agree with the diagnosis and treatment plan. Signatures: Dispatcher [employer] EDMS Daniel Dunlap PA PA cp Bryson, James RN RN jb4 Chas Medley MD MD sp4 Corrections: (The following items were deleted from the chart) 01:46 03 20:55 Patient is a 62-year-old female with a known history of diabetes mellitus, cp hypertension, and hyperlipidemia. Patient presents to the emergency department via EMS after EMS was called due to low blood sugar. Patient reports she is prescribed metformin and glimepiride for diabetes and takes her metformin regularly but her glimepiride only as needed when blood sugars are elevated. Patient also was asked states she takes lisinopril/hydrochlorothiazide for hypertension. Patient reports she checked her blood sugar today and noticed that it was 25 so she drank some juice and called EMS to come to the emergency room. Upon EMS arrival her blood sugar was recorded to be 115. Patient complains of slight headache and denies any chest pain. Upon EMS arrival blood pressure was measured to be elevated. cp
[2022-11-14 02:29] VITALS: TEMP 97.8
[2022-11-14 03:00] VITALS: BP 166/46; O2SAT 98
--- NOTE | 2022-11-15 16:43 | EKG ---
Test Date: 2022-11-13 Test Time: 21:30:14 Die Lay Out Worker: BREE MEASUREMENT RESULTS: Intervals: Rate: 48 NE: 148 QRSD: 80 QT: 486 QTc: 434 Turner: P: -12 NE: 148 QRS: 19 T: 174 INTERPRETIVE STATEMENTS: Marked sinus bradycardia with sinus arrhythmia Voltage criteria for left ventricular hypertrophy T wave abnormality, consider inferolateral ischemia Abnormal ECG Compared to ECG 07/25/2022 05:17:51 T-wave abnormality now present Possible ischemia now present Sinus rhythm no longer present Early repolarization no longer present Electronically Signed On 11-15-22 16:38:10 AUTO GLASS TECHNICIAN by Kalen Olivera
== END 2022-11-14 02:19 | disposition home or self-care (01) ==
LOC: ER 20:25
DX: R51.9 Headache, unspecified (principal); I11.9 Hypertensive heart disease without heart failure; E11.649 Type 2 diabetes mellitus with hypoglycemia without coma; F17.210 Nicotine dependence, cigarettes, uncomplicated
CPT/HCPCS: 36415; 70450; 71045; 80048; 81003; 81015; 82947; 83735; 84484; 85025; 93005; 96374; 96375; 99284; J0360; J1200; J2765; J7040

== ENCOUNTER 2024-01-02 18:09 | Emergency (ER) | payer SELFPAY ==
[2024-01-02] MEDS ORDERED: DIPHENHYDRAMINE 50 MG/ML VIAL ONE (19:16)
[2024-01-02] MEDS ORDERED: METOCLOPRAMIDE 10 MG/2mL INJ ONE (19:17)
[2024-01-02] MEDS ORDERED: NA CHLORIDE 0.9% 500 ML ONE (19:17)
[2024-01-02 20:00] LABS: Absolute Basophils 0.1 K/uL (0-0.5); Absolute Eosinophils 0.2 K/uL (0-0.5); Absolute Lymphocytes (CBC) 1.9 K/uL (0.7-4.9); Absolute Monocytes 0.4 K/uL (0.1-1.3); Absolute Neutrophil 4.6 K/uL (1.8-8.0); Basophils % 0.7 % (0-1.3); Eosinophils % 2.3 % (0-4.4); Hematocrit 31.9 % (36.0-45.0); Hemoglobin 10.7 g/dL (12.0-15.0); Lymphocytes % 26.7 % (15.3-44.8); MCH 30.8 pg (27.0-35.0); MCHC 33.6 g/dL (32.0-36.0); MCV 91.7 fL (80-100); MPV 8.8 fL (7.6-11.3); Monocytes % 5.7 % (3.3-12.3); Neutrophils % 64.6 % (41.7-73.7); PT Prothrombin Time 10.1 SECONDS (9.5-12.5); Platelets 215 thou/uL (152-406); Protime INR 0.92; RBC Red Blood Cell Count 3.47 M/uL (3.86-4.86); Red Cell Distribution Width 13.1 % (12.1-15.2)
[2024-01-02 20:06] LABS: Specific Gravity 1.016 (1.005-1.030); Sqamous Epithelial <5 /HPF (None Seen); Urine Bacteria <20 /HPF (<20); Urine Bilirubin NEGATIVE (Negative); Urine Blood Negative (Negative); Urine Clarity Clear (Clear); Urine Color Colorless (Yellow); Urine Culture Reflex Order REFLEXED; Urine Glucose 4+ (Over) (Negative); Urine Ketones NEGATIVE (Negative); Urine Micro Reflex YN NO BILL MICROSCOPIC; Urine Mucus Slight /HPF (None Seen); Urine Nitrite NEGATIVE (Negative); Urine Protein NEGATIVE (Negative); Urine RBC <5 /HPF (None Seen); Urine Urobilinogen Normal (Normal); Urine pH 5.5 (5.0-7.0)
--- NOTE | 2024-01-02 20:14 | RAD REPORT ---
EXAM DESCRIPTION: CT - Head Brain Wo Cont - 01/02/2024 8:06 pm CLINICAL HISTORY: Dizziness;Headache Headache, drowsiness COMPARISON: Head angio dated 06/08/2023; Ct Stroke Brain Wo Cont dated 06/08/2023; Brain Wo Cont dated 06/08/2023 TECHNIQUE: All CT scans are performed using dose optimization technique as appropriate and may inclu de automated exposure control or mA/KV adjustment according to patient size. FINDINGS: No intracranial hemorrhage, hydrocephalus or extra-axial fluid collection.12 mm area of gl iosis right sidney related to remote infarct.No areas of brain edema or evidence of midline shift. The paranasal sinuses and mastoids are clear. The calvarium is intact. IMPRESSION: No acute intracranial abnormality.
[2024-01-02 20:15] LABS: Anion Gap 10.6 mEq/L (5.0-15.0); Troponin High Sensitivity 9.8 pg/mL (<58.9)
--- NOTE | 2024-01-02 20:15 | RAD REPORT ---
EXAM DESCRIPTION: RAD - Chest Single View - 01/02/2024 8:07 pm CLINICAL HISTORY: shortness of breath Chest pain. COMPARISON: Chest Single View dated 06/08/2023; Chest Single View dated 11/13/2022; Chest Single View d ated 07/25/2022; Chest Single View dated 02/05/2021 FINDINGS: Portable technique limits examination quality. The lungs are grossly clear. The heart is moderately enlarged. No displaced fractures. IMPRESSION: No acute intrathoracic process suspected.
[2024-01-02 20:18] LABS: Potassium 3.6 mEq/L (3.5-5.1)
[2024-01-02 20:19] LABS: Magnesium 2.3 mg/dL (1.6-2.4)
[2024-01-02] MEDS ORDERED: KETOROLAC 30 MG/ML INJ ONE (20:40)
[2024-01-02] MEDS ORDERED: ACETAMINOPHEN 325 MG TABLET ONE (20:40)
[2024-01-02] MEDS ORDERED: AMLODIPINE 10 MG TAB ONE (22:05)
[2024-01-02] MEDS ORDERED: cloNIDine HCL 0.1 MG TAB ONE (22:05)
--- NOTE | 2024-01-02 22:40 | ER ---
Nurse's Notes [facility] Name: Ellen Winston Age: 63 yrs Sex: Female : 1960 Arrival Date: 01/02/2024 Time: 18:09 Bed 20 Private MD: Diagnosis: Headache;Hypertensive heart disease without heart failure;Shortness of breath;Dizziness and giddiness Presentation: 01/01 18:28 Chief complaint: Patient states: short of breath for months, has headache on right side ko1 today down into neck. 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 On amlodipine for bp and is out of it, has not taken it today. Coronavirus screen: At this time, the client does not indicate any symptoms associated with coronavirus-19. Ebola Screen: No symptoms or risks identified at this time. Initial Sepsis Screen: Does the patient meet any 2 criteria? No. Patient's initial sepsis screen is negative. Does the patient have a suspected source of infection? No. Patient's initial sepsis screen is negative. Risk Assessment: Do you want to hurt yourself or someone else? Patient reports no desire to harm self or others. Onset of symptoms is unknown. 18:28 Method Of Arrival: Ambulatory ko1 18:28 Acuity: TYRONE 3 ko1 Triage Assessment: 18:32 General: Appears in no apparent distress. Behavior is calm, cooperative, appropriate ko1 for age. Pain: Complains of pain in right side of head. Respiratory: Reports shortness of breath on exertion Onset: The symptoms/episode began/occurred at an unknown time. the patient has moderate shortness of breath. Historical: - Allergies: 18:32 NKDA; ko1 - PMHx: 18:32 abnormal EKG; Diabetes - NIDDM; Hyperlipidemia; Hypertension; UTI; ko1 - PSHx: 18:32 hysterectomy; Tonsillectomy; ko1 - Immunization history:: Adult Immunizations unknown. - Infectious Disease History:: Denies. - Social history:: Smoking status: Patient denies any tobacco usage or history of. Screenin:08 [facility] ED Fall Risk Assessment (Adult) History of falling in the last 3 months, jj7 including since admission Yes- single mechanical fall (1 pt) Confusion or Disorientation No (0 pts) Intoxicated or Sedated No (0 pts) Impaired Gait Yes (1 pt) Mobility Assist Device Used No (0 pt) Altered Elimination No (0 pt) Score/Fall Risk Level 0 - 2 = Low Risk Oriented to surroundings, Maintained a safe environment, Educated pt \T\ family on fall prevention, incl call for assistance when getting out of bed. Abuse screen: Denies threats or abuse. Nutritional screening: No deficits noted. Tuberculosis screening: No symptoms or risk factors identified. Assessment: 19:08 General: Appears in no apparent distress. comfortable, Behavior is calm, cooperative, jj7 appropriate for age. Pain: Complains of pain in head. Neuro: Reports headache. Cardiovascular: No deficits noted. Respiratory: Airway is patent Respiratory effort is even, unlabored, Breath sounds are clear bilaterally. 19:50 Cardiovascular: Rhythm is sinus bradycardia. jj7 Vital Signs: 18:28 BP 166 / 51; Pulse 74; Resp 16; Temp 98; Pulse Ox 100% on R/A; ko1 19:30 BP 168 / 51; Pulse 60; Resp 17; Pulse Ox 98% on R/A; jj7 20:36 BP 141 / 61; Pulse 70; Resp 17; Pulse Ox 100% ; jj7 21:30 BP 182 / 65; Pulse 68; Resp 19; Pulse Ox 100% ; jj7 22:39 BP 123 / 64; Pulse 57; Resp 16; Pulse Ox 99% on R/A; jb4 ED Course: 18:11 Patient arrived in ED. mg5 18:16 Daniel Dunlap PA is PHCP. cp 18:16 Modesto Torre MD is Attending Physician. cp 18:32 Triage completed. ko1 18:32 Arm band placed on right wrist. Patient placed in an exam room, on a stretcher, on ko1 rn cardiac rehab, on pulse oximetry, Patient notified of wait time. 19:06 Chey Das RN is Primary Nurse. jj7 19:08 Patient has correct armband on for positive identification. Bed in low position. Call jj7 light in reach. Side rails up X 1. Adult w/ patient. Provided Education on: USE OF CALL ABREU. Client placed on continuous cardiac and pulse oximetry monitoring. NIBP monitoring applied. clinical research monitor on. Pulse ox on. 19:30 Missed attempt(s): 20 gauge in right antecubital area. jj7 19:35 EKG done, by client technical support associate. reviewed by Daniel ANGELES. oe 19:40 Inserted saline lock: 20 gauge in right hand, using aseptic technique. Blood collected. jj7 19:45 CBC with Diff Sent. jj7 19:45 Magnesium Sent. jj7 19:45 NT PRO-BNP Sent. jj7 19:45 PT-INR Sent. jj7 19:45 Troponin HS Sent. jj7 20:07 CT Head Brain wo Cont In Process Unspecified. EDMS 20:09 XRAY Chest (1 view) In Process Unspecified. EDMS 22:55 No provider procedures requiring assistance completed. IV discontinued, intact, jj7 bleeding controlled, No redness/swelling at site. Pressure dressing applied. Administered Medications: 19:41 Drug: diphenhydrAMINE IVP 25 mg IVP once Route: IVP; Site: right hand; jj7 20:36 Follow up: Response: No adverse reaction; Pain is unchanged, physician notified jj7 19:41 Drug: NS 0.9% IV 500 ml IV at 125 ml/hr continuous Route: IV; Rate: 125 ml/hr; Site: [facility] right hand; 20:35 Follow up: IV Status: Completed infusion jj7 19:46 Drug: metoCLOPramide IVP 10 mg IVP once; over 1 to 2 minutes Route: IVP; Site: right [facility] hand; 20:36 Follow up: Response: No adverse reaction; Pain is unchanged, physician notified jj7 20:43 Drug: Ketorolac IVP 15 mg IVP once Route: IVP; Site: right antecubital; jj7 21:45 Follow up: Response: Marked relief of symptoms jj7 20:43 Drug: Acetaminophen PO 650 mg PO once Route: PO; jj7 21:45 Follow up: Response: Marked relief of symptoms jj7 22:08 Drug: cloNIDine PO 0.1 mg PO once Route: PO; jj7 22:55 Follow up: Response: Blood pressure is lowered jj7 22:08 Drug: amLODIPine PO 10 mg PO once Route: PO; jj7 22:55 Follow up: Response: Blood pressure is lowered jj7 Medication: 19:08 VIS not applicable for this client. jj7 Outcome: 22:40 Discharge ordered by . cp 22:55 Discharged to home via wheelchair, jj7 22:55 Condition: improved 22:55 Discharge instructions given to patient, family, Instructed on discharge instructions, medication usage, Demonstrated understanding of instructions, medications, Prescriptions given X 2, 22:55 Patient left the ED. jj7 Signatures: Dispatcher [employer] EDMS Daniel Dunlap PA PA cp Bryson, James RN RN jb4 Jerardo Carpenter Kathy, RN RN ko1 Chey Das RN RN jj7 Marixa Swain mg5 Corrections: (The following items were deleted from the chart) 23:06 23:04 Patient left the ED. jj7 jj7
--- NOTE | 2024-01-02 22:40 | EDPHYS ---
Physician Documentation [facility] Name: Ellen Winston Age: 63 yrs Sex: Female : 1960 Arrival Date: 01/02/2024 Time: 18:09 Bed 20 Private MD: ED Physician Modesto Torre HPI: 01/01 19:20 This 63 yrs old Female presents to ER via Ambulatory with complaints of cp Shortness Of Breath, Dizziness. 19:20 The patient has shortness of breath at rest. Onset: The symptoms/episode began/occurred cp today. 19:20 Duration: The symptoms are continuous. cp 19:20 Associated signs and symptoms: Pertinent positives: dizziness, headache of right side cp of head, Pertinent negatives: chest pain, non-productive cough, productive cough, fever, vomiting. Severity of symptoms: in the emergency department the symptoms are unchanged despite home interventions. Historical: - Allergies: 18:32 NKDA; ko1 - PMHx: 18:32 abnormal EKG; Diabetes - NIDDM; Hyperlipidemia; Hypertension; UTI; ko1 - PSHx: 18:32 hysterectomy; Tonsillectomy; ko1 - Immunization history:: Adult Immunizations unknown. - Infectious Disease History:: Denies. - Social history:: Smoking status: Patient denies any tobacco usage or history of. ROS: 19:25 Constitutional: Negative for chills, fever, poor PO intake, cp 19:25 Cardiovascular: Negative for chest pain, edema, palpitations, cp 19:25 Eyes: Negative for injury, pain, redness, and discharge, cp 19:25 ENT: Negative for drainage from ear(s), ear pain, sore throat, difficulty swallowing, difficulty handling secretions, 19:25 Respiratory: Positive for shortness of breath, Negative for cough, wheezing, 19:25 Abdomen/GI: Negative for abdominal pain, vomiting, diarrhea, constipation, 19:25 Neuro: Positive for dizziness, headache, Negative for altered mental status, numbness, syncope, weakness, 19:25 All other systems are negative, Exam: 19:30 Constitutional: The patient appears in no acute distress, alert, awake, cp non-diaphoretic, non-toxic, well developed, well nourished, 19:30 Head/Face: Normocephalic, atraumatic. cp 19:30 Eyes: Periorbital structures: appear normal, Pupils: equal, round, and reactive to light and accomodation, Extraocular movements: intact throughout, Conjunctiva: normal, no exudate, no injection, Sclera: no appreciated abnormality, Lids and lashes: appear normal, bilaterally, 19:30 ENT: External ear(s): are unremarkable, Nose: is normal, Mouth: Lips: moist, Oral mucosa: pink and intact, moist, Posterior pharynx: Airway: no evidence of obstruction, patent, 19:30 Neck: ROM/movement: is normal, is supple, without pain, no range of motions limitations, 19:30 Chest/axilla: Inspection: normal, 19:30 Cardiovascular: Rate: normal, Rhythm: regular, Edema: is not appreciated, JVD: is not appreciated, 19:30 Respiratory: the patient does not display signs of respiratory distress, Respirations: normal, no use of accessory muscles, no retractions, labored breathing, is not present, Breath sounds: are clear throughout, no decreased breath sounds, no stridor, no wheezing, 19:30 Abdomen/GI: Inspection: abdomen appears normal, Palpation: abdomen is soft and non-tender, in all quadrants, 19:30 Back: pain, is absent, ROM is normal, 19:30 Skin: no rash present. 19:30 Neuro: Orientation: to person, place \T\ time. 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 cp Vital Signs: 18:28 BP 166 / 51; Pulse 74; Resp 16; Temp 98; Pulse Ox 100% on R/A; ko1 19:30 BP 168 / 51; Pulse 60; Resp 17; Pulse Ox 98% on R/A; jj7 20:36 BP 141 / 61; Pulse 70; Resp 17; Pulse Ox 100% ; jj7 21:30 BP 182 / 65; Pulse 68; Resp 19; Pulse Ox 100% ; jj7 22:39 BP 123 / 64; Pulse 57; Resp 16; Pulse Ox 99% on R/A; jb4 MDM: 18:37 Patient medically screened. cp 20:00 Differential diagnosis: Anxiety Reaction pneumonia, Pneumothorax pulmonary edema, cp Sepsis migraine. 22:40 Data reviewed: vital signs, nurses notes, lab test result(s), EKG, radiologic studies, cp CT scan, plain films. 22:40 I considered the following discharge prescriptions or medication management in the emergency department Medications were administered in the Emergency Department. See MAR. Counseling: I had a detailed discussion with the patient and/or guardian regarding the historical points, exam findings, and any diagnostic results supporting the discharge/admit diagnosis, lab results, radiology results, to return to the emergency department if symptoms worsen or persist or if there are any questions or concerns that arise at home. Response to treatment: the patient's symptoms have markedly improved after treatment, and as a result, I will discharge patient. 01/01 19:10 Order name: Basic Metabolic Panel; Complete Time: 20:36 01/01 20:36 Interpretation: Normal except: CL 109; GLUC 205; BUN 29; CRE 1.13; GFR 54. 01/01 19:10 Order name: CBC with Diff; Complete Time: 20:36 01/01 20:36 Interpretation: Normal except: RBC 3.47; HGB 10.7; HCT 31.9. 01/01 19:10 Order name: Magnesium; Complete Time: 20:36 01/01 19:10 Order name: NT PRO-BNP; Complete Time: 20:36 01/01 19:10 Order name: PT-INR; Complete Time: 20:36 01/01 19:10 Order name: Troponin HS; Complete Time: 20:36 01/01 19:10 Order name: Urinalysis W/Microscopic; Complete Time: 20:36 01/01 20:36 Interpretation: Normal except: UGLUC 4+ (Over); UESTR 250; UWBC 10-20. 01/01 20:17 Order name: Urine Culture EDRI 01/01 19:10 Order name: XRAY Chest (1 view); Complete Time: 20:36 01/01 19:10 Order name: CT Head Brain wo Cont; Complete Time: 20:36 01/01 19:10 Order name: Cardiac monitoring; Complete Time: 19:44 01/01 19:10 Order name: EKG - Nurse/Tech; Complete Time: 19:44 01/01 19:10 Order name: IV Saline Lock; Complete Time: 19:44 01/01 19:10 Order name: Labs collected and sent; Complete Time: 19:44 cp 01/01 19:10 Order name: O2 Per Protocol; Complete Time: :44 cp 01/01 19:10 Order name: O2 Sat Monitoring; Complete Time: :44 cp EC:37 Rate is 59 beats/min. Rhythm is regular. AR interval is normal. QRS interval is normal. cp QT interval is normal. T waves are Inverted in leads I, II, aVL, V5, V6. Interpreted by me. Reviewed by me. Administered Medications: 19:41 Drug: diphenhydrAMINE IVP 25 mg IVP once Route: IVP; Site: right hand; jj7 20:36 Follow up: Response: No adverse reaction; Pain is unchanged, physician notified jj7 19:41 Drug: NS 0.9% IV 500 ml IV at 125 ml/hr continuous Route: IV; Rate: 125 ml/hr; Site: [facility] right hand; 20:35 Follow up: IV Status: Completed infusion jj7 19:46 Drug: metoCLOPramide IVP 10 mg IVP once; over 1 to 2 minutes Route: IVP; Site: right [facility] hand; 20:36 Follow up: Response: No adverse reaction; Pain is unchanged, physician notified jj7 20:43 Drug: Ketorolac IVP 15 mg IVP once Route: IVP; Site: right antecubital; jj7 21:45 Follow up: Response: Marked relief of symptoms jj7 20:43 Drug: Acetaminophen PO 650 mg PO once Route: PO; jj7 21:45 Follow up: Response: Marked relief of symptoms jj7 22:08 Drug: cloNIDine PO 0.1 mg PO once Route: PO; jj7 22:55 Follow up: Response: Blood pressure is lowered jj7 22:08 Drug: amLODIPine PO 10 mg PO once Route: PO; jj7 22:55 Follow up: Response: Blood pressure is lowered jj7 Disposition: 01/02 09:01 Co-signature as Attending Physician, Modesto Torre MD I reviewed the patient's care rn provided by the Advanced Practice Provider and agree with the diagnosis and treatment plan. Disposition Summary: 01/02/24 22:40 Discharge Ordered Notes: Location: Home cp Problem: new cp Symptoms: have improved cp Condition: Stable cp Diagnosis - Headache cp - Hypertensive heart disease without heart failure cp - Shortness of breath cp - Dizziness and giddiness cp Followup: cp - With: Private Physician - When: 1 - 2 days - Reason: Recheck today's complaints Discharge Instructions: - Discharge Summary Sheet cp - Dizziness cp - General Headache Without Cause cp - Hypertension, Adult cp - Shortness of Breath, Adult cp - Aspirin and Your Heart cp - How to Take Your Blood Pressure cp Forms: - Medication Reconciliation Form cp - Antibiotic Education cp - Prescription Opioid Use cp - Patient Portal Instructions cp - Leadership Thank You Letter cp Prescriptions: - amlodipine 10 mg Oral tablet - take 1 tablet ORAL route daily; 20 tablet; Refills: 0, Product Selection cp Permitted - Meclizine 25 mg Oral Tablet - take 1 tablet ORAL route every 8 hours As needed; 30 tablet; Refills: 0, cp Product Selection Permitted Signatures: Dispatcher [employer] EDMS Modesto Torre MD MD rn Page, Corey, PA PA cp Azucena Jalloh RN RN ko1 Chey Das RN RN jj7 Corrections: (The following items were deleted from the chart) 01/01 19:11 19:11 BASIC METABOLIC PANEL+C.LAB.BRZ ordered. EDMS EDMS 19:11 19:11 CBC+H.LAB.BRZ ordered. EDMS EDMS 19:11 19:11 MAGNESIUM+C.LAB.BRZ ordered. EDMS EDMS 19:11 19:11 PROBNP+C.LAB.BRZ ordered. EDMS EDMS 19:11 19:11 PROTIME (+INR)+COAG.LAB.BRZ ordered. EDMS EDMS 19:11 19:11 Troponin High Sensitivity+C.LAB.BRZ ordered. EDMS EDMS 19:11 19:11 Urinalysis W/Microscopic+U.LAB.BRZ ordered. EDMS EDMS 19:11 19:11 Chest Single View+RAD.RAD.BRZ ordered. EDMS EDMS 19:11 19:11 Head Brain Wo Cont+CT.RAD.BRZ ordered. EDMS EDMS
[2024-01-03 00:36] VITALS: TEMP 98
[2024-01-03 01:21] VITALS: BP 123/64; O2SAT 99
== END 2024-01-02 23:04 | disposition home or self-care (01) ==
LOC: ER 18:09
DX: I11.9 Hypertensive heart disease without heart failure (principal); R06.02 Shortness of breath; R42 Dizziness and giddiness; E11.9 Type 2 diabetes mellitus without complications; I10 Essential (primary) hypertension
CPT/HCPCS: 36415; 70450; 71045; 80048; 81001; 83735; 83880; 84484; 85025; 85610; 87086; 87088; 93005; 99285; J1200; J2765; J7040

== ENCOUNTER 2025-06-22 11:27 | Emergency (ER) | payer OTHER ==
[2025-06-22] MEDS ORDERED: HYDRALAZINE HCL 20 MG/ML VIAL ONE (12:03)
[2025-06-22] MEDS ORDERED: TENECTEPLASE 50 MG/10 ML VIAL IV ONE (12:03)
[2025-06-22 12:20] LABS: Absolute Lymphocytes (CBC) 1.9 K/uL (0.7-4.9); Hematocrit 45.3 % (36.0-45.0); Hemoglobin 14.8 g/dL (12.0-15.0); MCH 28.5 pg (27.0-35.0); MCHC 32.7 g/dL (32.0-36.0); MCV 87.0 fL (80-100); MPV 8.7 fL (7.6-11.3); Nucleated RBC Absolute Count 0.0 (0-0); Nucleated Red Blood Cells % 0.2 % (0-0); RBC Red Blood Cell Count 5.21 M/uL (3.86-4.86); White Blood Count 6.60 thou/uL (4.3-10.9)
--- NOTE | 2025-06-22 12:26 | RAD REPORT ---
EXAM: CT brain without contrast HISTORY: STROKE ALERT COMPARISON: 01/02/2024 TECHNIQUE: Multiple contiguous axial images were obtained and a CT of the brain without contrast. Sag ittal and coronal reformats were performed. One or more of the following dose reduction techniques were used: Automated exposure control, adjust ment of the mA and/or kV according to patient size, and/or iterative reconstruction. FINDINGS: No evidence of hydrocephalus, intracranial hemorrhage, or extra-axial fluid collection. Mild brain atrophy. 8 mm area of diminished density in the right sidney likely related to old infarct. Small area of diminished density in the left frontal lobe also likely related to remote infarct. There is however a 29 x 10 mm oblong area of diminished density in the right cerebellar hemisphere, n ew since the prior study may be subacute or chronic infarct. No evidence of midline shift or areas of brain edema. The calvarium is intact. The visualized paranasal sinuses and mastoid air cells are essentially clear . IMPRESSION: No hemorrhage, hydrocephalus or midline shift. 29 x 10 oblong area of diminished density in the right cerebellum may be subacute infarct. This is ne w since 2023 comparison. Additional areas of old infarct seen right sidney and left frontal region. MRI brain follow-up may be useful for further characterization. The findings were communicated with Modesto Torre MD at 06/22/2025 12:20 PM by telephone.
[2025-06-22 12:30] LABS: PT Prothrombin Time 11.4 SECONDS (10-13.0); PTT, Activated Partial Thromb 28.3 SECONDS (27.2-37.4); Protime INR 1.01
--- NOTE | 2025-06-22 12:34 | RAD REPORT ---
EXAMINATION: ONE VIEW CHEST XR CLINICAL INDICATION: Female, 64 years old.,CHEST PAIN TECHNIQUE: Frontal chest projection is submitted. Examination is limited by patient positioning and t echnique. COMPARISON: 01/02/2024. FINDINGS: The lungs are well inflated and clear. No pneumothorax or sizable effusion. The heart is normal in s ize. Mediastinal contours are unremarkable. IMPRESSION: No acute intrathoracic abnormalities.
[2025-06-22 12:39] LABS: Anion Gap 8.7 mEq/L (5.0-15.0); BUN Blood Urea Nitrogen 14.0 mg/dL (7-18); Glucose Level 127.0 mg/dL (74-106); Potassium 3.7 mEq/L (3.5-5.1); Troponin High Sensitivity 10.6 pg/mL (<58.9)
[2025-06-22] MEDS ORDERED: Nicardipine/NS 25 MG/250 ML KIT IV ONE (13:10)
--- NOTE | 2025-06-22 13:24 | RAD REPORT ---
EXAMINATION: CTA HEAD CLINICAL INDICATION: Female, 64 years old. STROKE ALERT TECHNIQUE: Axial CT images were obtained through the head after intravenous contrast utilizing angiog raphic protocol with 3D post-processing (maximum intensity projection images, volume rendered images and/or shaded surface rendered images). One or more of the following dose reduction technique s were used: Automated exposure control, adjustment of the mA and/or kV according to patient size, and/or iterative reconstruction. Unless otherwise specified, incidental findings do not require dedic ated imaging follow-up. COMPARISON: No prior exam. FINDINGS: ICA: The petrous, cavernous, and supraclinoid segments of the bilateral internal carotid arteries are patent with moderate atherosclerotic plaque. Posteroinferiorly projecting outpouching of the left ICA communicating segment just prior to the bifurcation, measuring 3 mm. FUNMILAYO: Anterior cerebral arteries are normal bilaterally. The anterior communicating artery is patent. MCA: Middle cerebral arteries are patent bilaterally with multifocal mild stenoses. SPA SUPERVISOR: Posterior cerebral arteries are patent bilaterally, with multifocal mild to moderate stenoses bi laterally. Vertebrobasilar: The vertebral arteries are patent. The basilar artery is normal in appearance. 3D images confirm these findings. IMPRESSION: No evidence of large vessel occlusion. Multifocal up to moderate stenoses along the posterior cerebral arteries bilaterally and multifocal m ild stenoses along the MCA branches bilaterally, likely of atherosclerotic nature. Posterior inferiorly projecting outpouching of the left ICA communicating segment measuring 3 mm, cou ld represent an infundibulum of the posterior communicating artery, less likely a small aneurysm..
--- NOTE | 2025-06-22 13:38 | RAD REPORT ---
EXAMINATION: CT Neck Angio CLINICAL INDICATION: Female, 64 years old. [facility] MAIN code stroke Bed Name: 5 TECHNIQUE: Axial CT images were obtained from the aortic arch to the skull base after intravenous con trast utilizing angiographic protocol. Multiplanar reformats, as well as 3D post-processing (maximum intensity projection images, volume rendered images and/or shaded surface rendered images) w ere generated and reviewed. One or more of the following dose reduction techniques were used: Automated exposure control, adjustment of the mA and/or kV according to patient size, and/or iterativ e reconstruction. Unless otherwise specified, incidental findings do not require dedicated imaging follow-up. COMPARISON: No prior exam. FINDINGS: AORTA: The imaged aortic arch is normal. Normal three-vessel configuration of the arch. CCA: No artifact The common carotid arteries are patent and normal in caliber. ICA/ECA: Bilateral internal and external carotid arteries are patent. There is no significant interna l carotid artery stenosis. VERTEBRAL: The cervical vertebral arteries are patent to the skull base. Vertebral arteries are codom inant. SOFT TISSUE: No significant neck soft tissue abnormalities. The visualized lung apices are clear. 3D images confirm these findings. IMPRESSION: No significant flow abnormality of the neck vessels is identified. NASCET criteria used to quantify ICA stenosis, with the following grading scheme: Mild 0-49% stenosis Moderate 50-69% stenosis Severe 70-99% stenosis Reference: [place] Symptomatic Carotid Endarterectomy Trial Collaborators; Lenora REYES, Claudia SAMAYOA, Joanie RB, et al. Beneficial effect of carotid endarterectomy in symptomatic patients with high-grade carotid stenosis. N Engl J Med. 1990Apr 26;325(7):445-53.
[2025-06-22] MEDS ORDERED: ONDANSETRON 4 MG/2 ML VIAL ONE (14:10)
--- NOTE | 2025-06-22 14:11 | EDPHYS ---
Physician Documentation [facility] Name: Ellen Winston Age: 64 yrs Sex: Female : 1960 Arrival Date: 06/22/2025 Time: 11:27 Bed 5 Private MD: ED Physician Modesto Torre HPI: 06/22 11:44 This 64 yrs old Female presents to ER via Unassigned with complaints of Chest rn Pain, Blurred Vision,dizziness, speech problem Tingling right arm. 11:44 Patient reports onset of symptoms approximately 10:35 AM today, was at [facility] rn for food. Had sudden onset of dizziness, patient reports difficulty with speech. Patient has had 2 strokes in the past left side and right side. Patient denies any new weakness but does report numbness and tingling in the right arm. Patient states she takes an aspirin but nothing stronger for anticoagulation. Her last stroke was 2 years ago. No recent head injury or procedure. No new medication.. Historical: - Allergies: 11:44 NKDA; dd2 - PMHx: 11:44 abnormal EKG; Diabetes - NIDDM; Hyperlipidemia; Hypertension; UTI; Cerebrovascular dd2 accident; - PSHx: 11:44 hysterectomy; Tonsillectomy; dd2 - Immunization history:: Adult Immunizations unknown. - Infectious Disease History:: Denies. - Social history:: Smoking status: Patient denies any tobacco usage or history of. - Family history:: not pertinent. - Hospitalizations: : No recent hospitalization is reported. ROS: 11:44 Constitutional: Negative for fever, chills, and weight loss, Cardiovascular: Negative rn for palpitations, and edema, Respiratory: Negative for shortness of breath, cough, wheezing, and pleuritic chest pain, Abdomen/GI: Negative for abdominal pain, nausea, vomiting, diarrhea, and constipation, MS/Extremity: Negative for injury and deformity, Neuro: Positive for dizziness, speech difficulty and tingling in right arm Exam: 11:44 Constitutional: This is a well developed, well nourished patient who is awake, alert, rn and in no acute distress. Head/Face: Normocephalic, atraumatic. Eyes: Pupils equal round and reactive to light, extra-ocular motions intact Cardiovascular: Regular rate and rhythm. No pulse deficits. Respiratory: No increased work of breathing, no retractions or nasal flaring. Abdomen/GI: Soft, non-tender Neuro: Awake and alert, GCS 15, oriented to person, place, time, and situation. Cranial nerves II-XII grossly intact. Motor strength 4/5 in all extremities. Sensory grossly intact. Difficulty walking from wheelchair to bed but able to do so with minimal assistance. 12:27 ECG was reviewed by the Attending Physician. rn Vital Signs: 11:41 BP 207 / 81; Pulse 77; Resp 17; Temp 98.2; Pulse Ox 99% on R/A; Weight 51.26 kg; Pain dd2 6/10; 11:54 BP 187 / 67; Pulse 65; Resp 16; Pulse Ox 100% on R/A; iw 11:56 Weight 51.71 kg (M); iw 12:28 BP 165 / 72; rn 12:34 BP 167 / 72; rn 12:35 BP 167 / 72; Pulse 68; Resp 16; Pulse Ox 100% on R/A; iw 13:05 BP 214 / 76; Pulse 68; Pulse Ox 99% on R/A; af3 13:23 BP 205 / 59; Pulse 75; Resp 16; Pulse Ox 100% on R/A; iw 13:29 BP 172 / 55; Pulse 84; rn 14:14 BP 131 / 92; Pulse 94; Resp 19; Pulse Ox 100% on R/A; iw 11:41 Pain Scale: Adult dd2 NIH Stroke Scale Scores: 11:47 NIHSS Score: 5 rn 12:20 NIHSS Score: 2 iw 12:37 NIHSS Score: 1 iw MDM: 11:33 Medical Screening Exam initiated rn 11:48 ED course: NIH 5 but patient states his only new symptoms are right sided tingling and rn dizziness along with worsening speech so compared to her baseline possibly NIH 2. 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 According to patient she only takes an aspirin.. ED course: There has also been a delay due to lack of radiology read on the CT stroke brain.. 12:12 Management of patient was discussed with the following: Gluer And Wedger: Discussed case with rn Dr. Nath, neurology, who recommends TNKase administration. States patient can be admitted here if CTA negative for LVO.. ED course: Delay of TNKase administration because at this time patient is not sure if she wants to receive TNKase, is talking to family and they were still trying to figure out his medication.. 12:17 Independent interpretation of the following test(s) in the Emergency Department CT rn Scan: My interpretation is CT head images negative for acute hemorrhage per my interpretation. ED course: Karla contacted and they report that patient is not on any anticoagulants prescribed. Son and patient want to receive TNKase at this time and consent. Waiting on radiology read although I do not see obvious hemorrhage at this time.. 12:19 Discussion of test interpretation with radiology: I had a discussion with director of radiology regarding a test interpretation. Discussed case with Dr. Galvin, reports no acute findings on CT stroke protocol brain.. 12:28 ED course: Blood pressure improved to 165/70 5:02 milligrams of hydralazine. TNKase rn administered.. 13:07 ED course: BP climbed to 214/76, started on Cardene drip. rn 14:05 Differential diagnosis: cerebral infarction, hypertensive emergency. rn 14:07 Data reviewed: vital signs, nurses notes, lab test result(s), EKG, radiologic studies, rn CT scan, and as a result, I will admit patient. Consideration of Admission/Observation Patient was admitted/placed on observation. Escalation of care including admission/observation considered. I considered the following discharge prescriptions or medication management in the emergency department Medications were administered in the Emergency Department. See MAR. Care significantly affected by the following chronic conditions: Diabetes, Hypertension, Cerebral infarction. Counseling: I had a detailed discussion with the patient and/or guardian regarding the historical points, exam findings, and any diagnostic results supporting the discharge/admit diagnosis, lab results, radiology results, the need for further work-up and treatment in the hospital, the need to transfer to another facility, for higher level of care, [facility] does not immediately have the required specialist. ED course: CT angiogram shows possible aneurysm posterior circulation, patient has received TNK and is difficult to maintain blood pressure under target goal status post TNK administration. Decision made to transfer for higher level of care especially given possible aneurysm. Accepted for transfer to [facility]. 06/22 11:43 Order name: Basic Metabolic Panel; Complete Time: 12:43 rn 06/22 11:43 Order name: CBC with Diff; Complete Time: 12:43 rn 06/22 11:43 Order name: High Sensitivity Troponin; Complete Time: 12:43 rn 06/22 11:43 Order name: Protime (+inr); Complete Time: 12:43 rn 06/22 11:43 Order name: Ptt, Activated; Complete Time: 12:43 rn 06/22 12:34 Order name: Glucose, Ancillary Testing; Complete Time: 12:43 EDMS 06/22 11:43 Order name: CT Stroke Brain w/o Contrast; Complete Time: 12:43 rn 06/22 11:43 Order name: Stroke CXR 1 View; Complete Time: 12:43 rn 06/22 12:32 Order name: Head Angio CT; Complete Time: 13:39 rn 06/22 12:32 Order name: Neck Angio CT; Complete Time: 13:39 rn 06/22 11:43 Order name: Accucheck; Complete Time: 12:06 rn 06/22 11:43 Order name: Cardiac monitoring; Complete Time: 12:06 rn 06/22 11:43 Order name: EKG - Nurse/Tech; Complete Time: 12:06 rn 06/22 11:43 Order name: IV Saline Lock; Complete Time: 12:05 rn 06/22 11:43 Order name: Labs collected and sent; Complete Time: 12:05 rn 06/22 11:43 Order name: NPO; Complete Time: 11:54 rn 06/22 11:43 Order name: O2 Per Protocol; Complete Time: 11:54 rn 06/22 11:43 Order name: O2 Sat Monitoring; Complete Time: 11:54 rn 06/22 11:43 Order name: Stroke Swallow Screen; Complete Time: 13:48 rn EC:27 Rate is 65 beats/min. Rhythm is regular. QRS [place] is Normal. VA interval is normal. QRS rn interval is normal. QT interval is normal. No Q waves. T waves are Inverted in leads I, aVL. No ST changes noted. Clinical impression: NSR w/ Non-specific ST/T Changes. Interpreted by me. Reviewed by me. Administered Medications: 12:20 Drug: hydrALAZINE IVP 5 mg IVP once Route: IVP; Site: left antecubital; iw 12:30 Follow up: Response: No adverse reaction; Blood pressure is unchanged iw 12:22 Drug: TNK FOR STROKE - Tenecteplase IV (Administer 10 ml NS flush BEFORE and iw AFTER tenecteplase) 0.25 mg/kg IV at per protocol once; 0.25mg/kg, MAX DOSE 25 mg, IVP over 5 seconds {Co-Signature: ph (Jeny Watson RN).} Route: IV; Rate: per protocol; Site: left antecubital; 12:23 Follow up: IV Status: Completed infusion iw 12:31 Drug: hydrALAZINE IVP 5 mg IVP once Route: IVP; Site: left antecubital; iw 12:40 Follow up: Response: No adverse reaction; Blood pressure is unchanged iw 12:47 CANCELLED (Duplicate Order): labetalol5 mg IV at calculated rate once rn 13:19 Drug: niCARdipine IV 5 mg/hr IV at calculated rate See Administration Instructions; iw (Standard concentration 25 mg / 250 mL NS); Recommended max rate 15 mg/hr; Titrate 2.5 mg/hr as often as every 15 minutes to achieve goal (see titration policy); Goal parameter SBP less thanmmHg Route: IV; Rate: calculated rate; Site: left antecubital; 15:18 Follow up: IV Status: Infusion continued upon transfer iw 13:23 Not Given (Duplicate Order): hydralazine5 mg IVP once iw 14:12 Drug: Ondansetron IVP 4 mg IVP once; over 2 minutes Route: IVP; Site: right antecubital;iw 14:35 Follow up: Response: No adverse reaction iw Point of Care Testing: Blood Glucose: 11:54 Blood Glucose: 126 mg/dL; iw Ranges: Critical Glucose Levels:Adult <50 mg/dl or >400 mg/dl <40 mg/dl or >180 mg/dl Disposition: 14:07 Critical Care:. rn Disposition Summary: 06/22/25 14:10 Transfer Ordered Notes: Transfer Location: [facility] rn Reason: Higher level of care rn Condition: Stable rn Problem: new rn Symptoms: have improved rn Accepting Physician: (06/22/25 15:18) iw Diagnosis - Cerebral infarction, unspecified rn - Paresthesia of skin rn Forms: - Medication Reconciliation Form rn - SBAR form rn field time excluding procedures: 14:07 Critical care time: Bedside Care: 55 minutes, Consultation: 15 minutes, Family rn Intervention: 10 minutes. Total time: 80 minutes NIH Stroke Scale - NIH Stroke Score Date: 06/22/2025 Time: 11:47 Total Score = 5 10. Dysarthria (speech clarity - read or repeat words) - 1(Mild to Moderate) 11. Extinction and Inattention (visual/tactile/auditory/spatial/personal) - 0(No abnormality) 1a. Level of Consciousness (LOC) - 0(Alert) 1b. Level of Consciousness (LOC) (Month \T\ Age) - 0(Both) 1c. LOC Commands (Open \T\ Closes Eyes/Ssrs Report Developer) - 0(Both) 2. Best Gaze (Lateral Gaze Paresis) - 0(Normal) 3. Visual Field Loss - 0(No visual loss) 4. Facial Palsy - 0(Normal) 5a. Left Arm: Motor (10-second hold) - 1(Drift) 5b. Right Arm: Motor (10-second hold) - 0(No drift) 6a. Left Leg: Motor (5-second hold - always test supine) - 1(Drift) 6b. Right Leg: Motor (5-second hold - always test supine) - 1(Drift) 7. Limb Ataxia (finger/nose \T\ heel/velásquez - test with eyes open) - 0(Absent) 8. Sensory Loss (pinprick arms/legs/face) - 1(Mild to moderate loss) 9. Best Language: Aphasia (description/naming/reading) - 0(No aphasia) Initials: rn NIH Stroke Scale - NIH Stroke Score Date: 06/22/2025 Time: 12:20 Total Score = 2 10. Dysarthria (speech clarity - read or repeat words) - 1(Mild to Moderate) 11. Extinction and Inattention (visual/tactile/auditory/spatial/personal) - 0(No abnormality) 1a. Level of Consciousness (LOC) - 0(Alert) 1b. Level of Consciousness (LOC) (Month \T\ Age) - 0(Both) 1c. LOC Commands (Open \T\ Closes Eyes/Ssrs Report Developer) - 0(Both) 2. Best Gaze (Lateral Gaze Paresis) - 0(Normal) 3. Visual Field Loss - 0(No visual loss) 4. Facial Palsy - 0(Normal) 5a. Left Arm: Motor (10-second hold) - 0(No drift) 5b. Right Arm: Motor (10-second hold) - 0(No drift) 6a. Left Leg: Motor (5-second hold - always test supine) - 0(No drift) 6b. Right Leg: Motor (5-second hold - always test supine) - 0(No drift) 7. Limb Ataxia (finger/nose \T\ heel/velásquez - test with eyes open) - 0(Absent) 8. Sensory Loss (pinprick arms/legs/face) - 1(Mild to moderate loss) 9. Best Language: Aphasia (description/naming/reading) - 0(No aphasia) Initials: NIH Stroke Scale - NIH Stroke Score Date: 06/22/2025 Time: 12:37 Total Score = 1 10. Dysarthria (speech clarity - read or repeat words) - 1(Mild to Moderate) 11. Extinction and Inattention (visual/tactile/auditory/spatial/personal) - 0(No abnormality) 1a. Level of Consciousness (LOC) - 0(Alert) 1b. Level of Consciousness (LOC) (Month \T\ Age) - 0(Both) 1c. LOC Commands (Open \T\ Closes Eyes/Ssrs Report Developer) - 0(Both) 2. Best Gaze (Lateral Gaze Paresis) - 0(Normal) 3. Visual Field Loss - 0(No visual loss) 4. Facial Palsy - 0(Normal) 5a. Left Arm: Motor (10-second hold) - 0(No drift) 5b. Right Arm: Motor (10-second hold) - 0(No drift) 6a. Left Leg: Motor (5-second hold - always test supine) - 0(No drift) 6b. Right Leg: Motor (5-second hold - always test supine) - 0(No drift) 7. Limb Ataxia (finger/nose \T\ heel/velásquez - test with eyes open) - 0(Absent) 8. Sensory Loss (pinprick arms/legs/face) - 0(Normal) 9. Best Language: Aphasia (description/naming/reading) - 0(No aphasia) Initials: Signatures: Dispatcher [employer] EDLucero Vega RN RN iw Modesto Torre MD MD rn DAVIS, DIANA, RN RN dd2 Watson, Jeny RN ph Corrections: (The following items were deleted from the chart) 11: 11:43 BASIC METABOLIC PANEL+C.LAB.BRZ ordered. EDMS EDMS 11:43 11:43 CBC+H.LAB.BRZ ordered. EDMS EDMS : 11:43 Troponin High Sensitivity+C.LAB.BRZ ordered. EDMS EDMS :43 11:43 PROTIME (+INR)+COAG.LAB.BRZ ordered. EDMS EDMS 11:43 11:43 PTT, ACTIVATED+COAG.LAB.BRZ ordered. EDMS EDMS 11:43 11:43 CT-STROKE BRAIN W/O CONTRAST+CT.RAD.BRZ ordered. EDMS EDMS 11:43 11:43 Chest Single View+RAD.RAD.BRZ ordered. EDMS EDMS 12:33 12:33 Neck Angio+CT.RAD.BRZ ordered. EDMS EDMS 12:47 12:47 Labetalol IV 5 mg IV at calculated rate once ordered. emily diaz 15:18 14:10 Dr. diaz iw
--- NOTE | 2025-06-22 14:11 | ER ---
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 Coronavirus screen: At this time, the client does not indicate any symptoms associated with coronavirus-19. Ebola Screen: No symptoms or risks identified at this time. Initial Sepsis Screen: Does the patient meet any 2 criteria? No. Patient's initial sepsis screen is negative. Does the patient have a suspected source of infection? No. Patient's initial sepsis screen is negative. Risk Assessment: Do you want to hurt yourself or someone else? Patient reports no desire to harm self or others. Onset of symptoms was June 22, 2025 at 10:35. 11:41 Method Of Arrival: Ambulatory dd2 11:41 Acuity: TYRONE 3 dd2 11:44 An acute neurological deficit is present. The patient has been moved to a treatment iw area. The patients blood glucose was checked before arriving to the hospital and was found to be normal. 11:54 Acuity: TYRONE 2 iw Triage Assessment: 11:44 General: Appears uncomfortable, well groomed, well nourished, Behavior is calm, dd2 cooperative, appropriate for age. Pain: Complains of pain in chest, head. Neuro: Reports blurred vision headache. Cardiovascular: Reports chest pain. Cardiovascular: Reports shortness of breath. 11:44 The onset of the patients symptoms was June 22, 2025 at 10:35. iw 15:17 The onset of the patients symptoms was. iw Stroke Activation: Symptom onset < 3 hours Physician: ED Attending; Name: Dr. Torre; Notified At: 11:44; Arrived At: 11:44 Physician: Mid-Level Provider; Name: ; Notified At: 11:44; Arrived At: Physician: [not used]; Name: ; Notified At: ; Arrived At: Physician: [not used]; Name: ; Notified At: ; Arrived At: Physician: [not used]; Name: ; Notified At: ; Arrived At: Historical: - Allergies: 11:44 NKDA; dd2 - PMHx: :44 abnormal EKG; Diabetes - NIDDM; Hyperlipidemia; Hypertension; UTI; Cerebrovascular dd2 accident; - PSHx: 11:44 hysterectomy; Tonsillectomy; dd2 - Immunization history:: Adult Immunizations unknown. - Infectious Disease History:: Denies. - Social history:: Smoking status: Patient denies any tobacco usage or history of. - Family history:: not pertinent. - Hospitalizations: : No recent hospitalization is reported. Screenin:00 [place] Swallow Protocol Exclusion Criteria: Unable to remain alert for testing: No NPO iw for medical/surgical reason by provider order No Head-of-bed restricted <30 degrees Tracheostomy tube present No No thin liquids due to preexisting dysphagia/baseline modified diet thickened liquids No Brief Cognitive Screen What is your name? Normal, Where are you right now? Normal, What year is it? Normal. Oral Mechanism Examination Facial Symmetry: Normal, Motion: Normal, Lip Closure: Normal, Oral Mechanism Result: Normal. 3 oz Water Swallow Challenge: Pt able to drink all water without stopping, coughing, choking or throat clearing: Yes Result: JLUIS BLUM Notified: Modesto Torre MD. 13:00 [facility] ED Fall Risk Assessment (Adult) History of falling in the last 3 months, iw including since admission Yes- single mechanical fall (1 pt) Confusion or Disorientation No (0 pts) Intoxicated or Sedated No (0 pts) Impaired Gait No (0 pts) Mobility Assist Device Used No (0 pt) Altered Elimination No (0 pt) Score/Fall Risk Level 0 - 2 = Low Risk Oriented to surroundings, Maintained a safe environment. Abuse screen: Denies threats or abuse. Denies injuries from another. Nutritional screening: No deficits noted. Tuberculosis screening: No symptoms or risk factors identified. Assessment: 11:44 Reassessment: Code stroke called overhead. ph 11:45 Reassessment: Pt taken to CT via stretcher by EMILY Barker. ph 11:55 General: Appears in no apparent distress. Behavior is calm, cooperative. Neuro: Level iw of Consciousness is awake, alert, obeys commands, Oriented to person, place, time, situation, Moves all extremities. Full function. Neuro: Reports blurred vision in outer aspect of conjuctiva of right eye, iris of right eye, inner aspect of conjuctiva of right eye, outer aspect of conjuctiva of left eye, iris of left eye and inner aspect of conjunctiva of left eye dizziness. Cardiovascular: Capillary refill < 3 seconds in bilateral fingers Patient's skin is warm and dry. Derm: Skin is intact, is fragile, is thin. Musculoskeletal: Range of motion: intact in all extremities. 12:08 Reassessment: Dr Torre at bedside to speak w/ pt. ph 12:20 VAN Scoring: Arm Drift: Patients demonstrates NO arm weakness. Patient is VAN Negative. iw Visual Disturbance: No visual disturbance noted. Aphasia: No aphasia noted. Neglect: No neglect noted. TNKase (Tenecteplase) Screening: Indications: Definite evidence of stroke, ischemic, embolic, or hypertensive: Yes. Treatment will start within 4.5 hours onset of symptoms: Yes. No evidence of intracranial hemorrhage or CT of head and no evidence of peripheral hemorrhage or recent CVA: Yes. Consent for thrombolytic therapy: Yes. 14:12 Reassessment: pt vomiting, Dr. Torre notified, verbal order for 4 mg zofran IVP given iw now. 14:33 Reassessment: Report called to [facility], spoke with EMILY Lasren. ph Vital Signs: 11:41 BP 207 / 81; Pulse 77; Resp 17; Temp 98.2; Pulse Ox 99% on R/A; Weight 51.26 kg; Pain dd2 6/10; 11:54 BP 187 / 67; Pulse 65; Resp 16; Pulse Ox 100% on R/A; iw 11:56 Weight 51.71 kg (M); iw 12:28 BP 165 / 72; rn 12:34 BP 167 / 72; rn 12:35 BP 167 / 72; Pulse 68; Resp 16; Pulse Ox 100% on R/A; iw 13:05 BP 214 / 76; Pulse 68; Pulse Ox 99% on R/A; af3 13:23 BP 205 / 59; Pulse 75; Resp 16; Pulse Ox 100% on R/A; iw 13:29 BP 172 / 55; Pulse 84; rn 14:14 BP 131 / 92; Pulse 94; Resp 19; Pulse Ox 100% on R/A; iw 11:41 Pain Scale: Adult dd2 NIH Stroke Scale Scores: 11:47 NIHSS Score: 5 rn 12:20 NIHSS Score: 2 iw 12:37 NIHSS Score: 1 iw ED Course: 11:29 Patient arrived in ED. ts1 11:32 Racheal Sanabria, DOMINIC [facility]. kb 11:32 Modesto Torre MD is Attending Physician. kb 11:33 Modesto Torre MD is Attending Physician. rn 11:44 Triage completed. dd2 11:44 Arm band placed on right wrist. dd2 11:54 Lucero Sewell, RN is Primary Nurse. iw 11:55 CT Stroke Brain w/o Contrast In Process Unspecified. EDMS 12:06 Initial lab(s) drawn, by me, sent to lab. EKG done, by ED staff, reviewed by Modesto Torre MD. Missed attempt(s): 22 gauge in left antecubital area. Bleeding controlled, band aid applied, catheter tip intact. Missed attempt(s): 22 gauge in right antecubital area. Bleeding controlled, band aid applied, catheter tip intact. Inserted saline lock: 22 gauge in left antecubital area, using aseptic technique. Blood collected. Flushed with 10 mL NS. Patient maintains SpO2 saturation greater than 95% on room air. 12:08 Patient has correct armband on for positive identification. Bed in low position. Call ph light in reach. Side rails up X 1. varnisher on. Pulse ox on. NIBP on. 12:18 Stroke CXR 1 View In Process Unspecified. EDMS 12:[address] In Process Unspecified. EDMS 12:[address] In Process Unspecified. EDMS 13:00 Inserted saline lock: 20 gauge in right antecubital area, using aseptic technique. iw Flushed with 10 mL NS. 13:48 [id number] CALLED [facility] FOR TRANSFER. sp 15:14 No provider procedures requiring assistance completed. Patient transferred, IV remains iw in place. Administered Medications: 12:20 Drug: hydrALAZINE IVP 5 mg IVP once Route: IVP; Site: left antecubital; iw 12:30 Follow up: Response: No adverse reaction; Blood pressure is unchanged iw 12:22 Drug: TNK FOR STROKE - Tenecteplase IV (Administer 10 ml NS flush BEFORE and iw AFTER tenecteplase) 0.25 mg/kg IV at per protocol once; 0.25mg/kg, MAX DOSE 25 mg, IVP over 5 seconds {Co-Signature: Jeny Phillips RN).} Route: IV; Rate: per protocol; Site: left antecubital; 12:23 Follow up: IV Status: Completed infusion iw 12:31 Drug: hydrALAZINE IVP 5 mg IVP once Route: IVP; Site: left antecubital; iw 12:40 Follow up: Response: No adverse reaction; Blood pressure is unchanged iw 12:47 CANCELLED (Duplicate Order): labetalol5 mg IV at calculated rate once rn 13:19 Drug: niCARdipine IV 5 mg/hr IV at calculated rate See Administration Instructions; iw (Standard concentration 25 mg / 250 mL NS); Recommended max rate 15 mg/hr; Titrate 2.5 mg/hr as often as every 15 minutes to achieve goal (see titration policy); Goal parameter SBP less thanmmHg Route: IV; Rate: calculated rate; Site: left antecubital; 15:18 Follow up: IV Status: Infusion continued upon transfer iw 13:23 Not Given (Duplicate Order): hydralazine5 mg IVP once iw 14:12 Drug: Ondansetron IVP 4 mg IVP once; over 2 minutes Route: IVP; Site: right antecubital;iw 14:35 Follow up: Response: No adverse reaction iw Medication: 15:18 VIS not applicable for this client. iw Point of Care Testing: Blood Glucose: 11:54 Blood Glucose: 126 mg/dL; iw Ranges: Outcome: 14:10 ER care complete, transfer ordered by MD. diaz 15:15 Transferred by ground EMS . to [facility], Transfer form iw completed. X-rays sent w/ patient. 15:15 Condition: stable 15:15 Discharge instructions given to patient, family, Instructed on the need for transfer, Demonstrated understanding of instructions, 15:18 Patient left the ED. iw NIH Stroke Scale - NIH Stroke Score Date: 06/22/2025 Time: 11:47 Total Score = 5 10. Dysarthria (speech clarity - read or repeat words) - 1(Mild to Moderate) 11. Extinction and Inattention (visual/tactile/auditory/spatial/personal) - 0(No abnormality) 1a. Level of Consciousness (LOC) - 0(Alert) 1b. Level of Consciousness (LOC) (Month \T\ Age) - 0(Both) 1c. LOC Commands (Open \T\ Closes Eyes/Academy Education Director) - 0(Both) 2. Best Gaze (Lateral Gaze Paresis) - 0(Normal) 3. Visual Field Loss - 0(No visual loss) 4. Facial Palsy - 0(Normal) 5a. Left Arm: Motor (10-second hold) - 1(Drift) 5b. Right Arm: Motor (10-second hold) - 0(No drift) 6a. Left Leg: Motor (5-second hold - always test supine) - 1(Drift) 6b. Right Leg: Motor (5-second hold - always test supine) - 1(Drift) 7. Limb Ataxia (finger/nose \T\ heel/velásquez - test with eyes open) - 0(Absent) 8. Sensory Loss (pinprick arms/legs/face) - 1(Mild to moderate loss) 9. Best Language: Aphasia (description/naming/reading) - 0(No aphasia) Initials: emily NIH Stroke Scale - NIH Stroke Score Date: 06/22/2025 Time: 12:20 Total Score = 2 10. Dysarthria (speech clarity - read or repeat words) - 1(Mild to Moderate) 11. Extinction and Inattention (visual/tactile/auditory/spatial/personal) - 0(No abnormality) 1a. Level of Consciousness (LOC) - 0(Alert) 1b. Level of Consciousness (LOC) (Month \T\ Age) - 0(Both) 1c. LOC Commands (Open \T\ Closes Eyes/Academy Education Director) - 0(Both) 2. Best Gaze (Lateral Gaze Paresis) - 0(Normal) 3. Visual Field Loss - 0(No visual loss) 4. Facial Palsy - 0(Normal) 5a. Left Arm: Motor (10-second hold) - 0(No drift) 5b. Right Arm: Motor (10-second hold) - 0(No drift) 6a. Left Leg: Motor (5-second hold - always test supine) - 0(No drift) 6b. Right Leg: Motor (5-second hold - always test supine) - 0(No drift) 7. Limb Ataxia (finger/nose \T\ heel/velásquez - test with eyes open) - 0(Absent) 8. Sensory Loss (pinprick arms/legs/face) - 1(Mild to moderate loss) 9. Best Language: Aphasia (description/naming/reading) - 0(No aphasia) Initials: NIH Stroke Scale - NIH Stroke Score Date: 06/22/2025 Time: 12:37 Total Score = 1 10. Dysarthria (speech clarity - read or repeat words) - 1(Mild to Moderate) 11. Extinction and Inattention (visual/tactile/auditory/spatial/personal) - 0(No abnormality) 1a. Level of Consciousness (LOC) - 0(Alert) 1b. Level of Consciousness (LOC) (Month \T\ Age) - 0(Both) 1c. LOC Commands (Open \T\ Closes Eyes/Academy Education Director) - 0(Both) 2. Best Gaze (Lateral Gaze Paresis) - 0(Normal) 3. Visual Field Loss - 0(No visual loss) 4. Facial Palsy - 0(Normal) 5a. Left Arm: Motor (10-second hold) - 0(No drift) 5b. Right Arm: Motor (10-second hold) - 0(No drift) 6a. Left Leg: Motor (5-second hold - always test supine) - 0(No drift) 6b. Right Leg: Motor (5-second hold - always test supine) - 0(No drift) 7. Limb Ataxia (finger/nose \T\ heel/velásquez - test with eyes open) - 0(Absent) 8. Sensory Loss (pinprick arms/legs/face) - 0(Normal) 9. Best Language: Aphasia (description/naming/reading) - 0(No aphasia) Initials: Signatures: Dispatcher [employer] EDRacheal Lao, COMMUNICATIONS PROGRAM MANAGER-C COMMUNICATIONS PROGRAM MANAGER-Ckb Cara Del Rosario Irene, RN RN iw Modesto Torre MD MD rn Hall, Patricia, RN RN ph Cristiana Burns PAS PAS ts1 Rochelle Colby RN RN af3 KIEL MEDINA RN RN dd2 Jeny Watson RN ph Corrections: (The following items were deleted from the chart) 14:42 14:42 86.18 kg; [facility]
[2025-06-22 15:22] VITALS: TEMP 98.2
[2025-06-22 15:29] VITALS: O2SAT 100
[2025-06-22 15:31] VITALS: BP 131/92
== END 2025-06-22 15:18 | disposition short-term general hospital (02) ==
LOC: ER 11:27
DX: I63.9 Cerebral infarction, unspecified (principal); I10 Essential (primary) hypertension; R29.705 NIHSS score 5; E11.9 Type 2 diabetes mellitus without complications; Z86.73 Personal history of transient ischemic attack (TIA), and cerebral infarction without residual deficits
CPT/HCPCS: 92977; 93005; 85025; 80048; 36415; 85610; 82947; 85730; 84484; 70496; 70498; 70450; 71045; 99291; 99292; Q9967; J3101; J2404; J0360; J2405